=== PATIENT | male | born 1950 | race Caucasian/White ===

== ENCOUNTER 2024-10-30 18:26 | Inpatient (IN) | payer MEDICARE, OTHER, SELFPAY ==
[2024-10-30] VITALS (8 sets, daily range): BP systolic 127–160; BP diastolic 61–83; BMI 17.7; BMI 17.3
[2024-10-30] MEDS: DUONEB 3 ML INH ×2 (14:43→20:16)
--- NOTE | 2024-10-30 14:50 | ED.GENMED ---
History of Present Illness
General
Chief Complaint: Breathing Problem
Source: patient
Exam Limitations: none
Time Seen by Provider: 10/30/24 14:34
History of Present Illness
History of Present Illness:
74-year-old male never been here before but with history of COPD CHF A-fib status post ablation not currently anticoagulated due to history of gastrointestinal bleeding present complaining of increased work of breathing. This has been worsening
over the past 4 days. He notes subjective fever at home. He lives with his sister. originally he is from [facility] but has been living with his sister since June. He is not established with any physicians around here. He denies
chest pain.
Phy Exam
Physical Exam
Physical Exam:
General: Cachectic male with increased work of breathing
HEENT: Normocephalic atraumatic
Heart: Regular rate and rhythm
Lungs: Diffuse inspiratory and expiratory wheeze with prolonged expiratory phase there is a productive cough
Extremities: No cyanosis or edema
Skin: Warm no rash
Scores
Heart Failure Risk
Heart Failure Risk Score: Not Applicable
Course
Orders/Labs/Results
Orders:
Orders
10/30/24 13:55
Electrocardiogram (*1) Urgent
Reason for Study: Shortness of Breath
EKG- Treatment ONCE
10/30/24 14:08
Chest [CR Chest - 2 Views ] Urgent
Comment:
Reason For Exam: SOB
10/30/24 14:42
Ipratropium/Albuterol Sulfate [Duoneb] 3 ml .ROUTE .STK-MED ONE
10/30/24 14:43
Ipratropium/Albuterol Sulfate [Duoneb] 3 ml INH R NOW ONE
10/30/24 14:44
Dexamethasone Sod Phosphate [Decadron] 10 mg IV NOW STA
10/30/24 15:33
COVID-19 Antigen Urgent
Source: Nasal Swab
Complete Blood Count/With Diff Urgent
Comprehensive Metabolic Panel Urgent
NT-proBNP Urgent
Troponin I Urgent
Influenza A+B Rapid Molecular Urgent
[facility] Source: Nasal Swab
Specimen Description:
Abnormal Lab Results
10/30/24
15:33
RBC 3.53 L 10^6/uL
(4.70-6.10)
Hgb 10.5 L g/dL
(13.0-18.0)
Hct 34.1 L %
(39.0-52.0)
MCV 96.6 H fL
(80.0-94.0)
MCHC 30.8 L g/dL
(33.0-37.0)
Absolute Lymphs (auto) 0.8 L 10^3/uL
(1.2-3.4)
Neutrophils % 79.8 H %
(42.2-75.2)
Lymphocytes % 11.5 L %
(20.5-51.1)
Potassium 5.3 H mmol/L
(3.5-5.1)
Carbon Dioxide 33 H mmol/L
(22-30)
10/30/24 15:33
10/30/24 15:33
Vital Signs
Initial and Last Documented VS:
Initial Vital Signs
Temp Pulse Resp BP Pulse Ox
99.1 F 89 32 127/66 95
10/30/24 14:01 10/30/24 14:01 10/30/24 14:01 10/30/24 14:01 10/30/24 14:01
Last Documented Vital Signs
Temp Pulse Resp BP Pulse Ox
99.1 F 70 14 143/69 100
10/30/24 14:01 10/30/24 15:45 10/30/24 15:45 10/30/24 15:35 10/30/24 15:45
MDM/Problems Addressed
Differential Diagnosis Includes:
Shortness of breath. Differential could include COPD exacerbation versus CHF versus pneumonia versus flu or COVID.
Flu and COVID test ordered. Chest x-ray ordered. DuoNeb ordered after exam Decadron ordered. Patient currently on his baseline 4 L of oxygen but is tachypneic
*Critical Care Note
Total Time (30-74mins, 75-104mins- exclusive of procedures): Not Applicable
Update Note
Update Note:
Chest x-ray shows no obvious acute finding. Patient notes some relief with nebulizer and steroid here. Patient was in significant distress when he first came with tachypnea and increased work of breathing. Shared decision making occurred. Will
keep patient in hospital for COPD flare
ED Attending Note
-
Portions of this chart may have been created with voice recognition software.� Occasional wrong word or��sound alike� substitutions may have occurred due to the inherent limitations of voice recognition software.
Discharge Plan
Departure
Patient Disposition: Admit
Date of Disposition: 10/30/24
Time of Disposition: 16:41
Presentation/result/management discussed w/ accepting MD/DO: Hospitalist
Discharge Problem:
Acute exacerbation of chronic obstructive pulmonary disease
Referrals:
UNKNOWN - PT DOES,NOT KNOW [Family Provider] -
Interventions
Interventions:
*Risk Screen - Suicide Last Done: 10/30/24 14:01
*General Assessment Last Done: 10/30/24 14:01
*Neglect/Abuse Screening Last Done: 10/30/24 15:37
ED- Fall Risk Assessment Last Done: 10/30/24 15:37
*ED COVID-19 Vaccine History Last Done: 10/30/24 14:01
ED- Cardiac Assessment Last Done: 10/30/24 15:45
ED- Pulmonary Assessment Last Done: 10/30/24 15:45
Discharge Date and Time
Print Language: LATVIAN
[2024-10-30] MEDS: DECADRON 10 MG IV (15:31)
[2024-10-30 15:48] LABS: % Basophils 0.4 % (0-2); % Eosinophils 0.1 % (0-6); % Immature Granulocytes 0.4 % (0-0.5); % Lymphocytes 11.5 % (20.5-51.1); % Monocytes 7.8 % (1.7-9.3); % Neutrophils 79.8 % (42.2-75.2); Absolute Lymphocytes 0.8 10^3/uL (1.2-3.4); Absolute Monocytes 0.6 10^3/uL (0.1-0.6); Absolute Neutrophils 5.8 10^3/uL (1.4-6.5); Hematocrit 34.1 % (39.0-52.0); Hemoglobin 10.5 g/dL (13.0-18.0); Mean Corp Hgb Conc. 30.8 g/dL (33.0-37.0); Mean Corpuscular Hgb 29.7 pg (27.0-31.0); Mean Corpuscular Volume 96.6 fL (80.0-94.0); Mean Platelet Volume 9.3 fL (7.4-10.4); Nucleated Red Blood Cells % 0 % (-); Platelet Count 312 10^3/uL (130-400); Red Blood Cell Count 3.53 10^6/uL (4.70-6.10); Red Cell Dist. Width 13.4 % (11.5-14.5); White Blood Cell Count 7.3 10^3/uL (4.8-10.8)
[2024-10-30 16:04] LABS: ALT (SGPT) 14 U/L (0-50); AST (SGOT) 27 U/L (17-59); Albumin 3.7 g/dl (3.5-5.0); Alkaline Phosphatase 38 U/L (38-126); Blood Urea Nitrogen 14 mg/dl (9-20); Calcium 9.9 mg/dl (8.4-10.2); Carbon Dioxide 33 mmol/L (22-30); Chloride 100 mmol/L (98-107); Estimated Creatinine Clearance 71 ml/min; Glucose 97 mg/dl (70-99); Potassium 5.3 mmol/L (3.5-5.1); Sodium 138 mmol/L (135-145); Total Bilirubin 0.5 mg/dl (0.2-1.3); Total Protein 6.5 g/dl (6.3-8.2); eGFR > 60.00
[2024-10-30 16:12] LABS: NT-proBNP 625 pg/ml; Troponin I 0.018 ng/ml
[2024-10-30 16:15] LABS: COVID-19 Antigen Negative (Negative)
--- NOTE | 2024-10-30 17:42 | HPS.HSE ---
Family Physician
-
Family Physician: NOT KNOW UNKNOWN - PT DOES
Chief Complaint
-
Shortness of breath
History of Present Illness
Patient 74-year-old male with history of COPD, CHF, A-fib, hypertension, hyperlipidemia, GERD, BPH, anxiety depression, came into the hospital with shortness of breath. Patient has been experiencing difficulty breathing associated with cough with
green sputum production over the last 5 days associated with subjective fevers, no chills, no chest pain. No leg pain or swelling. No abdominal pain nausea or vomiting. Patient uses 4 L of oxygen at baseline. He typically goes to [place] for his
medical care but he moved back in June to his sister's and he is staying locally but he tells me he still sees his PCP in a regular basis. In the ER he had a chest x-ray that shows no acute pathology but he was in respiratory distress and he was
given IV steroids and bronchodilators. He was referred to hospitalist service for further evaluation.
Medical History
Past Medical History
Past Medical History: Reports Other (COPD, CHF, A-fib, hypertension, hyperlipidemia, GERD, BPH, anxiety depression)
Past Surgical History: Reports None
Social History
Tobacco: Former Smoker
Alcohol: None
Drug: None
Family History
Family History: Not pertinent
Allergies / Home Medications
Allergies reflects when Allergies were last updated in [employer].
Home Medications with original date entered in [employer]
Allergy/Medication List:
Allergies
Allergy/AdvReac Type Severity Reaction Status Date / Time
No Known Allergies Allergy Unverified 10/30/24 14:06
Home Medications
Lactobac no.2-Bifidobac no.1-S. thermo 112.5 billion cell capsule (Visbiome) 1 cap PO DAILY 10/30/24
albuterol sulfate 90 mcg/actuation aerosol inhaler 2 puff inhalation R Q6HPRN PRN sob 10/30/24
alfuzosin 10 mg tablet,extended release 24 hr 10 mg PO DAILY 10/30/24
apixaban 5 mg tablet (Eliquis) 5 mg PO BID 10/30/24
atorvastatin 40 mg tablet 40 mg PO DAILY 10/30/24
buspirone 5 mg tablet 5 mg PO BID 10/30/24
diltiazem HCl 180 mg capsule,extended release 24 hr (Cardizem CD) 180 mg PO DAILY 10/30/24
finasteride 5 mg tablet 5 mg PO DAILY 10/30/24
fluticasone fur. 200 mcg-umeclid 62.5 mcg-vilant 25 mcg inhalat.powder (Trelegy Ellipta) 1 inh inhalation R DAILY 10/30/24
furosemide 20 mg tablet 20 mg PO BID 10/30/24
gabapentin 300 mg capsule 300 mg PO BID 10/30/24
magnesium oxide 250 mg PO BID 10/30/24
pantoprazole 40 mg tablet,delayed release 40 mg PO DAILY 10/30/24
potassium chloride 10 mEq tablet,extended release 10 meq PO BID 10/30/24
sildenafil (pulm.hypertension) 20 mg tablet 20 mg PO DAILY 10/30/24
therapeutic multivitamin 1 tab PO DAILY 10/30/24
Review of Systems
-
A 12 point ROS was completed and negative except as noted: Yes
Physical Exam
Vital Signs
Vital Signs
Temp Pulse Resp BP Pulse Ox
99.1 F 70 14 143/69 100
10/30/24 14:01 10/30/24 15:45 10/30/24 15:45 10/30/24 15:35 10/30/24 15:45
Physical exam:
General: Acutely ill
HEENT: Normocephalic, Atraumatic and Moist Mucous Membranes
Respiratory: Bilateral wheezes, some rhonchi, no crackles.
Cardiac: Regular Rhythm and S1/S2
GI: Soft, Nontender and Nondistended
Musculoskeletal: No Clubbing, No Cyanosis and trace Edema
Neuro: Awake, Alert and Oriented
Psych: Calm
Physical Exam
General: Other
Laboratory Results
-
10/30/24 15:33
10/30/24 15:33
Laboratory Results
Total Bilirubin 0.5 mg/dl (0.2-1.3) 10/30/24 15:33
AST 27 U/L (17-59) 10/30/24 15:33
ALT 14 U/L (0-50) 10/30/24 15:33
Alkaline Phosphatase 38 U/L (38-126) 10/30/24 15:33
Troponin I 0.018 ng/ml 10/30/24 15:33
Data Reviewed
-
Diagnostic Radiology: Image Personally Visualized and interpreted
Lab Data: Labs Reviewed by me
Impression/Plan
-
IMPRESSION:
Patient 74-year-old male with multiple comorbidities presented to the hospital with acute COPD exacerbation. Given patient's acute presentation and comorbidities he is at increased risk of morbidity and mortality therefore needs to be in the
hospital for further evaluation.
PLAN:
Acute COPD exacerbation:
IV steroids, dexamethasone 4 mg every 6 hours
DuoNeb 4 times daily
Start oral azithromycin
Pulmicort twice daily
Obtain sputum culture
Acute respiratory insufficiency:
Seen chest x-ray and no pneumonia
COVID and influenza negative
Oxygen supplementation
Carbon dioxide/bicarb on Chem-7 mildly elevated but mentation stable-if any of those two get worse then can consider ABG.
Monitor respiratory status closely
Chronic hypoxic respiratory failure on home oxygen:
Continue oxygen (at home he is on 4 L)
Hyperkalemia:
Mild and likely due to potassium supplementation
Hold potassium
If potassium goes above 5.5 or any cardiac issues then will treat with Lokelma
Monitor for now
Cardiac monitoring
Pulmonary hypertension:
Continue oral sildenafil
Hypertension:
Continue home antihypertensives
Hyperlipidemia:
Continue statins
Paroxysmal A-fib:
Continue rate control, Cardizem CD 180 mg p.o. daily
Continue anticoagulation, Eliquis 5 mg p.o. twice a day--> ER documented not on anticoagulation due to bleeding but when I asked the patient he says that he is on anticoagulation and taking Eliquis. For now we will continue and will clarify with
collateral down the road.
Cardiac monitoring
Chronic diastolic CHF:
Euvolemic
Continue oral diuretic
Holding potassium supplement for now
Anemia:
Monitor hemoglobin
No signs of bleeding
BPH:
Continue finasteride
DVT prophylaxis:
Eliquis
CODE STATUS:
Full code
Time spent 75 minutes
[2024-10-30] MEDS: ZITHROMAX 500 MG PO (19:14)
[2024-10-30] MEDS: PULMICORT 0.5 MG INH (20:16)
[2024-10-30] MEDS: LASIX 20 MG PO (20:57)
[2024-10-30] MEDS: BUSPAR 5 MG PO (20:58)
[2024-10-30] MEDS: ELIQUIS 5 MG PO (20:58)
[2024-10-30] MEDS: MAGNESIUM OXIDE 250 MG PO (20:58)
[2024-10-30] MEDS: NEURONTIN 300 MG PO (20:58)
[2024-10-30] MEDS: DECADRON 4 MG IV (22:46)
[2024-10-31 03:22] VITALS: BP 129/43
[2024-10-31] MEDS: DECADRON 4 MG IV ×4 (03:26→21:48)
--- NOTE | 2024-10-31 04:23 | PTCARENOTE ---
Pt arrived to unit from ED at approx 2009. Patient transferred self onto bed from transport bed. Alert and oriented x 3. On 4 L Oxygen via nasal cannula. Oriented to room. Call zhang within reach.
[2024-10-31 05:43] VITALS: BMI 17.3
[2024-10-31 06:31] LABS: % Immature Granulocytes 0.7 % (0-0.5); % Monocytes 1.2 % (1.7-9.3); % Neutrophils 89.1 % (42.2-75.2); Absolute Lymphocytes 0.4 10^3/uL (1.2-3.4); Absolute Monocytes 0.1 10^3/uL (0.1-0.6); Absolute Neutrophils 3.6 10^3/uL (1.4-6.5); Hematocrit 32.9 % (39.0-52.0); Hemoglobin 10.5 g/dL (13.0-18.0); Mean Corp Hgb Conc. 31.9 g/dL (33.0-37.0); Mean Corpuscular Hgb 29.7 pg (27.0-31.0); Mean Corpuscular Volume 92.9 fL (80.0-94.0); Mean Platelet Volume 9.7 fL (7.4-10.4); Nucleated Red Blood Cells % 0 % (-); Platelet Count 343 10^3/uL (130-400); Red Blood Cell Count 3.54 10^6/uL (4.70-6.10); Red Cell Dist. Width 13.2 % (11.5-14.5); White Blood Cell Count 4.1 10^3/uL (4.8-10.8)
[2024-10-31 07:15] VITALS: BP 155/72
[2024-10-31] MEDS: BUSPAR 5 MG PO ×2 (08:25→20:10)
[2024-10-31] MEDS: NEURONTIN 300 MG PO ×2 (08:25→20:10)
[2024-10-31] MEDS: CARDIZEM CD 180 MG PO (08:25)
[2024-10-31] MEDS: LIPITOR 40 MG PO (08:25)
[2024-10-31] MEDS: MAGNESIUM OXIDE 250 MG PO ×2 (08:25→20:11)
[2024-10-31] MEDS: FLOMAX 0.4 MG PO (08:25)
[2024-10-31] MEDS: REVATIO 20 MG PO (08:25)
[2024-10-31] MEDS: LASIX 20 MG PO ×2 (08:26→15:15)
[2024-10-31] MEDS: PROTONIX 40 MG PO (08:26)
[2024-10-31] MEDS: PROSCAR 5 MG PO (08:26)
[2024-10-31] MEDS: ELIQUIS 5 MG PO ×2 (08:26→20:11)
[2024-10-31] MEDS: ZITHROMAX 500 MG PO (08:27)
[2024-10-31] MEDS: PULMICORT 0.5 MG INH ×2 (08:28→19:11)
[2024-10-31] MEDS: DUONEB 3 ML INH ×4 (08:29→19:11)
--- NOTE | 2024-10-31 08:52 | W.PN.HOSP.TC ---
Today's Communication/Plan
-
IV steroids. Bronchodilators. Pulmonary eval
Assessment / Plan
Assessment / Plan
Physical exam:
General: Acutely ill but nontoxic
HEENT: Normocephalic, Atraumatic and Moist Mucous Membranes
Respiratory: Decreased breath sounds bilateral, bilateral wheezes but much less. No crackles
Cardiac: Regular Rhythm and S1/S2
GI: Soft, Nontender and Nondistended
Musculoskeletal: No Clubbing, No Cyanosis and No Edema
Neuro: Awake, Alert and Oriented
Psych: Calm
A/P:
Acute COPD exacerbation:
IV steroids, dexamethasone 4 mg every 6 hours
DuoNeb 4 times daily
Continue oral azithromycin
Pulmicort twice daily
Obtain sputum culture
Pulmonary eval
PT OT
Acute respiratory insufficiency:
Seen chest x-ray and no pneumonia
COVID and influenza negative
Oxygen supplementation
Carbon dioxide/bicarb on Chem-7 mildly elevated but mentation stable-if any of those two get worse then can consider ABG.
Monitor respiratory status closely
Chronic hypoxic respiratory failure on home oxygen:
Continue oxygen (at home he is on 4 L)
Hyperkalemia:
Improved
Pulmonary hypertension:
Continue oral sildenafil
Hypertension:
Continue home antihypertensives
Hyperlipidemia:
Continue statins
Paroxysmal A-fib:
Continue rate control, Cardizem CD 180 mg p.o. daily
Continue anticoagulation, Eliquis 5 mg p.o. twice a day
Cardiac monitoring
Chronic diastolic CHF:
Euvolemic
Continue oral diuretic
Holding potassium supplement for now
Anemia:
Monitor hemoglobin
No signs of bleeding
BPH:
Continue finasteride
DVT prophylaxis:
Eliquis
CODE STATUS:
Full code
Anticipated Discharge: 24 - 48 hours
Subjective/Interval History
-
Date of Service: October 31, 2024
Patient feels better today; still cough and shortness of breath but much less. Afebrile
Objective Data
-
Labs:
Laboratory Results
10/31/24
06:09
WBC 4.1 L
Hgb 10.5 L
Hct 32.9 L
Plt Count 343
Vital Signs:
Vital Signs
Temp Pulse Resp BP Pulse Ox
98.6 F 87 19 155/72 98
10/31/24 07:15 10/31/24 08:33 10/31/24 08:33 10/31/24 07:15 10/31/24 08:33
I&O
10/30/24 10/31/24 11/01/24
06:59 06:59 06:59
Intake Total 240 / 240 420 / 420
Output Total 650 / 650 125 / 125
Balance -410 / -410 295 / 295
[2024-10-31 10:18] LABS: Blood Urea Nitrogen 18 mg/dl (9-20); Calcium 9.6 mg/dl (8.4-10.2); Carbon Dioxide 31 mmol/L (22-30); Chloride 96 mmol/L (98-107); Estimated Creatinine Clearance 61 ml/min; Glucose 295 mg/dl (70-99); Potassium 4.6 mmol/L (3.5-5.1); Sodium 136 mmol/L (135-145); eGFR > 60.00
[2024-10-31 10:38] VITALS: BMI 17.3
[2024-10-31 11:11] VITALS: BP 115/54
[2024-10-31 12:02] LABS: Glucose - Point of Care 242 mg/dl (70-99)
--- NOTE | 2024-10-31 12:30 | CM ---
Pt seen bedside, initial assessment completed. Admitted for shortness of breath. Pt recently moved from [place].
Pt reports that he lives w/ his sister in a split level home- no steps. Pt says he resides on the second flr of the home. Pt reports that he is independent w/ ambulating, does not require any device. Pt states he is on continuous O2 at 4L. Pt states
that he does not have a supplier yet as he gets O2 refills from [facility]. Pt states he has a neb machine.
Pt denies any SNF/VN/PT hx.
PCP: Dr. Meeks
Pharmacy: [facility]
Plan: CM will cont to follow for d/c planning
[2024-10-31] MEDS: NOVOLOG FLEXPEN-MODERATE RESISTANCE 3 UNITS SC (12:40)
[2024-10-31 14:12] LABS: Hepatitis C Antibody Negative (Negative)
[2024-10-31 15:11] VITALS: BP 97/63
[2024-10-31] MEDS: TYLENOL 650 MG PO ×2 (15:14→21:50)
[2024-10-31] MEDS: LIDOCAINE 4% PATCH 1 PATCH TOPICAL (15:14)
[2024-10-31 17:00] LABS: Glucose - Point of Care 153 mg/dl (70-99)
[2024-10-31] MEDS: NOVOLOG FLEXPEN-MODERATE RESISTANCE 1 UNITS SC (17:11)
[2024-10-31 19:48] VITALS: BP 102/58
[2024-10-31 21:58] LABS: Glucose - Point of Care 245 mg/dl (70-99)
[2024-10-31] MEDS: REFRESH EYE DROPS (PF) 1 DROPS OPHTH (22:20)
[2024-10-31 23:43] VITALS: BP 132/65
[2024-11-01] VITALS (8 sets, daily range): BP systolic 111–144; BP diastolic 51–78; PULSE 81–82; O2SAT 97–98; BMI 18.0
[2024-11-01] MEDS: DECADRON 4 MG IV ×4 (04:26→20:52)
[2024-11-01 07:15] LABS: Blood Urea Nitrogen 30 mg/dl (9-20); Calcium 9.8 mg/dl (8.4-10.2); Carbon Dioxide 34 mmol/L (22-30); Chloride 98 mmol/L (98-107); Estimated Creatinine Clearance 63 ml/min; Glucose 141 mg/dl (70-99); Potassium 4.8 mmol/L (3.5-5.1); Sodium 136 mmol/L (135-145); eGFR > 60.00
[2024-11-01 07:28] LABS: Glucose - Point of Care 147 mg/dl (70-99)
[2024-11-01] MEDS: PULMICORT 0.5 MG INH ×2 (08:29→19:20)
[2024-11-01] MEDS: DUONEB 3 ML INH ×4 (08:29→19:20)
[2024-11-01] MEDS: NOVOLOG FLEXPEN-MODERATE RESISTANCE SC ×2 (08:38→17:05)
[2024-11-01] MEDS: MAGNESIUM OXIDE 250 MG PO ×2 (08:40→20:53)
[2024-11-01] MEDS: PROTONIX 40 MG PO (08:40)
[2024-11-01] MEDS: LIDOCAINE 4% PATCH 1 PATCH TOPICAL (08:40)
[2024-11-01] MEDS: NEURONTIN 300 MG PO ×2 (08:41→20:53)
[2024-11-01] MEDS: ZITHROMAX 500 MG PO (08:41)
[2024-11-01] MEDS: REVATIO 20 MG PO (08:41)
[2024-11-01] MEDS: FLOMAX 0.4 MG PO (08:41)
[2024-11-01] MEDS: LIPITOR 40 MG PO (08:41)
[2024-11-01] MEDS: CARDIZEM CD 180 MG PO (08:41)
[2024-11-01] MEDS: BUSPAR 5 MG PO ×2 (08:42→20:52)
[2024-11-01] MEDS: LASIX 20 MG PO ×2 (08:42→15:29)
[2024-11-01] MEDS: PROSCAR 5 MG PO (08:42)
[2024-11-01] MEDS: ELIQUIS 5 MG PO ×2 (08:42→20:53)
--- NOTE | 2024-11-01 09:16 | W.PN.HOSP.TC ---
Today's Communication/Plan
-
Steroids. Bronchodilators. Oral antibiotic
Assessment / Plan
Assessment / Plan
Physical exam:
General: Acutely ill but nontoxic
HEENT: Normocephalic, Atraumatic and Moist Mucous Membranes
Respiratory: Decreased breath sounds bilateral, bilateral wheezes but much less. No crackles
Cardiac: Regular Rhythm and S1/S2
GI: Soft, Nontender and Nondistended
Musculoskeletal: No Clubbing, No Cyanosis and No Edema
Neuro: Awake, Alert and Oriented
Psych: Calm
A/P:
Acute COPD exacerbation:
IV steroids, dexamethasone 4 mg every 6 hours
DuoNeb 4 times daily
Continue oral azithromycin
Pulmicort twice daily
Obtain sputum culture
Pulmonary consult appreciated
PT OT
Acute respiratory insufficiency:
Seen chest x-ray and no pneumonia
COVID and influenza negative
Oxygen supplementation
Monitor respiratory status closely
Chronic hypoxic respiratory failure on home oxygen:
Continue oxygen (at home he is on 4 L)
Hyperkalemia:
Improved
Pulmonary hypertension:
Continue oral sildenafil
Hypertension:
Continue home antihypertensives
Hyperlipidemia:
Continue statins
Paroxysmal A-fib:
Continue rate control, Cardizem CD 180 mg p.o. daily
Continue anticoagulation, Eliquis 5 mg p.o. twice a day
Cardiac monitoring
Chronic diastolic CHF:
Euvolemic
Continue oral diuretic
Holding potassium supplement for now
Anemia:
Monitor hemoglobin
No signs of bleeding
BPH:
Continue finasteride
DVT prophylaxis:
Eliquis
CODE STATUS:
Full code
Anticipated Discharge: 24 - 48 hours
Subjective/Interval History
-
Date of Service: November 01, 2024
Patient feels better overall, less shortness of breath, still having some cough. Afebrile
Objective Data
-
Labs:
Laboratory Results
11/01/24
05:58
Sodium 136
Potassium 4.8
Chloride 98
Carbon Dioxide 34 H
BUN 30 H
Creatinine 0.8
Glucose 141 H
Calcium 9.8
Vital Signs:
Vital Signs
Temp Pulse Resp BP Pulse Ox
98.7 F 88 16 140/60 99
11/01/24 07:30 11/01/24 08:29 11/01/24 08:29 11/01/24 07:30 11/01/24 08:29
I&O
10/31/24 11/01/24 11/02/24
06:59 06:59 06:59
Intake Total 240 / 240 1260 / 1260
Output Total 650 / 650 850 / 850
Balance -410 / -410 410 / 410
[2024-11-01 10:03] LABS: Glycohemoglobin (HgbA1c) 5.7 % (4.0-5.6)
[2024-11-01 12:36] LABS: Glucose - Point of Care 163 mg/dl (70-99)
[2024-11-01] MEDS: NOVOLOG FLEXPEN-MODERATE RESISTANCE 1 UNITS SC (12:52)
--- NOTE | 2024-11-01 14:04 | PTCARENOTE ---
11/01/2024 PRE-DIABETES EDUCATOIN
I met with Thomas to review pre-diabetes management, his blood glucose levels are currently in prediabetes range. Educated on cause of pre diabetes as possibly medications and importance of monitoring once home.
I educated and reviewed using Contour Next glucometer, member acknowledged understanding with a self demonstration of BS.
Discussed normal target glucose ranges and a monitoring schedule. I reinforced signs of hyperglycemia, hypoglycemia; BS parameters and written material provided. Educated on drinking water, physical activity to lower glucose levels and
hypoglycemia protocol. Encouraged patient to follow up with his PCP for post d/c appointment and to blood glucose levels. Information provided on the outpatient pre-diabetes program. Patient verbalized understanding.
--- NOTE | 2024-11-01 15:39 | CON.PUL ---
Consultation
Consultation Request
Date/Time Consultation Requested: 11/01/2024
Date/Time Consultation Performed: 11/01/2024
Requesting Provider:
Performing Provider: Dr. Jayden Bland
Reason for Consultation: Acute exacerbation of COPD
Medical History
-
History of Present Illness:
74-year-old man with history of COPD, heart failure, atrial fibrillation, hypertension, hyperlipidemia, GERD, BPH, anxiety and depression who came to the hospital with shortness of breath. Patient apparently has been having difficulty with cough,
green sputum over the last 5 to 6 days associated with fevers, denies any chest pain or chills. Denies hemoptysis.
Denies PND, orthopnea leg edema.
At baseline patient wears 4 L of supplemental oxygen.
He recently moved to this area from [place] in June.
Chest x-ray in the emergency room is clear but patient has been admitted for therapy of possible exacerbation of COPD due to acute bronchitis
I was consulted on 11/01/2024 for evaluation
Past Medical History
Past Medical History: Other (See assessment and plan)
Social History
Tobacco: Former Smoker
Alcohol: None
Drug: None
Family History
Family History: Reviewed & Not Pertinent
Allergies / Home Medications
Allergies
Allergy/AdvReac Type Severity Reaction Status Date / Time
No Known Allergies Allergy Unverified 10/30/24 14:06
Home Medications
�Medication �Instructions �Recorded �Confirmed �Last Taken �Type
Lactobac no.2-Bifidobac no.1-S. 1 cap PO DAILY Supplement 10/30/24 10/30/24 Unknown History
thermo 112.5 billion cell capsule
(Visbiome)
albuterol sulfate 90 mcg/actuation 2 puff inhalation R Q6HPRN PRN sob 10/30/24 10/30/24 Unknown History
aerosol inhaler
alfuzosin 10 mg tablet,extended 10 mg PO DAILY BPH 10/30/24 10/30/24 Unknown History
release 24 hr
apixaban 5 mg tablet (Eliquis) 5 mg PO BID Blood Clot 10/30/24 10/30/24 Unknown History
Prevention/Tx
atorvastatin 40 mg tablet 40 mg PO DAILY High Cholesterol 10/30/24 10/30/24 Unknown History
buspirone 5 mg tablet 5 mg PO BID Mental Health/Anxiety 10/30/24 10/30/24 Unknown History
diltiazem HCl 180 mg 180 mg PO DAILY Blood Pressure 10/30/24 10/30/24 Unknown History
capsule,extended release 24 hr
(Cardizem CD)
finasteride 5 mg tablet 5 mg PO DAILY BPH 10/30/24 10/30/24 Unknown History
fluticasone fur. 200 mcg-umeclid 1 inh inhalation R DAILY 10/30/24 10/30/24 Unknown History
62.5 mcg-vilant 25 mcg Lung/Breathing Issues
inhalat.powder (Trelegy Ellipta)
furosemide 20 mg tablet 20 mg PO BID Fluid 10/30/24 10/30/24 Unknown History
Retention/Swelling
gabapentin 300 mg capsule 300 mg PO BID Pain 10/30/24 10/30/24 Unknown History
magnesium oxide 250 mg PO BID Supplement 10/30/24 10/30/24 Unknown History
pantoprazole 40 mg tablet,delayed 40 mg PO DAILY GERD 10/30/24 10/30/24 Unknown History
release
potassium chloride 10 mEq 10 meq PO BID Supplement 10/30/24 10/30/24 Unknown History
tablet,extended release
sildenafil (pulm.hypertension) 20 20 mg PO DAILY PHTN 10/30/24 10/30/24 Unknown History
mg tablet
therapeutic multivitamin 1 tab PO DAILY Supplement 10/30/24 10/30/24 Unknown History
Review of Systems
-
History Source: Patient
All other systems: Negative unless noted
Vitals / Labs / Diagnostic Testing
Vital Signs
Temp Pulse Resp BP Pulse Ox
98.1 F 88 18 111/51 96
11/01/24 11:30 11/01/24 15:31 11/01/24 15:31 11/01/24 11:30 11/01/24 15:31
Lab Data
10/31/24 06:09
11/01/24 05:58
Microbiology
10/30/24 21:38 Sputum Respiratory Culture - Preliminary
Usual Respiratory Keke
10/30/24 21:38 Sputum Gram Stain - Preliminary
10/30/24 15:33 Nasal Swab Influenza Types A & B (DOREEN) - Final
Negative for Influenza A & B, NAAT
Negative results must be combined with clinical observations
and patient history.
Nucleic Acid Amplification test (NAAT)performed on the
[employer] platform.
Diagnostic Testing:
Physical Exam
-
HEENT: Normocephalic
Cardiovascular: S1/S2
Respiratory: Wheeze
GI: Soft and Non Distended
Neurology: Awake, Alert, AO x 3 and No Motor Deficits
Skin: Warm
General: Comfortable
Assessment
-
74-year-old man with past medical history noted. Came to the hospital complaining of cough, increased phlegm production. Shortness of breath. Admitted for acute exacerbation of COPD. Usually does not care locally. He recently relocated from
[place]. We were consulted on 11/01/2024 for evaluation.
Acute exacerbation of COPD-acute tracheobronchitis
Chest x-ray: Reviewed, hyperinflation, no acute infiltrates noted.
[id number] reason-no prior based
Conditions present prior admission:
COPD-on 4 L of oxygen
Unknown PFTs. Does not follow-up locally
On Trelegy
Chronic hypoxemic respiratory failure on 4 L
Pulmonary hypertension-unknown mechanism on sildenafil
Hyperlipidemia
Atrial fibrillation on anticoagulation
Chronic heart failure with preserved ejection fraction
Anemia
BPH
Assessment and plan:
Clinical picture consistent with acute exacerbation of COPD likely tracheobronchitis.
There is no fevers or leukocytosis.
He does have discolored sputum
Agree with azithromycin
For now while on exacerbation: Agree with Pulmicort twice a day
DuoNebs 4 times a day and as needed
IV corticosteroids-without change for today.
Acapella device
Continue ox supplementation 4 L at baseline.
Hold inhalers while on nebulizer therapy.
-
Obtain a sputum culture if able-pending
---
Continue sildenafil for pulmonary hypertension. Unclear mechanism. Patient does not recall what Given this medication.
He would like to establish care locally
-
He does report that usually he gets 3-4 exacerbations per year. May be a candidate for low-dose macrolide therapy. Will readdress this in the outpatient setting.
Will need full pulmonary function testing etc.
May benefit from pulmonary habilitation as well.
-
DVT prophylaxis-on full anticoagulation
-
Will follow
[2024-11-01 16:48] LABS: Glucose - Point of Care 147 mg/dl (70-99)
[2024-11-01] MEDS: TYLENOL 650 MG PO (20:51)
[2024-11-01] MEDS: SENOKOT-S 1 TABLET PO (20:52)
[2024-11-01 21:23] LABS: Glucose - Point of Care 223 mg/dl (70-99)
[2024-11-02] VITALS (8 sets, daily range): BP systolic 126–137; BP diastolic 57–80; PULSE 63; O2SAT 99; BMI 18.5
[2024-11-02] MEDS: DECADRON 4 MG IV ×4 (04:48→20:28)
[2024-11-02 07:30] LABS: Glucose - Point of Care 138 mg/dl (70-99)
[2024-11-02] MEDS: PULMICORT 0.5 MG INH ×2 (07:49→20:04)
[2024-11-02] MEDS: DUONEB 3 ML INH ×4 (07:49→20:04)
[2024-11-02] MEDS: LASIX 20 MG PO ×2 (08:00→15:56)
[2024-11-02] MEDS: BUSPAR 5 MG PO ×2 (08:00→20:28)
[2024-11-02] MEDS: CARDIZEM CD 180 MG PO (08:00)
[2024-11-02] MEDS: LIPITOR 40 MG PO (08:00)
[2024-11-02] MEDS: ELIQUIS 5 MG PO ×2 (08:00→20:27)
[2024-11-02] MEDS: LIDOCAINE 4% PATCH 1 PATCH TOPICAL (08:00)
[2024-11-02] MEDS: MAGNESIUM OXIDE 250 MG PO ×2 (08:05→20:27)
[2024-11-02] MEDS: NOVOLOG FLEXPEN-MODERATE RESISTANCE SC ×3 (08:05→16:31)
[2024-11-02] MEDS: ZITHROMAX 500 MG PO (08:05)
[2024-11-02] MEDS: PROTONIX 40 MG PO (08:06)
[2024-11-02] MEDS: NEURONTIN 300 MG PO ×2 (08:06→20:27)
[2024-11-02] MEDS: PROSCAR 5 MG PO (08:07)
[2024-11-02] MEDS: REVATIO 20 MG PO (08:07)
[2024-11-02] MEDS: FLOMAX 0.4 MG PO (08:07)
[2024-11-02] MEDS: TYLENOL 650 MG PO ×3 (08:10→20:27)
--- NOTE | 2024-11-02 09:07 | W.PN.HOSP.TC ---
Addendum entered and electronically signed by Christopher David MD 11/02/24 16:52:
Hyponatremia
Diabetes Mellitus type 2
Addendum entered and electronically signed by Christopher David MD 11/02/24 14:20:
Reported episodes of tachycardia--> twelve-lead EKG, telemetry, check stat BMP and magnesium.
Pain at nighttime--> Ultram as needed.
Original Note:
Today's Communication/Plan
-
Steroids. Bronchodilators. Antibiotic
Assessment / Plan
Assessment / Plan
Physical exam:
General: Acutely ill but nontoxic
HEENT: Normocephalic, Atraumatic and Moist Mucous Membranes
Respiratory: Decreased breath sounds bilateral, bilateral wheezes but much less. No crackles
Cardiac: Regular Rhythm and S1/S2
GI: Soft, Nontender and Nondistended
Musculoskeletal: No Clubbing, No Cyanosis and No Edema
Neuro: Awake, Alert and Oriented
Psych: Calm
A/P:
Acute COPD exacerbation:
IV steroids, dexamethasone 4 mg every 6 hours--> can likely start tapering but we will wait for pulmonary recommendations.
Add Mucinex today
DuoNeb 4 times daily
Continue oral azithromycin
Pulmicort twice daily
Obtain sputum culture
Pulmonary consult appreciated
PT OT
Acute respiratory insufficiency:
Seen chest x-ray and no pneumonia
COVID and influenza negative
Oxygen supplementation
Monitor respiratory status closely
Chronic hypoxic respiratory failure on home oxygen:
Continue oxygen (at home he is on 4 L)
Hyperkalemia:
Improved
Pulmonary hypertension:
Continue oral sildenafil
Hypertension:
Continue home antihypertensives
Hyperlipidemia:
Continue statins
Paroxysmal A-fib:
Continue rate control, Cardizem CD 180 mg p.o. daily
Continue anticoagulation, Eliquis 5 mg p.o. twice a day
Cardiac monitoring
Chronic diastolic CHF:
Euvolemic
Continue oral diuretic
Holding potassium supplement for now
Anemia:
Monitor hemoglobin
No signs of bleeding
BPH:
Continue finasteride
DVT prophylaxis:
Eliquis
CODE STATUS:
Full code
Anticipated Discharge: 24 - 48 hours
Subjective/Interval History
-
Date of Service: November 02, 2024
Patient feels better overall. Does complaint I cannot get the phlegm out
Objective Data
-
Vital Signs:
Vital Signs
Temp Pulse Resp BP Pulse Ox
98.4 F 72 18 132/79 94
11/02/24 07:30 11/02/24 07:53 11/02/24 07:53 11/02/24 07:30 11/02/24 07:53
I&O
11/01/24 11/02/24 11/03/24
06:59 06:59 06:59
Intake Total 1260 / 1260 1060 / 1060
Output Total 850 / 850 2099 / 2099
Balance 410 / 410 -1040 / -1040
[2024-11-02 12:12] LABS: Glucose - Point of Care 139 mg/dl (70-99)
--- NOTE | 2024-11-02 12:20 | PTCARENOTE ---
11/02- Patient had 3 runs of RVR AFib with HR between 135-155. Each run lasted ~1-2seconds each and self-resolved. HR currently is at 98 still in AFib. Patient is AAOX3, Skin=warm/pink/dry with +PulsesX4. Patient has no reports of CP or SOB.
However he does report spells of dizziness. He states, 'I'm just sedrick it only lasted 1-2 seconds this time. At home, it'll last for minutes.' Educated on when to call physician and when to seek immediate medical care. Notified Cardiology
Physician.
[2024-11-02] MEDS: MUCINEX 600 MG PO ×2 (13:41→20:27)
[2024-11-02 15:06] LABS: Blood Urea Nitrogen 37 mg/dl (9-20); Calcium 9.6 mg/dl (8.4-10.2); Carbon Dioxide 37 mmol/L (22-30); Chloride 94 mmol/L (98-107); Estimated Creatinine Clearance 58 ml/min; Glucose 190 mg/dl (70-99); Magnesium 2.3 mg/dl (1.6-2.3); Potassium 4.7 mmol/L (3.5-5.1); Sodium 134 mmol/L (135-145); eGFR > 60.00
--- NOTE | 2024-11-02 15:39 | CM ---
CM reviewed chart, patient seen bedside. CM discussed PT recommendations of VN, patient agreeable to referral to [facility]. TT to [facility] liaison with referral. CM will continue to follow for all discharge planning needs.
Plan; home with [facility] pending acceptance, on home O2
--- NOTE | 2024-11-02 15:42 | W.PN.PUL3 ---
Today's Communication / Plan
-
Continue IV corticosteroid
Continue nebulizer
Continue secretion clearance interventions
Continue azithromycin
Oxygen supplementation at baseline
To establish care locally
Will follow
Assessment
-
74-year-old man with past medical history noted. Came to the hospital complaining of cough, increased phlegm production. Shortness of breath. Admitted for acute exacerbation of COPD. Usually does not care locally. He recently relocated from
[place]. We were consulted on 11/01/2024 for evaluation.
Acute exacerbation of COPD-acute tracheobronchitis
Chest x-ray: Reviewed, hyperinflation, no acute infiltrates noted.
Vjjuiu-[id number] reason-no prior based
Conditions present prior admission:
COPD-on 4 L of oxygen
Unknown PFTs. Does not follow-up locally
On Trelegy
Chronic hypoxemic respiratory failure on 4 L
Pulmonary hypertension-unknown mechanism on sildenafil
Hyperlipidemia
Atrial fibrillation on anticoagulation
Chronic heart failure with preserved ejection fraction
Anemia
BPH
Assessment and plan:
Clinical picture consistent with acute exacerbation of COPD likely tracheobronchitis.
-
There is no fevers or leukocytosis.
He does have discolored sputum
Continue azithromycin
For now while on exacerbation:
Continue nebulized Pulmicort twice a day.
DuoNebs 4 times a day and as needed
IV corticosteroids-without change for today. If improved can start tapering tomorrow.
Acapella device-encourage
Continue ox supplementation 4 L at baseline.
Hold inhalers while on nebulizer therapy.
-
Sputum culture with mold. Likely contaminant. Usual respiratory noelle.
Negative influenza
---
Continue sildenafil for pulmonary hypertension. Unclear mechanism. Patient does not recall what Given this medication. He seems stable.
He would like to establish care locally
-
He does report that usually he gets 3-4 exacerbations per year. May be a candidate for low-dose macrolide therapy. Will readdress this in the outpatient setting.
Will need full pulmonary function testing etc.
May benefit from pulmonary habilitation as well.
-
DVT prophylaxis-on full anticoagulation
-
Will follow
Subjective Data
-
Date of Service:
Date of Service: November 02, 2024
Chief Complaint: Pulmonary Follow Up (Acute exacerbation of COPD)
Subjective:
Continues to report cough and chest congestion
Denies hemoptysis
Still feels short of breath
Review of Systems
Cardiopulmonary: Dyspnea, Cough and Sputum Production
Objective Data
Data Reviewed
Vital Signs / I&O / Oxygen:
Vital Signs
Temp Pulse Resp BP Pulse Ox
98.2 F 60 18 127/57 100
11/02/24 11:00 11/02/24 11:00 11/02/24 11:00 11/02/24 11:00 11/02/24 11:00
Intake and Output
11/01/24 11/02/24 11/03/24
06:59 06:59 06:59
Intake Total 1260 / 1260 1060 / 1060
Output Total 850 / 850 2100 / 2100
Balance 410 / 410 -1040 / -1040
SaO2 100
Nasal Cannula flow liters per 4
minute
Physical Exam
General: Comfortable
HEENT: Normocephalic
Cardiovascular: S1-S2
Respiratory: Wheeze and Rhonchi
GI: Soft and Non Distended
Neurology: Awake and No Motor Deficits
Skin: Warm
Labs/Micro/Reports
Lab Data
10/31/24 06:09
11/02/24 14:45
Microbiology
10/30/24 21:38 Sputum Respiratory Culture - Final
Mold
10/30/24 21:38 Sputum Gram Stain - Final
10/30/24 15:33 Nasal Swab Influenza Types A & B (DOREEN) - Final
Negative for Influenza A & B, NAAT
Negative results must be combined with clinical observations
and patient history.
Nucleic Acid Amplification test (NAAT)performed on the
RABBL platform.
--- NOTE | 2024-11-02 16:31 | VNURNOTE ---
Addendum entered by Eloise Padilla RN 11/05/24 11:11:
VN spoke with patient at bedside. He is agreeable to [facility]. He stated 02 DME co. in [place] was [facility]. He has an Inogen, portable tanks, and 02 concentrator through DME co in [place]. He has a neb machine. He stated he also used a
second DME co from [place] but could not remember the name. Message left with [facility]. Patient has moved in with sister in [place]. Will set him up with a local DME co, he is agreeable. He will need new home 02 testing and Rx closer to [place]. CM
Lydia updated.
Original Note:
Home Health Liaison called patient to discuss [facility] nurse/therapy, visits, schedule and homebound status. Patient is agreeable and understands that visits at home will be 2-3 x per week to assess and teach medical management. No answer, left
message. Unclear who home 02 DME provider is and if needs to switch providers since recently moved. [facility] referral completed in [facility].
[2024-11-02] MEDS: MIRALAX 17 GRAMS PO (16:32)
[2024-11-02 16:35] LABS: Glucose - Point of Care 135 mg/dl (70-99)
[2024-11-02] MEDS: GLUCOPHAGE 500 MG PO (17:53)
[2024-11-02 21:18] LABS: Glucose - Point of Care 222 mg/dl (70-99)
[2024-11-02] MEDS: ULTRAM 50 MG PO (21:18)
[2024-11-03] MEDS: DECADRON 4 MG IV ×3 (03:25→15:37)
[2024-11-03 03:31] LABS: Glucose - Point of Care 151 mg/dl (70-99)
[2024-11-03 06:00] VITALS: BMI 17.4
[2024-11-03] MEDS: TYLENOL 650 MG PO ×2 (06:22→20:22)
[2024-11-03 07:00] VITALS: BP 141/67
[2024-11-03 07:20] LABS: Glucose - Point of Care 151 mg/dl (70-99)
[2024-11-03] MEDS: PULMICORT 0.5 MG INH ×2 (08:04→20:42)
[2024-11-03] MEDS: DUONEB 3 ML INH ×4 (08:05→20:42)
[2024-11-03 08:29] LABS: Blood Urea Nitrogen 33 mg/dl (9-20); Calcium 9.4 mg/dl (8.4-10.2); Carbon Dioxide 35 mmol/L (22-30); Chloride 94 mmol/L (98-107); Estimated Creatinine Clearance 61 ml/min; Glucose 137 mg/dl (70-99); Sodium 135 mmol/L (135-145); eGFR > 60.00
[2024-11-03] MEDS: NOVOLOG FLEXPEN-MODERATE RESISTANCE 1 UNITS SC (08:41)
[2024-11-03] MEDS: LIDOCAINE 4% PATCH 1 PATCH TOPICAL (08:42)
[2024-11-03] MEDS: FLOMAX 0.4 MG PO (08:43)
[2024-11-03] MEDS: MAGNESIUM OXIDE 250 MG PO ×2 (08:43→20:18)
[2024-11-03] MEDS: REVATIO 20 MG PO (08:43)
[2024-11-03] MEDS: ZITHROMAX 500 MG PO (08:43)
[2024-11-03] MEDS: PROTONIX 40 MG PO (08:43)
[2024-11-03] MEDS: GLUCOPHAGE 500 MG PO ×2 (08:44→17:32)
[2024-11-03] MEDS: LASIX 20 MG PO ×2 (08:44→15:36)
[2024-11-03] MEDS: MUCINEX 600 MG PO ×2 (08:44→20:19)
[2024-11-03] MEDS: NEURONTIN 300 MG PO ×2 (08:44→20:19)
[2024-11-03] MEDS: CARDIZEM CD 180 MG PO (08:44)
[2024-11-03] MEDS: BUSPAR 5 MG PO ×2 (08:44→20:19)
[2024-11-03] MEDS: LIPITOR 40 MG PO (08:45)
[2024-11-03] MEDS: ELIQUIS 5 MG PO ×2 (08:45→20:19)
[2024-11-03] MEDS: PROSCAR 5 MG PO (08:45)
--- NOTE | 2024-11-03 09:30 | W.PN.HOSP.TC ---
Today's Communication/Plan
-
IV steroids. Bronchodilators. Metformin.
Assessment / Plan
Assessment / Plan
Physical exam:
General: Acutely ill but nontoxic
HEENT: Normocephalic, Atraumatic and Moist Mucous Membranes
Respiratory: Decreased breath sounds bilateral, bilateral wheezes but less. No crackles
Cardiac: Regular Rhythm and S1/S2
GI: Soft, Nontender and Nondistended
Musculoskeletal: No Clubbing, No Cyanosis and No Edema
Neuro: Awake, Alert and Oriented
Psych: Calm
A/P:
Acute COPD exacerbation:
IV steroids, dexamethasone 4 mg every 6 hours--> will taper today to 4 mg every 8 hours.
Add Mucinex today
DuoNeb 4 times daily
Continue oral azithromycin
Pulmicort twice daily
Obtain sputum culture
Pulmonary consult appreciated
PT OT
Acute respiratory insufficiency:
Seen chest x-ray and no pneumonia
COVID and influenza negative
Oxygen supplementation
Monitor respiratory status closely
Chronic hypoxic respiratory failure on home oxygen:
Continue oxygen (at home he is on 4 L)
Hyponatremia:
Monitor trend
Diabetes mellitus type 2 (new onset):
No DKA or nonketotic state
Started on metformin
Diabetic diet
Diabetic education
Insulin sliding scale
Hyperkalemia:
Improved
Pulmonary hypertension:
Continue oral sildenafil
Hypertension:
Continue home antihypertensives
Hyperlipidemia:
Continue statins
Paroxysmal A-fib:
Continue rate control, Cardizem CD 180 mg p.o. daily
Continue anticoagulation, Eliquis 5 mg p.o. twice a day
Cardiac monitoring
Chronic diastolic CHF:
Euvolemic
Continue oral diuretic
Holding potassium supplement for now
Anemia:
Monitor hemoglobin
No signs of bleeding
BPH:
Continue finasteride
DVT prophylaxis:
Eliquis
CODE STATUS:
Full code
Anticipated Discharge: 24 - 48 hours
Subjective/Interval History
-
Date of Service: November 03, 2024
Patient still with cough and shortness of breath. Afebrile
Objective Data
-
Labs:
Laboratory Results
11/03/24
05:48
Sodium 135
Potassium 5.0
Chloride 94 L
Carbon Dioxide 35 H
BUN 33 H
Creatinine 0.8
Glucose 137 H
Calcium 9.4
Vital Signs:
Vital Signs
Temp Pulse Resp BP Pulse Ox
97.3 F 69 18 141/67 100
11/03/24 07:00 11/03/24 07:00 11/03/24 08:09 11/03/24 07:00 11/03/24 08:09
I&O
11/02/24 11/03/24 11/04/24
06:59 06:59 06:59
Intake Total 1060 / 1060 840 / 840
Output Total 2100 / 2099 1300 / 1300
Balance -1040 / -1040 -460 / -460
[2024-11-03 11:00] VITALS: BP 112/56
[2024-11-03 11:38] LABS: Glucose - Point of Care 243 mg/dl (70-99)
[2024-11-03] MEDS: NOVOLOG FLEXPEN-MODERATE RESISTANCE 3 UNITS SC ×2 (12:40→17:31)
[2024-11-03 15:11] VITALS: BP 103/55
[2024-11-03] MEDS: MUCOMYST 10% 2 ML INH ×2 (15:29→20:45)
--- NOTE | 2024-11-03 15:50 | W.PN.PUL3 ---
Today's Communication / Plan
-
Continue IV corticosteroid --> consider weaning down tomorrow if he continues to improve
Continue Pulmicort + DuoNebs
Continue secretion clearance interventions
Start prn Mucinex
Continue azithromycin
Oxygen supplementation at baseline
To establish care locally
Will follow
Assessment
-
74-year-old man with past medical history noted. Came to the hospital complaining of cough, increased phlegm production. Shortness of breath. Admitted for acute exacerbation of COPD. Usually does not care locally. He recently relocated from
[place]. We were consulted on 11/01/2024 for evaluation.
Acute exacerbation of COPD-acute tracheobronchitis
Chest x-ray: Reviewed, hyperinflation, no acute infiltrates noted.
[id number] prior available for comparison
Conditions present prior admission:
COPD-on 4 L of oxygen
Unknown PFTs. Does not follow-up locally
On Trelegy
Chronic hypoxemic respiratory failure on 4 L
Pulmonary hypertension-unknown mechanism on sildenafil
Hyperlipidemia
Atrial fibrillation on anticoagulation
Chronic heart failure with preserved ejection fraction
Anemia
BPH
Assessment and plan:
Clinical picture consistent with acute exacerbation of COPD likely tracheobronchitis.
-
There is no fevers or leukocytosis.
He does have discolored sputum
Continue azithromycin (started 10/30)
Start Mucomyst 10% prn
Continue Pulmicort BID + DuoNebs QID with prn DuoNebs
IV corticosteroids-without change for today. If improved can start tapering tomorrow to 4mg IV q12hr
Acapella device-encourage
Continue ox supplementation 4 L at baseline.
Hold Trelegy while on nebulizer therapy --> resume Trelegy upon discharge
-
Sputum culture with mold. Likely contaminant. Usual respiratory noelle.
Negative for influenza A + B
---
Continue sildenafil 20mg daily for pulmonary hypertension. Unclear mechanism. Patient does not recall what Dr gave him this medication. He seems stable.
He would like to establish care locally
-
He does report that usually he gets 3-4 exacerbations per year. May be a candidate for low-dose macrolide therapy vs Ohtuvayre. Will readdress this in the outpatient setting.
Will need full pulmonary function testing etc.
May benefit from pulmonary habilitation as well.
-
DVT prophylaxis-on full anticoagulation
-
Will follow
Total time spent today was 36 minutes for this encounter. Time includes reviewing laboratory test/imaging results, reviewing pertinent medical records, obtaining and reviewing medical history, performing an appropriate exam, ordering medications,
tests and procedures. Time also includes documentation of this encounter, coordinating patient care and communicating with other healthcare professionals. Total time does not include separately billed tests performed on this date of service.
Subjective Data
-
Date of Service:
Date of Service: November 03, 2024
Chief Complaint: Pulmonary Follow Up (Acute exacerbation of COPD)
Subjective:
Patient seen and evaluated this morning (late note entry). Currently on 4 L/min nasal cannula, still short of breath, similar to yesterday. Has thick mucus that he is having difficulty bringing up. Denies chest pain, TSAI, nausea, fevers or chills.
Review of Systems
General: Other (Negative unless mentioned above)
Objective Data
Data Reviewed
Vital Signs / I&O / Oxygen:
Vital Signs
Temp Pulse Resp BP Pulse Ox
97.3 F 69 18 141/67 100
11/03/24 07:00 11/03/24 07:00 11/03/24 08:09 11/03/24 07:00 11/03/24 08:09
Intake and Output
11/02/24 11/03/24 11/04/24
06:59 06:59 06:59
Intake Total 1060 / 1060 840 / 840
Output Total 2100 / 2100 1300 / 1300
Balance -1040 / -1040 -460 / -460
SaO2 100
Nasal Cannula flow liters per 4
minute
Physical Exam
General: Respiratory Distress (negative), Comfortable, Chills (negative) and Sweats (negative)
HEENT: Normocephalic and Anicteric
Cardiovascular: S1-S2 and Peripheral Edema (negative)
Respiratory: Wheeze (negative), Crackles (negative), Rhonchi, Stridor (negative) and Other (Diminished breath sounds bilaterally)
GI: Soft, Non Distended, Non Tender and Normal Bowel Sounds
Neurology: Awake, Alert and Tremors (negative)
Skin: Warm, Dry, Cyanosis (negative) and Jaundice (negative)
Labs/Micro/Reports
Lab Data
10/31/24 06:09
11/03/24 05:48
Microbiology
10/30/24 21:38 Sputum Respiratory Culture - Final
Mold
10/30/24 21:38 Sputum Gram Stain - Final
[2024-11-03 17:13] LABS: Glucose - Point of Care 216 mg/dl (70-99)
[2024-11-03 19:05] VITALS: BP 146/62
[2024-11-03] MEDS: SENOKOT-S 1 TABLET PO (20:19)
[2024-11-03] MEDS: ULTRAM 50 MG PO (20:21)
[2024-11-03] MEDS: ROBITUSSIN AC 5 ML PO (22:09)
[2024-11-03 22:13] LABS: Glucose - Point of Care 155 mg/dl (70-99)
[2024-11-03 23:18] VITALS: BP 140/60
[2024-11-04] MEDS: DECADRON 4 MG IV ×3 (00:26→20:26)
[2024-11-04 03:01] VITALS: BP 126/72
[2024-11-04 05:53] VITALS: BMI 17.3
[2024-11-04] MEDS: PULMICORT 0.5 MG INH ×2 (07:24→19:15)
[2024-11-04] MEDS: DUONEB 3 ML INH ×4 (07:24→19:15)
[2024-11-04 07:28] LABS: Glucose - Point of Care 155 mg/dl (70-99)
[2024-11-04 07:34] VITALS: BP 148/69
[2024-11-04 07:55] LABS: Blood Urea Nitrogen 37 mg/dl (9-20); Calcium 9.6 mg/dl (8.4-10.2); Carbon Dioxide 36 mmol/L (22-30); Chloride 91 mmol/L (98-107); Estimated Creatinine Clearance 54 ml/min; Glucose 140 mg/dl (70-99); Potassium 4.9 mmol/L (3.5-5.1); Sodium 133 mmol/L (135-145); eGFR > 60.00
[2024-11-04 08:00] VITALS: BMI 17.3
[2024-11-04] MEDS: NOVOLOG FLEXPEN-MODERATE RESISTANCE 1 UNITS SC ×2 (08:11→11:44)
[2024-11-04] MEDS: LIDOCAINE 4% PATCH 1 PATCH TOPICAL (08:12)
[2024-11-04] MEDS: LASIX 20 MG PO ×2 (08:13→15:29)
[2024-11-04] MEDS: MAGNESIUM OXIDE 250 MG PO ×2 (08:13→20:26)
[2024-11-04] MEDS: CARDIZEM CD 180 MG PO (08:13)
[2024-11-04] MEDS: LIPITOR 40 MG PO (08:13)
[2024-11-04] MEDS: PROTONIX 40 MG PO (08:13)
[2024-11-04] MEDS: ZITHROMAX 500 MG PO (08:13)
[2024-11-04] MEDS: PROSCAR 5 MG PO (08:13)
[2024-11-04] MEDS: GLUCOPHAGE 500 MG PO ×2 (08:14→15:29)
[2024-11-04] MEDS: MUCINEX 600 MG PO ×2 (08:14→20:25)
[2024-11-04] MEDS: REVATIO 20 MG PO (08:14)
[2024-11-04] MEDS: NEURONTIN 300 MG PO ×2 (08:14→20:25)
[2024-11-04] MEDS: BUSPAR 5 MG PO ×2 (08:14→20:25)
[2024-11-04] MEDS: ELIQUIS 5 MG PO ×2 (08:14→20:25)
[2024-11-04] MEDS: FLOMAX 0.4 MG PO (08:14)
--- NOTE | 2024-11-04 09:20 | W.PN.HOSP.TC ---
Today's Communication/Plan
-
Tapering IV steroids. Continue bronchodilators and oral diuretic.
Assessment / Plan
Assessment / Plan
Physical exam:
General: Acutely ill but nontoxic
HEENT: Normocephalic, Atraumatic and Moist Mucous Membranes
Respiratory: Decreased breath sounds bilateral, bilateral wheezes but much less. No crackles
Cardiac: Regular Rhythm and S1/S2
GI: Soft, Nontender and Nondistended
Musculoskeletal: No Clubbing, No Cyanosis and No Edema
Neuro: Awake, Alert and Oriented
Psych: Calm
A/P:
Acute COPD exacerbation:
IV steroids, dexamethasone 4 mg every 6 hours--> down to 4 mg every 8 hours yesterday--> today taper down to 4 mg IV every 12 hours and can consider switch to oral tomorrow.
Continue Mucinex today
DuoNeb 4 times daily
Continue oral azithromycin
Pulmicort twice daily
Obtain sputum culture
Pulmonary consult and follow-up appreciated
PT OT
Acute respiratory insufficiency:
Seen chest x-ray and no pneumonia
COVID and influenza negative
Oxygen supplementation
Monitor respiratory status closely
Chronic hypoxic respiratory failure on home oxygen:
Continue oxygen (at home he is on 4 L)
Hyponatremia:
Start fluid restriction
Monitor trend
Diabetes mellitus type 2 (new onset):
No DKA or nonketotic state
Started on metformin
Diabetic diet
Diabetic education
Insulin sliding scale
Hyperkalemia:
Improved
Pulmonary hypertension:
Continue oral sildenafil
Hypertension:
Continue home antihypertensives
Hyperlipidemia:
Continue statins
Paroxysmal A-fib:
Continue rate control, Cardizem CD 180 mg p.o. daily
Continue anticoagulation, Eliquis 5 mg p.o. twice a day
Cardiac monitoring
Chronic diastolic CHF:
Euvolemic
Continue oral diuretic
Holding potassium supplement for now
Anemia:
Monitor hemoglobin
No signs of bleeding
BPH:
Continue finasteride
DVT prophylaxis:
Eliquis
CODE STATUS:
Full code
Anticipated Discharge: Within 24 hours
Subjective/Interval History
-
Date of Service: November 04, 2024
Patient feels better, less shortness of breath, less cough. No chest pain. Afebrile
Objective Data
-
Labs:
Laboratory Results
11/04/24
05:48
Sodium 133 L
Potassium 4.9
Chloride 91 L
Carbon Dioxide 36 H
BUN 37 H
Creatinine 0.9
Glucose 140 H
Calcium 9.6
Vital Signs:
Vital Signs
Temp Pulse Resp BP Pulse Ox
98.3 F 60 16 148/69 100
11/04/24 07:34 11/04/24 08:04 11/04/24 08:04 11/04/24 07:34 11/04/24 08:04
I&O
11/03/24 11/04/24 11/05/24
06:59 06:59 06:59
Intake Total 840 / 840 1580 / 1580
Output Total 1300 / 1300 200 / 200
Balance -460 / -460 1380 / 1380
[2024-11-04 10:46] VITALS: BP 123/52
[2024-11-04 10:56] LABS: Glucose - Point of Care 192 mg/dl (70-99)
[2024-11-04] MEDS: MUCOMYST 10% 2 ML INH ×2 (11:06→15:11)
--- NOTE | 2024-11-04 13:20 | W.PN.PUL3 ---
Today's Communication / Plan
-
Continue IV corticosteroid --> consider weaning down tomorrow if he continues to improve and if wheezing is improved
Continue Pulmicort + DuoNebs
Continue secretion clearance interventions
Continue prn mucomyst
Start vest therapy if patient continues to have difficulty with expectoration
Start scheduled Tessalon Perles
Continue azithromycin
Oxygen supplementation at baseline
To establish care locally
Will follow
Assessment
-
74-year-old man with past medical history noted. Came to the hospital complaining of cough, increased phlegm production. Shortness of breath. Admitted for acute exacerbation of COPD. Usually does not care locally. He recently relocated from
[place]. We were consulted on 11/01/2024 for evaluation.
Acute exacerbation of COPD-acute tracheobronchitis
Chest x-ray: Reviewed, hyperinflation, no acute infiltrates noted.
[id number] prior available for comparison
Conditions present prior admission:
COPD-on 4 L of oxygen
Unknown PFTs. Does not follow-up locally
On Trelegy
Chronic hypoxemic respiratory failure on 4 L
Pulmonary hypertension-unknown mechanism on sildenafil
Hyperlipidemia
Atrial fibrillation on anticoagulation
Chronic heart failure with preserved ejection fraction
Anemia
BPH
Assessment and plan:
Clinical picture consistent with acute exacerbation of COPD likely tracheobronchitis.
-
There is no fevers or leukocytosis.
He does have discolored sputum
Continue azithromycin (started 10/30)
Continue Mucomyst 10% prn (started 11/03/2024)
Continue Pulmicort BID + DuoNebs QID with prn DuoNebs
IV corticosteroids-without change for today as he is wheezing. If improved can start tapering tomorrow to 4mg IV q12hr
Acapella device-encourage
May need vest therapy if he continues to have difficulty with expectoration
Continue ox supplementation 4 L at baseline.
Hold Trelegy while on nebulizer therapy --> resume Trelegy upon discharge
-
Sputum culture with mold. Likely contaminant. Usual respiratory noelle.
Negative for influenza A + B
---
Continue sildenafil 20mg daily for pulmonary hypertension. Unclear mechanism. Patient does not recall what Dr gave him this medication. He seems stable.
He would like to establish care locally
-
He does report that usually he gets 3-4 exacerbations per year. May be a candidate for low-dose macrolide therapy vs Ohtuvayre. Will readdress this in the outpatient setting.
Will need full pulmonary function testing etc.
May benefit from pulmonary habilitation as well.
-
DVT prophylaxis-on full anticoagulation
-
Will follow
Total time spent today was 41 minutes for this encounter. Time includes reviewing laboratory test/imaging results, reviewing pertinent medical records, obtaining and reviewing medical history, performing an appropriate exam, ordering medications,
tests and procedures. Time also includes documentation of this encounter, coordinating patient care and communicating with other healthcare professionals. Total time does not include separately billed tests performed on this date of service.
Subjective Data
-
Date of Service:
Date of Service: November 04, 2024
Chief Complaint: Pulmonary Follow Up (Acute exacerbation of COPD)
Subjective:
Patient seen and evaluated today at bedside. He says he feels better today. Currently on 4 L/min nasal cannula. Still short of breath with activity and the nebulizers do help him feel better. He has a mild cough which sounds wet and he has
difficulty bringing up phlegm. Of note, he wears 4 L/min nasal cannula at home ATC. He denies chest pain, TSAI, nausea, fevers or chills.
Review of Systems
General: Other (Negative unless mentioned above)
Objective Data
Data Reviewed
Vital Signs / I&O / Oxygen:
Vital Signs
Temp Pulse Resp BP Pulse Ox
98.3 F 60 16 148/69 100
11/04/24 07:34 11/04/24 08:04 11/04/24 08:04 11/04/24 07:34 11/04/24 08:04
Intake and Output
11/03/24 11/04/24 11/05/24
06:59 06:59 06:59
Intake Total 840 / 840 1580 / 1580
Output Total 1300 / 1300 200 / 200
Balance -460 / -460 1380 / 1380
SaO2 100
Nasal Cannula flow liters per 4
minute
Physical Exam
General: Respiratory Distress (negative), Comfortable, Chills (negative) and Sweats (negative)
HEENT: Normocephalic and Anicteric
Cardiovascular: S1-S2 and Peripheral Edema (negative)
Respiratory: Wheeze ([place] upon expiration bilaterally), Crackles (negative), Rhonchi (L >R), Stridor (negative) and Other (Diminished breath sounds bilaterally)
GI: Soft, Non Distended, Non Tender and Normal Bowel Sounds
Neurology: Awake, Alert and Tremors (negative)
Skin: Warm, Dry, Cyanosis (negative) and Jaundice (negative)
Labs/Micro/Reports
Lab Data
10/31/24 06:09
11/04/24 05:48
Microbiology
10/30/24 21:38 Sputum Respiratory Culture - Final
Mold
10/30/24 21:38 Sputum Gram Stain - Final
[2024-11-04 14:52] VITALS: BP 132/55
[2024-11-04 15:15] LABS: Glucose - Point of Care 141 mg/dl (70-99)
[2024-11-04] MEDS: NOVOLOG FLEXPEN-MODERATE RESISTANCE SC (15:28)
[2024-11-04] MEDS: TESSALON PERLES 200 MG PO ×2 (15:28→22:27)
[2024-11-04] MEDS: TYLENOL 650 MG PO (16:35)
[2024-11-04 19:42] VITALS: BP 120/64
[2024-11-04] MEDS: ULTRAM 50 MG PO (20:36)
[2024-11-04 21:45] LABS: Glucose - Point of Care 188 mg/dl (70-99)
[2024-11-04] MEDS: ROBITUSSIN AC 5 ML PO (22:27)
[2024-11-04 23:10] VITALS: BP 139/56
[2024-11-05 03:36] VITALS: BP 150/65
[2024-11-05 06:00] VITALS: BMI 17.7
[2024-11-05] MEDS: PULMICORT 0.5 MG INH ×2 (07:21→20:19)
[2024-11-05] MEDS: DUONEB 3 ML INH ×4 (07:21→20:20)
[2024-11-05 07:26] LABS: Glucose - Point of Care 145 mg/dl (70-99)
[2024-11-05 07:34] VITALS: BP 153/69
[2024-11-05 08:06] LABS: Blood Urea Nitrogen 34 mg/dl (9-20); Calcium 9.5 mg/dl (8.4-10.2); Carbon Dioxide 34 mmol/L (22-30); Chloride 92 mmol/L (98-107); Estimated Creatinine Clearance 62 ml/min; Glucose 127 mg/dl (70-99); Potassium 4.6 mmol/L (3.5-5.1); Sodium 132 mmol/L (135-145); eGFR > 60.00
[2024-11-05] MEDS: NOVOLOG FLEXPEN-MODERATE RESISTANCE SC (09:16)
[2024-11-05] MEDS: ZITHROMAX 500 MG PO (09:17)
[2024-11-05] MEDS: MAGNESIUM OXIDE 250 MG PO ×2 (09:17→20:04)
[2024-11-05] MEDS: PROTONIX 40 MG PO (09:18)
[2024-11-05] MEDS: REVATIO 20 MG PO (09:18)
[2024-11-05] MEDS: CARDIZEM CD 180 MG PO (09:18)
[2024-11-05] MEDS: LIPITOR 40 MG PO (09:19)
[2024-11-05] MEDS: MUCINEX 600 MG PO ×2 (09:19→20:04)
[2024-11-05] MEDS: GLUCOPHAGE 500 MG PO (09:19)
[2024-11-05] MEDS: ELIQUIS 5 MG PO ×2 (09:19→20:05)
[2024-11-05] MEDS: PROSCAR 5 MG PO (09:20)
[2024-11-05] MEDS: DECADRON 4 MG IV (09:20)
[2024-11-05] MEDS: NEURONTIN 300 MG PO ×2 (09:20→20:04)
[2024-11-05] MEDS: FLOMAX 0.4 MG PO (09:20)
[2024-11-05] MEDS: LIDOCAINE 4% PATCH 1 PATCH TOPICAL (09:21)
[2024-11-05] MEDS: TESSALON PERLES 200 MG PO ×3 (09:21→21:48)
[2024-11-05] MEDS: LASIX 20 MG PO ×2 (09:22→17:33)
[2024-11-05] MEDS: BUSPAR 5 MG PO ×2 (09:23→20:05)
--- NOTE | 2024-11-05 10:27 | W.PN.HOSP.TC ---
Today's Communication/Plan
-
still wheezing - slow recovery. cont same steroids
Assessment / Plan
Assessment / Plan
74yo M with chronic hypoxic respiratory failure on 4L home O2 2/2 COPD, Afib on Eliquis,HLD, BPH, anxiety came with worsening SOB and managed for acute COPD exacerbation
A/P:
#CHronic hypoxic respiratory failure on 4L O2
#Acute COPD exacerbation
COVID-19 and influenza neg
No pneumonia
Taper steroids, cont bronchodilators
Risk Tech follows
Trop WNL, ProBNP minimally elevated <800 on admission, no overt ACS signs on repeated EKG and no volume overload clinically
#Hyprglycemia 2/2 steroids w/o over DM
stop metformin
#Mild anemia
#mild hyponatremia
monitro
#transient hyperkalemia
resolved
#Paroxysmal Afib
#Essential HTN
#GERD
#HLD
#BPH
cont home meds
DVT ppx on Eliquis
Full code
I have spent at least 38min reviewing chart, test results and providing direct patient care
Anticipated Discharge: > 48 hours
Subjective/Interval History
-
Date of Service: November 05, 2024
Objective Data
-
Labs:
Laboratory Results
11/05/24
07:01
Sodium 132 L
Potassium 4.6
Chloride 92 L
Carbon Dioxide 34 H
BUN 34 H
Creatinine 0.8
Glucose 127 H
Calcium 9.5
Vital Signs:
Vital Signs
Temp Pulse Resp BP Pulse Ox
97.9 F 62 18 153/99 97
11/05/24 07:34 11/05/24 09:18 11/05/24 07:34 11/05/24 09:18 11/05/24 07:34
I&O
11/04/24 11/05/24 11/06/24
06:59 06:59 06:59
Intake Total 1580 / 1580 1320 / 1320
Output Total 200 / 200 1100 / 1100
Balance 1380 / 1380 220 / 220
Review of Systems
-
History Source: Patient
All other systems: Reviewed and negative
Respiratory: Reports Trouble Breathing and Wheezing
Physical Exam
-
General: Comfortable
HEENT: Normocephalic
Respiratory: Wheezes
Cardiac: Irregular Rhythm
GI: Soft, Nontender and Nondistended
Musculoskeletal: No Clubbing, No Cyanosis and No Edema
Neuro: Awake, Alert, Oriented and AO x 3
Psych: Calm
[2024-11-05 11:05] LABS: Glucose - Point of Care 222 mg/dl (70-99)
--- NOTE | 2024-11-05 11:07 | W.PN.PUL3 ---
Today's Communication / Plan
-
Remains on 4L NC, home O2 eval
Encouraged OOB, IS
Transition to PO taper today
Continued on home dose of lasix, nebulizers
Eval for d/c planning in next 24 hours
Assessment
-
74-year-old man with past medical history noted. Came to the hospital complaining of cough, increased phlegm production. Shortness of breath. Admitted for acute exacerbation of COPD. Usually does not care locally. He recently relocated from
[place]. We were consulted on 11/01/2024 for evaluation.
Acute exacerbation of COPD-acute tracheobronchitis
Chest x-ray: Reviewed, hyperinflation, no acute infiltrates noted.
Auqvwx-vymgvaquxk-mx prior available for comparison
Conditions present prior admission:
COPD-on 4 L of oxygen
Unknown PFTs. Does not follow-up locally
On Trelegy
Chronic hypoxemic respiratory failure on 4 L
Pulmonary hypertension-unknown mechanism on sildenafil
Hyperlipidemia
Atrial fibrillation on anticoagulation
Chronic heart failure with preserved ejection fraction
Anemia
BPH
Plan:
Clinical picture consistent with acute exacerbation of COPD likely tracheobronchitis.
Currently 99% on 4L NC
Home O2 eval
Encouraged OOB
There is no fevers or leukocytosis.
He does have discolored sputum
Continue azithromycin (started 10/30)
Continue Mucomyst 10% prn (started 11/03/2024)
Continue Pulmicort BID + DuoNebs QID with prn DuoNebs
IV corticosteroids-without change for today as he is wheezing--taper today to PO
Acapella device-encourage
May need vest therapy if he continues to have difficulty with expectoration
Continue ox supplementation 4 L at baseline.
Hold Trelegy while on nebulizer therapy --> resume Trelegy upon discharge
-
Sputum culture with mold. Likely contaminant. Usual respiratory noelle.
Negative for influenza A + B
Continue sildenafil 20mg daily for pulmonary hypertension. Unclear mechanism. Patient does not recall what Dr gave him this medication. He seems stable.
He would like to establish care locally
-
He does report that usually he gets 3-4 exacerbations per year. May be a candidate for low-dose macrolide therapy vs Ohtuvayre. Will readdress this in the outpatient setting.
Will need full pulmonary function testing etc.
May benefit from pulmonary habilitation as well.
-
DVT prophylaxis-on full anticoagulation
-
Will follow
Diagnostic Data
CXR 10/30/24- Somewhat hyperinflated lungs. No acute pulmonary process. Central pulmonary arteries at least top normal.
-----
Total time spent today was 51 minutes for this encounter. Time includes reviewing laboratory test/imaging results, reviewing pertinent medical records, obtaining and reviewing medical history, performing an appropriate exam, ordering medications,
tests and procedures. Time also includes documentation of this encounter, coordinating patient care and communicating with other healthcare professionals. Total time does not include separately billed tests performed on this date of service.
Subjective Data
-
Date of Service:
Date of Service: November 05, 2024
Chief Complaint: Pulmonary Follow Up (Acute exacerbation of COPD)
Subjective:
No new complaints, remains SOB with exertion
Remains on 4L 99%
Objective Data
Data Reviewed
Vital Signs / I&O / Oxygen:
Vital Signs
Temp Pulse Resp BP Pulse Ox
97.9 F 62 18 153/99 97
11/05/24 07:34 11/05/24 09:18 11/05/24 07:34 11/05/24 09:18 11/05/24 07:34
Intake and Output
11/04/24 11/05/24 11/06/24
06:59 06:59 06:59
Intake Total 1580 / 1580 1320 / 1320
Output Total 200 / 200 1100 / 1100
Balance 1380 / 1380 220 / 220
SaO2 97
Nasal Cannula flow liters per 4
minute
Physical Exam
General: Respiratory Distress (negative), Comfortable, Chills (negative) and Sweats (negative)
HEENT: Normocephalic, Anicteric and Moist Mucous Membranes
Cardiovascular: S1-S2, Regular Rhythm and Peripheral Edema (negative)
Respiratory: Wheeze ([place] upon expiration bilaterally, slight/improving), Crackles (negative), Rhonchi (L >R), Stridor (negative) and Other (Diminished breath sounds bilaterally)
GI: Soft, Non Distended, Non Tender and Normal Bowel Sounds
Neurology: Awake, Alert, Oriented and Tremors (negative)
Skin: Warm, Dry, Cyanosis (negative) and Jaundice (negative)
Labs/Micro/Reports
Lab Data
10/31/24 06:09
11/05/24 07:01
Microbiology
10/30/24 21:38 Sputum Respiratory Culture - Final
Mold
10/30/24 21:38 Sputum Gram Stain - Final
[2024-11-05 11:20] VITALS: BP 112/54
[2024-11-05] MEDS: NOVOLOG FLEXPEN-MODERATE RESISTANCE 3 UNITS SC (11:55)
[2024-11-05 15:16] VITALS: BP 132/77
--- NOTE | 2024-11-05 15:17 | VNURNOTE ---
Rec'ed updated info that patient is also current with [facility]. Confirmed that they service the [facility]. Patient needs to call them at old branch ([facility]) to inform them that he's moved and they will transfer his info to local branch.
Liaison met with patient and informed him of above. He confirms he has portables, [employer], and concentrator at [facility].
--- NOTE | 2024-11-05 15:19 | CM ---
Chart reviewed for d/c planning. Care ongoing at this time. Cont steroids
Remains on 4L NC, home O2 eval prior to d/c
[facility] accepted for services, following for O2 needs
Plan: Home w/ [facility] when stable
[2024-11-05 15:42] LABS: Glucose - Point of Care 189 mg/dl (70-99)
[2024-11-05] MEDS: NOVOLOG FLEXPEN-MODERATE RESISTANCE 1 UNITS SC (17:35)
[2024-11-05 19:48] VITALS: BP 143/68
[2024-11-05] MEDS: REFRESH EYE DROPS (PF) 1 DROPS OPHTH (20:04)
[2024-11-05] MEDS: OCEAN, SALINE MIST 2 SPRAYS NASAL (21:48)
[2024-11-05] MEDS: ULTRAM 50 MG PO (21:51)
[2024-11-05] MEDS: ROBITUSSIN AC 5 ML PO (21:51)
[2024-11-05 22:00] LABS: Glucose - Point of Care 182 mg/dl (70-99)
[2024-11-05 22:44] VITALS: BP 141/59
[2024-11-06] VITALS (7 sets, daily range): BP systolic 115–159; BP diastolic 46–74; PULSE 63; O2SAT 99; BMI 17.5
[2024-11-06] MEDS: DUONEB 3 ML INH ×4 (07:40→19:11)
[2024-11-06] MEDS: PULMICORT 0.5 MG INH ×2 (07:40→19:11)
[2024-11-06 07:45] LABS: Glucose - Point of Care 136 mg/dl (70-99)
[2024-11-06 08:06] LABS: % Basophils 0.1 % (0-2); % Immature Granulocytes 0.7 % (0-0.5); % Lymphocytes 5.7 % (20.5-51.1); % Monocytes 8.3 % (1.7-9.3); % Neutrophils 85.2 % (42.2-75.2); Absolute Immature Granulocytes 0.1 10^3/uL (0-0.05); Absolute Lymphocytes 0.7 10^3/uL (1.2-3.4); Absolute Neutrophils 9.8 10^3/uL (1.4-6.5); Hematocrit 31.2 % (39.0-52.0); Hemoglobin 10.4 g/dL (13.0-18.0); Mean Corp Hgb Conc. 33.3 g/dL (33.0-37.0); Mean Corpuscular Hgb 30.2 pg (27.0-31.0); Mean Corpuscular Volume 90.7 fL (80.0-94.0); Mean Platelet Volume 10.2 fL (7.4-10.4); Nucleated Red Blood Cells % 0 % (-); Platelet Count 331 10^3/uL (130-400); Red Blood Cell Count 3.44 10^6/uL (4.70-6.10); Red Cell Dist. Width 13.2 % (11.5-14.5); White Blood Cell Count 11.5 10^3/uL (4.8-10.8)
[2024-11-06] MEDS: NOVOLOG FLEXPEN-MODERATE RESISTANCE SC ×2 (08:34→11:25)
[2024-11-06 08:36] LABS: ALT (SGPT) 24 U/L (0-50); AST (SGOT) 20 U/L (17-59); Albumin 3.2 g/dl (3.5-5.0); Alkaline Phosphatase 41 U/L (38-126); Blood Urea Nitrogen 37 mg/dl (9-20); Calcium 9.2 mg/dl (8.4-10.2); Carbon Dioxide 37 mmol/L (22-30); Chloride 93 mmol/L (98-107); Estimated Creatinine Clearance 70 ml/min; Glucose 100 mg/dl (70-99); Potassium 4.4 mmol/L (3.5-5.1); Sodium 132 mmol/L (135-145); Total Bilirubin 0.7 mg/dl (0.2-1.3); Total Protein 5.5 g/dl (6.3-8.2); eGFR > 60.00
[2024-11-06] MEDS: MAGNESIUM OXIDE 250 MG PO ×2 (08:37→20:26)
[2024-11-06] MEDS: ELIQUIS 5 MG PO ×2 (08:37→20:26)
[2024-11-06] MEDS: MUCINEX 600 MG PO ×2 (08:37→20:26)
[2024-11-06] MEDS: FLOMAX 0.4 MG PO (08:37)
[2024-11-06] MEDS: LIPITOR 40 MG PO (08:37)
[2024-11-06] MEDS: CARDIZEM CD 240 MG PO (08:37)
[2024-11-06] MEDS: LIDOCAINE 4% PATCH 1 PATCH TOPICAL (08:38)
[2024-11-06] MEDS: PROSCAR 5 MG PO (08:38)
[2024-11-06] MEDS: DELTASONE 50 MG PO (08:38)
[2024-11-06] MEDS: PROTONIX 40 MG PO (08:38)
[2024-11-06] MEDS: NEURONTIN 300 MG PO ×2 (08:38→20:26)
[2024-11-06] MEDS: ZITHROMAX 500 MG PO (08:38)
[2024-11-06] MEDS: LASIX 20 MG PO ×2 (08:38→15:22)
[2024-11-06] MEDS: REVATIO 20 MG PO (08:38)
[2024-11-06] MEDS: TESSALON PERLES 200 MG PO ×3 (08:38→21:58)
[2024-11-06] MEDS: BUSPAR 5 MG PO ×2 (08:39→20:26)
--- NOTE | 2024-11-06 10:29 | W.PN.PUL3 ---
Today's Communication / Plan
-
Remains on baseline O2 requirements
Steroids are transitioned to PO course, taper at d/c
Encouraged OOB, IS, PT
Discharge planning per team, OP FU as recommended
Assessment
-
74-year-old man with past medical history noted. Came to the hospital complaining of cough, increased phlegm production. Shortness of breath. Admitted for acute exacerbation of COPD. Usually does not care locally. He recently relocated from
[place]. We were consulted on 11/01/2024 for evaluation.
Acute exacerbation of COPD-acute tracheobronchitis
Chest x-ray: Reviewed, hyperinflation, no acute infiltrates noted.
Wilnrm-qnezrsszit-wv prior available for comparison
Conditions present prior admission:
COPD-on 4 L of oxygen
Unknown PFTs. Does not follow-up locally
On Trelegy
Chronic hypoxemic respiratory failure on 4 L
Pulmonary hypertension-unknown mechanism on sildenafil
Hyperlipidemia
Atrial fibrillation on anticoagulation
Chronic heart failure with preserved ejection fraction
Anemia
BPH
Plan:
Clinical picture consistent with acute exacerbation of COPD likely tracheobronchitis.
Currently 99% on 4L NC (baseline use)
Encouraged OOB
There is no fevers or leukocytosis.
He does have discolored sputum
Continue azithromycin (started 10/30)
Continue Mucomyst 10% prn (started 11/03/2024)
Continue Pulmicort BID + DuoNebs QID with prn DuoNebs
IV corticosteroids-without change for today as he is wheezing--taper today to PO
Acapella device-encourage
May need vest therapy if he continues to have difficulty with expectoration
Continue ox supplementation 4 L at baseline.
Hold Trelegy while on nebulizer therapy --> resume Trelegy upon discharge
-
Sputum culture with mold. Likely contaminant. Usual respiratory noelle.
Negative for influenza A + B
Continue sildenafil 20mg daily for pulmonary hypertension. Unclear mechanism. Patient does not recall what Dr gave him this medication. He seems stable.
He would like to establish care locally
-
He does report that usually he gets 3-4 exacerbations per year. May be a candidate for low-dose macrolide therapy vs Ohtuvayre. Will readdress this in the outpatient setting.
Will need full pulmonary function testing etc.
May benefit from pulmonary habilitation as well.
-
DVT prophylaxis-on full anticoagulation
Discharge planning per team
Diagnostic Data
CXR 10/30/24- Somewhat hyperinflated lungs. No acute pulmonary process. Central pulmonary arteries at least top normal.
-----
Total time spent today was 51 minutes for this encounter. Time includes reviewing laboratory test/imaging results, reviewing pertinent medical records, obtaining and reviewing medical history, performing an appropriate exam, ordering medications,
tests and procedures. Time also includes documentation of this encounter, coordinating patient care and communicating with other healthcare professionals. Total time does not include separately billed tests performed on this date of service.
Subjective Data
-
Date of Service:
Date of Service: November 06, 2024
Chief Complaint: Pulmonary Follow Up (Acute exacerbation of COPD)
Subjective:
Feels better today but not ready to go home
Currently 98% on 4L
Objective Data
Data Reviewed
Vital Signs / I&O / Oxygen:
Vital Signs
Temp Pulse Resp BP Pulse Ox
98.4 F 65 20 159/74 99
11/06/24 07:51 11/06/24 07:51 11/06/24 07:51 11/06/24 08:37 11/06/24 07:51
Intake and Output
11/05/24 11/06/24 11/07/24
06:59 06:59 06:59
Intake Total 1320 / 1320 1340 / 1340 360 / 360
Output Total 1100 / 1100 1850 / 1850 150 / 150
Balance 220 / 220 -510 / -510 210 / 210
SaO2 99
Nasal Cannula flow liters per 4
minute
Physical Exam
General: Respiratory Distress (negative), Comfortable, Chills (negative) and Sweats (negative)
HEENT: Normocephalic, Anicteric and Moist Mucous Membranes
Cardiovascular: S1-S2, Regular Rhythm and Peripheral Edema (negative)
Respiratory: Wheeze ([place] upon expiration bilaterally, slight/improving), Crackles (negative), Rhonchi (L >R), Stridor (negative) and Other (Diminished breath sounds bilaterally)
GI: Soft, Non Distended, Non Tender and Normal Bowel Sounds
Neurology: Awake, Alert, Oriented and Tremors (negative)
Skin: Warm, Dry, Cyanosis (negative) and Jaundice (negative)
Labs/Micro/Reports
Lab Data
11/06/24 07:20
11/06/24 07:20
[2024-11-06 11:19] LABS: Glucose - Point of Care 133 mg/dl (70-99)
[2024-11-06] MEDS: SOLU-MEDROL PF 40 MG IV (11:54)
[2024-11-06] MEDS: TYLENOL 650 MG PO ×2 (11:57→20:26)
--- NOTE | 2024-11-06 12:02 | W.PN.HOSP.TC ---
Today's Communication/Plan
-
will give one more day of IV steroids, check BNP and Chest XR - if improvement - possible d/c in AM as remains on home level O2
HR improved on higher dose of Cardizem,
Assessment / Plan
Assessment / Plan
74yo M with chronic hypoxic respiratory failure on 4L home O2 2/2 COPD, Afib on Eliquis,HLD, BPH, anxiety came with worsening SOB and managed for acute COPD exacerbation
A/P:
#CHronic hypoxic respiratory failure on 4L O2
#Acute COPD exacerbation
COVID-19 and influenza neg
No pneumonia
Taper steroids, cont bronchodilators
Completed Azithromycin
Medical Receptionist Biller follows
Trop WNL, ProBNP minimally elevated <800 on admission, no overt ACS signs on repeated EKG and no volume overload clinically
echo with preserved EF, no valvular disease and no wall motion abnormality
#Hyperglycemia 2/2 steroids w/o over DM
stop metformin
#Mild anemia
#mild hyponatremia
monitro
#transient hyperkalemia
resolved
#Paroxysmal Afib
#Essential HTN
#GERD
#HLD
#BPH
cont home meds
DVT ppx on Eliquis
Full code
I have spent at least 38min reviewing chart, test results and providing direct patient care
Anticipated Discharge: Within 24 hours
Subjective/Interval History
-
Date of Service: November 06, 2024
Objective Data
-
Labs:
Laboratory Results
11/06/24
07:20
WBC 11.5 H
Hgb 10.4 L
Hct 31.2 L
Plt Count 331
Sodium 132 L
Potassium 4.4
Chloride 93 L
Carbon Dioxide 37 H
BUN 37 H
Creatinine 0.7
Glucose 100 H
Calcium 9.2
Total Bilirubin 0.7
AST 20
ALT 24
Alkaline Phosphatase 41
Vital Signs:
Vital Signs
Temp Pulse Resp BP Pulse Ox
98.4 F 87 22 159/74 98
11/06/24 07:51 11/06/24 11:18 11/06/24 11:18 11/06/24 08:37 11/06/24 11:18
I&O
11/05/24 11/06/24 11/07/24
06:59 06:59 06:59
Intake Total 1320 / 1320 1340 / 1340 360 / 360
Output Total 1100 / 1100 1850 / 1850 450 / 450
Balance 220 / 220 -510 / -510 -90 / -90
Review of Systems
-
History Source: Patient
All other systems: Reviewed and negative
Respiratory: Reports Trouble Breathing
Physical Exam
-
General: Comfortable
HEENT: Normocephalic
Respiratory: Wheezes and Crackles
GI: Soft, Nontender and Nondistended
Skin: Warm
Neuro: Awake, Alert, Oriented and AO x 3
Psych: Calm
[2024-11-06 13:16] LABS: NT-proBNP 335 pg/ml
--- NOTE | 2024-11-06 13:58 | CM ---
Chart reviewed and patient is for discharge to home with [facility] when stable, patient has home oxygen through [employer] at 4 liters.
Plan; Home with [facility].
[2024-11-06 15:06] LABS: Glucose - Point of Care 255 mg/dl (70-99)
[2024-11-06] MEDS: NOVOLOG FLEXPEN-MODERATE RESISTANCE 5 UNITS SC (17:22)
[2024-11-06 21:33] LABS: Glucose - Point of Care 340 mg/dl (70-99)
[2024-11-06] MEDS: ROBITUSSIN AC 5 ML PO (21:58)
[2024-11-06] MEDS: ULTRAM 50 MG PO (21:58)
[2024-11-06] MEDS: OCEAN, SALINE MIST 2 SPRAYS NASAL (21:58)
[2024-11-06] MEDS: SENOKOT-S 1 TABLET PO (22:04)
[2024-11-06] MEDS: SOLU-MEDROL PF IV (23:27)
[2024-11-07] MEDS: SOLU-MEDROL PF 40 MG IV (00:03)
[2024-11-07] MEDS: MELATONIN 5 MG PO (00:46)
[2024-11-07 03:12] VITALS: BP 128/69
[2024-11-07 04:46] VITALS: BP 124/54
[2024-11-07 05:49] VITALS: BMI 17.4
[2024-11-07 07:39] LABS: Glucose - Point of Care 156 mg/dl (70-99)
[2024-11-07] MEDS: TESSALON PERLES 200 MG PO (07:49)
[2024-11-07] MEDS: LIPITOR 40 MG PO (07:49)
[2024-11-07] MEDS: BUSPAR 5 MG PO (07:49)
[2024-11-07] MEDS: PROTONIX 40 MG PO (07:49)
[2024-11-07] MEDS: PROSCAR 5 MG PO (07:49)
[2024-11-07] MEDS: MAGNESIUM OXIDE 250 MG PO (07:49)
[2024-11-07] MEDS: FLOMAX 0.4 MG PO (07:49)
[2024-11-07] MEDS: MUCINEX 600 MG PO (07:49)
[2024-11-07] MEDS: NEURONTIN 300 MG PO (07:49)
[2024-11-07] MEDS: ELIQUIS 5 MG PO (07:49)
[2024-11-07] MEDS: LIDOCAINE 4% PATCH 1 PATCH TOPICAL (07:51)
[2024-11-07] MEDS: CARDIZEM CD 240 MG PO (07:53)
[2024-11-07] MEDS: REVATIO 20 MG PO (07:53)
[2024-11-07] MEDS: LASIX 20 MG PO (07:53)
[2024-11-07] MEDS: NOVOLOG FLEXPEN-MODERATE RESISTANCE 1 UNITS SC ×2 (07:55→12:48)
[2024-11-07 07:59] VITALS: BP 143/70
[2024-11-07] MEDS: DUONEB 3 ML INH ×3 (08:06→15:32)
[2024-11-07] MEDS: PULMICORT 0.5 MG INH (08:06)
[2024-11-07 11:00] VITALS: BP 136/66
[2024-11-07 12:07] LABS: Glucose - Point of Care 187 mg/dl (70-99)
--- NOTE | 2024-11-07 12:26 | W.PN.HOSP.TC ---
Today's Communication/Plan
-
medically stable for d/c
Assessment / Plan
Assessment / Plan
74yo M with chronic hypoxic respiratory failure on 4L home O2 2/2 COPD, Afib on Eliquis,HLD, BPH, anxiety came with worsening SOB and managed for acute COPD exacerbation, improved to baseline O2, medcially stable for d/c. Complained of lower back
pain that on CT seen with multilevel foraminal stenosis, radiculopathy. Medically stable for d/c. Need to have home O2 concentrator equipment arranged. CM aware. When appropriate - will d/c
A/P:
#CHronic hypoxic respiratory failure on 4L O2
#Acute COPD exacerbation
COVID-19 and influenza neg
No pneumonia
Taper steroids, cont bronchodilators
Completed Azithromycin
Customer Success Intern follows
Trop WNL, ProBNP minimally elevated <800 on admission, no overt ACS signs on repeated EKG and no volume overload clinically
echo with preserved EF, no valvular disease and no wall motion abnormality
#Hyperglycemia 2/2 steroids w/o over DM
stop metformin
#Mild anemia
#mild hyponatremia
monitro
#transient hyperkalemia
resolved
#Diverticulosis
#Non-obstructing nephrolithiasis
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
tylenol
PT/OT
Outpatient f/u
High fiber diet, encourage hydration
#Paroxysmal Afib
#Essential HTN
#GERD
#HLD
#BPH
cont home meds
DVT ppx on Eliquis
Full code
I have spent at least 38min reviewing chart, test results and providing direct patient care
Anticipated Discharge: Within 24 hours
Subjective/Interval History
-
Date of Service: November 07, 2024
Objective Data
-
Vital Signs:
Vital Signs
Temp Pulse Resp BP Pulse Ox
97.7 F 68 18 136/66 99
11/07/24 11:00 11/07/24 11:00 11/07/24 11:00 11/07/24 11:00 11/07/24 11:00
I&O
11/06/24 11/07/24 11/08/24
06:59 06:59 06:59
Intake Total 1340 / 1340 1320 / 1320
Output Total 1850 / 1850 625 / 775 150 / 150
Balance -510 / -510 695 / 545 -150 / -150
Physical Exam
-
General: No Apparent Distress
HEENT: Normocephalic
Respiratory: Wheezes (minimal)
Cardiac: Regular Rhythm
Genito-urinary: No Costovertebral Tender
Musculoskeletal: Other (lower back pain)
Neuro: Awake, Alert, Oriented and AO x 3
[2024-11-07] MEDS: SOLU-MEDROL PF IV (12:51)
--- NOTE | 2024-11-07 13:03 | W.PN.PUL3 ---
Today's Communication / Plan
-
Remains clinically unchanged, anxious for discharge
Prednisone taper, encouraged OOB
Awaiting discharge planning per primary team
OP FU recommended
We will sign off at this time, please call with questions
Assessment
-
74-year-old man with past medical history noted. Came to the hospital complaining of cough, increased phlegm production. Shortness of breath. Admitted for acute exacerbation of COPD. Usually does not care locally. He recently relocated from
[place]. We were consulted on 11/01/2024 for evaluation.
Acute exacerbation of COPD-acute tracheobronchitis
Chest x-ray: Reviewed, hyperinflation, no acute infiltrates noted.
Ltbgqp-deqyskyduh-gj prior available for comparison
Conditions present prior admission:
COPD-on 4 L of oxygen
Unknown PFTs. Does not follow-up locally
On Trelegy
Chronic hypoxemic respiratory failure on 4 L
Pulmonary hypertension-unknown mechanism on sildenafil
Hyperlipidemia
Atrial fibrillation on anticoagulation
Chronic heart failure with preserved ejection fraction
Anemia
BPH
Plan:
Clinical picture consistent with acute exacerbation of COPD likely tracheobronchitis.
Currently 99% on 4L NC (baseline use)
Encouraged OOB
There is no fevers or leukocytosis.
He does have discolored sputum
Continue azithromycin (started 10/30)
Continue Mucomyst 10% prn (started 11/03/2024)
Continue Pulmicort BID + DuoNebs QID with prn DuoNebs
IV corticosteroids-without change for today as he is wheezing--taper today to PO
Acapella device-encourage
May need vest therapy if he continues to have difficulty with expectoration
Continue ox supplementation 4 L at baseline.
Hold Trelegy while on nebulizer therapy --> resume Trelegy upon discharge
-
Sputum culture with mold. Likely contaminant. Usual respiratory noelle.
Negative for influenza A + B
Continue sildenafil 20mg daily for pulmonary hypertension. Unclear mechanism. Patient does not recall what Dr gave him this medication. He seems stable.
He would like to establish care locally
-
He does report that usually he gets 3-4 exacerbations per year. May be a candidate for low-dose macrolide therapy vs Ohtuvayre. Will readdress this in the outpatient setting.
Will need full pulmonary function testing etc.
May benefit from pulmonary habilitation as well.
-
DVT prophylaxis-on full anticoagulation
Discharge planning per team
Diagnostic Data
CXR 10/30/24- Somewhat hyperinflated lungs. No acute pulmonary process. Central pulmonary arteries at least top normal.
-----
Total time spent today was 35 minutes for this encounter. Time includes reviewing laboratory test/imaging results, reviewing pertinent medical records, obtaining and reviewing medical history, performing an appropriate exam, ordering medications,
tests and procedures. Time also includes documentation of this encounter, coordinating patient care and communicating with other healthcare professionals. Total time does not include separately billed tests performed on this date of service.
Subjective Data
-
Date of Service:
Date of Service: November 07, 2024
Chief Complaint: Pulmonary Follow Up (Acute exacerbation of COPD)
Subjective:
No new events or complaints
Remains unchanged since yesterday
Objective Data
Data Reviewed
Vital Signs / I&O / Oxygen:
Vital Signs
Temp Pulse Resp BP Pulse Ox
97.7 F 63 20 136/66 98
11/07/24 11:00 11/07/24 11:55 11/07/24 11:55 11/07/24 11:00 11/07/24 11:55
Intake and Output
11/06/24 11/07/24 11/08/24
06:59 06:59 06:59
Intake Total 1340 / 1340 1320 / 1320
Output Total 1850 / 1850 625 / 775 150 / 150
Balance -510 / -510 695 / 545 -150 / -150
SaO2 98
Nasal Cannula flow liters per 4
minute
Physical Exam
General: Respiratory Distress (negative), Comfortable, Chills (negative) and Sweats (negative)
HEENT: Normocephalic, Anicteric and Moist Mucous Membranes
Cardiovascular: S1-S2, Regular Rhythm and Peripheral Edema (negative)
Respiratory: Wheeze ([place] upon expiration bilaterally, slight/improving), Crackles (negative), Rhonchi (L >R), Stridor (negative) and Other (Diminished breath sounds bilaterally)
GI: Soft, Non Distended, Non Tender and Normal Bowel Sounds
Neurology: Awake, Alert, Oriented and Tremors (negative)
Skin: Warm, Dry, Cyanosis (negative) and Jaundice (negative)
Labs/Micro/Reports
Lab Data
11/06/24 07:20
11/06/24 07:20
--- NOTE | 2024-11-07 15:07 | CM ---
Chart reviewed. Per hospitalist, patient is medically stable for d/c today. Therapy rec HH at d/c, [facility] accepted
CM spoke w/ patient's sister, Jordy, notifying of d/c today. Per Jordy, she is able to transport patient home. Jordy inquired about therapy for patient, ELOINA reviewed therapy eval stating patient is being recommended for HH so he can get
home PT services. Jordy asked about OP therapy, ELOINA stated if patient wants OP therapy, a script can be provided. [facility]ilipp[facility] declined this at this time.
IMM reviewed w/ patient, copy provided, copy placed on chart.
Plan: Home w/ [facility]
--- NOTE | 2024-11-07 15:07 | W.DCSUMMARY ---
Discharge Summary
Discharge Data
Date of Admission: 10/30/24
Date of Discharge: 11/07/24
-
Pending Results: No
Hospital Course
74yo M with chronic hypoxic respiratory failure on 4L home O2 2/2 COPD, Afib on Eliquis,HLD, BPH, anxiety came with worsening SOB and managed for acute COPD exacerbation, improved to baseline O2, medcially stable for d/c. Complained of lower back
pain that on CT seen with multilevel foraminal stenosis, radiculopathy. Medically stable for d/c. [facility] helpibng with equipment. Medically appropriate for d/c home as agreed with pulm to cont tapering steroids. Potassium stopped upon d/c due to
transient hyperkalemia on admission. DIltiazem increased with improved HR control.
I have spent at least 38min reviewing chart, test results and providing direct patient care
PAtient was managed for:
#CHronic hypoxic respiratory failure on 4L O2
#Acute COPD exacerbation
#Hyperglycemia 2/2 steroids w/o over DM
#Mild anemia
#mild hyponatremia
#transient hyperkalemia
#Diverticulosis
#Non-obstructing nephrolithiasis
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
#Paroxysmal Afib
#Essential HTN
#GERD
#HLD
#BPH
Discharge Plan
-
Patient Disposition: Home with Home Care
Discharge Diagnosis/Procedures: COPD exacerbation
Diet: Low Sodium
Activity: As tolerated
Driving Restrictions: As prior to admission
Referrals:
Jayden Godfrey MD [Active] - in two to three weeks (May see NATIONAL SALES MANAGER)
NONE,* [Family Provider] -
Prescriptions:
New
diltiazem HCl 240 mg Capsule,Extended Release 24hr
240 mg PO DAILY Qty: 30 0RF
guaifenesin 600 mg Tablet Extended Release 12hr
600 mg PO Q12 Qty: 60 0RF
prednisone 10 mg Tablet
See Rx Instructions .ROUTE .COMPLEX Qty: 45 0RF
Rx Instructions:
Take By Mouth:
50 mg daily x3 days, 40 mg daily x3 days,
30 mg daily x3 days, 20 mg daily x3 days,
10 mg daily x3 days
Continued
atorvastatin 40 mg Tablet
40 mg PO DAILY
buspirone 5 mg Tablet
5 mg PO BID
therapeutic multivitamin Tablet
1 tab PO DAILY
pantoprazole 40 mg Tablet,Delayed Release (Dr/Ec)
40 mg PO DAILY
gabapentin 300 mg Capsule
300 mg PO BID
furosemide 20 mg Tablet
20 mg PO BID
albuterol sulfate 90 mcg/actuation Hfa Aerosol Inhaler
2 puff INHALATION R Q6HPRN PRN (Reason: sob)
finasteride 5 mg Tablet
5 mg PO DAILY
magnesium oxide 250 mg magnesium Tablet
250 mg PO BID
alfuzosin 10 mg Tablet Extended Release 24 Hr
10 mg PO DAILY
sildenafil (pulm.hypertension) 20 mg Tablet
20 mg PO DAILY
Visbiome 112.5 billion cell Capsule
1 cap PO DAILY
Eliquis 5 mg Tablet
5 mg PO BID
Trelegy Ellipta 200-62.5-25 mcg Blister With Device
1 inh INHALATION R DAILY
Discontinued
diltiazem HCl [Cardizem CD] 180 mg Capsule,Extended Release 24hr
180 mg PO DAILY
potassium chloride 10 mEq Tablet Extended Release
10 meq PO BID
Discharge Orders:
Discharge Patient (As Directed); Ordered 11/07/24
Ordered By: Phong Diamond
Discharge Date and Time
Print Language: WOLOF
[2024-11-07] MEDS: FLUAD (65 yr+) 2024-2025 FORMULA 0.5 ML IM (15:24)
--- NOTE | 2024-11-07 15:40 | VNURNOTE ---
Rec'ed info that PCP 'unlikely' to follow patient for VN services (PCP Dr Meeks in [place]). Liaison spoke to patient's sister. Advised that VN cannot start services until current/ has PCP to sign for us. Recommended to make appt w/ residency
clinic after DC. Sister agreeable. Number provided. Also advised sister that patient needs to contact his DME co so they can transfer his address info to local branch. Sister verbalized understanding. [facility] contact info provided as well. CM
Lydia updated.
[2024-11-07 16:54] VITALS: BP 135/54
[2024-11-07 17:01] LABS: Glucose - Point of Care 240 mg/dl (70-99)
[2024-11-07] MEDS: NOVOLOG FLEXPEN-MODERATE RESISTANCE 3 UNITS SC (17:02)
== END 2024-11-07 17:46 | disposition home health service (06) | DRG 191 ==
LOC: 4 WEST ACU 18:26
PROVIDERS: Emergency Medicine; Physician Assistant; ADMITTING PHYSICIAN Hospitalist; ATTENDING PHYSICIAN Internal Medicine; CONSULT PHYSICIAN Internal Medicine Critical Care Medicine; EMERGENCY PHYSICIAN Emergency Medicine
PROC: 3E02340 Introduction of Influenza Vaccine into Muscle, Percutaneous Approach (ICD-10-PCS; 2024-11-07)
DX: J44.1 Chronic obstructive pulmonary disease with (acute) exacerbation (principal); E87.1 Hypo-osmolality and hyponatremia; J96.11 Chronic respiratory failure with hypoxia; I50.32 Chronic diastolic (congestive) heart failure; R64 Cachexia; Z68.1 Body mass index [BMI] 19.9 or less, adult; Z11.52 Encounter for screening for COVID-19; J44.0 Chronic obstructive pulmonary disease with (acute) lower respiratory infection; Z87.891 Personal history of nicotine dependence; Z99.81 Dependence on supplemental oxygen; E87.5 Hyperkalemia; I27.20 Pulmonary hypertension, unspecified; I11.0 Hypertensive heart disease with heart failure; I48.0 Paroxysmal atrial fibrillation; Z79.01 Long term (current) use of anticoagulants; Z79.899 Other long term (current) drug therapy; D64.9 Anemia, unspecified; N40.0 Benign prostatic hyperplasia without lower urinary tract symptoms; J20.9 Acute bronchitis, unspecified; E78.00 Pure hypercholesterolemia, unspecified; E11.8 Type 2 diabetes mellitus with unspecified complications; F32.A Depression, unspecified; F41.9 Anxiety disorder, unspecified; K21.9 Gastro-esophageal reflux disease without esophagitis; T38.0X5A Adverse effect of glucocorticoids and synthetic analogues, initial encounter; K57.30 Diverticulosis of large intestine without perforation or abscess without bleeding; M19.90 Unspecified osteoarthritis, unspecified site; N20.0 Calculus of kidney; M48.00 Spinal stenosis, site unspecified; M54.10 Radiculopathy, site unspecified; Z23 Encounter for immunization
CPT/HCPCS: 71046; 72131; 80048; 80053; 82962; 83036; 83735; 83880; 84484; 85025; 86803; 87070; 87205; 87502; 87811; 90662; 93005; 93306; 94640; 96374; 97116; 97162; 97166; 97530; 97535; 99285; 99406; G0008

== ENCOUNTER 2024-11-19 22:50 | Inpatient (IN) | payer MEDICARE, OTHER, SELFPAY ==
[2024-11-19] VITALS (14 sets, daily range): BP systolic 82–131; BP diastolic 39–97; PULSE 2–68; BMI 18.2
--- NOTE | 2024-11-19 20:36 | ED.GENMED ---
History of Present Illness
General
Chief Complaint: Breathing Problem
Source: patient and ambulance crew
Exam Limitations: none
Time Seen by Provider: 11/19/24 20:28
Nursing documentation reviewed up to this point in time: agreed with
History of Present Illness
History of Present Illness:
The patient is a 74-year-old man who has a past medical history of COPD on 4 L of nasal oxygen chronically, who arrives after his sister called 911 due to his increased work of breathing. Patient reports he has been more short of breath for 1 day.
He denies pain. He also reports slightly worsening cough. History is limited due to his increased work of breathing. Patient found to be hypothermic on arrival.
Past History
Past History
ED Past Medical History: Arrthythmia, COPD and Hypercholesterolemia
ED Past Surgical History: Orthopedic and Other (Hernia repair surgery)
Social History
Tobacco: Former smoker
Alcohol: Other
Drug: None
Personal: Single
Living: with family
Employment: Other
Family History
Family History: Other
Review of Systems
Review of Systems
Allergies reviewed?: Yes
All Other Systems: ROS reviewed and negative except as documented in HPI and ROS
Constitutional: Reports fatigue and chills
EENT: Reports no symptoms
Respiratory: Reports trouble breathing
Cardiac: Reports no symptoms
ABD/GI: Reports no symptoms
: Reports no symptoms
Musculoskeletal: Reports no symptoms
Skin: Reports no symptoms
Neurological: Reports no symptoms
Endocrine: Reports no symptoms
Hematologic/Lymphatic: Reports no symptoms
Psychiatric: Reports no symptoms
Phy Exam
Physical Exam
Physical Exam:
Physical Exam
General: Patient appears clammy, pale and tachypneic, however, is awake and alert
Neck: supple. no meningeal signs. normal psoterior pharynx
Heart: s1/s2 regular rate and rhythm
Lungs: Decreased breath sounds bilaterally, tachypneic
Abdomen: normal bowel sounds. not tender. no CVAT. On rectal exam, stool is very dark and Hemoccult positive
Neuro: alert and oriented. no focal neurological deficits
Skin: no rash
Psychiatric: well kept. interactive and cooperative
Extremities: no edema. no calf tenderness. negative homans. good distal pulses
Scores
Heart Failure Risk
Heart Failure Risk Score: Not Applicable
Course
Orders/Labs/Results
Orders:
Orders
11/19/24 Dinner
NPO
Allow oral meds: Yes
Allow clear liquids: No
11/19/24 20:22
EKG [Electrocardiogram (*1)] Urgent
Reason for Study: Tachycardia
EKG- Treatment ONCE
11/19/24 20:31
Portable Chest Xray [CR Chest Portable - 1 View] Urgent
Comment:
Reason For Exam: SOB
Reason Study Needs to be Portable: Unable to Transport
11/19/24 20:37
Bipap [RESP] Urgent
Specimen Description:
Patient to use own unit?: No
Inspiratory Pressure (cm H2O): 10
Expiratory Pressure (cm H2O): 5
11/19/24 20:38
Albuterol Sulfate [Ventolin Nebules] 15 mg INH R NOW STA
Dexamethasone Sod Phosphate [Decadron] 10 mg IV NOW STA
11/19/24 20:42
COVID-19 Antigen Urgent
Source: Nasal Swab
Complete Blood Count/With Diff Urgent
Comprehensive Metabolic Panel Urgent
Lactic Acid Urgent
NT-proBNP Urgent
Troponin I Urgent
Blood Culture Urgent
LOUIS Source: Blood/Venous
Specimen Description:
Influenza A+B Rapid Molecular Urgent
LOUIS Source: Nasal Swab
Specimen Description:
11/19/24 21:04
0.9% Sodium Chloride 1000 ml [Nss] 1,700 ml IV NOW STA
11/19/24 21:15
Piperacillin/Tazo 4.5 Gram [Zosyn] 4.5 gram in 100 ml IV NOW
11/19/24 21:27
Vancomycin [Vancocin] 1,500 mg 0.9% Sodium Chloride 500 ml [Nss] 500 ml IV NOW
11/19/24 21:41
EKG [Electrocardiogram (*1)] Stat
Reason for Study: Shortness of Breath
11/19/24 21:51
* Blood Bank Products Urgent
's Orders: Espinoza
Blood Bank Products: *Packed RBC Leuko(PRBC's)
Quantity: 1
Transfuse Today: Yes
Reason: Bleeding
Patient will require pre-treatment for transfusion:: No
Pantoprazole [Protonix IV] 80 mg IV NOW STA
11/19/24 22:00
Flush (0.9% Sodium Chloride) [Flush (Nss)] See Dose Instructions IV PER PROTOCOL
11/19/24 22:01
Lactated Ringers [Lr] 500 ml IV BOLUS
11/19/24 22:06
0.9% Sodium Chloride [Nss (Preservative Free)] 20 ml IV NOW STA
11/19/24 22:26
Admit/Transfer Patient As Directed
Co-Sign Provider:
Level of Care: Inpatient admission
Assign to:: ICU
Physician / Group: Yung Estevez
Diagnosis: GI bleed, hemorrhagic shock, septic shock, hypercapnic respiratory failure,
Reason for Hospitalization: GI bleed, hemorrhagic shock, septic shock, hypercapnic respiratory failure,
pneumonia, TME, thrombocytopenia
Expected length of stay greater than two midnights?: Yes
ELOS- Estimated Length of Stay in days: 3
I certify the patient meets the requirements for IP care: Yes
PRN Pain Medication Management As Directed
May give lesser potent ordered pain med per pt: Yes
preference::
Protocol:: Medication orders for pain may be administered in a
manner that supports deferring to patient preference
when the pt is:
- Requesting an ordered lesser potent pain medication.
Least to most potent pain medications are defined
as: acetaminophen < NSAID < tramadol < opioids
(morphine, oxycodone, hydromorphone).
- Requesting a lesser dose of the same medication IF
ORDERED.
- Requesting a less intrusive route of administration
if both routes are prescribed by the provider (PO <
IV).
11/19/24 22:29
Code Status As Directed
Resuscitation Status: Full Code
11/19/24 22:35
Type And Crossmatch [Type+Screen] Urgent
Venous Blood Gas Urgent
11/19/24 22:51
ABO2 Urgent
BBK Wristband Number:
Associate notified that ABO2 has been ordered: [id number]
Date: 11/19/24
Time: 22:48
Radar Scientist ID: [id number]
11/19/24 23:48
Acetaminophen [Tylenol] 650 mg PO Q4HPRN PRN
Dexamethasone Sod Phosphate [Decadron] 4 mg IV Q12H
Ipratropium/Albuterol Sulfate [Duoneb] 3 ml INH R Q4HPRN PRN
Lactated Ringers [Lr] 1,000 ml IV 100 mls/hr
VANCOMYCIN Pharmacy to Dose [VANCOCIN Pharmacy to Dose] 1 each Pharmacy To Prepare [Call Pharmacy To Prepare] 0 ml IV PER PROTOCOL
11/19/24 23:48
Electrocardiogram (*1) Urgent
Reason for Study: Other
Other Reason for Exam: baseline ICU
Comment: upon arrival to ICU (if not done in ED or in last 24 hours)
Consult Notification Routine
Specialty to Notify: Gastroenterology
GASTROINTESTINAL CONSULT Routine
Consulting Provider: Butch Meyer
Was physician already notified: No
Reason for consult: GI bleed
Residential Direct Support Professional Consult Urgent
Consulting Provider: Justine Goel
Was physician already notified: Yes
Complete Blood Count/With Diff Urgent
Comment: upon arrival to ICU (if not done in ED or in last 24 hours)
Comprehensive Metabolic Panel Urgent
Comment: upon arrival to ICU (if not done in ED or in last 24 hours)
Magnesium Urgent
Comment: upon arrival to ICU (if not done in ED or in last 24 hours)
Phosphorus Urgent
Comment: upon arrival to ICU (if not done in ED or in last 24 hours)
Protime/PTT Urgent
Comment: upon arrival to ICU (if not done in ED or in last 24 hours)
Activity As Directed
Activity Level: Out of Bed-Early Mobility
Bedside Glucose Monitoring-ONCE As Directed
Comment: upon arrival to ICU
Intake/ Output As Directed
Frequency: Per unit guidelines
Notify MD As Directed
Notify physician if: While in ICU level of care:
glucose greater than or equal to 180 mg/dL once, contact provider to initiate Critical
Care Glycemic Protocol Target Range 140-180 mg/dL.
Pneumatic Compression Sleeves As Directed
Type: Knee high
Vital Signs As Directed
Frequency: Per unit guidelines
Weight As Directed
Frequency: Daily
Comment: height and weight upon arrival to ICU.
O2 Therapy [RESP] Routine
Titrate/Wean O2 to maintain O2 sat greater than (%): 93
Special Instructions: wean as tolerated
Speech Therapy Eval & Treat Routine
DX Deep Vein Thrombosis Video Routine
11/20/24 04:00
Piperacillin/Tazo 4.5 Gram [Zosyn] 4.5 gram in 100 ml IV Q6H
11/20/24 06:00
Basic Metabolic Panel IN AM
Complete Blood Count/No Diff IN AM
11/20/24 08:00
Atorvastatin [Lipitor] 40 mg PO DAILY
Finasteride [Proscar] 5 mg PO DAILY
Gabapentin [Neurontin] 300 mg PO BID
Guaifenesin [Mucinex] 600 mg PO Q12
Pantoprazole [Protonix IV] 40 mg IV BID
alfuzosin 10 mg PO DAILY
dzehaupmnih-gbeahngyt-norzfnjo [Trelegy Ellipta] 1 inh INH R DAILY
11/21/24 06:00
Basic Metabolic Panel IN AM
Complete Blood Count/No Diff IN AM
11/22/24 06:00
Basic Metabolic Panel IN AM
Complete Blood Count/No Diff IN AM
Abnormal Lab Results
11/19/24 11/19/24
20:42 22:35
WBC 13.4 H 10^3/uL
(4.8-10.8)
RBC 2.61 L 10^6/uL
(4.70-6.10)
Hgb 7.9 L g/dL
(13.0-18.0)
Hct 25.4 L %
(39.0-52.0)
MCV 97.3 H fL
(80.0-94.0)
MCHC 31.1 L g/dL
(33.0-37.0)
RDW 15.4 H %
(11.5-14.5)
Plt Count 110 L 10^3/uL
(130-400)
MPV 11.1 H fL
(7.4-10.4)
Abs Immat Gran (auto) 0.1 H 10^3/uL
(0-0.05)
Absolute Neuts (auto) 12.8 H 10^3/uL
(1.4-6.5)
Absolute Lymphs (auto) 0.2 L 10^3/uL
(1.2-3.4)
Neutrophils % 95.5 H %
(42.2-75.2)
Lymphocytes % 1.7 L %
(20.5-51.1)
VBG pCO2 67 H mmHg
(35-48)
VBG pO2 163 H mmHg
(30-50)
VBG HCO3 37.0 H mmol/L
(22-27)
Chloride 95 L mmol/L
(98-107)
Carbon Dioxide 37 H mmol/L
(22-30)
BUN 44 H mg/dl
(9-20)
Glucose 226 H mg/dl
(70-99)
Lactic Acid 2.6 H mmol/L
(0.7-2.0)
Troponin I 0.044 H* ng/ml
Total Protein 5.0 L g/dl
(6.3-8.2)
Albumin 2.8 L g/dl
(3.5-5.0)
Crossmatch IS Only See Detail
11/19/24 20:42
11/19/24 20:42
Vital Signs
Initial and Last Documented VS:
Initial Vital Signs
Temp Pulse Resp BP Pulse Ox
95.0 F L 70 16 131/97 87
11/19/24 20:19 11/19/24 20:19 11/19/24 20:19 11/19/24 20:19 11/19/24 20:19
Last Documented Vital Signs
Temp Pulse Resp BP Pulse Ox
95.6 F L 59 16 93/45 93
11/20/24 00:45 11/20/24 00:45 11/20/24 00:45 11/20/24 00:45 11/20/24 00:45
MDM/Problems Addressed
Differential Diagnosis Includes:
Pneumonia, UTI with sepsis, symptomatic anemia, COPD exacerbation
MDM/Problems Addressed:
Patient presents with acute on chronic shortness of breath and acute hypothermia
Chronic conditions affecting care: COPD
Acute Exacerbation and/or Progression of Chronic Illness:
Patient likely has acute exacerbation of COPD
*Radiology
Radiology exam reviewed: preliminary read by ED provider (Chest x-ray reviewed by me. Bilateral pneumonia) and radiology read reviewed
*Pulse Oximetry
Patient hypoxic: yes
*EKG
Interpreted by ED Provider?: Yes
Interpretation: abnormal
Comparison EKG: changes noted
Rate: bradycardiac
Rhythm: sinus and PVC's
Milligan: normal axis
Interval: normal interval
QRS Pattern: normal QRS
Ischemia: non-specific ST changes
*Tug Boat Engineer Interpretation
Rate: bradycardiac
Interpretation: abnormal
Rhythm: sinus and PVC's
*Critical Care Note
Total Time (30-74mins, 75-104mins- exclusive of procedures): 54 minutes
comment:
54 minutes of critical care given to the patient including reviewing his recent hospitalization, reviewing his EKG, lab work, discussing blood transfusion with him for which he gave verbal consent, and reviewing his chest x-ray and reassessing his
respiratory effort and blood pressures
Data Reviewed
Review of Other/Old Records Reveals: Discharge Summary (Recent admission reviewed from 2024 when patient was admitted for COPD exacerbation)
Patient Management
Social determinants of health affecting care: Living situation
Discussion with other providers: Hospitalist
Escalation/DeEscalation of care consider admission/obs:
Given patient's symptomatic anemia, COPD exacerbation, bilateral pneumonia with likely sepsis, decision made to admit the patient
ED Attending Note
-
Portions of this chart may have been created with voice recognition software.� Occasional wrong word or��sound alike� substitutions may have occurred due to the inherent limitations of voice recognition software.
Discharge Plan
Departure
Patient Disposition: Admit
Date of Disposition: 11/19/24
Time of Disposition: 21:16
Presentation/result/management discussed w/ accepting MD/DO: Hospitalist
Patient with high blood pressure during this ER visit?: No
Condition: Critical
Covid-19: Negative COVID-19
Discharge Problem:
Symptomatic anemia, Acute upper gastrointestinal hemorrhage, HAP (hospital-acquired pneumonia), Sepsis, Acute hypoxic respiratory failure, Acute exacerbation of chronic obstructive pulmonary disease (COPD)
Interventions
Interventions:
*Risk Screen - Suicide Last Done: 11/19/24 20:19
*General Assessment Last Done: 11/19/24 20:19
*Neglect/Abuse Screening Last Done: 11/19/24 20:19
*ED- Fall Risk Assessment Last Done: 11/19/24 20:19
*ED COVID-19 Vaccine History Last Done: 11/19/24 20:19
*Nursing Disposition Last Done: 11/19/24 23:30
ED- Cardiac Assessment Last Done: 11/19/24 20:33
ED- Pulmonary Assessment Last Done: 11/19/24 20:34
Discharge Date and Time
Discharge Date/Time: 11/20/24 00:00
[2024-11-19] MEDS: VENTOLIN NEBULES 15 MG INH (20:41)
[2024-11-19] MEDS: DECADRON 10 MG IV (20:52)
[2024-11-19 21:02] LABS: % Basophils 0.2 % (0-2); % Immature Granulocytes 0.4 % (0-0.5); % Lymphocytes 1.7 % (20.5-51.1); % Monocytes 2.2 % (1.7-9.3); % Neutrophils 95.5 % (42.2-75.2); Absolute Immature Granulocytes 0.1 10^3/uL (0-0.05); Absolute Lymphocytes 0.2 10^3/uL (1.2-3.4); Absolute Monocytes 0.3 10^3/uL (0.1-0.6); Absolute Neutrophils 12.8 10^3/uL (1.4-6.5); Hematocrit 25.4 % (39.0-52.0); Hemoglobin 7.9 g/dL (13.0-18.0); Mean Corp Hgb Conc. 31.1 g/dL (33.0-37.0); Mean Corpuscular Hgb 30.3 pg (27.0-31.0); Mean Corpuscular Volume 97.3 fL (80.0-94.0); Mean Platelet Volume 11.1 fL (7.4-10.4); Nucleated Red Blood Cells % 0 % (-); Platelet Count 110 10^3/uL (130-400); Red Blood Cell Count 2.61 10^6/uL (4.70-6.10); Red Cell Dist. Width 15.4 % (11.5-14.5); White Blood Cell Count 13.4 10^3/uL (4.8-10.8)
[2024-11-19] MEDS: NSS 1700 ML IV (21:06)
[2024-11-19 21:09] LABS: Lactic Acid 2.6 mmol/L (0.7-2.0)
[2024-11-19 21:12] LABS: ALT (SGPT) 25 U/L (0-50); AST (SGOT) 20 U/L (17-59); Albumin 2.8 g/dl (3.5-5.0); Alkaline Phosphatase 39 U/L (38-126); Blood Urea Nitrogen 44 mg/dl (9-20); Carbon Dioxide 37 mmol/L (22-30); Chloride 95 mmol/L (98-107); Estimated Creatinine Clearance 51 ml/min; Glucose 226 mg/dl (70-99); Potassium 4.7 mmol/L (3.5-5.1); Sodium 137 mmol/L (135-145); Total Bilirubin 0.8 mg/dl (0.2-1.3); eGFR > 60.00
[2024-11-19 21:14] LABS: COVID-19 Antigen Negative (Negative)
--- NOTE | 2024-11-19 21:23 | PHANOTE ---
med rec tech(11/19/24)-Attempted to interview patient, he did not respond. Constructed medication list through medical record of discharge from 11/07/24 and eCW visit on 11/15/24.
[2024-11-19] MEDS: ZOSYN 100 IV (21:27)
[2024-11-19 21:28] LABS: NT-proBNP 1320 pg/ml; Troponin I 0.044 ng/ml
--- NOTE | 2024-11-19 21:30 | HPS.HSE ---
Family Physician
-
Family Physician: * NONE
Chief Complaint
-
dyspnea
History of Present Illness
Patient is a 74-year-old male with past medical history significant for COPD, HFrEF, paroxysmal atrial fibrillation, essential hypertension, hyperlipidemia, GERD, BPH and anxiety/depression who presented to [facility] ED for evaluation of
dyspnea. Patient is lethargic on BiPap at assessment, does not offer much towards HPI. Review of ED documentation to obtain HPI. Patient brought in via EMS for respiratory distress at home and increased O2 need. Patient had reported to ED staff that
he has been more SOB over the past day.
Medical History
Past Medical History
Past Medical History: Reports Other
Additional Past Medical History:
COPD
HFrEF
paroxysmal atrial fibrillation
essential hypertension
hyperlipidemia
GERD
BPH
anxiety/depression
Past Surgical History: Reports None
Additional Past Surgical History:
Right arm fracture
finger surgery (3rd finger on left hand reattached)
back stimulator placement and removal
hernia repair x2
cataract extraction
Social History
Tobacco: Former Smoker
Alcohol: None
Drug: None
Family History
Family History: Not pertinent
Allergies / Home Medications
Allergies reflects when Allergies were last updated in [employer].
Home Medications with original date entered in [employer]
Allergy/Medication List:
Allergies
Allergy/AdvReac Type Severity Reaction Status Date / Time
No Known Allergies Allergy Verified 11/19/24 20:53
Home Medications
Lactobac no.2-Bifidobac no.1-S. thermo 112.5 billion cell capsule (Visbiome) 1 cap PO DAILY Supplement 10/30/24
albuterol sulfate 90 mcg/actuation aerosol inhaler 2 puff inhalation R Q6HPRN PRN sob 10/30/24
alfuzosin 10 mg tablet,extended release 24 hr 10 mg PO DAILY BPH 10/30/24
apixaban 5 mg tablet (Eliquis) 5 mg PO BID Blood Clot Prevention/Tx 10/30/24
atorvastatin 40 mg tablet 40 mg PO DAILY High Cholesterol 10/30/24
finasteride 5 mg tablet 5 mg PO DAILY BPH 10/30/24
fluticasone fur. 200 mcg-umeclid 62.5 mcg-vilant 25 mcg inhalat.powder (Trelegy Ellipta) 1 inh inhalation R DAILY Lung/Breathing Issues 10/30/24
furosemide 20 mg tablet 20 mg PO BID Fluid Retention/Swelling 10/30/24
gabapentin 300 mg capsule 300 mg PO BID Pain 10/30/24
magnesium oxide 250 mg PO BID Supplement 10/30/24
pantoprazole 40 mg tablet,delayed release 40 mg PO DAILY GERD 10/30/24
sildenafil (pulm.hypertension) 20 mg tablet 20 mg PO DAILY PHTN 10/30/24
therapeutic multivitamin 1 tab PO DAILY Supplement 10/30/24
guaifenesin 600 mg tablet, extended release 12 hr 600 mg PO Q12 #60 tabs 11/07/24
prednisone 10 mg tablet See Rx Instructions .Route .COMPLEX #45 tabs 11/07/24
Review of Systems
-
Unable to obtain full review of systems at this time due to: Patient Non-verbal (hard to arouse, BiPap in place )
Physical Exam
Vital Signs
Vital Signs
Temp Pulse Resp BP Pulse Ox
95.0 F L 60 11 88/41 100
11/19/24 20:19 11/19/24 20:53 11/19/24 20:53 11/19/24 21:01 11/19/24 20:53
Physical Exam
General: Well Developed and Well Nourished
HEENT: NormoCephalic, Moist mucous membranes, Atraumatic, [place] Conjunctivae, Nose Appears Normal and Ears Appear Normal
Respiratory: Clear, Wheezes, Accessory Resp Muscle Use, Decreased Breath Sounds and Other
Cardiac: S1/S2 and Regular Rhythm; No Murmur, Rub or Gallop
GI: Soft, Non Tender, Non Distended and Normal Bowel Sounds; No Organomegaly
Rectal: Hem Positive
Genito-urinary: Deferred by me
Musculoskeletal: No Clubbing, No Cyanosis and No Edema
Skin: IV/Catheter Site; No Rash
Neuro: Sedated
Laboratory Results
-
11/19/24 20:42
11/19/24 20:42
Laboratory Results
Lactic Acid 2.6 mmol/L (0.7-2.0) H 11/19/24 20:42
Total Bilirubin 0.8 mg/dl (0.2-1.3) 11/19/24 20:42
AST 20 U/L (17-59) 11/19/24 20:42
ALT 25 U/L (0-50) 11/19/24 20:42
Alkaline Phosphatase 39 U/L (38-126) 11/19/24 20:42
Troponin I 0.044 ng/ml H* 11/19/24 20:42
Data Reviewed
-
Diagnostic Radiology: Report Reviewed by me (CXR: Bilateral parenchymal opacities, right greater than left, which very likely represents bilateral pneumonia. Small right pleural effusion.)
Lab Data: Labs Reviewed by me (WBC 13.4, hgb 7.9, hct 25.4, Plt 110, Neut 95.5, BUN 44, Creat 1.0, Lactic 2.6, trop 0.044, BNP 1320)
Impression/Plan
-
IMPRESSION/PLAN:
#dyspnea with increased work of breathing 2/2 hypercapnic respiratory failure
#pneumonia
#COPD
HCO3 37
VBG: pending
CXR: Bilateral parenchymal opacities, right greater than left, which very likely represents bilateral pneumonia.
Small right pleural effusion.
Covid and Influenza: negative
- Admit to ICU
- Consult epic analyst
- BiPap
- DuoNeb QID PRN
- IV antibiotics
#GI bleed
Hgb 7.9, Hct 25.4, Plt 110 (down significantly since 11/06/2024)
stool heme positive
- blood consent obtained
- 1 unit PRBCs
- Consult GI
- Protonix IV BID
- NPO
- speech consult
#hyperthermia/hypotensive
#concern for shock hemorrhagic vs. septic
Lactic 2.6
Blood cultures: pending
IVF bolus given
- IVF LR 100 cc/hr
- low threshold for pressor support
#HFrEF
#pulmonary HTN
ECHO (11/05/2024): Normal biventricular size and systolic function without regional wall motion abnormality. Estimated LVEF 50-55%.
No significant valve disease.
- daily weights
- hold furosemide and sildenafil
#paroxysmal atrial fibrillation
EKG: pending
- continue Eliquis
#essential hypertension
- hold antihypertensives 2/2 shock
#hyperlipidemia
- continue atorvastatin
#GERD
- hold PO pantoprazole
#BPH
- continue alfuzosin and finasteride
#chronic back pain
- continue gabapentin
#anxiety/depression
Code status: full code
DVT prophylaxis: SCDs
--- NOTE | 2024-11-19 22:13 | W.PN.UPDATE ---
Addendum entered and electronically signed by Yung Estevez MD 11/20/24 08:04:
Laboratory Tests
11/19/24
22:35
VBG pH 7.35
VBG pCO2 67 H
VBG pO2 163 H
VBG HCO3 37.0 H
- cont.BiPAP
Addendum entered and electronically signed by Yung Estevez MD 11/19/24 22:30:
Add IV Decadron 4mg q12h due to clinically bronchospastic due to AE COPD
Original Note:
Update Note
Progress Note Update
I could not get any information from the patient due to acuity
Information gathered by chart review and speaking with the ER staff.
This note serves as an addendum to the H&P by bone puller SARAH Nimo Roman
HPI
74M from Home [facility] EMS. Significant PMHX chronic hypoxic respiratory failure on 4L home O2, COPD, Afib on Eliquis,HLD, BPH, anxiety sen at ER :
Per EMS
- increased work of breathing and SoB
PHX; see above
VS
11/19/24
20:19 11/19/24
20:53
Temp 95.0 F L
Temp route: Rectal
Pulse 70 60
Resp Rate 16
SaO2 87 100
Oxygen Mode of Delivery BiPAP
Nasal Cannula flow liters per minute 4
PE
Gen: tolerating BiPAP , lethargic but arousable, urling up toward LRt lateral position
HEENT: limited eam
Neck: supple
Lungs:b/l rochii and wheeze
Cor: RRR S1 S2
Abdomen: soft benign
MARKET DIRECTOR:lethargic , arousable
MS: trace ankle edema
Psych:limited due to lethargy
11/06/24 11/19/24
07:20 20:42
WBC 13.4 H
Hgb 10.4 L 7.9 L
MCV 90.7 97.3 H
Plt Count 331 110 L
Chloride 95 L
Carbon Dioxide 37 H
BUN 37 H 44 H
Creatinine 1.0
eGFR > 60.00
Glucose 226 H
Lactic Acid 2.6 H
Troponin I 0.044 H*
SARS-CoV-2 Antigen Negative
NEG Covid
NEG Flu A & B
CXR
Bilateral parenchymal opacities, right greater than left, which very likely represents bilateral pneumonia.
Last hospitalist admission: 10/30/24 - 11/07/24
P DXs
Chronic hypoxic respiratory failure on 4L O2
Acute COPD exacerbation
Hyperglycemia 2/2 steroids w/o over DM
Mild anemia
Mild hyponatremia
Transient hyperkalemia
Diverticulosis
Non-obstructing nephrolithiasis
DJD with multilevel foraminal stenosis, mild central canal stenosis without cord compression
Paroxysmal AF
Essential HTN
GERD
HLD
BPH
ASSESSMENT & PLAN
HoB POS dark stool acute GIB
ACBLA with significant Hgb drop 3.5 gm over 14 days
Currently on Eliquis
- T & S, Blood consented
- 1 unit of packed PRBC by ER
- Hold Eliquis
- PPI gtt
- NPO and IVF
- Trend Hgb
- GI consult
Hypotensive and hypothermic
Concerning for risk of circulatory collapse due to shock pathophysiolgy either hemorrhagic or septic or both
- LA 2.6 c/w severe sepsis
- BCx sent
- hemoresuscitation with 1 PRBC
- septic IVF bolus : s/p 1.7L NS : still BP is 88/41
- repeat LR IVF 500 cc bolus them continue 100/H
- If MAP remain < 65 after LR bolus , tyo start NE gtt
- c/w empiric IV Vancocin and Zosyn
- Filter Worker consult
Dyspnea with increased work of breathing due to acute on chr hypoxic and suspect hypercapnic RF : maitianing wakefullness
Multifactorial origins such as acute anemia plus PNA +/_ A COPD
Chr hypercarbia : suspect CO2 retainer
HX O2 dependent COPD
NEG Covid. NEG Flu A & B
- check VBG
- IV steroids: dexamethasone 4 mg every 6 hours
- DuoNeb QID PRN
- empiric IV vanco and Zosyn
- Filter Worker evaluation
- c/w BiPAP
- observe K daily
Lethargic TME ; multifactorial origins as above
- currently NPO for acute GIB
- aspiration precautions
- ST t eval for swallowing
Acute thrombocytopenia : likely due to consumptive patho such as sepsis and GIB
Baseline is normal platelet counts
- trend Platelet count daily
HX Pulmonary HTN
- Hold sildenafil due to hypotension
Benign HTN
- Hold Frusemide
Paroxysmal AF HX
- Previously on Cardizem ; currently not on the list
- Hold Eliquis
Chronic diastolic CHF:
- Hold Frusemide due to shock
-check daily Wt
Hyperlipidemia:
- cont. statins
BPH:
- cont finasteride
DVT Px: SCD
Full code
ICU
Total Critical Care Time__55___ minutes.
I was immediately available to the patient and staff. I personally examined, reviewed labs, diagnostic images/reports, interpretations, treatment plans, discussed patient care with other providers and family or caregivers (if patient is unable to
make decisions), entered orders as appropriate and documented the medical record.
[2024-11-19] MEDS: NSS (PRESERVATIVE FREE) 20 ML IV (22:39)
[2024-11-19] MEDS: PROTONIX IV 80 MG IV (22:39)
[2024-11-19 22:43] LABS: Venous Blood Gas B.E. 10.1 mmol/L (-4 to +4); Venous Blood Gas pCO2 67 mmHg (35-48); Venous Blood Gas pH 7.35 (7.32-7.43); Venous Blood Gas pO2 163 mmHg (30-50)
[2024-11-19] MEDS: VANCOCIN 530 MG IV (22:52)
[2024-11-19] MEDS: LR 500 IV (23:01)
[2024-11-19] MEDS: FLUSH (NSS) 1 FLUSH IV (23:02)
[2024-11-20] VITALS (58 sets, daily range): BP systolic 80–166; BP diastolic 39–100; PULSE 2–80; BMI 19.7; BMI 20.3
[2024-11-20 00:23] LABS: Glucose - Point of Care 214 mg/dl (70-99)
[2024-11-20 00:48] LABS: % Basophils 0.1 % (0-2); % Immature Granulocytes 0.6 % (0-0.5); % Lymphocytes 1.8 % (20.5-51.1); % Monocytes 1.3 % (1.7-9.3); % Neutrophils 96.2 % (42.2-75.2); Absolute Immature Granulocytes 0.1 10^3/uL (0-0.05); Absolute Lymphocytes 0.2 10^3/uL (1.2-3.4); Absolute Monocytes 0.2 10^3/uL (0.1-0.6); Absolute Neutrophils 10.9 10^3/uL (1.4-6.5); Hemoglobin 7.1 g/dL (13.0-18.0); Mean Corp Hgb Conc. 30.9 g/dL (33.0-37.0); Mean Corpuscular Hgb 30.6 pg (27.0-31.0); Mean Corpuscular Volume 99.1 fL (80.0-94.0); Mean Platelet Volume 10.8 fL (7.4-10.4); Nucleated Red Blood Cells % 0 % (-); Platelet Count 95 10^3/uL (130-400); Red Blood Cell Count 2.32 10^6/uL (4.70-6.10); Red Cell Dist. Width 15.5 % (11.5-14.5); White Blood Cell Count 11.3 10^3/uL (4.8-10.8)
[2024-11-20 00:49] LABS: INR 2.09; PT 23.6 Sec (11.4-14.6)
[2024-11-20] MEDS: NOVOLOG FLEXPEN 3 UNITS SC (00:52)
[2024-11-20 01:06] LABS: ALT (SGPT) 22 U/L (0-50); AST (SGOT) 18 U/L (17-59); Albumin 2.4 g/dl (3.5-5.0); Alkaline Phosphatase 41 U/L (38-126); Blood Urea Nitrogen 41 mg/dl (9-20); Calcium 8.3 mg/dl (8.4-10.2); Carbon Dioxide 35 mmol/L (22-30); Chloride 101 mmol/L (98-107); Estimated Creatinine Clearance 47 ml/min; Glucose 193 mg/dl (70-99); Magnesium 2.5 mg/dl (1.6-2.3); Phosphorus 4.5 mg/dl (2.5-4.5); Potassium 4.5 mmol/L (3.5-5.1); Sodium 136 mmol/L (135-145); Total Bilirubin 0.5 mg/dl (0.2-1.3); Total Protein 4.5 g/dl (6.3-8.2); eGFR > 60.00
[2024-11-20] MEDS: LR 1000 IV ×2 (01:06→10:53)
[2024-11-20 02:04] LABS: Lactic Acid 0.9 mmol/L (0.7-2.0)
--- NOTE | 2024-11-20 02:48 | PTCARENOTE ---
Patient admitted to ICU around midnight. Patient aao x2 to person and place, unsure of time. Lethargic on BiPap 10/5, lung sounds diminished, pox 95-98% on BiPap, dyspnea at rest with minimal exertion. Sinus bernadine with PVC's, weak radial and pedal
pulses b/l. BS active x4, patient arrived to unit with pull ups on, incontinent of urine. CC #30 applied. Patient has 20g in left hand and 20g in left ac. 1 unit of PRBCs completing shortly, patient tolerated well, no adverse effects noted. Patient
has LR at 100ml/hr running to Left hand 20g. Deniz hugger in place as patients rectal temp 96.0 on arrival to ICU. Deniz hugger placed on high. Current rectal temp 97.8, deniz hugger has subsequently been bumped down to Low. Skin is overall intact.
Will continue to monitor patient closely.
[2024-11-20 03:08] LABS: Glucose - Point of Care 178 mg/dl (70-99)
[2024-11-20] MEDS: ZOSYN 100 IV ×4 (03:38→21:25)
--- NOTE | 2024-11-20 04:13 | PTCARENOTE ---
Patients temperature increased, currently 97.9 rectally. Deniz hugger turned off as goal temp met. BP remains low, however stable at this time. Discussed BG with BURT Soliz, continue q6 hour accu checks with ordered coverage. Will continue
to monitor.
[2024-11-20 05:30] LABS: Hematocrit 23.5 % (39.0-52.0); Hemoglobin 7.4 g/dL (13.0-18.0); Mean Corp Hgb Conc. 31.5 g/dL (33.0-37.0); Mean Corpuscular Hgb 30.5 pg (27.0-31.0); Mean Corpuscular Volume 96.7 fL (80.0-94.0); Mean Platelet Volume 10.9 fL (7.4-10.4); Platelet Count 108 10^3/uL (130-400); Red Blood Cell Count 2.43 10^6/uL (4.70-6.10); Red Cell Dist. Width 15.6 % (11.5-14.5); White Blood Cell Count 11.5 10^3/uL (4.8-10.8)
[2024-11-20 05:32] LABS: Blood Urea Nitrogen 42 mg/dl (9-20); Calcium 8.6 mg/dl (8.4-10.2); Carbon Dioxide 39 mmol/L (22-30); Chloride 100 mmol/L (98-107); Estimated Creatinine Clearance 46 ml/min; Glucose 177 mg/dl (70-99); Potassium 4.7 mmol/L (3.5-5.1); Sodium 138 mmol/L (135-145); eGFR > 60.00
[2024-11-20 05:32] LABS: Glucose - Point of Care 167 mg/dl (70-99)
[2024-11-20 05:44] LABS: Troponin I 0.026 ng/ml
[2024-11-20] MEDS: NOVOLOG FLEXPEN-LOW RESISTANCE 1 UNITS SC ×2 (05:44→12:17)
--- NOTE | 2024-11-20 06:48 | W.PN.HOSP.TC ---
Today's Communication/Plan
-
. See note for details
Assessment / Plan
Assessment / Plan
Physical Exam
General: Chronically ill looking
HEENT: No deformities, on BiPAP
Respiratory: Limited with rales
Cardiac: S1/S2
GI: Soft, Non Tender, Non Distended
Rectal: Hem Positive
Genito-urinary: No hematuria
Musculoskeletal: Mild ankle edema
Skin: IV/Catheter Site; No Rash
Neuro: Lethargic, awake by verbal and tactile stimuli
Psych, calm no agitation
A/P:
# Aspiration pneumonia with Sepsis POA/ septic shock ( leukocytosis, worsening hypoxia, respiratory distress, hypotension, hypothermia, PNA on CXR)
Will rule out other possibility
Do sputum culture if possible MRSA screen
Blood culture
Urine for Legionella AG & Strep Ag
c/w empiric IV Abx
f/w blood cultures
C/w O2 support with Bipap
DuoNeb QID, should change to ATC
f/w pulmonary recommendations.
# Acute on chronic hypoxic respiratory failure requiring non- invasive ventilatory support
Will c/w O2 support
Await speech evaluation
Cut back on Gabapentin to help with reducing lethargy
#Acute blood loss anemia GI bleed
Doubt Hemorrhagic shock due to stability of hemoglobin and absence of active bleeding
Hgb 7.9, Hct 25.4, Plt 110 (down significantly since 11/06/2024)
stool heme positive
- blood consent obtained
- Status post 1 unit PRBCs
-Will do another unit
- Consult GI
Continue with the Protonix
Follow-up with GI recommendation
# Acute on chronic HFrEF
#pulmonary HTN
ECHO (11/05/2024): Normal biventricular size and systolic function without regional wall motion abnormality. Estimated LVEF 50-55%.
No significant valve disease.
Holding furosemide while hypotensive
Resume sildenafil
#Paroxysmal A-fib.
Holding Eliquis while GI bleeding
#History of essential hypertension,
#hyperlipidemia
No changes intended
#GERD
Continue on intravenous PPI
#BPH
- continue alfuzosin and finasteride
Monitor for retention
#chronic back pain
Cut back on gabapentin due to sepsis and drowsiness
#anxiety/depression
Code status: full code
DVT prophylaxis: SCDs
Total time spent to see the patient, examine the patient, review data and lab results, discuss treatment plan with patient and nursing staff around 55 minutes
Anticipated Discharge: > 48 hours
Subjective/Interval History
-
Date of Service: November 20, 2024
No chest pain
Using Bipap this morning
Objective Data
-
Labs:
Laboratory Results
11/19/24 11/20/24 11/20/24
20:42 00:30 04:56
WBC 13.4 H 11.3 H 11.5 H
Hgb 7.9 L 7.1 L 7.4 L
Hct 25.4 L 23.0 L 23.5 L
Plt Count 110 L 95 L 108 L
PT 23.6 H
INR 2.09
APTT 44.0 H
Sodium 137 136 138
Potassium 4.7 4.5 4.7
Chloride 95 L 101 100
Carbon Dioxide 37 H 35 H 39 H
BUN 44 H 41 H 42 H
Creatinine 1.0 1.1 1.2
Glucose 226 H 193 H 177 H
Calcium 9.0 8.3 L 8.6
Total Bilirubin 0.8 0.5
AST 20 18
ALT 25 22
Alkaline Phosphatase 39 41
Vital Signs:
Vital Signs
Temp Pulse Resp BP Pulse Ox
97.9 F 61 18 112/52 94
11/20/24 03:31 11/20/24 05:30 11/20/24 05:30 11/20/24 05:00 11/20/24 05:30
I&O
11/18/24 11/19/24 11/20/24
06:59 06:59 06:59
Intake Total 700 / 700
Balance 700 / 700
--- NOTE | 2024-11-20 06:53 | CON.GI ---
Addendum entered and electronically signed by Butch Meyer MD 11/20/24 12:19:
Patient seen and examined, agree with nurse practitioners note. Patient is a 74-year-old male with complicated past medical history who presents with increasing dyspnea. He was hospitalized with COPD exacerbation at the end of October, on
prednisone on discharge, now with dark stools for the past couple of days and hemoglobin about 3 g lower than his baseline. There was a question about ibuprofen prior, again has been on prednisone.Chest x-ray now which also likely represents
pneumonia. He has not had any further bowel movements today and hemoglobin has remained stable. He is on Eliquis for A-fib, last dose was yesterday by his report. He has been on and off BiPAP during the day though overall feels okay. On exam he
has no abdominal tenderness, decreased breath sounds bilaterally. Most likely etiology of GI bleeding in the setting of Eliquis is peptic ulcer disease, less likely angiectasia, malignancy etc. At this point there are no signs of gross bleeding.
His dyspnea is likely multifactorial, worsened with his anemia though also with COPD and pneumonia. Will continue supportive care with PPI twice daily, clear liquids for today and trend hemoglobin. Will plan EGD when his pulmonary status is
improved, or more urgently if signs of brisk active bleeding. Continue to hold Eliquis for now.
Original Note:
Consultation
-
Date/Time Consultation Requested: 11/20/23 8088
Date/Time Consultation Performed: 11/20/24 0750
Requesting Provider: BURT Arrieta
Performing Provider: BURT Tang, Tony Meyer MD
Reason for Consultation: GI bleed, anemia
Medical History
Chief Complaint / HPI
History of Present Illness:
Pt is a 74yo with hx COPD, HFrEF, PAF on Eliquis, anemia, left upper lobe lung nodule [address] 2023 (due follow up CT chest), GERD, HTN, anxiety/depression, BPH, hernia repair, spinal stimulator present to with dyspnea and lethargy. Noted
with prior hbg 10 range in October and November now down to 7.1. Also noted with platelets 110,WBC 13.4, glucose 193 with steroids use and noted with dark heme + stool in ER. In review with sister and records, pt with prior care at [facility] [place] [facility]. He did have GI bleeding with bleeding in stomach around 2022 but did not recall prior EGD or results. He was also noted with abnormal CT chest with lung nodule. He then was admitted to 10/30-11/07 with hypoxemia/ COPD
exacerbation. Prior to admission pt was on Eliquis (per sister changed from Coumadin with GI bleed in 06/2023) and Protonix daily. He added Prednisone during admission with taper. He did have follow up in resident clinic and recommended follow
up CT chest for lung nodule, cont PPI therapy and continued management of COPD, afib, and anxiety. He now returns with shortness of breath. Per sister noted with lethargy last 2 days but denies any syncope or falls.
In review with patient and sister noted with dark stool for 2 days prior to admission. Pt admits to Motrin use but sister states just Tylenol. He has had some mild GERD and did have some upset stomach complaints in early November clinic follow
up. He denies odynophagia, dysphagia, abdominal pain, diarrhea, constipation, or red blood in stools. Pt denies hx EGD or colonoscopy in AM.
Past Medical History
Past Medical History: Arrhythmias (PAF on Eliquis), CHF, COPD, GERD, HTN, Psychiatric (Anxiety/depression) and Other (BPH, anemia, left upper lobe lung nodule [address] 07/2024)
Past Surgical History: Orthopedic (arm fracture, finger surgery, back stimulator) and Other (hernia repair, cataracts)
Social History
Tobacco: Former Smoker
Alcohol: None
Drug: None
Living: With Family (sister )
Employment: Retired
Family History
Family History: Other (no family hx colon CA or polyps)
Allergies / Home Medications
Allergy/AdvReac Type Severity Reaction Status Date / Time
No Known Allergies Allergy Verified 11/19/24 20:53
�Medication �Instructions �Recorded
Lactobac no.2-Bifidobac no.1-S. 1 cap PO DAILY Supplement 10/30/24
thermo 112.5 billion cell capsule
(Visbiome)
albuterol sulfate 90 mcg/actuation 2 puff inhalation R Q6HPRN PRN sob 10/30/24
aerosol inhaler
alfuzosin 10 mg tablet,extended 10 mg PO DAILY BPH 10/30/24
release 24 hr
apixaban 5 mg tablet (Eliquis) 5 mg PO BID Blood Clot 10/30/24
Prevention/Tx
atorvastatin 40 mg tablet 40 mg PO DAILY High Cholesterol 10/30/24
finasteride 5 mg tablet 5 mg PO DAILY BPH 10/30/24
fluticasone fur. 200 mcg-umeclid 1 inh inhalation R DAILY 10/30/24
62.5 mcg-vilant 25 mcg Lung/Breathing Issues
inhalat.powder (Trelegy Ellipta)
furosemide 20 mg tablet 20 mg PO BID Fluid 10/30/24
Retention/Swelling
gabapentin 300 mg capsule 300 mg PO BID Pain 10/30/24
magnesium oxide 250 mg PO BID Supplement 10/30/24
pantoprazole 40 mg tablet,delayed 40 mg PO DAILY GERD 10/30/24
release
sildenafil (pulm.hypertension) 20 20 mg PO DAILY PHTN 10/30/24
mg tablet
therapeutic multivitamin 1 tab PO DAILY Supplement 10/30/24
guaifenesin 600 mg tablet, 600 mg PO Q12 #60 tabs 11/07/24
extended release 12 hr
prednisone 10 mg tablet See Rx Instructions .Route 11/07/24
.COMPLEX #45 tabs
Review of Systems
-
Unable to obtain full review of systems at this time due to: Other (pt forgetful)
History Source: Patient and Family
Constitutional: Reports No Symptoms
EENT: Reports No Symptoms
Respiratory: Reports Trouble Breathing
Cardiac: Reports No Symptoms
Abdomen/GI: Reports Nausea and Black Stools
: Reports No Symptoms
Musculoskeletal: Reports Other (chronic back pain)
Skin: Reports No Symptoms
Neurological: Reports Weakness
Endocrine: Reports No Symptoms
Hematologic/Lymphatic: Reports Bleeding
Vital Signs
Temp Pulse Resp BP Pulse Ox
97.9 F 61 18 112/52 94
11/20/24 03:31 11/20/24 05:30 11/20/24 05:30 11/20/24 05:00 11/20/24 05:30
Physical Exam
Exam
General: Other (pt awake for forgetful on current bipap )
HEENT: Normocephalic and Anicteric
Respiratory: Non Labored Respirations and Other (on bipap)
Cardiac: Regular Rhythm
GI: Soft, Non Tender and Non Distended
Musculoskeletal: No Clubbing and No Cyanosis
Skin: Warm and Dry
Neuro: Awake, Alert and Other (forgetful )
Psych: Calm
Results
WBC 11.5 10^3/uL (4.8-10.8) H 11/20/24 04:56
Hgb 7.4 g/dL (13.0-18.0) L 11/20/24 04:56
Hct 23.5 % (39.0-52.0) L 11/20/24 04:56
MCV 96.7 fL (80.0-94.0) H 11/20/24 04:56
Plt Count 108 10^3/uL (130-400) L 11/20/24 04:56
Absolute Neuts (auto) 10.9 10^3/uL (1.4-6.5) H 11/20/24 00:30
PT 23.6 Sec (11.4-14.6) H 11/20/24 00:30
INR 2.09 11/20/24 00:30
APTT 44.0 Sec (23.4-35.0) H 11/20/24 00:30
Sodium 138 mmol/L (135-145) 11/20/24 04:56
Potassium 4.7 mmol/L (3.5-5.1) 11/20/24 04:56
Chloride 100 mmol/L (98-107) 11/20/24 04:56
Carbon Dioxide 39 mmol/L (22-30) H 11/20/24 04:56
BUN 42 mg/dl (9-20) H 11/20/24 04:56
Creatinine 1.2 mg/dL (0.7-1.3) 11/20/24 04:56
Calcium 8.6 mg/dl (8.4-10.2) 11/20/24 04:56
Total Bilirubin 0.5 mg/dl (0.2-1.3) 11/20/24 00:30
AST 18 U/L (17-59) 11/20/24 00:30
ALT 22 U/L (0-50) 11/20/24 00:30
Alkaline Phosphatase 41 U/L (38-126) 11/20/24 00:30
Diagnostic Image Results:
11/20/24 CXR
Bilateral parenchymal opacities, right greater than left, which very likely represents bilateral pneumonia.
Small right pleural effusion.
Prior GI Procedures:
EGD: pt denies
Colonoscopy: pt denies
Assessment / Plan
-
Pt is a 74yo with hx COPD, HFrEF, PAF on Eliquis, anemia, left upper lobe lung nodule [address] 2023 (due follow up CT chest), GERD, HTN, anxiety/depression, BPH, hernia repair, spinal stimulator present to with dyspnea and lethargy. Noted
with prior hbg 10 range in October and November now down to 7.1. Also noted with platelets 110,WBC 13.4, glucose 193 with steroids use and noted with dark heme + stool in ER. In review with sister and records, pt with prior care at [facility]. He did have GI bleeding with bleeding in stomach around 2022 but did not recall prior EGD or results. He was also noted with abnormal CT chest with lung nodule. He then was admitted to 10/30-11/07 with hypoxemia/ COPD
exacerbation. Prior to admission pt was on Eliquis (per sister changed from Coumadin with GI bleed in 06/2023) and Protonix daily. He added Prednisone during admission with taper. He did have follow up in resident clinic and recommended follow
up CT chest for lung nodule, cont PPI therapy and continued management of COPD, afib, and anxiety. He now returns with shortness of breath. Per sister noted with lethargy last 2 days but denies any syncope or falls.
-symptomatic anemia
-GI bleed with dark heme + stool in ER
-hypoxemia with PNA/COPD exacerbation on prednisone prior to admission
-hx lung nodule 15 mm due follow up [facility]
-hypothermia
-hypotension on admission
-hyperglycemia
-mild thrombocytopenia
-PAF on Eliquis prior to admission
other med problems:
-GERD
-HTN
-anxiety/depression
-BPH
-hernia repair
-spinal stimulator with chronic back pain
PLAN:
etiology of anemia and dark stool related to PUD with steroid use, ectasia, mass vs other
trend hbg and stool record
s/p 1 units PRBC's given for additional unit today
cont PPI BID
eliquis hold last dose 11/19
cont abx for PNA
t/c EGD when medically stable and resp status improves
ok for sips clear consider advance when resp status improves
will obtain prior records from [facility] to see if any prior EGD complete with bleeding in last 1-2 years
work up for pulm nodule per medical team
I updated sister on plan
-
-
-
Thank you for consultation and allowing me to participate in the patient's care. Please call the [facility] GI physician during the after hours with any questions or concerns.
--- NOTE | 2024-11-20 07:29 | CON.INTV ---
Consultation
Consultation Request
Date/Time Consultation Requested: 11/19/2024
Date/Time Consultation Performed: 11/20/2024
Requesting Provider: Nimo Roman
Performing Provider: Justine Goel
Reason for Consultation: COPD Exacerbation
Medical History
-
Chief Complaint: Shortness of breath
History of Present Illness:
Patient is a 65-year-old gentleman with known history of oxygen dependent COPD, on 4 L at baseline, with recent admission for exacerbation about a month ago, presented to the hospital emergency room for worsening shortness of breath patient was
initially noted to be somewhat lethargic and required BiPAP initiation. In view of respiratory distress, BiPAP need, patient was admitted to the ICU and register in chancery consultation was requested.
Patient was also noted to have dark stools with hemoglobin drop by about 3 point since 2 weeks and has been on Eliquis. There was concern for GI bleed and GI consultation was requested as well in addition to 1 unit of packed PRBC transfusion
ordered in the emergency room. Patient was noted to be hypothermic in the emergency room as well as hypotensive was given IV fluids and was started on Deniz hugger. Lactate was somewhat elevated at 2.6
Past Medical History
Past Medical History: Reports Other
Additional Past Medical History:
COPD
HFpEF, EF 50-55%
paroxysmal atrial fibrillation
?Pulmonary HTN, on Sildenafil
essential hypertension
hyperlipidemia
GERD
BPH
anxiety/depression
Past Surgical History: Reports None
Additional Past Surgical History:
Right arm fracture
finger surgery (3rd finger on left hand reattached)
back stimulator placement and removal
hernia repair x2
cataract extraction
Social History
Tobacco: Former Smoker
Alcohol: None
Drug: None
Family History
Family History: Not pertinent
Allergies / Home Medications
Allergies
Allergy/AdvReac Type Severity Reaction Status Date / Time
No Known Allergies Allergy Verified 11/19/24 20:53
Home Medications
�Medication �Instructions �Recorded �Confirmed �Last Taken �Type
Lactobac no.2-Bifidobac no.1-S. 1 cap PO DAILY Supplement 10/30/24 11/19/24 Unknown History
thermo 112.5 billion cell capsule
(Visbiome)
albuterol sulfate 90 mcg/actuation 2 puff inhalation R Q6HPRN PRN sob 10/30/24 11/19/24 Unknown History
aerosol inhaler
alfuzosin 10 mg tablet,extended 10 mg PO DAILY BPH 10/30/24 11/19/24 Unknown History
release 24 hr
apixaban 5 mg tablet (Eliquis) 5 mg PO BID Blood Clot 10/30/24 11/19/24 Unknown History
Prevention/Tx
atorvastatin 40 mg tablet 40 mg PO DAILY High Cholesterol 10/30/24 11/19/24 Unknown History
finasteride 5 mg tablet 5 mg PO DAILY BPH 10/30/24 11/19/24 Unknown History
fluticasone fur. 200 mcg-umeclid 1 inh inhalation R DAILY 10/30/24 11/19/24 Unknown History
62.5 mcg-vilant 25 mcg Lung/Breathing Issues
inhalat.powder (Trelegy Ellipta)
furosemide 20 mg tablet 20 mg PO BID Fluid 10/30/24 11/19/24 Unknown History
Retention/Swelling
gabapentin 300 mg capsule 300 mg PO BID Pain 10/30/24 11/19/24 Unknown History
magnesium oxide 250 mg PO BID Supplement 10/30/24 11/19/24 Unknown History
pantoprazole 40 mg tablet,delayed 40 mg PO DAILY GERD 10/30/24 11/19/24 Unknown History
release
sildenafil (pulm.hypertension) 20 20 mg PO DAILY PHTN 10/30/24 11/19/24 Unknown History
mg tablet
therapeutic multivitamin 1 tab PO DAILY Supplement 10/30/24 11/19/24 Unknown History
guaifenesin 600 mg tablet, 600 mg PO Q12 #60 tabs 11/07/24 11/19/24 Unknown Rx
extended release 12 hr
prednisone 10 mg tablet See Rx Instructions .Route 11/07/24 11/19/24 Unknown Rx
.COMPLEX #45 tabs
Review of Systems
-
Respiratory: Cough and Trouble Breathing
Hematologic/Lymphatic: Other (All 14 systems reviewed and negative except as stated above in the history of present illness.)
Vitals / Labs / Diagnostic Testing
Vital Signs
Temp Pulse Resp BP Pulse Ox
97.9 F 61 18 112/52 94
11/20/24 03:31 11/20/24 05:30 11/20/24 05:30 11/20/24 05:00 11/20/24 05:30
Lab Data
11/20/24 04:56
11/20/24 04:56
Laboratory Results
11/20/24
00:30
PT 23.6 H
INR 2.09
APTT 44.0 H
Microbiology
11/19/24 20:42 Nasal Swab Influenza Types A & B (DOREEN) - Final
Negative for Influenza A & B, NAAT
Negative results must be combined with clinical observations
and patient history.
Nucleic Acid Amplification test (NAAT)performed on the
[employer] NOW platform.
Diagnostic Testing:
Physical Exam
-
HEENT: Normocephalic
Cardiovascular: Regular Rhythm
Respiratory: Clear and Wheeze (Bilateral end expiratory wheezing)
GI: Non Distended
Neurology: Awake and Alert
Skin: Warm
General: Comfortable
Assessment
-
#1. Respiratory distress with Acute exacerbation of COPD
-Required BIPAP on admission
-Hold Spiriva and Symbicort while getting Nebz
-Start Duoneb qid scheduled
-Continue IV steroids and Antibiotics
-Add Pulmicort q12hrs
-PRN Albuterol
#1a. Chronic Hypercapnic respiratory failure
-Appears to be compensated with normal pH. Prior BMPs reviewed, suggestive of elevated HCO3, reflective of chronic hypercapnia
-Trial off BIPAP, intermittent breaks as tolerated
#2. Bilateral Pneumonia with sepsis (Hypotension, elevated Lactate and Hypothermia)
-Has been on Vancomycin and Zosyn, recently treated with Azithromycin in 10/2024
-Lactate and Blood pressure improving with IVF resuscitation
-External warming
-Check MRSA screen and Sputum cultures
-Follow up Blood cultures
-Hold diuretics and all antihypertensive meds
#3. Anemia, Acute, suspect blood loss due to GI bleed
-Holding Eliquis
-s/p 1 unit PRBC
-Trend H/H
-PPI IV BID
-GI Consult
#4. Paroxysmal A fib
-Holding Eliquis and Cardizem due to GI bleed and hypotension
#5. ?h/o Pulmonary HTN
-Chronically on Sildenafil
-ECHO reviewed from last month shows normal RV, LV and estimated PA pressure of 31 mm
-Details unavailable.
-Sildenafil was held on admission for hypotension
-Diuretics on hold, not suggestive of volume overload
Critical Care time 60 mins -- The patient is admitted for acute critical illness for the treatment of vital organ failure and/or prevention of further life-threatening conditions. Total care includes time spent in review of history, physical exam,
medications, hemodynamic/ventilator parameters, laboratory data, imaging and discussion with house staff, pharmacy, respiratory therapy, aerographer, and nursing.
CXR 11/19: Suggestive of R>L pneumonia
ECHO 11/2024: Normal biventricular size and systolic function without regional wall motion
abnormality. Estimated LVEF 50-55%. No significant valve disease.
Estimated PAP 31 mm
[2024-11-20] MEDS: DUONEB 3 ML INH ×4 (08:30→19:52)
--- NOTE | 2024-11-20 08:45 | PTCARENOTE ---
Assumed care of pt. VSS with Pt on BiPAP 10/5/6L with SpO2 94%. Changed to 4L NC by RT with SpO2 to 88-89%. FiO2 increased to 6L with SpO2 to 91%. Lungs course with ins/exp wheezing throughout. 2nd unit PRBC started as ordered.
--- NOTE | 2024-11-20 08:52 | PHA.VAN.IN ---
Assessment
- Assessment
Renal Function: Appears elevated from baseline (SCR 1.2 vs ~0.8-0.9; BUN elevated)
Concomitant Antimicrobials: piperacillin/tazobactam
Plan
- Plan
Initial / Loading Dose: Vanc 1500mg - 11/19 22:52
Maintenance Regimen: dosing by level - give additional 750mg x1 today
Monitoring: random 11/21 0600
MRSA Screen: Ordered per protocol
Pharmacokinetics Vancomycin I
- -
Patient Age: 74
Patient Sex: Male
Vancomycin Day #: 1
Indication: Pulmonary/Respiratory
Requesting Provider: Guilherme Roman
Pertinent Antimicrobial Allergies:
NKDA
Height / Weight:
Height 5 ft 9 in
Actual Weight 62.2 kg
Pertinent Past Medical History: COPD (home O2)
- Vital Signs / Lab Results
Temp Pulse Resp BP Pulse Ox
98.1 F 72 18 112/52 93
11/20/24 08:00 11/20/24 08:35 11/20/24 08:35 11/20/24 05:00 11/20/24 08:35
Lab Results - Hematology
11/19/24 11/20/24 11/20/24
20:42 00:30 04:56
WBC 13.4 H 11.3 H 11.5 H
Lab Results - Chemistry
11/19/24 11/20/24 11/20/24
20:42 00:30 04:56
BUN 44 H 41 H 42 H
Creatinine 1.0 1.1 1.2
Estimated Creat Clear 51 47 46
Albumin 2.8 L 2.4 L
11/19/24 11/20/24
20:42 01:26
Lactic Acid 2.6 H 0.9
Microbiology Results
11/19/24 20:42 Influenza Types A & B (DOREEN) - Final
Nasal Swab Negative for Influenza A & B, NAAT
Negative results must be combined with clinical observations
and patient history.
Nucleic Acid Amplification test (NAAT)performed on the
[employer] NOW platform.
[2024-11-20] MEDS: NEURONTIN 300 MG PO (09:00)
[2024-11-20] MEDS: MUCINEX 600 MG PO ×2 (09:00→21:25)
[2024-11-20] MEDS: LIPITOR 40 MG PO (09:01)
[2024-11-20] MEDS: PROSCAR 5 MG PO (09:01)
[2024-11-20] MEDS: NSS (PRESERVATIVE FREE) 10 ML IV ×2 (09:01→21:26)
[2024-11-20] MEDS: DECADRON 4 MG IV ×3 (09:01→21:26)
[2024-11-20] MEDS: FLOMAX 0.4 MG PO (09:01)
[2024-11-20] MEDS: PROTONIX IV 40 MG IV ×2 (09:01→21:26)
--- NOTE | 2024-11-20 09:34 | VNURNOTE ---
Chart reviewed. Patient is current with [facility] nursing, PT, OT. Will continue to follow hospital course and DC plans.
--- NOTE | 2024-11-20 09:35 | PTOTSP ---
Speech Language Pathology
Pt seen for clinical bedside swallow evaluation. Pt reported multiple previous PNAs. P.O. trials of puree, regular solids, and thin liquids provided. Increased WOB noted with all P.O. intake. Impulsive rate of intake noted with pt putting entire
cracker in mouth at once. Initial brief cough with ice chip and first sip of thin liquid. No other overt coughing. However, increased WOB noted after cracker with pt asking for more 02. Placed back on BiPAP by RT.
Recommend:
(1) Thin liquids only (no solids)
(2) Aspiration precautions: sit upright, slow rate, single sips, full supervision, only provide if Sp02 >90% and RR <30
(3) Meds as tolerated
(4) Likely VSE once respiratory status improves
(5) CHILD'S NURSE to continue to follow
[2024-11-20 10:56] LABS: Venous Blood Gas B.E. 7.2 mmol/L (-4 to +4); Venous Blood Gas HCO3 33.9 mmol/L (22-27); Venous Blood Gas pCO2 60 mmHg (35-48); Venous Blood Gas pH 7.36 (7.32-7.43); Venous Blood Gas pO2 84 mmHg (30-50)
[2024-11-20 11:50] LABS: Glucose - Point of Care 194 mg/dl (70-99)
[2024-11-20] MEDS: LASIX 20 MG IV (12:16)
[2024-11-20] MEDS: VANCOCIN 150 IV (12:17)
--- NOTE | 2024-11-20 12:30 | PTCARENOTE ---
Rotating between BiPAP and NC as pt tolerates/requests. SpO2 >90%. Resting comfortably. No sign of GIB. Transfusion complete. Lasix IV administered as ordered.
--- NOTE | 2024-11-20 14:12 | CM ---
CM following re: discharge planning.
Reviewed pt's chart, met with pt.
Pt is a 74 year old male, admitted with primary dx of Aspiration pneumonia with Sepsis POA/ septic shock.
Pt reports he just recently moved to this area from [facility], lives with sister anya zamora, has home Oxygen, 4L NC at baseline, has nebulizer machine. Pt is active with [facility] and [facility] liaison following.
Pt reports he is very weak and he feels he might need to go to a SNF for a short term rehab.
PT and OT will evaluate the pt to determine a level of care at discharge.
PCP: Dr. Meeks
Pharmacy: [facility]
D/C plan: home with [facility] vs SNF if recommended by PT/OT.
CM will follow with discharge plan updates as hospitalization progresses.
[2024-11-20 15:15] LABS: Hematocrit 27.9 % (39.0-52.0); Hemoglobin 9.2 g/dL (13.0-18.0)
[2024-11-20 17:56] LABS: Glucose - Point of Care 231 mg/dl (70-99)
[2024-11-20] MEDS: NOVOLOG FLEXPEN-MODERATE RESISTANCE 3 UNITS SC (17:57)
[2024-11-20] MEDS: TYLENOL 650 MG PO (18:01)
--- NOTE | 2024-11-20 18:04 | PTCARENOTE ---
Assessment unchanged. Productive cough. Bipap vs NC with SpO2 >90%.
[2024-11-20] MEDS: PULMICORT 0.5 MG INH (19:52)
[2024-11-20] MEDS: NEURONTIN 100 MG PO (21:25)
[2024-11-20] MEDS: LIDOCAINE 4% PATCH 1 PATCH TOPICAL (21:26)
[2024-11-20] MEDS: PRECEDEX 100 IV (23:47)
--- NOTE | 2024-11-20 23:55 | PTCARENOTE ---
Pt with increased WOB on 4L NC, placed on bipap by RT. Pt pulled bipap off and yelling out, desatting to mid to high 80s on 6L NC and appears dyspneic. Pt placed back on bipap by RT, agitated and pulling at mask. SALES DEMONSTRATOR made aware, ordered
precedex-gtt initiated.
[2024-11-21] VITALS (30 sets, daily range): BP systolic 112–221; BP diastolic 49–140; PULSE 2–123; BMI 20.4
[2024-11-21 00:44] LABS: Glucose - Point of Care 280 mg/dl (70-99)
[2024-11-21] MEDS: NOVOLOG FLEXPEN-MODERATE RESISTANCE 5 UNITS SC (00:45)
[2024-11-21] MEDS: LR 1000 IV (00:48)
--- NOTE | 2024-11-21 00:50 | PTCARENOTE ---
Pt tolerating bipap at this time, pulse ox 94-95%.
[2024-11-21] MEDS: ZOSYN 100 IV ×4 (05:03→21:45)
[2024-11-21 05:14] LABS: Hematocrit 27.9 % (39.0-52.0); Hemoglobin 9.1 g/dL (13.0-18.0); Mean Corp Hgb Conc. 32.6 g/dL (33.0-37.0); Mean Corpuscular Hgb 30.8 pg (27.0-31.0); Mean Corpuscular Volume 94.6 fL (80.0-94.0); Mean Platelet Volume 11.7 fL (7.4-10.4); Platelet Count 105 10^3/uL (130-400); Red Blood Cell Count 2.95 10^6/uL (4.70-6.10); Red Cell Dist. Width 15.7 % (11.5-14.5); Vancomycin Random 12.5 ug/ml; White Blood Cell Count 11.9 10^3/uL (4.8-10.8)
[2024-11-21] MEDS: NOVOLOG FLEXPEN-MODERATE RESISTANCE 1 UNITS SC (05:15)
[2024-11-21 05:27] LABS: Blood Urea Nitrogen 46 mg/dl (9-20); Calcium 8.8 mg/dl (8.4-10.2); Carbon Dioxide 39 mmol/L (22-30); Chloride 101 mmol/L (98-107); Estimated Creatinine Clearance 50 ml/min; Glucose 185 mg/dl (70-99); Potassium 4.2 mmol/L (3.5-5.1); Sodium 138 mmol/L (135-145); eGFR > 60.00
--- NOTE | 2024-11-21 05:28 | W.PN.GI.CBS2 ---
Today's Communication / Plan
-
Please see assessment and plan for details.
Assessment / Plan
-
1. Anemia: Likely multifactorial, with dark stools in the setting of Eliquis prior to admission, now brown stool, hemoglobin improved. Most likely upper etiology of acute blood loss, peptic ulcer disease, angiectasia etc. though no signs of gross
bleeding now. At this point we will hold on endoscopy given his pulmonary status and no further gross bleeding. Continue PPI and observation, possible EGD tomorrow pending his pulmonary status.
-
Subjective
Subjective
Date of Service: November 21, 2024
Patient feeling okay, no abdominal pain, nausea or vomiting, though feels the shortness of breath is slightly worse, on BiPAP. 1 brown bowel movement overnight per nursing.
Objective
Data Reviewed
Laboratory Data:
Laboratory Results
11/21/24 04:40
11/21/24 04:40
Laboratory Results
PT 23.6 Sec (11.4-14.6) H 11/20/24 00:30
INR 2.09 11/20/24 00:30
APTT 44.0 Sec (23.4-35.0) H 11/20/24 00:30
Phosphorus 4.5 mg/dl (2.5-4.5) 11/20/24 00:30
Magnesium 2.5 mg/dl (1.6-2.3) H 11/20/24 00:30
Total Bilirubin 0.5 mg/dl (0.2-1.3) 11/20/24 00:30
AST 18 U/L (17-59) 11/20/24 00:30
ALT 22 U/L (0-50) 11/20/24 00:30
Alkaline Phosphatase 41 U/L (38-126) 11/20/24 00:30
Vital Signs and I&O:
Vital Signs
Temp Pulse Resp BP Pulse Ox
96.9 F L 67 17 136/59 95
11/20/24 15:41 11/21/24 00:45 11/21/24 00:45 11/21/24 00:00 11/21/24 00:45
I&O
11/19/24 11/20/24 11/21/24
06:59 06:59 06:59
Intake Total 700 / 700 2200 / 2200
Output Total 625 / 625
Balance 700 / 700 1575 / 1575
Physical Exam
Physical Exam
General: NAD
Abdomen: normal bowel sounds, soft, no tenderness, no masses or bruits, no ascites
--- NOTE | 2024-11-21 06:09 | DOWNTIME ---
There was a [employer] Representative Downtime on 11/21/2024 from 0100 to 11/22/2023 at 0420 . Downtime documentation of patient's care, including medication administrations, has been reconciled in the electronic record per guidelines. Refer to the
patient's paper chart under the miscellaneous tab to see printed paper medication records and downtime forms.
--- NOTE | 2024-11-21 06:19 | W.PN.HOSP.TC ---
Today's Communication/Plan
-
c/w IV Steroid
IV Abx
Nebulizer
Resume Cardizem
resume Ativan
Resume Sildenafil
Speech evaluation to advance diet
Assessment / Plan
Assessment / Plan
Physical Exam
General: Chronically ill looking
HEENT: No deformities, on BiPAP
Respiratory: Limited with rales, unchanged from yesterday
Cardiac: S1/S2,tachycardia
GI: Soft, Non Tender, Non Distended
Rectal: Hem Positive
Genito-urinary: No hematuria
Musculoskeletal: Mild ankle edema
Skin: IV/Catheter Site; No Rash
Neuro: less lethargic, AAO to surroundings, he followed commands
Psych, calm, anxious
A/P:
# Seems very anxious
Reviewed medical records, he is on oral Ativan
Will add PRN IV Ativan for now
# Aspiration pneumonia with Sepsis POA/ septic shock ( leukocytosis, worsening hypoxia, respiratory distress, hypotension, hypothermia, PNA on CXR)
sputum culture showing respiratory noelle
Negative Legionella & Strep Ag
c/w empiric IV Abx
Negative blood culture so far
C/w O2 support with Bipap
DuoNeb QID and Pulmicort
f/w pulmonary recommendations.
# Acute on chronic hypoxic respiratory failure requiring non- invasive ventilatory support
c/w O2 support
Nebulizer treatment, IV steroids.
Speech evaluation, okay for thin liquid, medications as tolerated. Will follow-up for further recommendation, appreciate speech therapist help
Reduce gabapentin to help with reducing lethargy
#Acute blood loss anemia GI bleed
Doubt Hemorrhagic shock due to stability of hemoglobin and absence of active bleeding
Hgb 7.9, Hct 25.4, Plt 110 (down significantly since 11/06/2024) on admission
stool heme positive
- blood consent obtained
- Status post 2 unit PRBCs
-Appreciate GI help
Continue with the Protonix
Follow-up with GI recommendation
# Acute on chronic HFrEF
#pulmonary HTN
ECHO (11/05/2024): Normal biventricular size and systolic function without regional wall motion abnormality. Estimated LVEF 50-55%.
No significant valve disease.
Holding furosemide while hypotensive
Resume sildenafil
#Paroxysmal A-fib.
Holding Eliquis while GI bleeding
#History of essential hypertension, resumed Cardizem
#hyperlipidemia
No changes intended
#GERD
Continue on intravenous PPI
#BPH
- continue alfuzosin and finasteride
Monitor for retention
#chronic back pain
Cut back on gabapentin due to sepsis and drowsiness
#anxiety/depression
Resume Ativan.
Code status: full code
DVT prophylaxis: SCDs
Total time spent to see the patient, examine the patient, review data and lab results, discuss treatment plan with patient and nursing staff around 55 minutes
Anticipated Discharge: > 48 hours
Subjective/Interval History
-
Date of Service: November 21, 2024
Does not like Bi pap mask
No chest pain
Objective Data
-
Labs:
Laboratory Results
11/21/24
04:40
WBC 11.9 H
Hgb 9.1 L
Hct 27.9 L
Plt Count 105 L
Sodium 138
Potassium 4.2
Chloride 101
Carbon Dioxide 39 H
BUN 46 H
Creatinine 1.1
Glucose 185 H
Calcium 8.8
Vital Signs:
Vital Signs
Temp Pulse Resp BP Pulse Ox
96.9 F L 67 17 136/59 95
11/20/24 15:41 11/21/24 00:45 11/21/24 00:45 11/21/24 00:00 11/21/24 00:45
I&O
11/19/24 11/20/24 11/21/24
06:59 06:59 06:59
Intake Total 700 / 700 2827.9 / 2827.9
Output Total 1075 / 1075
Balance 700 / 700 1752.9 / 1752.9
[2024-11-21] MEDS: PULMICORT 0.5 MG INH ×2 (07:42→20:06)
[2024-11-21] MEDS: DUONEB 3 ML INH ×4 (07:42→20:06)
[2024-11-21 08:17] LABS: Glucose - Point of Care 166 mg/dl (70-99)
[2024-11-21] MEDS: MIRALAX 17 GRAMS TUBE (08:18)
[2024-11-21] MEDS: TYLENOL 650 MG PO ×3 (08:18→22:17)
[2024-11-21] MEDS: MUCINEX 600 MG PO ×2 (08:19→20:10)
[2024-11-21] MEDS: NSS (PRESERVATIVE FREE) 10 ML IV ×2 (08:19→20:15)
[2024-11-21] MEDS: PROTONIX IV 40 MG IV ×2 (08:19→20:12)
[2024-11-21] MEDS: FLOMAX 0.4 MG PO (08:19)
[2024-11-21] MEDS: PROSCAR 5 MG PO (08:19)
[2024-11-21] MEDS: NEURONTIN 100 MG PO ×2 (08:19→20:10)
[2024-11-21] MEDS: LIPITOR 40 MG PO (08:19)
[2024-11-21] MEDS: LR IV (08:21)
--- NOTE | 2024-11-21 08:30 | PTCARENOTE ---
Afib HR 100-120. EKG done. MD notified.
Incontinent of medium soft brown stool.
Orthopneic. Very SOB with SpO2 decreased to 84% during turn/change.
--- NOTE | 2024-11-21 09:25 | PTOTSP ---
Speech Language Pathology
Pt seen for dysphagia tx. Ordered regular solids/thin liquids by GI. Pt eating breakfast tray when VIRTUAL OFFICE ASSISTANT entered room. On 6LPM with increased WOB. Likely will need to return to BiPAP this afternoon per RT. Pt endorsed 'choking' with eggs prior to
VIRTUAL OFFICE ASSISTANT arrival. Seen with bite of regular solid and sip of thin liquids via straw. No overt signs of aspiration with limited trials provided, but increased WOB noted.
Pt with recurrent PNA, endorses dysphagia at home, and reported choking with breakfast this date. Would hold on solids until VSE able to be completed. Do not suspect respiratory status stable enough for VSE to be completed this date. Tentative
plan for EGD tomorrow pending pulmonary status.
Recommend:
(1) Thin liquids only (no solids)
(2) Aspiration precautions: sit upright, slow rate, single sips, full supervision, only provide if Sp02 >90% and RR <30
(3) Meds as tolerated
(4) VSE once respiratory status improves
(5) VIRTUAL OFFICE ASSISTANT to continue to follow
[2024-11-21] MEDS: CARDIZEM CD 240 MG PO (10:01)
[2024-11-21] MEDS: ATIVAN 0.25 MG IV ×2 (10:05→18:06)
[2024-11-21] MEDS: NSS (PRESERVATIVE FREE) 0.125 ML IV ×2 (10:05→18:05)
[2024-11-21] MEDS: SOLU-MEDROL PF 80 MG IV (10:05)
--- NOTE | 2024-11-21 11:04 | PN.CDI ---
Addendum entered and electronically signed by Sterling Kruse MD 11/21/24 12:10:
Acute on chronic HFrEF ( we were told no need to do systolic or diastolic). I sent you my phone to discuss
Original Note:
CDI
- -
CDI:
Physician Documentation Request
Admit Date: 11/19/24 22:50
Dear Doctor Aixa,
Please review the following and provide your response in the progress notes.
Clinical Indicators:
Pt admitted with sepsis, aspiration pneumonia, and respiratory failure.
11/20 Monument Installer Note: 'HFpEF, EF 50-55%'
11/21 Progress Note: '# Acute on chronic HFrEF.....ECHO (11/05/2024): Normal biventricular size and systolic function without regional wall motion abnormality. Estimated LVEF 50-55%.'
Due to conflicting documentation, Please provide clarification on the specificity regarding the most likely type of CHF you are evaluating, treating or monitoring.
Type:
Systolic
Diastolic
Combined Systolic/Diastolic
Other
Use of terms such as suspected, likely, concern for, or probable (associated with a specific diagnosis that is being evaluated, monitored, or treated as if it exists) are acceptable and can be coded in the inpatient setting, when documented at the
time of discharge.
Thank you,
Stephanie Weems RN, BSN
CDI Specialist
[place] [facility]
Please use your independent medical judgment in providing your response.
--- NOTE | 2024-11-21 11:15 | PN.CDI ---
Addendum entered and electronically signed by Sterling Kruse MD 11/21/24 12:09:
Yes, GI bleed is related to/associated with/exacerbated by Eliquis.
Original Note:
CDI
- -
CDI:
Physician Documentation Request
Admit Date: 11/19/24 22:50
Dear Doctor Aixa,
Please review the following and provide your response in the progress notes.
Clinical Indicators:
Pt admitted with sepsis, aspiration pneumonia, and respiratory failure.
11/20 Progress Note: ' Holding Eliquis while GI bleeding.'
11/20 GI Note: 'Most likely etiology of GI bleeding in the setting of Eliquis is peptic ulcer disease, less likely angiectasia, malignancy etc.'
Please clarify the relationship between these conditions:
Yes, GI bleed is related to/associated with/exacerbated by Eliquis.
No, GI bleed is not related to/associated with/exacerbated by Eliquis.
Other
Use of terms such as suspected, likely, concern for, or probable (associated with a specific diagnosis that is being evaluated, monitored, or treated as if it exists) are acceptable and can be coded in the inpatient setting, when documented at the
time of discharge.
Thank you,
Stephanie Weems RN, BSN
CDI Specialist
[place] [employer]
Please use your independent medical judgment in providing your response.
[2024-11-21] MEDS: LASIX 40 MG IV (11:49)
--- NOTE | 2024-11-21 12:00 | PTCARENOTE ---
Worsening SOB. Pt placed back on Bipap 10/5 8L. Lungs diminished. IVF d/c'd. New order for lasix. All other assessments unchanged.
[2024-11-21 12:03] LABS: Glucose - Point of Care 218 mg/dl (70-99)
[2024-11-21] MEDS: NOVOLOG FLEXPEN-MODERATE RESISTANCE SC (12:12)
[2024-11-21] MEDS: NOVOLOG FLEXPEN-HIGH RESISTANCE 4 UNITS SC (12:14)
--- NOTE | 2024-11-21 15:24 | W.PN.INTV ---
Today's Communication / Plan
Recommendations
- DC vancomycin, MRSA screen negative
-Start Solu-Medrol 80 mg push followed by 40 every 12, discontinue Decadron
-Change DuoNeb to every 4 scheduled
-Intermittent break from BiPAP as tolerated
-VBG in a.m.
-Resume Cardizem CD as well as diuresis
-Patient at risk of needing intubation and mechanical ventilation, continue n.p.o. except ice chips and meds
Assessment
-
Patient is a 65-year-old gentleman with known history of oxygen dependent COPD, on 4 L at baseline, with recent admission for exacerbation about a month ago, presented to the hospital emergency room for worsening shortness of breath patient was
initially noted to be somewhat lethargic and required BiPAP initiation. In view of respiratory distress, BiPAP need, patient was admitted to the ICU and delivery stock clerk consultation was requested.
Patient was also noted to have dark stools with hemoglobin drop by about 3 point since 2 weeks and has been on Eliquis. There was concern for GI bleed and GI consultation was requested as well in addition to 1 unit of packed PRBC transfusion
ordered in the emergency room. Patient was noted to be hypothermic in the emergency room as well as hypotensive was given IV fluids and was started on Deniz hugger. Lactate was somewhat elevated at 2.6
Lat 24 hrs:
-Fluid balance, -927 mL
-Posttransfusion, hemoglobin improved to 9.2, stable
-Electrolytes unremarkable
-Cultures have stayed negative
#1. Respiratory distress with Acute exacerbation of COPD with Pneumonia
-Continued on BiPAP, with intermittent breaks. More wheezing noted today on exam
-Solu-Medrol 80 mg IV stat followed by 40 every 12
-DuoNebs increased to every 4 hours scheduled, Pulmicort twice daily
-As needed albuterol
-Keep n.p.o. except ice chips and meds, patient at risk of needing intubation and mechanical ventilation
#1a. Chronic Hypercapnic respiratory failure
-Appears to be compensated with normal pH. Prior BMPs reviewed, suggestive of elevated HCO3, reflective of chronic hypercapnia
-Trial off BIPAP, intermittent breaks as tolerated
#2. Bilateral Pneumonia with sepsis (Hypotension, elevated Lactate and Hypothermia)
-Has been on Vancomycin and Zosyn, recently treated with Azithromycin in 10/2024
-Lactate and Blood pressure improved
-External warming PRN
-MRSA screen negative, DC vancomycin
-Follow up Blood cultures
-Resume Cardizem CD as patient is hypertensive now, resume diuretics
#3. Anemia, Acute, suspect blood loss due to GI bleed
-Holding Eliquis
-s/p 1 unit PRBC, appropriate improvement in hematocrit
-Trend H/H
-PPI IV BID
-GI Consult
-Patient medically not stable for endoscopy, at risk of needing intubation and mechanical ventilation
#4. Paroxysmal A fib
-Holding Eliquis due to GI bleed
-Resume Cardizem CD
#5. ?h/o Pulmonary HTN
-Chronically on Sildenafil, resume today
-ECHO reviewed from last month shows normal RV, LV and estimated PA pressure of 31 mm
-Details unavailable.
-Sildenafil was held on admission for hypotension, resuming
-Diuretics removed
Critical Care time 30 mins -- The patient is admitted for acute critical illness for the treatment of vital organ failure and/or prevention of further life-threatening conditions. Total care includes time spent in review of history, physical exam,
medications, hemodynamic/ventilator parameters, laboratory data, imaging and discussion with house staff, pharmacy, respiratory therapy, reconnaissance man, and nursing.
CXR 11/19: Suggestive of R>L pneumonia
ECHO 11/2024: Normal biventricular size and systolic function without regional wall motion
abnormality. Estimated LVEF 50-55%. No significant valve disease.
Estimated PAP 31 mm
Subjective Dataa
Subjective Data
Date of Service:
Date of Service: November 21, 2024
Subjective:
Patient noted to be in somewhat increased respiratory distress to earlier on BiPAP, on reevaluation midday patient clinically improving.
Review of Systems
Cardiopulmonary: Dyspnea, Dyspnea on Exertion, Sputum Production and Wheezing
Objective Data
Data Reviewed
Vital Signs / I&O / Oxygen:
Vital Signs
Temp Pulse Resp BP Pulse Ox
97 F 107 15 152/72 99
11/21/24 11:22 11/21/24 13:45 11/21/24 13:45 11/21/24 13:00 11/21/24 13:45
Intake and Output
11/20/24 11/21/24 11/22/24
06:59 06:59 06:59
Intake Total 700 / 700 2827.9 / 2927.9 500 / 500
Output Total 1075 / 1375 207 / 2074
Balance 700 / 700 1752.9 / 1552.9 -1575 / -1575
SaO2 99
Nasal Cannula flow liters per 6
minute
Physical Exam
General: Respiratory Distress
HEENT: Normocephalic
Cardiovascular: S1-S2 and Regular Rhythm
Respiratory: Wheeze and Rhonchi
GI: Soft and Non Distended
Neurology: AO x 3
Skin: Warm
Labs/Micro/Reports
Lab Data
11/21/24 04:40
11/21/24 04:40
Microbiology
11/20/24 11:39 Sputum Respiratory Culture - Preliminary
Usual Respiratory Keke
11/20/24 11:39 Sputum Gram Stain - Preliminary
11/19/24 20:42 Blood/Venous Blood Culture - Preliminary
No Growth in 24 hours- Final report to follow
11/19/24 22:59 Blood/Venous Blood Culture - Preliminary
No Growth in 24 hours- Final report to follow
11/20/24 10:58 Urine Legionella Urinary Antigen - Final
Negative for Legionella pneumophila Serogroup 1 antigen.
A negative result does not rule out the possiblity of
Legionella infection due to other serogroups or species of
Legionella. Clinical correlation is recommended.
11/20/24 10:58 Urine Streptococcus pneumoniae Antigen (M - Final
Negative for Streptococcus pneumoniae antigen.
A negative result does not exclude infection with
Streptococcus pneumoniae. Clinical correlation is
recommended.
11/20/24 08:59 Nose Nasal Screen MRSA (PCR) - Final
MRSA not detected - performed by PCR methodology.
11/19/24 20:42 Nasal Swab Influenza Types A & B (DOREEN) - Final
Negative for Influenza A & B, NAAT
Negative results must be combined with clinical observations
and patient history.
Nucleic Acid Amplification test (NAAT)performed on the
[employer] platform.
[2024-11-21] MEDS: REVATIO 20 MG PO (16:43)
[2024-11-21 17:30] LABS: Glucose - Point of Care 187 mg/dl (70-99)
[2024-11-21] MEDS: NOVOLOG FLEXPEN-HIGH RESISTANCE 2 UNITS SC (17:30)
--- NOTE | 2024-11-21 18:17 | PTCARENOTE ---
Pt on BiPAP most of day. Breaks on 6L NC x3 ranging from 30min to 2hrs. BiPAP reapplied for reported SOB, increased work of breathing and SpO2 noted as low as 85-88%. Remains Afib. HR 95-120. Good urine output after receiving IV Lasix (see
I&Os). All other assessments unchanged.
--- NOTE | 2024-11-21 20:01 | PTCARENOTE ---
received pt from previous rn. Pt AAOx2 drowsy and forgetful, Afib per tele monitor HR 100s, + pulses, +1 b/l LE edema, pox 98% on bipap 10/5 6L. lungs diminished, +bs, condom cath draining clear yellow urine. piv intact. plan of care discussed
questions encouraged.
[2024-11-21] MEDS: SOLU-MEDROL PF 40 MG IV (20:14)
[2024-11-21] MEDS: LIDOCAINE 4% PATCH 1 PATCH TOPICAL (20:15)
[2024-11-21 21:46] LABS: Glucose - Point of Care 173 mg/dl (70-99)
[2024-11-21] MEDS: DILAUDID 0.25 MG IV (23:37)
[2024-11-22] VITALS (31 sets, daily range): BP systolic 132–175; BP diastolic 48–101; PULSE 2–152; O2SAT 93; BMI 20.9
[2024-11-22] MEDS: DUONEB 3 ML INH ×6 (00:20→19:08)
[2024-11-22] MEDS: NOVOLOG FLEXPEN-HIGH RESISTANCE 2 UNITS SC ×2 (00:32→06:28)
[2024-11-22 00:39] LABS: Glucose - Point of Care 161 mg/dl (70-99)
[2024-11-22] MEDS: ZOSYN 100 IV ×4 (03:29→21:04)
[2024-11-22] MEDS: TYLENOL 650 MG PO ×4 (04:29→23:50)
[2024-11-22] MEDS: ATIVAN 0.25 MG IV ×2 (04:30→21:42)
--- NOTE | 2024-11-22 05:17 | W.PN.GI.CBS2 ---
Today's Communication / Plan
-
Please see assessment and plan for details.
Assessment / Plan
-
1. Anemia: Likely multifactorial, with dark stools in the setting of Eliquis prior to admission, now brown stool, hemoglobin improved. Most likely upper etiology of acute blood loss, peptic ulcer disease, angiectasia etc. though no signs of gross
bleeding now. Given his tenuous pulmonary status we will continue to hold on endoscopy without signs of gross bleeding. Ideally would be able to do endoscopy prior to the reinitiation of anticoagulation, though will continue PPI and supportive
care for now.
-
Subjective
Subjective
Date of Service: November 22, 2024
No new events overnight, 3 brown bowel movements per nursing, no nausea or vomiting. Patient denies any abdominal pain. Yesterday's events noted and pulmonary consult noted.
Objective
Data Reviewed
Laboratory Data:
Laboratory Results
PT 23.6 Sec (11.4-14.6) H 11/20/24 00:30
INR 2.09 11/20/24 00:30
APTT 44.0 Sec (23.4-35.0) H 11/20/24 00:30
Phosphorus 4.5 mg/dl (2.5-4.5) 11/20/24 00:30
Magnesium 2.5 mg/dl (1.6-2.3) H 11/20/24 00:30
Total Bilirubin 0.5 mg/dl (0.2-1.3) 11/20/24 00:30
AST 18 U/L (17-59) 11/20/24 00:30
ALT 22 U/L (0-50) 11/20/24 00:30
Alkaline Phosphatase 41 U/L (38-126) 11/20/24 00:30
Vital Signs and I&O:
Vital Signs
Temp Pulse Resp BP Pulse Ox
97.8 F 117 16 140/80 96
11/22/24 03:30 11/22/24 05:15 11/22/24 05:15 11/22/24 05:00 11/22/24 05:15
I&O
11/20/24 11/21/24 11/22/24
06:59 06:59 06:59
Intake Total 700 / 700 2827.9 / 2927.9 740 / 740
Output Total 1075 / 1375 3100 / 3100
Balance 700 / 700 1752.9 / 1552.9 -2360 / -2360
Physical Exam
Physical Exam
General: NAD
Abdomen: normal bowel sounds, soft, no tenderness, no masses or bruits, no ascites
[2024-11-22 05:30] LABS: Venous Blood Gas B.E. 13.9 mmol/L (-4 to +4); Venous Blood Gas HCO3 40.1 mmol/L (22-27); Venous Blood Gas pCO2 59 mmHg (35-48); Venous Blood Gas pH 7.44 (7.32-7.43); Venous Blood Gas pO2 157 mmHg (30-50)
[2024-11-22 05:41] LABS: Hematocrit 30.6 % (39.0-52.0); Hemoglobin 9.8 g/dL (13.0-18.0); Mean Corpuscular Hgb 30.3 pg (27.0-31.0); Mean Corpuscular Volume 94.7 fL (80.0-94.0); Mean Platelet Volume 10.4 fL (7.4-10.4); Platelet Count 132 10^3/uL (130-400); Red Blood Cell Count 3.23 10^6/uL (4.70-6.10); Red Cell Dist. Width 15.3 % (11.5-14.5); White Blood Cell Count 14.6 10^3/uL (4.8-10.8)
[2024-11-22 05:52] LABS: Blood Urea Nitrogen 37 mg/dl (9-20); Chloride 95 mmol/L (98-107); Glucose 169 mg/dl (70-99); Magnesium 2.2 mg/dl (1.6-2.3); Potassium 3.5 mmol/L (3.5-5.1); Sodium 139 mmol/L (135-145)
[2024-11-22 06:02] LABS: Carbon Dioxide 34 mmol/L (22-30); Estimated Creatinine Clearance 62 ml/min; NT-proBNP 3380 pg/ml; eGFR > 60.00
--- NOTE | 2024-11-22 06:19 | W.PN.HOSP.TC ---
Today's Communication/Plan
-
.
Assessment / Plan
Assessment / Plan
Physical Exam
General: Chronically ill looking
HEENT: No deformities, on BiPAP
Respiratory: Limited with rales, unchanged from yesterday
Cardiac: S1/S2,tachycardia
GI: Soft, Non Tender, Non Distended
Rectal: Hem Positive
Genito-urinary: No hematuria
Musculoskeletal: Mild ankle edema
Skin: IV/Catheter Site; No Rash
Neuro: less lethargic, AAO to surroundings, he followed commands
Psych, calm, anxious
A/P:
# Seems very anxious
Reviewed medical records, he is on oral Ativan
Will add PRN IV Ativan for now
# Aspiration pneumonia with Sepsis POA/ septic shock ( leukocytosis, worsening hypoxia, respiratory distress, hypotension, hypothermia, PNA on CXR)
sputum culture showing respiratory noelle
Negative Legionella & Strep Ag
c/w empiric IV Abx
Negative blood culture so far
C/w O2 support with Bipap
DuoNeb QID and Pulmicort
f/w pulmonary recommendations.
# Acute on chronic hypoxic respiratory failure requiring non- invasive ventilatory support
c/w O2 support
Nebulizer treatment, IV steroids.
Speech evaluation, okay for thin liquid, medications as tolerated. Will follow-up for further recommendation, appreciate speech therapist help
Reduced gabapentin to help with reducing lethargy
#Acute blood loss anemia GI bleed
Doubt Hemorrhagic shock due to stability of hemoglobin and absence of active bleeding
Hgb 7.9, Hct 25.4, Plt 110 (down significantly since 11/06/2024) on admission
stool heme positive
- blood consent obtained
- Status post 2 unit PRBCs
-Appreciate GI help
Continue with the Protonix
Follow-up with GI recommendation
# Acute on chronic HFrEF
#pulmonary HTN
ECHO (11/05/2024): Normal biventricular size and systolic function without regional wall motion abnormality. Estimated LVEF 50-55%.
No significant valve disease.
c/w Lasix for now
Resume sildenafil
#Paroxysmal A-fib.
Holding Eliquis while GI bleeding
#History of essential hypertension, resumed Cardizem
#hyperlipidemia
No changes intended
#GERD
Continue on intravenous PPI
#BPH
- continue alfuzosin and finasteride
Monitor for retention
#chronic back pain
Cut back on gabapentin due to sepsis and drowsiness
#anxiety/depression
Resume Ativan.
Code status: full code
DVT prophylaxis: SCDs
Total time spent to see the patient, examine the patient, review data and lab results, discuss treatment plan with patient and nursing staff around 55 minutes
Anticipated Discharge: > 48 hours
Subjective/Interval History
-
Date of Service: November 22, 2024
No chest pain
No sob
Objective Data
-
Labs:
Laboratory Results
11/22/24
05:05
WBC 14.6 H
Hgb 9.8 L
Hct 30.6 L
Plt Count 132 D
Sodium 139
Potassium 3.5
Chloride 95 L
Carbon Dioxide 34 H
BUN 37 H
Creatinine 0.9
Glucose 169 H
Calcium 9.0
Vital Signs:
Vital Signs
Temp Pulse Resp BP Pulse Ox
97.8 F 114 21 148/80 91
11/22/24 03:30 11/22/24 06:00 11/22/24 06:00 11/22/24 06:00 11/22/24 05:45
I&O
11/20/24 11/21/24 11/22/24
06:59 06:59 06:59
Intake Total 700 / 700 2827.9 / 2927.9 740 / 740
Output Total 1075 / 1375 3100 / 3100
Balance 700 / 700 1752.9 / 1552.9 -2360 / -2360
[2024-11-22 06:38] LABS: Glucose - Point of Care 166 mg/dl (70-99)
[2024-11-22] MEDS: PROTONIX IV 40 MG IV ×2 (07:33→19:41)
[2024-11-22] MEDS: NSS (PRESERVATIVE FREE) 10 ML IV ×2 (07:33→19:41)
[2024-11-22] MEDS: MUCINEX 600 MG PO ×2 (07:34→19:51)
[2024-11-22] MEDS: FLOMAX 0.4 MG PO (07:34)
[2024-11-22] MEDS: LIPITOR 40 MG PO (07:34)
[2024-11-22] MEDS: NEURONTIN 100 MG PO ×2 (07:34→19:40)
[2024-11-22] MEDS: REVATIO 20 MG PO (07:34)
[2024-11-22] MEDS: PROSCAR 5 MG PO (07:34)
[2024-11-22] MEDS: SOLU-MEDROL PF 40 MG IV ×2 (07:34→19:41)
[2024-11-22] MEDS: MIRALAX TUBE (07:35)
[2024-11-22] MEDS: CARDIZEM CD 240 MG PO (07:35)
--- NOTE | 2024-11-22 08:00 | PTCARENOTE ---
received patient at change of shift from previous RN. Pt awake, alert, oriented x2- forgetful to time. intermittently anxious. pt on bipap requesting to come off. lung sounds diminished, coarse throughout. sat 97%. afib on telemetry heart rate
100s-130s with frequent pvcs. heart rate up to 140-150s with activity or anxiety. pulses weakly palpable. +1 edema in lower extremities. incontinent of loose stool.. incontinent of urine- condom catheter in place. unable to obtain IV access- IV team
called and midline placed
[2024-11-22 08:06] LABS: Glucose - Point of Care 139 mg/dl (70-99)
[2024-11-22] MEDS: PULMICORT 0.5 MG INH ×2 (08:11→19:08)
[2024-11-22] MEDS: LASIX 40 MG IV ×2 (10:37→15:54)
[2024-11-22] MEDS: KCL 40 MEQ PO ×2 (10:39→19:40)
--- NOTE | 2024-11-22 11:38 | PTCARENOTE ---
pt OOB in chair with 2 assist and rolling walker for 1 hour. pt requesting to get back in bed. assisted back to bed, remains on 6L nasal cannula, sat 96%. afib on telemetry heart rate 120-130s. no changes in assessment noted.
[2024-11-22 11:58] LABS: Glucose - Point of Care 228 mg/dl (70-99)
[2024-11-22] MEDS: NOVOLOG FLEXPEN-HIGH RESISTANCE 4 UNITS SC ×2 (12:42→16:46)
--- NOTE | 2024-11-22 13:53 | W.PN.INTV ---
Today's Communication / Plan
Recommendations
-Increase Lasix to 40 mg IV twice daily
-Add KCl p.o. twice daily
-Trial off BiPAP during daytime and resume at night
-Advance p.o. considering improving respiratory status
Assessment
-
Patient is a 65-year-old gentleman with known history of oxygen dependent COPD, on 4 L at baseline, with recent admission for exacerbation about a month ago, presented to the hospital emergency room for worsening shortness of breath patient was
initially noted to be somewhat lethargic and required BiPAP initiation. 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
Patient was also noted to have dark stools with hemoglobin drop by about 3 point since 2 weeks and has been on Eliquis. There was concern for GI bleed and GI consultation was requested as well in addition to 1 unit of packed PRBC transfusion
ordered in the emergency room. Patient was noted to be hypothermic in the emergency room as well as hypotensive was given IV fluids and was started on Deniz hugger. Lactate was somewhat elevated at 2.6
Lat 24 hrs:
-Fluid balance, -2.3 Ltr
-Posttransfusion, hemoglobin improved, stable this AM
-Electrolytes, K 3.5 and Mg >2
-Cultures have stayed negative
#1. Respiratory distress with Acute exacerbation of COPD with Pneumonia
-Clinically improving, doing well off BIPAP this AM
-Solu-Medrol 40 mg IV q 12 hrs
-DuoNebs q4H, Pulmicort twice daily
-As needed albuterol
-Considering respiratory status is improving, advance diet
#1a. Chronic Hypercapnic respiratory failure
-Appears to be compensated with normal pH. Prior BMPs reviewed, suggestive of elevated HCO3, reflective of chronic hypercapnia
-Trial off BIPAP during daytime, resume at night
#2. Bilateral Pneumonia with sepsis (Hypotension, elevated Lactate and Hypothermia)
-Had been on Vancomycin and Zosyn, recently treated with Azithromycin in 10/2024
-Lactate and Blood pressure improved
-External warming PRN
-MRSA screen negative, DC vancomycin, continue Zosyn for now. If no growth in next 24 hrs, will switch to Ampi-Sulbactam. Check PCT in AM.
-Follow up Blood cultures
-Resume Cardizem CD as patient is hypertensive now, resume diuretics
#3. Anemia, Acute, suspect blood loss due to GI bleed
-Holding Eliquis
-s/p 1 unit PRBC, appropriate improvement in hematocrit
-Trend H/H
-PPI IV BID
-GI on case
-Patient improving, might be stable for EGD in next 24 hrs
#4. Paroxysmal A fib
-Holding Eliquis due to GI bleed
-Resumed Cardizem CD
#5. Acute on chronic CHF with preserved EF, 50-55%.
-Diuresing well, continue IV lasix, add Kcl PO
-BNP >3000
-Electrolytes in AM
#5. ?h/o Pulmonary HTN
-Chronically on Sildenafil, resumed
-ECHO reviewed from last month shows normal RV, LV and estimated PA pressure of 31 mm
-Details unavailable.
-Sildenafil was held on admission for hypotension, resumed
SCDs for DVT prophylaxis
Critical Care time 35 mins -- The patient is admitted for acute critical illness for the treatment of vital organ failure and/or prevention of further life-threatening conditions. Total care includes time spent in review of history, physical exam,
medications, hemodynamic/ventilator parameters, laboratory data, imaging and discussion with house staff, pharmacy, respiratory therapy, canal driver, and nursing.
CXR 11/19: Suggestive of R>L pneumonia
ECHO 11/2024: Normal biventricular size and systolic function without regional wall motion
abnormality. Estimated LVEF 50-55%. No significant valve disease.
Estimated PAP 31 mm
Subjective Dataa
Subjective Data
Date of Service:
Date of Service: November 22, 2024
Subjective:
Patient comfortably lying in bed, more comfortable, off BiPAP during my evaluation.
Review of Systems
Genitourinary: Other (Reports feeling better, all 14 systems reviewed and negative except as stated above in the history of present illness.)
Objective Data
Data Reviewed
Vital Signs / I&O / Oxygen:
Vital Signs
Temp Pulse Resp BP Pulse Ox
99.0 F 144 25 152/52 93
11/22/24 11:22 11/22/24 12:45 11/22/24 12:45 11/22/24 12:00 11/22/24 12:45
Intake and Output
11/21/24 11/22/24 11/23/24
06:59 06:59 06:59
Intake Total 2827.9 / 2927.9 740 / 740 340 / 340
Output Total 1075 / 1375 3100 / 3100 550 / 550
Balance 1752.9 / 1552.9 -2360 / -2360 -210 / -210
SaO2 93
Nasal Cannula flow liters per 6
minute
Physical Exam
General: Respiratory Distress
HEENT: Normocephalic
Cardiovascular: S1-S2 and Regular Rhythm
Respiratory: Wheeze (Less wheezy today) and Rhonchi (Improving)
GI: Soft and Non Distended
Neurology: AO x 3
Skin: Warm
Labs/Micro/Reports
Lab Data
11/22/24 05:05
11/22/24 05:05
Microbiology
11/19/24 20:42 Blood/Venous Blood Culture - Preliminary
No Growth in 48 hours- Final report to follow
11/20/24 11:39 Sputum Respiratory Culture - Final
Usual Respiratory Keke
11/20/24 11:39 Sputum Gram Stain - Final
11/19/24 22:59 Blood/Venous Blood Culture - Preliminary
No Growth in 48 hours- Final report to follow
11/20/24 10:58 Urine Legionella Urinary Antigen - Final
Negative for Legionella pneumophila Serogroup 1 antigen.
A negative result does not rule out the possiblity of
Legionella infection due to other serogroups or species of
Legionella. Clinical correlation is recommended.
11/20/24 10:58 Urine Streptococcus pneumoniae Antigen (M - Final
Negative for Streptococcus pneumoniae antigen.
A negative result does not exclude infection with
Streptococcus pneumoniae. Clinical correlation is
recommended.
11/20/24 08:59 Nose Nasal Screen MRSA (PCR) - Final
MRSA not detected - performed by PCR methodology.
11/19/24 20:42 Nasal Swab Influenza Types A & B (DOREEN) - Final
Negative for Influenza A & B, NAAT
Negative results must be combined with clinical observations
and patient history.
Nucleic Acid Amplification test (NAAT)performed on the
[employer] platform.
--- NOTE | 2024-11-22 14:34 | CM ---
CM following re: discharge planning.
Reviewed pt's chart, met with pt and spoke to pt's sister over the phone to update on discharge plan progress.
PT and OT evaluation noted - SNF level of care recommended. Pt is aware, expressed his agreement and she stated he is new to this area and asked to discuss SNF options with his sister.
CM spoke to pt's sister, a list of SNFs provided. Following SNFs preferred: [facility], [facility], [facility], [facility]. A referral to above SNFs made.
D/c plan: preferred SNF when medically stable.
CM will follow to assist pt with discharge to a preferred SNF.
--- NOTE | 2024-11-22 16:00 | PTCARENOTE ---
pt resting comfortably in bed. sister at bedside. pt on 6L nasal cannula, sat 96%. pt has not needed bipap today. no changes in assessment noted.
[2024-11-22 16:57] LABS: Glucose - Point of Care 219 mg/dl (70-99)
[2024-11-22] MEDS: LIDOCAINE 4% PATCH 1 PATCH TOPICAL (18:40)
--- NOTE | 2024-11-22 20:30 | PTCARENOTE ---
Pt received start of shift, HR afib w/ frequent PVCs and couplets on telemetry. Family at bedside. Condom catheter draining yellow urine. 6L NC 97-99%. Updated pt on plan of care, pt states understanding and agreeable to bipap HS.
[2024-11-22] MEDS: NSS (PRESERVATIVE FREE) 0.125 ML IV (21:41)
[2024-11-22 21:54] LABS: Glucose - Point of Care 186 mg/dl (70-99)
[2024-11-22] MEDS: MELATONIN 10 MG PO (22:47)
[2024-11-23] VITALS (27 sets, daily range): BP systolic 131–177; BP diastolic 55–91; PULSE 2–126; BMI 20.4
--- NOTE | 2024-11-23 00:21 | PTCARENOTE ---
Pt c/o inability to sleep d/t bipap even after PRN ativan and requesting something else. Spoke with SENIOR [employer]AL PARACHUTIST, melatonin ordered and administered. No further change in assessment.
[2024-11-23] MEDS: DUONEB INH ×3 (01:51→11:22)
[2024-11-23 03:54] LABS: Hemoglobin 9.7 g/dL (13.0-18.0); Mean Corp Hgb Conc. 32.3 g/dL (33.0-37.0); Mean Corpuscular Hgb 30.7 pg (27.0-31.0); Mean Corpuscular Volume 94.9 fL (80.0-94.0); Mean Platelet Volume 9.6 fL (7.4-10.4); Platelet Count 156 10^3/uL (130-400); Red Blood Cell Count 3.16 10^6/uL (4.70-6.10); Red Cell Dist. Width 15.2 % (11.5-14.5); White Blood Cell Count 12.1 10^3/uL (4.8-10.8)
[2024-11-23] MEDS: ZOSYN 100 IV ×4 (04:28→22:19)
[2024-11-23 04:30] LABS: ALT (SGPT) 27 U/L (0-50); AST (SGOT) 26 U/L (17-59); Albumin 2.8 g/dl (3.5-5.0); Alkaline Phosphatase 43 U/L (38-126); Blood Urea Nitrogen 37 mg/dl (9-20); Calcium 8.9 mg/dl (8.4-10.2); Chloride 94 mmol/L (98-107); Estimated Creatinine Clearance 57 ml/min; Glucose 175 mg/dl (70-99); Potassium 4.2 mmol/L (3.5-5.1); Sodium 138 mmol/L (135-145); Total Bilirubin 0.6 mg/dl (0.2-1.3); Total Protein 5.1 g/dl (6.3-8.2); eGFR > 60.00
[2024-11-23 04:39] LABS: Carbon Dioxide 36 mmol/L (22-30)
[2024-11-23 04:41] LABS: Procalcitonin 0.56 ng/ml (0.0-0.25)
--- NOTE | 2024-11-23 05:02 | PTCARENOTE ---
Pt on and off bipap through the night. Pt c/o feeling panicked and agitated by the mask. Reinforced education on importance of wearing bipap and why it is needed overnight, pt verbalizes understanding but does not demonstrate it.
[2024-11-23] MEDS: TYLENOL 650 MG PO ×2 (05:08→18:23)
--- NOTE | 2024-11-23 06:24 | W.PN.HOSP.TC ---
Today's Communication/Plan
-
Remains sick
c/w aggressive Neb/ steroid/ Abx
On Cardizem and BB, might need antiarrhythmic medications
Appreciate pulmonary help
Consult cardiology, appreciate input
Unable to proceed with endoscopic evaluation due to pulmonary status
Assessment / Plan
Assessment / Plan
Physical Exam
General: Chronically ill looking, in respiratory distress
HEENT: No deformities, on BiPAP
Respiratory: very Limited with rales, unchanged from yesterday
Cardiac: S1/S2,tachycardia
GI: Soft, Non Tender, Non Distended
Rectal: Hem Positive
Genito-urinary: No hematuria
Musculoskeletal: Mild ankle edema
Skin: IV/Catheter Site; No Rash
Neuro: less lethargic, AAO to surroundings, he followed commands
Psych, calm, anxious
A/P:
# Seems very anxious
Reviewed medical records, he is on oral Ativan
PRN IV Ativan for now
# Aspiration pneumonia with Sepsis POA/ septic shock ( leukocytosis, worsening hypoxia, respiratory distress, hypotension, hypothermia, PNA on CXR)
sputum culture showing respiratory noelle
Negative Legionella & Strep Ag
c/w empiric IV Abx
Negative blood culture so far
C/w O2 support with Bipap
DuoNeb QID and Pulmicort
f/w pulmonary recommendations.
# Acute on chronic hypoxic respiratory failure requiring non- invasive ventilatory support
c/w O2 support
Nebulizer treatment, IV steroids.
Speech evaluation, okay for thin liquid, medications as tolerated. Will follow-up for further recommendation, appreciate speech therapist help
Reduced gabapentin to help with reducing lethargy
#Acute blood loss anemia GI bleed
Good thing is HGB stable which means no active bleeding.
Doubt Hemorrhagic shock on admission due to stability of hemoglobin and absence of active bleeding
stool heme positive
- blood consent obtained
- Status post 2 unit PRBCs
-Appreciate GI help
Continue with the Protonix
Unable to proceed with endoscopic evaluation due to pulmonary status
# Acute on chronic HFrEF
#pulmonary HTN
ECHO (11/05/2024): Normal biventricular size and systolic function without regional wall motion abnormality. Estimated LVEF 50-55%.
No significant valve disease.
c/w Lasix for now
Resumed sildenafil
#Paroxysmal A-fib.
Uncontrolled
He is on Cardizem and BB
Will ask cardiology help, he might antiarrhythmic medication
Holding Eliquis while GI bleeding echocardiogram in November 2024 showed
LVEF 50 to 55% with no significant valvular disease acute
Consult cardiology, appreciate input
#History of essential hypertension, resumed Cardizem
#hyperlipidemia
No changes intended
#GERD
Continue on intravenous PPI
#BPH
- continue alfuzosin and finasteride
Monitor for retention
#chronic back pain
Cut back on gabapentin due to sepsis and drowsiness
#anxiety/depression
Resume Ativan.
Code status: full code
DVT prophylaxis: SCDs
Total time spent to see the patient, examine the patient, review data and lab results, discuss treatment plan with patient, employee relations consultant and nursing staff around 67 minutes
Anticipated Discharge: > 48 hours
Subjective/Interval History
-
Date of Service: November 23, 2024
feels sob at times
was able to keep Bipap for 4 hours last night
Objective Data
-
Labs:
Laboratory Results
11/23/24
03:26
WBC 12.1 H
Hgb 9.7 L
Hct 30.0 L
Plt Count 156
Sodium 138
Potassium 4.2
Chloride 94 L
Carbon Dioxide 36 H
BUN 37 H
Creatinine 1.0
Glucose 175 H
Calcium 8.9
Total Bilirubin 0.6
AST 26
ALT 27
Alkaline Phosphatase 43
Vital Signs:
Vital Signs
Temp Pulse Resp BP Pulse Ox
98.4 F 96 14 173/90 95
11/23/24 03:35 11/23/24 05:15 11/23/24 05:15 11/23/24 05:00 11/23/24 05:15
I&O
11/21/24 11/22/24 11/23/24
06:59 06:59 06:59
Intake Total 2827.9 / 2927.9 740 / 740 1060 / 1060
Output Total 1075 / 1375 3100 / 3100 1900 / 1900
Balance 1752.9 / 1552.9 -2360 / -2360 -840 / -840
[2024-11-23] MEDS: DUONEB 3 ML INH ×3 (07:12→19:31)
[2024-11-23] MEDS: PULMICORT 0.5 MG INH ×2 (07:12→19:31)
[2024-11-23] MEDS: NSS (PRESERVATIVE FREE) 0.125 ML IV (07:35)
[2024-11-23] MEDS: ATIVAN 0.25 MG IV (07:36)
[2024-11-23] MEDS: CARDIZEM CD 240 MG PO (07:39)
[2024-11-23] MEDS: LOPRESSOR 5 MG IV (07:51)
[2024-11-23] MEDS: LASIX 40 MG IV ×2 (07:53→15:26)
[2024-11-23] MEDS: NSS (PRESERVATIVE FREE) 10 ML IV ×2 (07:55→20:18)
[2024-11-23] MEDS: SOLU-MEDROL PF 40 MG IV (07:56)
[2024-11-23] MEDS: PROTONIX IV 40 MG IV ×2 (07:56→20:18)
[2024-11-23] MEDS: PROSCAR 5 MG PO (08:00)
[2024-11-23] MEDS: FLOMAX 0.4 MG PO (08:00)
[2024-11-23] MEDS: MUCINEX 600 MG PO ×2 (08:00→20:17)
[2024-11-23] MEDS: KCL 40 MEQ PO ×2 (08:00→20:18)
[2024-11-23] MEDS: REVATIO 20 MG PO (08:00)
[2024-11-23] MEDS: NOVOLOG FLEXPEN-HIGH RESISTANCE 1 UNITS SC (08:00)
[2024-11-23] MEDS: LIPITOR 40 MG PO (08:00)
[2024-11-23] MEDS: NEURONTIN 100 MG PO ×2 (08:00→20:18)
[2024-11-23 08:01] LABS: Glucose - Point of Care 131 mg/dl (70-99)
[2024-11-23] MEDS: MIRALAX TUBE (08:03)
--- NOTE | 2024-11-23 08:12 | PTCARENOTE ---
pt received this am- anxious, HR in 150s-160s afib with pvcs- Dr. Kruse and Dr. Goel aware- am meds given, lopressor given per order. HR improved to 120s-130s. ativan given per order. pt provided complete am care. condom cath intact, draining
yellow urine. incont of bm- GI MD aware and discussed POC. pt alert to place, self, and year but not month. able to turn and reposition self. pt remains on 6LNC. all safety precautions in place, call zhang within reach, bed alarm on and functioning.
--- NOTE | 2024-11-23 09:55 | W.PN.GI.CBS2 ---
Today's Communication / Plan
-
Hemoglobin stable after 2 units of packed red blood cells. Eliquis is on hold at this time.
History of likely peptic ulcer disease in the past, 2022, records not available to review. Reports never having a colonoscopy.
Currently on PPI IV twice a day and full liquid diet without any evidence of active bleeding.
Discussed with Dr. Goel from pulmonary, patient will need to be intubated and upper endoscopy should be done under general anesthesia given his tenuous pulmonary status but again there is a risk of not being able to wean him off the ventilator .
Other option is to continue PPI as patient does not have any evidence of active bleeding and hemoglobin has been stable, restart his Eliquis and monitor H&H. If there is overt active bleeding, then go ahead and do an upper endoscopy at that time.
Dr. Goel is going to have a discussion with the patient and get back to us about it.
Until then, okay to do a video swallow exam and advance diet as tolerated.
Continue PPI IV twice daily and monitor H&H and transfuse if needed. Monitor bowel movements as well.
If there is no plans for EGD, will sign off and at that time call us back if patient has any evidence of active bleeding.
Assessment / Plan
-
1. Anemia: Likely multifactorial, with dark stools in the setting of Eliquis prior to admission, now brown stool, hemoglobin improved. Most likely upper etiology of acute blood loss, peptic ulcer disease, angiectasia etc. though no signs of gross
bleeding now.
Hemoglobin stable after 2 units of packed red blood cells. Eliquis is on hold at this time.
History of likely peptic ulcer disease in the past, 2022, records not available to review. Reports never having a colonoscopy.
Currently on PPI IV twice a day and full liquid diet without any evidence of active bleeding.
Discussed with Dr. Goel from [facility], patient will need to be intubated and upper endoscopy should be done under general anesthesia given his tenuous pulmonary status but again there is a risk of not being able to wean him off the ventilator .
Other option is to continue PPI as patient does not have any evidence of active bleeding and hemoglobin has been stable, restart his Eliquis and monitor H&H. If there is overt active bleeding, then go ahead and do an upper endoscopy at that time.
Dr. Goel is going to have a discussion with the patient and get back to us about it.
Until then, okay to do a video swallow exam and advance diet as tolerated.
Continue PPI IV twice daily and monitor H&H and transfuse if needed. Monitor bowel movements as well.
If there is no plans for EGD, will sign off and at that time call us back if patient has any evidence of active bleeding.
Subjective
Subjective
Date of Service: November 23, 2024
Patient currently on 6 L nasal cannula saturating at 92%. Tachycardic anywhere between 120-140. She reports feeling anxious. No nausea or vomiting. Had brown bowel movement this morning. Was tolerating full liquid diet until yesterday.
Objective
Data Reviewed
Laboratory Data:
Laboratory Results
11/23/24 03:26
11/23/24 03:26
Laboratory Results
PT 23.6 Sec (11.4-14.6) H 11/20/24 00:30
INR 2.09 11/20/24 00:30
APTT 44.0 Sec (23.4-35.0) H 11/20/24 00:30
Phosphorus 4.5 mg/dl (2.5-4.5) 11/20/24 00:30
Magnesium 2.2 mg/dl (1.6-2.3) 11/22/24 05:05
Total Bilirubin 0.6 mg/dl (0.2-1.3) 11/23/24 03:26
AST 26 U/L (17-59) 11/23/24 03:26
ALT 27 U/L (0-50) 11/23/24 03:26
Alkaline Phosphatase 43 U/L (38-126) 11/23/24 03:26
Vital Signs and I&O:
Vital Signs
Temp Pulse Resp BP Pulse Ox
97.7 F 124 20 160/78 87
11/23/24 07:30 11/23/24 09:00 11/23/24 09:00 11/23/24 09:00 11/23/24 09:00
I&O
11/22/24 11/23/24 11/24/24
06:59 06:59 06:59
Intake Total 740 / 740 1060 / 1060
Output Total 3100 / 3100 1900 / 1900 300 / 300
Balance -2360 / -2360 -840 / -840 -300 / -300
Physical Exam
Physical Exam
GI: Soft, Non Distended and Non Tender
--- NOTE | 2024-11-23 10:00 | PTCARENOTE ---
Dr. Lynch from GI aware of bms, no plan for EGD at this time.
--- NOTE | 2024-11-23 11:30 | CON.CAR ---
Consultation
Consultation Request
Date/Time Consultation Requested: 11/23/24, 950am
Date/Time Consultation Performed: 11/23/24, 1030am
Requesting Provider: Aixa
Performing Provider: Kyle
Reason for Consultation: A fib with RVR
Medical History
-
Chief Complaint: tachycardia
History of Present Illness:
74 yo male with PMH of paroxysmal A fib, chronic HFPEF, HTN, COPD, pulm HTN on sildenafil is admitted with COPD exacerbation, PNA. We are consulted for A fib with RVR. Patient does not feel palps. No chest pain.
Past Medical History
Past Medical History: Arrhythmias (paroxysmal A fib), CHF (chronic HFPEF), COPD, HTN and Hypercholesterolemia
Past Surgical History: None
Social History
Tobacco: Former Smoker
Family History
Family History: Early CAD (none)
Allergies / Home Medications
Allergy/AdvReac Type Severity Reaction Status Date / Time
No Known Allergies Allergy Verified 11/19/24 20:53
�Medication �Instructions �Recorded �Confirmed �Type
Lactobac no.2-Bifidobac no.1-S. 1 cap PO DAILY Supplement 10/30/24 11/19/24 History
thermo 112.5 billion cell capsule
(Visbiome)
albuterol sulfate 90 mcg/actuation 2 puff inhalation R Q6HPRN PRN sob 10/30/24 11/19/24 History
aerosol inhaler
alfuzosin 10 mg tablet,extended 10 mg PO DAILY BPH 10/30/24 11/19/24 History
release 24 hr
apixaban 5 mg tablet (Eliquis) 5 mg PO BID Blood Clot 10/30/24 11/19/24 History
Prevention/Tx
atorvastatin 40 mg tablet 40 mg PO DAILY High Cholesterol 10/30/24 11/19/24 History
finasteride 5 mg tablet 5 mg PO DAILY BPH 10/30/24 11/19/24 History
fluticasone fur. 200 mcg-umeclid 1 inh inhalation R DAILY 10/30/24 11/19/24 History
62.5 mcg-vilant 25 mcg Lung/Breathing Issues
inhalat.powder (Trelegy Ellipta)
furosemide 20 mg tablet 20 mg PO BID Fluid 10/30/24 11/19/24 History
Retention/Swelling
gabapentin 300 mg capsule 300 mg PO BID Pain 10/30/24 11/19/24 History
magnesium oxide 250 mg PO BID Supplement 10/30/24 11/19/24 History
pantoprazole 40 mg tablet,delayed 40 mg PO DAILY GERD 10/30/24 11/19/24 History
release
sildenafil (pulm.hypertension) 20 20 mg PO DAILY PHTN 10/30/24 11/19/24 History
mg tablet
therapeutic multivitamin 1 tab PO DAILY Supplement 10/30/24 11/19/24 History
guaifenesin 600 mg tablet, 600 mg PO Q12 #60 tabs 11/07/24 11/19/24 Rx
extended release 12 hr
prednisone 10 mg tablet See Rx Instructions .Route 11/07/24 11/19/24 Rx
.COMPLEX #45 tabs
diltiazem HCl 240 mg capsule,24 240 mg PO DAILY Heart 11/21/24 11/21/24 History
hr,extended release Disease/Condition
lorazepam 0.5 mg tablet 0.5 mg PO BID PRN ANXIETY 11/23/24 11/23/24 History
Review of Systems
-
History Source: Patient
Constitutional: Weight Gain
Respiratory: Trouble Breathing
Musculoskeletal: Edema
Physical Exam
Vital Signs
Temp Pulse Resp BP Pulse Ox
97.9 F 124 20 160/78 87
11/23/24 11:05 11/23/24 09:00 11/23/24 09:00 11/23/24 09:00 11/23/24 09:00
Lab Results
11/23/24 03:26
11/23/24 03:26
Troponin I 0.026 ng/ml 11/20/24 04:56
Kgl-X-Kzakpvscsph Pept 3380 pg/ml 11/22/24 05:05
Physical Exam
General: Respiratory Distress
HEENT: Normocephalic and Anicteric
Respiratory: Accessory Resp Muscle Use
Cardiac: S1/S2 (normal), Irregular Rhythm, Murmur (none), Peripheral Edema (trace LE edema) and JVD (present)
Musculoskeletal: No Clubbing and No Cyanosis
Skin: Warm and Dry
Neuro: AO x 3
Psych: Calm
Impression / Plan
-
74 yo male with PMH of paroxysmal A fib, chronic HFPEF, HTN, COPD, pulm HTN on sildenafil is admitted with COPD exacerbation, PNA. We are consulted for A fib with RVR.
# A fib with RVR
-in setting of COPD, PNA
-start diltiazem drip, and titrate
-eliquis is on hold as anemia is being investigated
# Acute on chronic HFPEF
-severe, requiring hospitalization and IV diuretics
-cont lasix 40mg IV bid, with close monitoring of labs, tele
# Pulm HTN
-continues on sildenafil
# HTN
-trend BP with diuresis
# Hyperlipidemia
-cont statin
Data Reviewed
-
EKG: Tracing Personally Visualized and interpreted (A fib with RVR)
Medical Tests (Nuc Med, Echo etc): Report Reviewed by me (echo 11/05/24: EF 50-55%, no sig valve disease)
Labs: Labs Reviewed by me
[2024-11-23] MEDS: CARDIZEM 125 IV ×2 (11:55→16:46)
[2024-11-23] MEDS: NOVOLOG FLEXPEN-HIGH RESISTANCE 2 UNITS SC (12:00)
[2024-11-23] MEDS: ELIQUIS PO (12:05)
--- NOTE | 2024-11-23 12:06 | PTCARENOTE ---
pt discussed in rounds with Dr. Goel- pt taken for video swallow- see speech therapy note and recs. pt remains on 6LNC, cardiziem gtt started per Dr. Wright order- assessment unchanged further.
[2024-11-23 12:08] LABS: Glucose - Point of Care 194 mg/dl (70-99)
--- NOTE | 2024-11-23 12:18 | PTOTSP ---
Videofluoroscopic swallow study
Summary: WFL-mild oral, mild pharyngeal dysphagia w/ transient aspiration of thin liquids via consecutive straw sips w/ intact sensory response, clearing contrast to larynx. Suspect aspiration occurred due to timing/degree of laryngeal vestibule
closure. Etiology of dysphagia is felt to be related to acute illness and comorbidities such as COPD.
Consider diet below w/ soft solids for ease of mastication. If patient is unable to take single sips of liquids, consider downgrade to mildly thick consistency.
Recommend:
1. IDDSI Level 6 Soft and Bite Sized Solids, Thin Liquids - SINGLE SIPS
2. Medications: whole and/or crushed in puree
3. Oral care 3-5x daily
4. Strategies: full supervision, assist as needed, upright to 90 degrees, small SINGLE sips/bites, slow rate, PO only when RR <30 and SpO2 >90%, reflux precautions (hx GERD)
5. Dysphagia therapy at the acute care level for instruction in compensations, determine if solid advancement appropriate.
*Of note, power was lost in radiology department during video swallow study and only portion of the study recorded.
--- NOTE | 2024-11-23 12:40 | CM ---
CM following re: discharge planning.
Discussed in Rounds, reviewed pt's chart, met with pt.
Per Rounds meeting, pt remains on 6LNC, cardiziem gtt, video swallowing today, continue supportive care.
PT and OT evaluation noted - SNF level of care recommended.
Following SNFs preferred: [facility], [facility], [facility], [facility]. A referral to above SNFs made. [facility] and [facility] will offer a bed when pt is medically stable. Awaiting for [facility] and [facility] determinations.
D/c plan: preferred SNF when medically stable.
CM will follow to assist pt with discharge to a preferred SNF.
--- NOTE | 2024-11-23 12:46 | W.PN.INTV ---
Today's Communication / Plan
Recommendations
-Continue nightly BiPAP and trial of break from BiPAP during daytime
-Continue Lasix 40 twice daily, potassium 40 twice daily
-Follow-up chest x-ray in a.m.
-Lower Solu-Medrol to 40 once a day
-Change DuoNebs to 4 times daily
-Palliative care consult, as patient continues to have tenuous respiratory status and likely will have poor outcome with intubation and mechanical ventilation
Assessment
-
Patient is a 65-year-old gentleman with known history of oxygen dependent COPD, on 4 L at baseline, with recent admission for exacerbation about a month ago, presented to the hospital emergency room for worsening shortness of breath patient was
initially noted to be somewhat lethargic and required BiPAP initiation. In view of respiratory distress, BiPAP need, patient was admitted to the ICU and correctional corporal consultation was requested.
Patient was also noted to have dark stools with hemoglobin drop by about 3 point since 2 weeks and has been on Eliquis. There was concern for GI bleed and GI consultation was requested as well in addition to 1 unit of packed PRBC transfusion
ordered in the emergency room. Patient was noted to be hypothermic in the emergency room as well as hypotensive was given IV fluids and was started on Deniz hugger. Lactate was somewhat elevated at 2.6
Lat 24 hrs:
-Fluid balance, -2.2 Ltr
-Posttransfusion, hemoglobin improved, stable this AM
-Electrolytes, K and magnesium normal
-Cultures have stayed negative
#1. Respiratory distress with Acute exacerbation of COPD with Pneumonia
-Clinically very slow improvement
-Lower Solu-Medrol to 40 mg once a day
-Lower DuoNebs to every 6 hours considering patient gets tachycardic after breathing treatment
-As needed albuterol
-Speech therapy evaluation, videofluoroscopic study for dietary recommendations
#1a. Chronic Hypercapnic respiratory failure
-Appears to be compensated with normal pH. Prior BMPs reviewed, suggestive of elevated HCO3, reflective of chronic hypercapnia
-Continue to trial off BIPAP during daytime, resume at night
#2. Bilateral Pneumonia with sepsis (Hypotension, elevated Lactate and Hypothermia)
-Had been on Vancomycin and Zosyn, recently treated with Azithromycin in 10/2024
-Lactate and Blood pressure improved
-External warming PRN
-MRSA screen negative, DC vancomycin, continue Zosyn for now. Procalcitonin still elevated, will aim to complete at least 7 days of antibiotics
-Follow up Blood cultures
-Continue Cardizem and diuretics
#3. Anemia, Acute, suspect blood loss due to GI bleed
-Holding Eliquis
-s/p 1 unit PRBC, appropriate improvement in hematocrit
-Trend H/H
-PPI IV BID
-GI on case
-Patient continues to have tenuous respiratory status, I do not think he will be able to tolerate EGD with conscious sedation and will end up needing intubation and mechanical ventilation.
-Conservative management for now, delaying EGD as long as no active bleeding noted
#4. Paroxysmal A fib with RVR
-Holding Eliquis due to GI bleed
-Cardiology service on case
-Cardizem CD switched to Cardizem infusion
-Lower frequency of DuoNebs to 4 times daily
#5. Acute on chronic CHF with preserved EF, 50-55%.
-Diuresing well, continue IV lasix, add Kcl PO
-BNP >3000
-Electrolytes in AM
-CXR in AM
#5. ?h/o Pulmonary HTN
-Chronically on Sildenafil, resumed
-ECHO reviewed from last month shows normal RV, LV and estimated PA pressure of 31 mm
-Details unavailable.
-Sildenafil was held on admission for hypotension, resumed
#7. Goals of care: -Ongoing discussions
-Request palliative care consultation
-Patient continues to have tenuous respiratory status and at risk of failure of noninvasive positive pressure ventilation and need for intubation mechanical ventilation. With patient's functional status and underlying severe COPD, he is at a risk
of difficult to wean and possibly even inability to take off ventilator.
SCDs for DVT prophylaxis
Critical Care time 38 mins -- The patient is admitted for acute critical illness for the treatment of vital organ failure and/or prevention of further life-threatening conditions. Total care includes time spent in review of history, physical exam,
medications, hemodynamic/ventilator parameters, laboratory data, imaging and discussion with house staff, pharmacy, respiratory therapy, export coordinator, and nursing.
CXR 11/19: Suggestive of R>L pneumonia
ECHO 11/2024: Normal biventricular size and systolic function without regional wall motion
abnormality. Estimated LVEF 50-55%. No significant valve disease.
Estimated PAP 31 mm
Subjective Dataa
Subjective Data
Date of Service:
Date of Service: November 23, 2024
Subjective:
Patient initially examined on BiPAP, subsequently reevaluated off BiPAP. Patient more or less same as yesterday, no significant change.
Review of Systems
Cardiopulmonary: Dyspnea on Exertion, Cough, Sputum Production and Wheezing
Objective Data
Data Reviewed
Vital Signs / I&O / Oxygen:
Vital Signs
Temp Pulse Resp BP Pulse Ox
97.9 F 117 11 143/88 94
11/23/24 11:05 11/23/24 12:30 11/23/24 12:30 11/23/24 12:00 11/23/24 12:30
Intake and Output
11/22/24 11/23/24 11/24/24
06:59 06:59 06:59
Intake Total 740 / 740 1060 / 1060 135 / 135
Output Total 3100 / 3100 1900 / 1900 1800 / 1800
Balance -2360 / -2360 -840 / -840 -1665 / -1665
SaO2 94
Nasal Cannula flow liters per 6
minute
Physical Exam
HEENT: Normocephalic
Cardiovascular: S1-S2 and Regular Rhythm (Irregular rhythm, consistent with A-fib and RVR)
Respiratory: Wheeze (Less wheezy today) and Rhonchi (Improving)
GI: Soft and Non Distended
Neurology: AO x 3
Skin: Warm
Labs/Micro/Reports
Lab Data
11/23/24 03:26
11/23/24 03:26
Microbiology
11/19/24 20:42 Blood/Venous Blood Culture - Preliminary
No Growth in 72 hours- Final report to follow
11/19/24 22:59 Blood/Venous Blood Culture - Preliminary
No Growth in 72 hours- Final report to follow
11/20/24 11:39 Sputum Respiratory Culture - Final
Usual Respiratory Keke
11/20/24 11:39 Sputum Gram Stain - Final
11/20/24 10:58 Urine Legionella Urinary Antigen - Final
Negative for Legionella pneumophila Serogroup 1 antigen.
A negative result does not rule out the possiblity of
Legionella infection due to other serogroups or species of
Legionella. Clinical correlation is recommended.
11/20/24 10:58 Urine Streptococcus pneumoniae Antigen (M - Final
Negative for Streptococcus pneumoniae antigen.
A negative result does not exclude infection with
Streptococcus pneumoniae. Clinical correlation is
recommended.
11/20/24 08:59 Nose Nasal Screen MRSA (PCR) - Final
MRSA not detected - performed by PCR methodology.
--- NOTE | 2024-11-23 13:20 | W.CON.PAL ---
Consultation
-
Date/Time Consultation Requested: 11/23
Date/Time Consultation Performed: 11/23
Performing Provider: Lisa Harley
Reason for Consult: Goals of Care Discussion
Primary Diagnosis: COPD, aspiration PNA
Reason for Admission
Illness Course/HPI
74 year old M with PMH of COPD on 2L, CHF, Afib on eliquis admitted with lethargy and dyspnea.
Upon admission was found to have b/l PNA c/f aspiration. ALso with significant hgb drop and black stools c/f GIB s/p PRBCs with improvement. Seen by GI who are holding off on EGD given tenuous respiratory status. Has been on and off bipap - now
using at night. On 6L during day time. High risk for intubation and full code. s/p video swallow today and cleared for soft, bite sized food.
Consult for GOC.
Seen at bedside with sister present. Reports feeling overall well. A bit confused about the plan, seems forgetful. We discussed his code status and worry that if his respiratory status worsens, he may require intubation. Per sister, they discussed
this and he goes back and forth on what he wants. We discussed high risk for not being able to wean due to his lung disease, they expressed understanding. He is not sure about short term but he knows for sure he would NOT want terminal carman intubation
if he were not able to be extubated. Encouraged him to continue thinking about this.
He has 8 children but verbally stated he would want his sister to be his MDM. Was living with sister prior to this admission, independent with ADLs, iADLs. Discussed that he would need to write down on paper that his sister is his mPOA or else it
would fall to his 8 children. Provided a blank copy of advance directive to his sister to fill out. Explained would need 2 witnesses.
Pain & Symptom Assessment
[place] Symptom Scale 0=none, 10=worst
Pain: 0
Appetite: 0
Shortness of Breath: 0
Objective Data
-
Objective Data:
Vital Signs
Temp Pulse Resp BP Pulse Ox
97.9 F 117 11 143/88 94
11/23/24 11:05 11/23/24 12:30 11/23/24 12:30 11/23/24 12:00 11/23/24 12:30
Laboratory Results
11/23/24 03:26
11/23/24 03:26
PT 23.6 Sec (11.4-14.6) H 11/20/24 00:30
INR 2.09 11/20/24 00:30
APTT 44.0 Sec (23.4-35.0) H 11/20/24 00:30
Total Protein 5.1 g/dl (6.3-8.2) L 11/23/24 03:26
Albumin 2.8 g/dl (3.5-5.0) L 11/23/24 03:26
Palliative Performance Scale
Palliative Performance Scale:
PPS Level Ambulation Activity & Evidence of Disease Self Care Intake Conscious Level
100% Full Normal Activity & Work; Full Intake Full
No Evidence of Disease
90% Full Normal Activity & Work; Full Normal Full
Some Evidence of Disease
80% Full Normal Activity with Effort Full Normal or Full
Some Evidence of Disease Reduced
70% Reduced Unable Normal Job/Work Full Normal or Full
Significant Disease Reduced
60% Reduced Unable Hobby/Housework Occasional Normal or Full or Confusion
Significant Disease Assistance Reduced
50% Mainly Sit/Lie Unable to do Any Work Considerable Normal or Full or Confusion
Extensive Disease Assistance Req'd Reduced
40% Mainly in Bed Unable to do Most Activity Mainly Assistance Normal or Full or Drowsy;
Extensive Disease Reduced +/- Confusion
30% Totally Bed Unable to do Any Activity Total Care Normal or Full or Drowsy;
Bound Extensive Disease Reduced +/- Confusion
20% Totally Bed Bound Unable to do Any Activity Total Care Minimal to Full or Drowsy;
Extensive Disease Sips +/- Confusion
10% Totally Bed Bound Unable to do Any Activity Total Care Mouth Care Drowsy or Coma;
Extensive Disease Only +/- Confusion
0%
PPS Score Level:
Physical Exam
-
General: No Apparent Distress, Conversant and Disheveled
HEENT: Normocephalic
Respiratory: Decreased Breath Sounds
Cardiac: Irregular Rhythm
Peripheral Vascular: No Edema
GI: Soft
Skin: Warm
Neuro: AO x 3
Psych: Calm
Assessment / Plan
-
Assessment/Plan:
74 year old M with COPD on 2L admitted with b/l aspiration PNA, GIB.
- continues to discuss code status with family - currently full code. 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
- blank advance directive provided to name sister as MDM as he has 8 adult children
Care Reviewed
Data Reviewed
Radiology procedure: Image Reviewed
Medical Tests: I reviewed
Reviewed with: Patient, Family and Physician
--- NOTE | 2024-11-23 15:49 | PTCARENOTE ---
pt remains incontinent of dark brown stool, oob x2 assist to the chair. tolerated diet this afternoon, sister at bedside and updated. assessment unchanged further. remains on dilt gtt at 15mg/hr- afib with pvcs rate 90s-110s.
--- NOTE | 2024-11-23 16:04 | PTCARENOTE ---
IV team at bedside aware right midline not flushing, IV team at bedside again this afternoon.
[2024-11-23] MEDS: NOVOLOG FLEXPEN-HIGH RESISTANCE 7 UNITS SC (16:49)
[2024-11-23 16:59] LABS: Glucose - Point of Care 261 mg/dl (70-99)
--- NOTE | 2024-11-23 18:29 | VATNOTE ---
called due to right midline inserted yesterday unable to flush; redressed and flipped butterfly hub of catheter and still unable to flush; started to retract and @ 1 cm out, midline gave excellent blood return and able to flush smoothly. Cardiroberm
reconnected to midline. CARSONN, Fe, informed.
[2024-11-23] MEDS: LIDOCAINE 4% PATCH 1 PATCH TOPICAL (20:21)
[2024-11-23 21:42] LABS: Glucose - Point of Care 173 mg/dl (70-99)
[2024-11-23] MEDS: ATIVAN 0.5 MG IV (23:15)
[2024-11-24] VITALS (26 sets, daily range): BP systolic 117–166; BP diastolic 47–98; PULSE 2–84; BMI 19.2
--- NOTE | 2024-11-24 00:29 | PTCARENOTE ---
Late entry: Assumed care of pt at 1900. Pt is A/O x2-3, to person/place/loosely to time. Pt forgetful and will repeat the same questions. Received pt on 6LNC. Lungs with coarse rhonchi and insp/exp wheezing throughout. Pt with frequent moist executive chairman
cough. AFib on monitor with rate in 100s-110s, received pt on Cardizem drip at 15mg/hr and this has not been titrated. See nursing shift assessment flowsheet for full physical assessment details.
Midnight assessment unchanged from previous assessment. Pt placed on bipap mask at around 2200 by RT, by 2300 pt was pulling mask off stating that he couldn't breathe with it on. Gave pt a very brief break for mouth care and some sips of water, and
PRN IV lorazepam administered. Pt agreed at that time to keep the mask on. Around midnight pt was pulling mask off again and said he couldn't wear it anymore. Pt placed back on 6LNC
[2024-11-24] MEDS: CARDIZEM 125 IV (01:23)
[2024-11-24 04:04] LABS: Hematocrit 32.6 % (39.0-52.0); Hemoglobin 10.4 g/dL (13.0-18.0); Mean Corp Hgb Conc. 31.9 g/dL (33.0-37.0); Mean Corpuscular Hgb 30.1 pg (27.0-31.0); Mean Corpuscular Volume 94.5 fL (80.0-94.0); Platelet Count 171 10^3/uL (130-400); Red Blood Cell Count 3.45 10^6/uL (4.70-6.10); Red Cell Dist. Width 14.7 % (11.5-14.5); White Blood Cell Count 11.8 10^3/uL (4.8-10.8)
[2024-11-24] MEDS: ZOSYN 100 IV ×4 (04:07→21:33)
[2024-11-24 04:19] LABS: Blood Urea Nitrogen 27 mg/dl (9-20); Calcium 8.9 mg/dl (8.4-10.2); Chloride 92 mmol/L (98-107); Estimated Creatinine Clearance 65 ml/min; Glucose 124 mg/dl (70-99); Potassium 4.3 mmol/L (3.5-5.1); Sodium 136 mmol/L (135-145); eGFR > 60.00
[2024-11-24 04:39] LABS: Carbon Dioxide 38 mmol/L (22-30)
--- NOTE | 2024-11-24 05:24 | PTCARENOTE ---
0400 assessment unchanged. Remains on 6LNC. Pt has been sleeping on and off. AM labs drawn, CHG cloth bath done, linens changed.
--- NOTE | 2024-11-24 06:55 | W.PN.HOSP.TC ---
Addendum entered and electronically signed by Sterling Kruse MD 11/24/24 13:01:
addendum
High blood glucose. Uncontrolled. Will add Lantus, Premeal insulin
Back pain, Tylenol is not helping, will add low-dose tramadol
End
Original Note:
Today's Communication/Plan
-
Can go to IMU
He is not compliant or intolerant with Bi-pap
Day 5 of Zosyn, plan to do 7 days
palliative care consult, pt remains full code
Assessment / Plan
Assessment / Plan
Physical Exam
General: Chronically ill looking, remains sob upon talking
HEENT: No deformities, on BiPAP
Respiratory: very Limited with rales, unchanged from yesterday
Cardiac: S1/S2, tachycardia
GI: Soft, Non Tender, Non Distended
Rectal: Hem Positive
Genito-urinary: No hematuria
Musculoskeletal: Mild ankle edema
Skin: IV/Catheter Site; No Rash
Neuro: less lethargic, AAO to surroundings, he followed commands
Psych, calm, anxious
A/P:
#Paroxysmal A-fib.
Uncontrolled
Started on IV Cardizem gtt
Holding Eliquis while GI bleeding, not a candidate, we can challenge with resume AC but prefer while A fib/ breathing stats with stability
echocardiogram in November 2024 showed LVEF 50 to 55% with no significant valvular disease acute
Consult cardiology, appreciate input
# Aspiration pneumonia with Sepsis POA/ septic shock ( leukocytosis, worsening hypoxia, respiratory distress, hypotension, hypothermia, PNA on CXR)
sputum culture showing respiratory noelle
Negative Legionella & Strep Ag
c/w empiric IV Abx day # 5
Negative blood culture so far
C/w O2 support with Bipap at night ( he seems to use it only for less than 3-4 hours)
DuoNeb QID and Pulmicort
f/w pulmonary recommendations.
# Acute on chronic hypoxic respiratory failure requiring non- invasive ventilatory support
c/w O2 support
Nebulizer treatment, IV steroids.
Speech evaluation, okay for thin liquid, medications as tolerated. Will follow-up for further recommendation, appreciate speech therapist help
Reduced gabapentin to help with reducing lethargy
#Acute blood loss anemia GI bleed
Good thing is HGB stable which means no active bleeding.
Doubt Hemorrhagic shock on admission due to stability of hemoglobin and absence of active bleeding
stool heme positive
- blood consent obtained
- Status post 2 unit PRBCs
-Appreciate GI help
Continue with the Protonix
Unable to proceed with endoscopic evaluation due to pulmonary status
# Acute on chronic HFrEF
#pulmonary HTN
ECHO (11/05/2024): Normal biventricular size and systolic function without regional wall motion abnormality. Estimated LVEF 50-55%.
No significant valve disease.
c/w Lasix for now
Resumed sildenafil
#History of essential hypertension, resumed Cardizem
Lasix
#hyperlipidemia
No changes intended
#GERD
Continue on intravenous PPI
#BPH
- continue alfuzosin and finasteride
Monitor for retention
#chronic back pain
Cut back on gabapentin due to sepsis and drowsiness
#anxiety/depression
Resume Ativan.
Code status: full code
DVT prophylaxis: SCDs
Total time spent to see the patient, examine the patient, review data and lab results, discuss treatment plan with patient, rn lactation consultant and nursing staff around 67 minutes
Anticipated Discharge: > 48 hours
Subjective/Interval History
-
Date of Service: November 24, 2024
No chest pain
No sob
no fevers
Objective Data
-
Labs:
Laboratory Results
11/24/24
03:48
WBC 11.8 H
Hgb 10.4 L
Hct 32.6 L
Plt Count 171
Sodium 136
Potassium 4.3
Chloride 92 L
Carbon Dioxide 38 H
BUN 27 H
Creatinine 0.8
Glucose 124 H
Calcium 8.9
Vital Signs:
Vital Signs
Temp Pulse Resp BP Pulse Ox
98.4 F 93 18 143/70 98
11/24/24 03:27 11/24/24 05:00 11/24/24 05:00 11/24/24 05:00 11/24/24 05:00
I&O
11/22/24 11/23/24 11/24/24
06:59 06:59 06:59
Intake Total 740 / 740 1060 / 1060 906 / 906
Output Total 3100 / 3100 1900 / 1900 4975 / 4975
Balance -2360 / -2360 -840 / -840 -4069 / -4069
[2024-11-24] MEDS: PULMICORT 0.5 MG INH ×2 (07:18→19:50)
[2024-11-24] MEDS: DUONEB 3 ML INH ×4 (07:18→19:50)
[2024-11-24] MEDS: NOVOLOG FLEXPEN-HIGH RESISTANCE 1 UNITS SC (07:44)
[2024-11-24] MEDS: FLOMAX 0.4 MG PO (07:46)
[2024-11-24] MEDS: NEURONTIN 100 MG PO ×2 (07:46→20:30)
[2024-11-24] MEDS: TYLENOL 650 MG PO ×2 (07:46→13:23)
[2024-11-24] MEDS: CARDIZEM CD 240 MG PO (07:47)
[2024-11-24] MEDS: LIPITOR 40 MG PO (07:47)
[2024-11-24] MEDS: PROSCAR 5 MG PO (07:47)
[2024-11-24] MEDS: REVATIO 20 MG PO (07:47)
[2024-11-24] MEDS: KCL 40 MEQ PO ×2 (07:47→20:30)
[2024-11-24] MEDS: MUCINEX 600 MG PO ×2 (07:47→20:30)
[2024-11-24 07:48] LABS: Glucose - Point of Care 115 mg/dl (70-99)
[2024-11-24] MEDS: NSS (PRESERVATIVE FREE) 10 ML IV ×2 (07:49→20:31)
[2024-11-24] MEDS: SOLU-MEDROL PF 40 MG IV (07:49)
[2024-11-24] MEDS: PROTONIX IV 40 MG IV ×2 (07:49→20:31)
[2024-11-24] MEDS: LASIX 40 MG IV ×2 (07:49→17:03)
[2024-11-24] MEDS: MIRALAX TUBE (07:51)
--- NOTE | 2024-11-24 07:55 | W.PN.INTV ---
Today's Communication / Plan
Recommendations
-Thick, difficult to expectorate secretions, add 3% saline nebulized twice daily along with DuoNeb
-Patient stable to transfer out of ICU, likely IMU
-Pulmonary service will continue to follow
Assessment
-
Patient is a 65-year-old gentleman with known history of oxygen dependent COPD, on 4 L at baseline, with recent admission for exacerbation about a month ago, presented to the hospital emergency room for worsening shortness of breath patient was
initially noted to be somewhat lethargic and required BiPAP initiation. In view of respiratory distress, BiPAP need, patient was admitted to the ICU and still tender consultation was requested.
Patient was also noted to have dark stools with hemoglobin drop by about 3 point since 2 weeks and has been on Eliquis. There was concern for GI bleed and GI consultation was requested as well in addition to 1 unit of packed PRBC transfusion
ordered in the emergency room. Patient was noted to be hypothermic in the emergency room as well as hypotensive was given IV fluids and was started on Deniz hugger. Lactate was somewhat elevated at 2.6
Lat 24 hrs:
-Fluid balance, -2.3 Ltr
-Posttransfusion, hemoglobin improved, stable this AM
-Electrolytes, K and magnesium normal
-Cultures have stayed negative
#1. Respiratory distress with Acute exacerbation of COPD with Pneumonia
-Gradually improving
-Continue Solu-Medrol to 40 mg once a day
-DuoNeb every 6, Pulmicort twice a day
-As needed albuterol
-Speech therapy evaluation, videofluoroscopic study for dietary recommendations
-Continue Mucinex and add 3% inhaled hypertonic saline twice daily in view of thick secretions
#1a. Chronic Hypercapnic respiratory failure
-Appears to be compensated with normal pH. Prior BMPs reviewed, suggestive of elevated HCO3, reflective of chronic hypercapnia
-Continue to trial off BIPAP during daytime, resume at night
#2. Bilateral Pneumonia with sepsis (Hypotension, elevated Lactate and Hypothermia)
-Had been on Vancomycin and Zosyn, recently treated with Azithromycin in 10/2024
-Lactate and Blood pressure improved
-External warming PRN
-MRSA screen negative, DC vancomycin, continue Zosyn for now. Procalcitonin still elevated, will aim to complete at least 7 days of antibiotics
-Follow up Blood cultures
#3. Anemia, Acute, suspect blood loss due to GI bleed
-Holding Eliquis
-s/p 1 unit PRBC, appropriate improvement in hematocrit
-Trend H/H
-PPI IV BID
-GI on case
-Patient continues to have tenuous respiratory status, I do not think he will be able to tolerate EGD with conscious sedation and will end up needing intubation and mechanical ventilation.
-Conservative management for now, delaying EGD as long as no active bleeding noted
#4. Paroxysmal A fib with RVR
-Holding Eliquis due to GI bleed
-Cardiology service on case
-Cardizem infusion being switched to oral Cardizem and oral metoprolol
#5. Acute on chronic CHF with preserved EF, 50-55%.
-Diuresing well, continue IV lasix
-BNP >3000
-Electrolytes in AM
-CXR improving
#5. ?h/o Pulmonary HTN
-Chronically on Sildenafil, resumed
-ECHO reviewed from last month shows normal RV, LV and estimated PA pressure of 31 mm
-Details unavailable.
-Sildenafil was held on admission for hypotension, resumed
#7. Goals of care: -Ongoing discussions
-Request palliative care consultation
-Patient continues to have tenuous respiratory status and at risk of failure of noninvasive positive pressure ventilation and need for intubation mechanical ventilation. With patient's functional status and underlying severe COPD, he is at a risk
of difficult to wean and possibly even inability to take off ventilator.
SCDs for DVT prophylaxis
Critical Care time 32 mins -- The patient is admitted for acute critical illness for the treatment of vital organ failure and/or prevention of further life-threatening conditions. Total care includes time spent in review of history, physical exam,
medications, hemodynamic/ventilator parameters, laboratory data, imaging and discussion with house staff, pharmacy, respiratory therapy, workday consultant, and nursing.
CXR 11/19: Suggestive of R>L pneumonia
ECHO 11/2024: Normal biventricular size and systolic function without regional wall motion
abnormality. Estimated LVEF 50-55%. No significant valve disease.
Estimated PAP 31 mm
Subjective Dataa
Subjective Data
Date of Service:
Date of Service: November 24, 2024
Subjective:
Comfortably sitting in bed, no acute distress, stayed off BiPAP all day yesterday
Review of Systems
Genitourinary: Other (All 14 systems reviewed and negative except as stated above in the history of present illness.)
Objective Data
Data Reviewed
Vital Signs / I&O / Oxygen:
Vital Signs
Temp Pulse Resp BP Pulse Ox
98.5 F 97 22 143/70 97
11/24/24 07:20 11/24/24 07:22 11/24/24 07:22 11/24/24 05:00 11/24/24 07:22
Intake and Output
11/23/24 11/24/24 11/25/24
06:59 06:59 06:59
Intake Total 1060 / 1060 906 / 906
Output Total 1900 / 1900 4975 / 4975
Balance -840 / -840 -4069 / -4069
SaO2 97
Nasal Cannula flow liters per 6
minute
Physical Exam
General: Respiratory Distress (None)
HEENT: Normocephalic
Cardiovascular: S1-S2 and Regular Rhythm (Irregular rhythm, consistent with A-fib and RVR)
Respiratory: Wheeze (Less wheezy today) and Rhonchi (Improved)
GI: Soft and Non Distended
Neurology: AO x 3
Skin: Warm
Labs/Micro/Reports
Lab Data
11/24/24 03:48
11/24/24 03:48
Microbiology
11/19/24 22:59 Blood/Venous Blood Culture - Preliminary
No Growth in 4 days- Final report to follow
11/19/24 20:42 Blood/Venous Blood Culture - Preliminary
No Growth in 4 days- Final report to follow
11/20/24 11:39 Sputum Respiratory Culture - Final
Usual Respiratory Keke
11/20/24 11:39 Sputum Gram Stain - Final
[2024-11-24] MEDS: SODIUM CHLORIDE 3% FOR INHALATION INH (08:07)
--- NOTE | 2024-11-24 08:26 | W.PN.CD ---
Today's Communication / Plan
-
stop diltiazem drip, and increase PO diltiazem to 180mg bid
add Toprol XL 25mg bid
eliquis is on hold as anemia is being investigated
cont lasix 40mg IV bid
Impression / Plan
-
74 yo male with PMH of paroxysmal A fib, chronic HFPEF, HTN, COPD, pulm HTN on sildenafil is admitted with COPD exacerbation, PNA. We are consulted for A fib with RVR.
# A fib with RVR
-in setting of COPD, PNA
-stop diltiazem drip, and increase PO diltiazem to 180mg bid
-add Toprol XL 25mg bid
-eliquis is on hold as anemia is being investigated
# Acute on chronic HFPEF
-severe, requiring hospitalization and IV diuretics
-dry weight may be 55kg based on chart review
-cont lasix 40mg IV bid, with close monitoring of labs, tele
# Pulm HTN
-continues on sildenafil
# HTN
-trend BP with diuresis
# Hyperlipidemia
-cont statin
Physical Exam
Vital Signs/Labs
Vital Signs
Temp Pulse Resp BP Pulse Ox
98.5 F 97 22 143/70 97
11/24/24 07:20 11/24/24 07:22 11/24/24 07:22 11/24/24 05:00 11/24/24 07:22
11/23/24 11/24/24 11/25/24
06:59 06:59 06:59
Actual Weight 58.8 kg
11/24/24 03:48
11/24/24 03:48
PT 23.6 Sec (11.4-14.6) H 11/20/24 00:30
INR 2.09 11/20/24 00:30
APTT 44.0 Sec (23.4-35.0) H 11/20/24 00:30
Magnesium 2.2 mg/dl (1.6-2.3) 11/22/24 05:05
11/19/24 11/22/24
20:42 05:05
Oil-U-Llsobizauzo Pept [id number]
Physical Exam
EENT: Moist mucous membranes
Cardiovascular: Systolic murmur absent, Rhythm/rate is irregular, Pedal edema present and JVD present
Respiratory: Labored respirations
Neuro/Psych: Oriented
Data Reviewed
-
Date of Service: November 24, 2024
EKG: Other (Tele: A fib 110s)
Labs: Labs Reviewed by me
--- NOTE | 2024-11-24 09:01 | PTCARENOTE ---
pt received from previous rn- aox2- disoriented to time. pt able to make needs known, all safety precautions in place, oob to chair- chair alarm on and call zhang within reach. pt remains afib with pvcs- cardiziem gtt d/c as per order. see mar. on
6LNC, denies sob at this time. plan of care discussed with Dr. Goel and Dr. Kruse. pt turns and repositions self.
[2024-11-24] MEDS: TOPROL XL 25 MG PO ×2 (09:53→20:29)
[2024-11-24 12:30] LABS: Glucose 366 mg/dl (70-99)
[2024-11-24] MEDS: NOVOLOG FLEXPEN-HIGH RESISTANCE 12 UNITS SC (12:33)
--- NOTE | 2024-11-24 12:42 | PTCARENOTE ---
blood sugar high on monitor read- stat venous glucose sent- 366- sliding scale coverage given per order- pt asymptomatic and Dr. Kruse made aware
[2024-11-24] MEDS: LANTUS 0.15 UNITS SC (13:23)
[2024-11-24] MEDS: ULTRAM 25 MG PO ×2 (14:14→20:31)
[2024-11-24] MEDS: NOVOLOG FLEXPEN-HIGH RESISTANCE 4 UNITS SC (17:05)
[2024-11-24] MEDS: NOVOLOG FLEXPEN 7 UNITS SC (17:05)
--- NOTE | 2024-11-24 17:10 | PTCARENOTE ---
pt in sinus rhythm with pvcs, rate 80s-90s. positive response from tramadol, no complaints from pt at this time. assessment unchanged further. sister updated
[2024-11-24 17:15] LABS: Glucose - Point of Care 228 mg/dl (70-99)
[2024-11-24] MEDS: SODIUM CHLORIDE 3% FOR INHALATION 1 VIAL INH (19:50)
[2024-11-24] MEDS: LIDOCAINE 4% PATCH 1 PATCH TOPICAL (20:30)
[2024-11-24] MEDS: CARDIZEM CD 180 MG PO (20:30)
[2024-11-24] MEDS: ATIVAN 0.5 MG IV (21:33)
--- NOTE | 2024-11-24 22:32 | PTCARENOTE ---
Assumed care of pt at 1900. Pt is A/O x2-3, forgetful at times. Reports pain to back and right hip, medicated with PRN Tramadol and scheduled Lidocaine patch, see EMAR. Pt's O2 weaned from 6L to his baseline 4LNC, maintaining SpO2 95%. Lungs very
diminished with inspiratory and expiratory wheezing and crackles. 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 See nursing shift assessment flowsheet for full physical assessment details. Pt currently IMU level of care. Call zhang and personal
items within reach. Bed alarm activated.
[2024-11-25] VITALS (14 sets, daily range): BP systolic 101–150; BP diastolic 49–73; PULSE 2; BMI 18.9
[2024-11-25] MEDS: MELATONIN 5 MG PO (01:15)
[2024-11-25] MEDS: ZOSYN 100 IV ×4 (05:03→21:48)
[2024-11-25] MEDS: ULTRAM 25 MG PO ×2 (05:16→16:43)
[2024-11-25 05:43] LABS: Blood Urea Nitrogen 27 mg/dl (9-20); Calcium 8.9 mg/dl (8.4-10.2); Chloride 90 mmol/L (98-107); Estimated Creatinine Clearance 75 ml/min; Glucose 84 mg/dl (70-99); Potassium 4.8 mmol/L (3.5-5.1); Sodium 135 mmol/L (135-145); eGFR > 60.00
[2024-11-25 05:54] LABS: % Basophils 0.1 % (0-2); % Eosinophils 0.1 % (0-6); % Immature Granulocytes 0.5 % (0-0.5); % Lymphocytes 5.1 % (20.5-51.1); % Monocytes 8.8 % (1.7-9.3); % Neutrophils 85.4 % (42.2-75.2); Absolute Immature Granulocytes 0.1 10^3/uL (0-0.05); Absolute Lymphocytes 0.5 10^3/uL (1.2-3.4); Absolute Monocytes 0.8 10^3/uL (0.1-0.6); Absolute Neutrophils 8.1 10^3/uL (1.4-6.5); Hematocrit 31.4 % (39.0-52.0); Hemoglobin 9.9 g/dL (13.0-18.0); Mean Corp Hgb Conc. 31.5 g/dL (33.0-37.0); Mean Corpuscular Volume 95.2 fL (80.0-94.0); Mean Platelet Volume 10.2 fL (7.4-10.4); Nucleated Red Blood Cells % 0 % (-); Platelet Count 204 10^3/uL (130-400); Red Cell Dist. Width 14.2 % (11.5-14.5); White Blood Cell Count 9.5 10^3/uL (4.8-10.8)
[2024-11-25 06:04] LABS: Carbon Dioxide 42 mmol/L (22-30)
--- NOTE | 2024-11-25 06:51 | W.PN.HOSP.TC ---
Today's Communication/Plan
-
Some improvement
Change medications to oral ( Lasix, PPI)
Can go to telemetry floor
c/w Oral Ativan PRN
Increase Lantus, Pre-meal insulin
Assessment / Plan
Assessment / Plan
Physical Exam
General: Chronically ill looking, remains sob upon talking
HEENT: No deformities, on BiPAP
Respiratory: Limited with mild wheezes.
Cardiac: S1/S2, tachycardia
GI: Soft, Non Tender, Non Distended
Rectal: Hem Positive
Genito-urinary: No hematuria
Musculoskeletal: Mild ankle edema
Skin: IV/Catheter Site; No Rash
Neuro: less lethargic, AAO to surroundings, he followed commands
Psych, calm, anxious
A/P:
#Paroxysmal A-fib.
Better controlled
Started on IV Cardizem gtt, now on oral Cardizem and oral BB.
Holding Eliquis while GI bleeding, not a candidate, we can challenge and resume AC but prefer while A fib/ breathing stats with stability
Echocardiogram in November 2024 showed LVEF 50 to 55% with no significant valvular disease acute
Consult cardiology, appreciate input
# Aspiration pneumonia with Sepsis POA/ septic shock ( leukocytosis, worsening hypoxia, respiratory distress, hypotension, hypothermia, PNA on CXR)
sputum culture showing respiratory noelle
Negative Legionella & Strep Ag
c/w Zosyn day # 6, goal is 7 days. WBC is normal now.
Negative blood culture so far
C/w O2 support with Bipap at night ( he seems to use it only for less than 3-4 hours)
DuoNeb QID and Pulmicort
Follow pulmonary recommendations.
# Acute on chronic hypoxic respiratory failure requiring non- invasive ventilatory support
c/w O2 support
Some improvement
Nebulizer treatment, IV steroids.
Speech evaluation, IDDS-6
Reduced gabapentin to help with reducing lethargy
#Acute blood loss anemia GI bleed
Good thing is HGB stable which means no active bleeding.
Doubt Hemorrhagic shock on admission due to stability of hemoglobin and absence of active bleeding
stool heme positive
- blood consent obtained
- Status post 2 unit PRBCs
-Appreciate GI help, signed off and recommended to c/w PPI and resume Eliquis when stable. he did not have EGD due to fragile pulmonary status.
NO GI issues, no nausea.
# Acute on chronic HFrEF
#pulmonary HTN
ECHO (11/05/2024): Normal biventricular size and systolic function without regional wall motion abnormality. Estimated LVEF 50-55%.
No significant valve disease.
c/w Lasix for now, can change to oral 11/25
Resumed sildenafil
#History of essential hypertension, resumed Cardizem, BB, Lasix
#hyperlipidemia
No changes intended
#GERD
Continue PPI
#BPH
- continue alfuzosin and finasteride
Monitored for retention
#chronic back pain
Cut back on gabapentin due to sepsis and drowsiness
#anxiety/depression
Resumed Ativan.
Code status: full code
DVT prophylaxis: SCDs
Total time spent to see the patient, examine the patient, review data and lab results, discuss treatment plan with patient, consultants and nursing staff around 57 minutes
Anticipated Discharge: > 48 hours
Subjective/Interval History
-
Date of Service: November 25, 2024
Denies sob, feels better
No chest pain
Objective Data
-
Labs:
Laboratory Results
11/25/24
05:10
WBC 9.5
Hgb 9.9 L
Hct 31.4 L
Plt Count 204
Sodium 135
Potassium 4.8
Chloride 90 L
Carbon Dioxide 42 H
BUN 27 H
Creatinine 0.7
Glucose 84
Calcium 8.9
Vital Signs:
Vital Signs
Temp Pulse Resp BP Pulse Ox
99.0 F 74 16 128/71 97
11/24/24 22:29 11/25/24 06:00 11/25/24 06:00 11/25/24 06:00 11/25/24 06:00
I&O
11/23/24 11/24/24 11/25/24
06:59 06:59 06:59
Intake Total 1060 / 1060 906 / 906 590 / 590
Output Total 1900 / 1900 4975 / 4975 3525 / 3525
Balance -840 / -840 -4069 / -4069 -2935 / -2935
[2024-11-25] MEDS: DUONEB 3 ML INH ×4 (07:39→19:44)
[2024-11-25] MEDS: PULMICORT 0.5 MG INH ×2 (07:39→19:44)
[2024-11-25] MEDS: SODIUM CHLORIDE 3% FOR INHALATION 1 VIAL INH ×2 (07:40→15:43)
[2024-11-25 07:44] LABS: Glucose - Point of Care 89 mg/dl (70-99)
[2024-11-25] MEDS: LASIX 40 MG IV (07:45)
[2024-11-25] MEDS: CARDIZEM CD 180 MG PO ×2 (07:45→20:36)
[2024-11-25] MEDS: REVATIO 20 MG PO (07:45)
[2024-11-25] MEDS: KCL 40 MEQ PO (07:45)
[2024-11-25] MEDS: SOLU-MEDROL PF 40 MG IV (07:45)
[2024-11-25] MEDS: PROSCAR 5 MG PO (07:45)
[2024-11-25] MEDS: TOPROL XL 25 MG PO ×2 (07:45→20:38)
[2024-11-25] MEDS: MUCINEX 600 MG PO ×2 (07:45→20:38)
[2024-11-25] MEDS: LIPITOR 40 MG PO (07:45)
[2024-11-25] MEDS: FLOMAX 0.4 MG PO (07:45)
[2024-11-25] MEDS: NSS (PRESERVATIVE FREE) 10 ML IV (07:45)
[2024-11-25] MEDS: NOVOLOG FLEXPEN 7 UNITS SC ×3 (07:46→18:37)
[2024-11-25] MEDS: PROTONIX IV 40 MG IV (07:46)
[2024-11-25] MEDS: LANTUS 0.25 UNITS SC (07:46)
[2024-11-25] MEDS: NOVOLOG FLEXPEN-HIGH RESISTANCE 1 UNITS SC ×2 (07:46→18:37)
[2024-11-25] MEDS: MIRALAX TUBE (07:48)
[2024-11-25] MEDS: NEURONTIN 100 MG PO ×2 (07:48→20:38)
--- NOTE | 2024-11-25 09:01 | PTCARENOTE ---
pt received from previous rn- nsr to afib on monitor, 4LNC, no complaints at this time. pt incont of stool x2. pt turns and repositions self. pt educated about plan of care for shift and verbalized understanding. poc discussed with Dr. Kruse and
Manasa. all safety precautions in place, call zhang within reach.
[2024-11-25] MEDS: NSS (PRESERVATIVE FREE) 0.25 ML IV ×2 (10:21→21:59)
[2024-11-25] MEDS: ATIVAN 0.5 MG IV ×2 (10:21→21:56)
[2024-11-25] MEDS: DUONEB INH (12:20)
--- NOTE | 2024-11-25 12:40 | W.PN.PUL3 ---
Today's Communication / Plan
-
-Continue 3% nebulized saline for another 24 hours
-Continue DuoNeb and Pulmicort
-Switch IV Solu-Medrol to oral prednisone
-Continue Zosyn for a total of 7 days
-
Assessment
-
Patient is a 65-year-old gentleman with known history of oxygen dependent COPD, on 4 L at baseline, with recent admission for exacerbation about a month ago, presented to the hospital emergency room for worsening shortness of breath patient was
initially noted to be somewhat lethargic and required BiPAP initiation. In view of respiratory distress, BiPAP need, patient was admitted to the ICU and double ending machine operator consultation was requested.
Patient was also noted to have dark stools with hemoglobin drop by about 3 point since 2 weeks and has been on Eliquis. There was concern for GI bleed and GI consultation was requested as well in addition to 1 unit of packed PRBC transfusion
ordered in the emergency room. Patient was noted to be hypothermic in the emergency room as well as hypotensive was given IV fluids and was started on Deniz hugger. Lactate was somewhat elevated at 2.6. Patient had very slow improvement in his
breathing status and was in ICU for BiPAP nightly and intermittent during daytime. Starting 11/23, he was taken off BiPAP during daytime and continue to improve.
Patient was downgraded from ICU to IMU.
Lat 24 hrs:
-Fluid balance, -2.9 ltr
-Posttransfusion, hemoglobin improved, stable
-Electrolytes, K and magnesium normal, bicarb up to 42 today, likely related to diuresis and contraction alkalosis
-Cultures have stayed negative
#1. Respiratory distress with Acute exacerbation of COPD with Pneumonia
-Continues to improve
-Continue Solu-Medrol to 40 mg once a day
-DuoNeb every 6, Pulmicort twice a day
-As needed albuterol
-Speech therapy evaluation, videofluoroscopic study for dietary recommendations
-Continue Mucinex and continue 3% inhaled hypertonic solution for 24 more hours. Expectoration much improved.
#1a. Chronic Hypercapnic respiratory failure
-Appears to be compensated with normal pH. Prior BMPs reviewed, suggestive of elevated HCO3, reflective of chronic hypercapnia
-Continue to trial off BIPAP during daytime, resume at night
#2. Bilateral Pneumonia with sepsis (Hypotension, elevated Lactate and Hypothermia)
-Had been on Vancomycin and Zosyn, recently treated with Azithromycin in 10/2024
-Lactate and Blood pressure improved
-External warming PRN
-MRSA screen negative, DC vancomycin, continue Zosyn for now. Procalcitonin still elevated, will aim to complete at least 7 days of antibiotics
-Follow up Blood cultures
#3. Acute on chronic CHF with preserved EF, 50-55%.
-Diuresed well. Furosemide switched to p.o. today.
-BNP >3000
-Electrolytes in AM
-CXR improving
#4. ?h/o Pulmonary HTN
-Chronically on Sildenafil, resumed
-ECHO reviewed from last month shows normal RV, LV and estimated PA pressure of 31 mm
-Details unavailable.
-Sildenafil was held on admission for hypotension, resumed
Other medical diagnoses:
#. Anemia, Acute, suspect blood loss due to GI bleed, timing of Eliquis versus EGD deferred to primary team
#. Paroxysmal A fib with RVR, on Cardizem and metoprolol
#. Goals of care: Palliative care consultation
SCDs for DVT prophylaxis
Total time spent on this consultation/encounter _25___ minutes which includes review of history, physical exam, medications, laboratory data, personal review of imaging, extensive review of outpatient records, discussion with care team and
respiratory therapy.
CXR 11/19: Suggestive of R>L pneumonia
ECHO 11/2024: Normal biventricular size and systolic function without regional wall motion
abnormality. Estimated LVEF 50-55%. No significant valve disease.
Estimated PAP 31 mm
Subjective Data
-
Date of Service:
Date of Service: November 25, 2024
Chief Complaint: Pulmonary Follow Up
Subjective:
Patient comfortably sitting in bed, appears more comfortable.
Review of Systems
Genitourinary: Other (All 14 systems reviewed and negative except as stated above in the history of present illness.)
Objective Data
Data Reviewed
Vital Signs / I&O / Oxygen:
Vital Signs
Temp Pulse Resp BP Pulse Ox
98.4 F 77 13 142/68 97
11/25/24 07:19 11/25/24 12:20 11/25/24 12:20 11/25/24 10:17 11/25/24 11:00
Intake and Output
11/24/24 11/25/24 11/26/24
06:59 06:59 06:59
Intake Total 906 / 906 590 / 590
Output Total 4975 / 4975 3525 / 3525 650 / 650
Balance -4069 / -4069 -2935 / -2935 -650 / -650
SaO2 97
Nasal Cannula flow liters per 4
minute
Physical Exam
General: Comfortable
HEENT: Normocephalic
Cardiovascular: S1-S2
Respiratory: Clear, Wheeze (Improving wheezing) and Non-Labored Respirations
GI: Soft and Non Distended
Neurology: Awake, Alert and Oriented
Skin: Warm
Labs/Micro/Reports
Lab Data
11/25/24 05:10
11/25/24 05:10
Microbiology
11/19/24 22:59 Blood/Venous Blood Culture - Final
No Growth - Final Report
11/19/24 20:42 Blood/Venous Blood Culture - Final
No Growth - Final Report
11/20/24 11:39 Sputum Respiratory Culture - Final
Usual Respiratory Keke
11/20/24 11:39 Sputum Gram Stain - Final
[2024-11-25] MEDS: NOVOLOG FLEXPEN-HIGH RESISTANCE 7 UNITS SC (12:45)
[2024-11-25 12:56] LABS: Glucose - Point of Care 272 mg/dl (70-99)
--- NOTE | 2024-11-25 14:55 | W.PN.CD ---
Today's Communication / Plan
-
rhythm is now sinus with PAC's
-continue diltiazem 180mg bid
-continue Toprol XL 25mg bid
-eliquis is on hold as anemia is being investigated: resume when stable
transition to lasix 40mg PO daily
please call us back with additional questions
Impression / Plan
-
74 yo male with PMH of paroxysmal A fib, chronic HFPEF, HTN, COPD, pulm HTN on sildenafil is admitted with COPD exacerbation, PNA. We are consulted for A fib with RVR.
# A fib, paroxysmal
-in setting of COPD, PNA
-rhythm is now sinus with PAC's
-continue diltiazem 180mg bid
-continue Toprol XL 25mg bid
-eliquis is on hold as anemia is being investigated: resume when stable
# Acute on chronic HFPEF: improved s/p IV lasix
-transition to lasix 40mg PO daily
# Pulm HTN
-continues on sildenafil
# HTN
-stable
# Hyperlipidemia
-cont statin
Physical Exam
Vital Signs/Labs
Vital Signs
Temp Pulse Resp BP Pulse Ox
98.4 F 82 20 125/50 93
11/25/24 07:19 11/25/24 14:00 11/25/24 14:00 11/25/24 14:00 11/25/24 14:00
11/24/24 11/25/24 11/26/24
06:59 06:59 06:59
Actual Weight 58.8 kg 57.9 kg
11/25/24 05:10
11/25/24 05:10
PT 23.6 Sec (11.4-14.6) H 11/20/24 00:30
INR 2.09 11/20/24 00:30
APTT 44.0 Sec (23.4-35.0) H 11/20/24 00:30
Magnesium 2.2 mg/dl (1.6-2.3) 11/22/24 05:05
11/19/24 11/22/24
20:42 05:05
[id number] Pept [id number]
Physical Exam
EENT: Moist mucous membranes
Cardiovascular: Pedal edema is absent, JVD pressure is normal, Rhythm/rate is irregular and Systolic murmur present
Respiratory: Labored respirations
Neuro/Psych: AO x 3
Data Reviewed
-
Date of Service: November 25, 2024
EKG: Other (Tele: SR with PAC's)
Labs: Labs Reviewed by me
--- NOTE | 2024-11-25 16:57 | PTCARENOTE ---
pt oob to chair for a couple hours, sister and pt aware of moving to room 409-1 report given to RN.
--- NOTE | 2024-11-25 17:28 | PTCARENOTE ---
pt with run of afib on monitor- Dr. Wright and receiving [facility] nurse aware- no new orders.
[2024-11-25 17:53] LABS: Glucose - Point of Care 116 mg/dl (70-99)
--- NOTE | 2024-11-25 18:33 | PTCARENOTE ---
Pt was received from ICU at 1715. VSS. Pt is AAOx2, disoriented to time. POX 94% on 4LNC. Pt resting in bed, coughing occasionally. Afib on telemetry. Hr 70-90s. Call zhang in reach and bed alarm in use.
[2024-11-25] MEDS: LIDOCAINE 4% PATCH 1 PATCH TOPICAL (20:37)
[2024-11-25] MEDS: PROTONIX 40 MG PO (20:38)
[2024-11-25 21:37] LABS: Glucose - Point of Care 228 mg/dl (70-99)
[2024-11-25] MEDS: TYLENOL 650 MG PO (22:02)
[2024-11-26] VITALS (9 sets, daily range): BP systolic 112–138; BP diastolic 47–61; PULSE 2–62; O2SAT 91; BMI 18.6
--- NOTE | 2024-11-26 01:50 | PTCARENOTE ---
Pt had Bipap placed by respiratory around 2230. 30mn later, pt called and requested Bipap to be taken off. Pt states that she had it on for 4 hrs. Explained to the pt the benefits of Bipap and that he had it on only for less than 1 hour. Pt
agreeable. 2 hrs later, pt pulled off the mask of the Bipap, states that he needs his O2 back on because he had the Bipap for '6hrs'. Pt is now back to 4L NC. Pt states that he now be able to sleep. Will follow.
[2024-11-26] MEDS: TYLENOL 650 MG PO ×2 (02:59→09:20)
[2024-11-26] MEDS: ZOSYN 100 IV ×4 (03:04→21:35)
[2024-11-26 05:02] LABS: Hematocrit 30.2 % (39.0-52.0); Hemoglobin 9.7 g/dL (13.0-18.0); Mean Corp Hgb Conc. 32.1 g/dL (33.0-37.0); Mean Corpuscular Hgb 30.2 pg (27.0-31.0); Mean Corpuscular Volume 94.1 fL (80.0-94.0); Mean Platelet Volume 9.7 fL (7.4-10.4); Platelet Count 228 10^3/uL (130-400); Red Blood Cell Count 3.21 10^6/uL (4.70-6.10); Red Cell Dist. Width 14.3 % (11.5-14.5); White Blood Cell Count 8.2 10^3/uL (4.8-10.8)
[2024-11-26 05:29] LABS: Blood Urea Nitrogen 29 mg/dl (9-20); Calcium 8.8 mg/dl (8.4-10.2); Chloride 90 mmol/L (98-107); Estimated Creatinine Clearance 64 ml/min; Glucose 74 mg/dl (70-99); Potassium 4.6 mmol/L (3.5-5.1); Sodium 133 mmol/L (135-145); eGFR > 60.00
[2024-11-26 05:41] LABS: Carbon Dioxide 39 mmol/L (22-30)
[2024-11-26 07:31] LABS: Glucose - Point of Care 91 mg/dl (70-99)
[2024-11-26] MEDS: PULMICORT 0.5 MG INH ×2 (07:48→19:27)
[2024-11-26] MEDS: SODIUM CHLORIDE 3% FOR INHALATION 1 VIAL INH ×2 (07:48→19:26)
[2024-11-26] MEDS: DUONEB 3 ML INH ×4 (07:49→19:27)
[2024-11-26] MEDS: LANTUS 0.25 UNITS SC (08:57)
[2024-11-26] MEDS: NOVOLOG FLEXPEN-HIGH RESISTANCE SC (08:59)
[2024-11-26] MEDS: NOVOLOG FLEXPEN 7 UNITS SC ×3 (08:59→17:14)
[2024-11-26] MEDS: DELTASONE 40 MG PO (09:00)
[2024-11-26] MEDS: MUCINEX 600 MG PO ×2 (09:00→19:47)
[2024-11-26] MEDS: PROTONIX 40 MG PO ×2 (09:00→19:47)
[2024-11-26] MEDS: TOPROL XL 25 MG PO ×2 (09:00→19:48)
[2024-11-26] MEDS: FLOMAX 0.4 MG PO (09:06)
[2024-11-26] MEDS: LIPITOR 40 MG PO (09:06)
[2024-11-26] MEDS: CARDIZEM CD 180 MG PO ×2 (09:06→19:48)
[2024-11-26] MEDS: LASIX 40 MG PO (09:07)
[2024-11-26] MEDS: PROSCAR 5 MG PO (09:07)
[2024-11-26] MEDS: REVATIO 20 MG PO (09:07)
[2024-11-26] MEDS: KCL 40 MEQ PO (09:07)
[2024-11-26] MEDS: NEURONTIN 100 MG PO ×2 (09:07→19:47)
[2024-11-26] MEDS: MIRALAX TUBE (09:08)
[2024-11-26] MEDS: DESENEX/MITRAZOL/ZEASORB 1 APPLIC TOPICAL (09:11)
[2024-11-26] MEDS: FLUSH (NSS) 2 FLUSH IV ×2 (09:11→17:07)
[2024-11-26] MEDS: FLUSH (NSS) 1 FLUSH IV (09:13)
[2024-11-26] MEDS: ULTRAM 25 MG PO ×2 (09:19→19:17)
[2024-11-26 09:27] LABS: Glucose - Point of Care 402 mg/dl (70-99)
--- NOTE | 2024-11-26 11:47 | W.PN.PUL3 ---
Today's Communication / Plan
-
Continue nebulizers while in the hospital
Restart inhalers upon discharge home, may continue nebs at SNF
Continue secretion clearance interventions while in the hospital
Zosyn-can transition to oral antibiotics upon discharge-consider Levaquin and complete 7 days.
Continue speech/swallowing therapy
Recommended patient to keep appointment in December with Dr. [id number] visit.
Assessment
-
Patient is a 65-year-old gentleman with known history of oxygen dependent COPD, on 4 L at baseline, with recent admission for exacerbation about a month ago, presented to the hospital emergency room for worsening shortness of breath patient was
initially noted to be somewhat lethargic and required BiPAP initiation. In view of respiratory distress, BiPAP need, patient was admitted to the ICU and photographic machine operator consultation was requested.
Patient was also noted to have dark stools with hemoglobin drop by about 3 point since 2 weeks and has been on Eliquis. There was concern for GI bleed and GI consultation was requested as well in addition to 1 unit of packed PRBC transfusion
ordered in the emergency room. Patient was noted to be hypothermic in the emergency room as well as hypotensive was given IV fluids and was started on Deniz hugger. Lactate was somewhat elevated at 2.6. Patient had very slow improvement in his
breathing status and was in ICU for BiPAP nightly and intermittent during daytime. Starting 11/23, he was taken off BiPAP during daytime and continue to improve.
Patient was downgraded from ICU to IMU.
Lat 24 hrs:
-Fluid balance, -2.9 ltr
-Posttransfusion, hemoglobin improved, stable
-Electrolytes, K and magnesium normal, bicarb up to 42 today, likely related to diuresis and contraction alkalosis
-Cultures have stayed negative
#1. Respiratory distress with Acute exacerbation of COPD with Pneumonia
-Continues to improve-still with dyspnea with prolonged conversation or activity.
-Transitioned to 40 mg once a day-decrease by 10 mg every 72 hours to off.
-DuoNeb every 6, Pulmicort twice a day-while in the hospital or SNF.
-Resume Trelegy upon DC home.
-As needed albuterol
-Speech therapy evaluation, videofluoroscopic study for dietary recommendations
-Continue Mucinex and continue 3% inhaled hypertonic solution for 24 more hours. Expectoration much improved.
#1a. Chronic Hypercapnic respiratory failure
-Appears to be compensated with normal pH. Prior BMPs reviewed, suggestive of elevated HCO3, reflective of chronic hypercapnia
-Continue nocturnal BiPAP-while in the hospital-chronic BiPAP therapy will need to be explored in the outpatient setting.
#2. Bilateral Pneumonia with sepsis (Hypotension, elevated Lactate and Hypothermia)
-Continue Zosyn, recently treated with Azithromycin in 10/2024
-Lactate and Blood pressure improved
-External warming PRN
-Sputum with usual respiratory noelle, negative blood cultures, negative Legionella and strep urine antigens.
-MRSA screen negative, DC vancomycin, continue Zosyn for now. Procalcitonin still elevated, will aim to complete at least 7 days of antibiotics-consider PO Levaquin upon discharge given recent hospital stay.
Barium swallow11/23/2024: Mild oral, mild pharyngeal with transient aspiration dysphagia to thin liquids.-Correspondence reviewed. Continue with therapy.
Patient will need radiographic follow-up in the next 6 weeks with chest x-ray.
#3. Acute on chronic CHF with preserved EF, 50-55%.
-Diuresed well. Furosemide switched to p.o. today.
-BNP >3000
-Electrolytes in AM
-CXR improving
#4. ?h/o Pulmonary HTN-no clear details. Patient does not follow-up locally with pulmonary. He does not recall.
-Chronically on Sildenafil, resumed
-ECHO reviewed from last month shows normal RV, LV and estimated PA pressure of 31 mm
-Details unavailable.
-Sildenafil was held on admission for hypotension, resumed
Other medical diagnoses:
#. Anemia, Acute, suspect blood loss due to GI bleed, timing of Eliquis versus EGD deferred to primary team
#. Paroxysmal A fib with RVR, on Cardizem and metoprolol
#. Goals of care: Palliative care consultation
SCDs for DVT prophylaxis
Not ready for discharge from my standpoint-hopefully in the next 48 hours depending on clinical situation. I agree with discharge to assisted facility. Patient is deconditioned.
Patient has a scheduled appointment with Dr. Bland on 12/13/2024.
CXR 11/19: Suggestive of R>L pneumonia
ECHO 11/2024: Normal biventricular size and systolic function without regional wall motion
abnormality. Estimated LVEF 50-55%. No significant valve disease.
Estimated PAP 31 mm
Subjective Data
-
Date of Service:
Date of Service: November 26, 2024
Chief Complaint: Pulmonary Follow Up
Review of Systems
General: Fever (n)
Cardiopulmonary: Dyspnea and Cough
Objective Data
Data Reviewed
Vital Signs / I&O / Oxygen:
Vital Signs
Temp Pulse Resp BP Pulse Ox
97.6 F 54 18 136/60 93
11/26/24 09:03 11/26/24 11:22 11/26/24 11:22 11/26/24 09:00 11/26/24 11:22
Intake and Output
11/25/24 11/26/24 11/27/24
06:59 06:59 06:59
Intake Total 590 / 590 740 / 740
Output Total 3525 / 3525 1100 / 1100
Balance -2935 / -2935 -360 / -360
SaO2 93
Nasal Cannula flow liters per 4
minute
Physical Exam
General: Respiratory Distress (With conversation)
HEENT: Normocephalic
Cardiovascular: S1-S2
Respiratory: Wheeze (None), Non-Labored Respirations and Other (Prolonged expiratory phase)
GI: Soft and Non Distended
Neurology: Awake, Alert and Oriented
Skin: Warm
Labs/Micro/Reports
Lab Data
11/26/24 04:16
11/26/24 04:16
Microbiology
11/19/24 22:59 Blood/Venous Blood Culture - Final
No Growth - Final Report
11/19/24 20:42 Blood/Venous Blood Culture - Final
No Growth - Final Report
[2024-11-26 12:01] LABS: Glucose - Point of Care 305 mg/dl (70-99)
[2024-11-26] MEDS: NOVOLOG FLEXPEN-HIGH RESISTANCE 10 UNITS SC (12:51)
--- NOTE | 2024-11-26 13:30 | W.PN.PAL2 ---
Today's Communication
-
Patient seen for palliative care follow up
Reports breathing is improving. C/o right sided low back pain today (reprots present for many years).
Plans underway for dc to rehab.
Provided information about palliative care outpatient program.
Total floor time 30 mins
Assessment / Plan
-
Assessment/Plan:
Outpatient palliative care follow up when home from rehab
Reason for Admission
Illness Course/HPI
74 year old M with PMH of COPD on 2L, CHF, Afib on eliquis admitted with lethargy and dyspnea.
Upon admission was found to have b/l PNA c/f aspiration. ALso with significant hgb drop and black stools c/f GIB s/p PRBCs with improvement. Seen by GI who are holding off on EGD given tenuous respiratory status. Has been on and off bipap - now
using at night. On 6L during day time. High risk for intubation and full code. s/p video swallow today and cleared for soft, bite sized food.
Consult for GOC.
Seen at bedside with sister present. Reports feeling overall well. A bit confused about the plan, seems forgetful. We discussed his code status and worry that if his respiratory status worsens, he may require intubation. Per sister, they discussed
this and he goes back and forth on what he wants. We discussed high risk for not being able to wean due to his lung disease, they expressed understanding. He is not sure about short term but he knows for sure he would NOT want [facility] intubation
if he were not able to be extubated. Encouraged him to continue thinking about this.
He has 8 children but verbally stated he would want his sister to be his MDM. Was living with sister prior to this admission, independent with ADLs, iADLs. Discussed that he would need to write down on paper that his sister is his mPOA or else it
would fall to his 8 children. Provided a blank copy of advance directive to his sister to fill out. Explained would need 2 witnesses.
Pain & Symptom Assessment
[place] Symptom Scale 0=none, 10=worst
Pain: 4
Objective Data
-
Objective Data:
Vital Signs
Temp Pulse Resp BP Pulse Ox
97.6 F 54 18 136/60 93
11/26/24 09:03 11/26/24 11:22 11/26/24 11:22 11/26/24 09:00 11/26/24 11:22
Laboratory Results
11/26/24 04:16
11/26/24 04:16
PT 23.6 Sec (11.4-14.6) H 11/20/24 00:30
INR 2.09 11/20/24 00:30
APTT 44.0 Sec (23.4-35.0) H 11/20/24 00:30
Total Protein 5.1 g/dl (6.3-8.2) L 11/23/24 03:26
Albumin 2.8 g/dl (3.5-5.0) L 11/23/24 03:26
Palliative Performance Scale
Palliative Performance Scale:
PPS Level Ambulation Activity & Evidence of Disease Self Care Intake Conscious Level
100% Full Normal Activity & Work; Full Intake Full
No Evidence of Disease
90% Full Normal Activity & Work; Full Normal Full
Some Evidence of Disease
80% Full Normal Activity with Effort Full Normal or Full
Some Evidence of Disease Reduced
70% Reduced Unable Normal Job/Work Full Normal or Full
Significant Disease Reduced
60% Reduced Unable Hobby/Housework Occasional Normal or Full or Confusion
Significant Disease Assistance Reduced
50% Mainly Sit/Lie Unable to do Any Work Considerable Normal or Full or Confusion
Extensive Disease Assistance Req'd Reduced
40% Mainly in Bed Unable to do Most Activity Mainly Assistance Normal or Full or Drowsy;
Extensive Disease Reduced +/- Confusion
30% Totally Bed Unable to do Any Activity Total Care Normal or Full or Drowsy;
Bound Extensive Disease Reduced +/- Confusion
20% Totally Bed Bound Unable to do Any Activity Total Care Minimal to Full or Drowsy;
Extensive Disease Sips +/- Confusion
10% Totally Bed Bound Unable to do Any Activity Total Care Mouth Care Drowsy or Coma;
Extensive Disease Only +/- Confusion
0%
PPS Score Level:
Physical Exam
-
General: Well Developed and Pain (comfortable laying on side )
Neuro: Awake and Alert
Psych: Calm
--- NOTE | 2024-11-26 14:57 | W.PN.HOSP.TC ---
Today's Communication/Plan
-
Assessment / Plan
Assessment / Plan
Physical Exam
General: Chronically ill looking, no acute distress
HEENT: No deformities, nasal cannula in place
Respiratory: Clear to auscultation bilaterally
Cardiac: S1/S2, tachycardia
GI: Soft, Non Tender, Non Distended
Genito-urinary: No hematuria
Musculoskeletal: Mild ankle edema
Skin: IV/Catheter Site; No Rash
Neuro: AAO to surroundings, he followed commands
Psych, calm, cooperative
A/P:
#Paroxysmal A-fib.
-Better controlled
-Started on IV Cardizem gtt, now on oral Cardizem and oral BB.
-Had been holding Eliquis due to GI bleeding which is now resolved, cautiously restarting home Eliquis today 11/26
-Echocardiogram in November 2024 showed LVEF 50 to 55% with no significant valvular disease acute
-Appreciate cardiology input
# Aspiration pneumonia with Sepsis POA/ septic shock ( leukocytosis, worsening hypoxia, respiratory distress, hypotension, hypothermia, PNA on CXR)
- sputum culture showing respiratory noelle
-Negative Legionella & Strep Ag
-Completing 7-day course of Zosyn today 11/26
-Negative blood culture
-Continue supplemental oxygen via nasal cannula, on 4 L currently which is his baseline, Bipap at night (he seems to use it only for less than 3-4 hours)
-DuoNeb QID and Pulmicort
-Appreciate pulmonology input
# Acute on chronic hypoxic respiratory failure requiring non- invasive ventilatory support
-Continue supplemental oxygen, is on 4 L nasal cannula baseline
-Significantly improved
-Now transition to oral steroids
-Continue nebulizer treatments
-Speech evaluation, IDDS-6
-Reduced gabapentin to help with reducing lethargy
#Acute blood loss anemia GI bleed
-Hemoglobin remained stable
-Cautiously restarting home Eliquis today 11/26, will watch for recurrent bleeding
-Status post 2 unit PRBCs this admission
-Appreciate GI help, signed off and recommended to c/w PPI and resume Eliquis when stable. he did not have EGD due to fragile pulmonary status.
-Plan for discharge to SNF in the next 24 hours if no recurrent bleeding after being restarted on home Eliquis
# Acute on chronic HFrEF
#pulmonary HTN
ECHO (11/05/2024): Normal biventricular size and systolic function without regional wall motion abnormality. Estimated LVEF 50-55%.
No significant valve disease.
-Now transitioned to oral Lasix
-Beta-blockade with metoprolol succinate 25 mg p.o. twice daily
-Restarted sildenafil
#hyperlipidemia
No changes intended
#GERD
Continue PPI
#BPH
- continue alfuzosin and finasteride
Monitored for retention
#chronic back pain
Cut back on gabapentin due to sepsis and drowsiness
#anxiety/depression
Resumed Ativan.
Code status: full code
DVT prophylaxis: SCDs
Total time spent to see the patient, examine the patient, review data and lab results, discuss treatment plan with patient, consultants and nursing staff around 45 minutes
Anticipated Discharge: 24 - 48 hours
Subjective/Interval History
-
Date of Service: November 26, 2024
Patient was seen and examined at bedside this morning. Completing 7-day course of Zosyn today. Now on oral steroids. Planning to restart home Eliquis today.
Objective Data
-
Labs:
Laboratory Results
11/26/24
04:16
WBC 8.2
Hgb 9.7 L
Hct 30.2 L
Plt Count 228
Sodium 133 L
Potassium 4.6
Chloride 90 L
Carbon Dioxide 39 H
BUN 29 H
Creatinine 0.8
Glucose 74
Calcium 8.8
Vital Signs:
Vital Signs
Temp Pulse Resp BP Pulse Ox
98.3 F 63 18 112/47 93
11/26/24 11:35 11/26/24 11:35 11/26/24 11:35 11/26/24 11:35 11/26/24 11:35
I&O
11/25/24 11/26/24 11/27/24
06:59 06:59 06:59
Intake Total 590 / 590 740 / 740
Output Total 3525 / 3525 1100 / 1100
Balance -2935 / -2935 -360 / -360
Review of Systems
-
History Source: Patient
All other systems: Reviewed and negative
Physical Exam
-
General: No Apparent Distress
--- NOTE | 2024-11-26 16:16 | CM ---
Patient seen at bedside. CM will send updated clinical information to confirm bed availability. CM will follow for discharge planning needs.
Plan; pending bed availability SNF.
[2024-11-26] MEDS: ATIVAN 0.5 MG IV (17:07)
[2024-11-26 17:11] LABS: Glucose - Point of Care 113 mg/dl (70-99)
[2024-11-26] MEDS: NOVOLOG FLEXPEN-HIGH RESISTANCE 1 UNITS SC (17:14)
[2024-11-26] MEDS: ELIQUIS 5 MG PO (19:47)
[2024-11-26] MEDS: LIDOCAINE 4% PATCH 1 PATCH TOPICAL (19:48)
[2024-11-26 21:32] LABS: Glucose - Point of Care 246 mg/dl (70-99)
[2024-11-26] MEDS: MELATONIN 5 MG PO (22:28)
[2024-11-27 03:49] VITALS: BP 128/64
[2024-11-27 05:44] LABS: % Basophils 0.2 % (0-2); % Eosinophils 0.1 % (0-6); % Immature Granulocytes 0.7 % (0-0.5); % Lymphocytes 7.7 % (20.5-51.1); % Monocytes 7.6 % (1.7-9.3); % Neutrophils 83.7 % (42.2-75.2); Absolute Immature Granulocytes 0.1 10^3/uL (0-0.05); Absolute Lymphocytes 0.6 10^3/uL (1.2-3.4); Absolute Monocytes 0.6 10^3/uL (0.1-0.6); Absolute Neutrophils 6.8 10^3/uL (1.4-6.5); Hematocrit 30.1 % (39.0-52.0); Hemoglobin 9.6 g/dL (13.0-18.0); Mean Corp Hgb Conc. 31.9 g/dL (33.0-37.0); Mean Corpuscular Hgb 30.1 pg (27.0-31.0); Mean Corpuscular Volume 94.4 fL (80.0-94.0); Mean Platelet Volume 10.1 fL (7.4-10.4); Nucleated Red Blood Cells % 0 % (-); Platelet Count 270 10^3/uL (130-400); Red Blood Cell Count 3.19 10^6/uL (4.70-6.10); Red Cell Dist. Width 14.4 % (11.5-14.5); White Blood Cell Count 8.2 10^3/uL (4.8-10.8)
[2024-11-27 06:00] VITALS: BMI 18.6
[2024-11-27 06:17] LABS: Blood Urea Nitrogen 26 mg/dl (9-20); Calcium 8.6 mg/dl (8.4-10.2); Chloride 93 mmol/L (98-107); Estimated Creatinine Clearance 63 ml/min; Glucose 67 mg/dl (70-99); Potassium 4.4 mmol/L (3.5-5.1); Sodium 136 mmol/L (135-145); eGFR > 60.00
[2024-11-27 06:26] LABS: Glucose - Point of Care 83 mg/dl (70-99)
[2024-11-27 06:28] LABS: Carbon Dioxide 40 mmol/L (22-30)
[2024-11-27] MEDS: PULMICORT 0.5 MG INH (07:00)
[2024-11-27] MEDS: DUONEB 3 ML INH (07:00)
[2024-11-27 07:27] LABS: Glucose - Point of Care 86 mg/dl (70-99)
[2024-11-27 07:30] VITALS: BP 130/53
[2024-11-27] MEDS: NOVOLOG FLEXPEN 7 UNITS SC ×3 (08:54→18:12)
[2024-11-27] MEDS: NOVOLOG FLEXPEN-HIGH RESISTANCE SC ×3 (08:54→18:13)
[2024-11-27] MEDS: MIRALAX TUBE (08:55)
[2024-11-27] MEDS: PROTONIX 40 MG PO (08:55)
[2024-11-27] MEDS: MUCINEX 600 MG PO (08:55)
[2024-11-27] MEDS: KCL 40 MEQ PO (08:55)
[2024-11-27] MEDS: TOPROL XL 25 MG PO (08:56)
[2024-11-27] MEDS: ELIQUIS 5 MG PO (08:56)
[2024-11-27] MEDS: LIPITOR 40 MG PO (08:56)
[2024-11-27] MEDS: PROSCAR 5 MG PO (08:56)
[2024-11-27] MEDS: NEURONTIN 100 MG PO (08:56)
[2024-11-27] MEDS: DELTASONE 40 MG PO (08:56)
[2024-11-27] MEDS: REVATIO 20 MG PO (08:56)
[2024-11-27] MEDS: CARDIZEM CD 180 MG PO (08:56)
[2024-11-27] MEDS: FLOMAX 0.4 MG PO (08:56)
[2024-11-27] MEDS: LASIX 40 MG PO (08:57)
[2024-11-27] MEDS: LANTUS 0.25 UNITS SC (09:03)
[2024-11-27] MEDS: DESENEX/MITRAZOL/ZEASORB 1 APPLIC TOPICAL (09:14)
[2024-11-27 11:15] VITALS: BP 118/45
[2024-11-27 11:45] LABS: Glucose - Point of Care 291 mg/dl (70-99)
[2024-11-27] MEDS: ULTRAM 25 MG PO (11:56)
[2024-11-27] MEDS: NOVOLOG FLEXPEN-HIGH RESISTANCE 7 UNITS SC (12:00)
--- NOTE | 2024-11-27 12:06 | W.PN.PUL3 ---
Today's Communication / Plan
-
Continue nebulizer therapy at discharge until fully recover and then transition to inhalers
Continue Acapella device
Continue mucolytics
Completed antibiotic therapy
Diuresis as able
Oxygen supplementation
BiPAP while in the hospital
Hopefully discharge in 24 hours
Assessment
-
Patient is a 65-year-old gentleman with known history of oxygen dependent COPD, on 4 L at baseline, with recent admission for exacerbation about a month ago, presented to the hospital emergency room for worsening shortness of breath patient was
initially noted to be somewhat lethargic and required BiPAP initiation. In view of respiratory distress, BiPAP need, patient was admitted to the ICU and bobbin loose end finder consultation was requested.
Patient was also noted to have dark stools with hemoglobin drop by about 3 point since 2 weeks and has been on Eliquis. There was concern for GI bleed and GI consultation was requested as well in addition to 1 unit of packed PRBC transfusion
ordered in the emergency room. Patient was noted to be hypothermic in the emergency room as well as hypotensive was given IV fluids and was started on Deniz hugger. Lactate was somewhat elevated at 2.6. Patient had very slow improvement in his
breathing status and was in ICU for BiPAP nightly and intermittent during daytime. Starting 11/23, he was taken off BiPAP during daytime and continue to improve.
#1. Respiratory distress with Acute exacerbation of COPD with Pneumonia
-Continues to improve-dyspnea has improved but remains congested with expectoration.
-Transitioned to 40 mg once a day-decrease by 10 mg every 72 hours to off.
-DuoNeb every 6, Pulmicort twice a day-while in the hospital or SNF.
-Resume Trelegy upon DC home.
-As needed albuterol
-Speech therapy evaluation, videofluoroscopic study for dietary recommendations
-Continue Mucinex and continue 3% inhaled hypertonic solution while in the hospital-expectoration much improved.
#1a. Chronic Hypercapnic respiratory failure
-Appears to be compensated with normal pH. Prior BMPs reviewed, suggestive of elevated HCO3, reflective of chronic hypercapnia
-Continue nocturnal BiPAP-while in the hospital-chronic BiPAP therapy will need to be explored in the outpatient setting.
#2. Bilateral Pneumonia with sepsis (Hypotension, elevated Lactate and Hypothermia)
-Completed Zosyn, recently treated with Azithromycin in 10/2024
-Sputum with usual respiratory noelle, negative blood cultures, negative Legionella and strep urine antigens.
-MRSA screen negative, DC vancomycin, continue Zosyn for now. Procalcitonin still elevated, will aim to complete at least 7 days of antibiotics-consider PO Levaquin upon discharge given recent hospital stay.
Barium swallow11/23/2024: Mild oral, mild pharyngeal with transient aspiration dysphagia to thin liquids.-Correspondence reviewed. Continue with therapy.
Patient will need radiographic follow-up in the next 6 weeks with chest x-ray.
#3. Acute on chronic CHF with preserved EF, 50-55%.
-Diuresed well. Furosemide switched to p.o.
-BNP >3000
-CXR improving
#4. ?h/o Pulmonary HTN-no clear details. Patient does not follow-up locally with pulmonary. He does not recall.
-Chronically on Sildenafil, resumed
-ECHO reviewed from last month shows normal RV, LV and estimated PA pressure of 31 mm
-Details unavailable.
-Sildenafil was held on admission for hypotension, resumed
Other medical diagnoses:
#. Anemia, Acute, suspect blood loss due to GI bleed, timing of Eliquis versus EGD deferred to primary team
#. Paroxysmal A fib with RVR, on Cardizem and metoprolol
#. Goals of care: Palliative care consultation
SCDs for DVT prophylaxis
Clinically improved but still with rhonchi and expectorating. Dyspnea slightly improved as well. I think he will be ready to [facility] to [facility] 11/28/2024. Discussed with patient and he is agreeable.
Patient has a scheduled appointment with Dr. Bland on 12/13/2024.
CXR 03/17: Suggestive of R>L pneumonia
ECHO 11/2024: Normal biventricular size and systolic function without regional wall motion
abnormality. Estimated LVEF 50-55%. No significant valve disease.
Estimated PAP 31 mm
Subjective Data
-
Date of Service:
Date of Service: November 27, 2024
Chief Complaint: Pulmonary Follow Up
Review of Systems
Cardiopulmonary: Dyspnea and Dyspnea on Exertion
Objective Data
Data Reviewed
Vital Signs / I&O / Oxygen:
Vital Signs
Temp Pulse Resp BP Pulse Ox
98.5 F 62 18 118/45 97
11/27/24 11:15 11/27/24 11:15 11/27/24 11:15 11/27/24 11:15 11/27/24 11:15
Intake and Output
11/26/24 11/27/24 11/28/24
06:59 06:59 06:59
Intake Total 740 / 740 1060 / 1060
Output Total 1100 / 1100 1950 / 1950
Balance -360 / -360 -890 / -890
SaO2 97
Nasal Cannula flow liters per 4
minute
Physical Exam
General: Respiratory Distress (With conversation)
HEENT: Normocephalic
Cardiovascular: S1-S2
Respiratory: Wheeze (None), Non-Labored Respirations and Other (Prolonged expiratory phase)
GI: Soft and Non Distended
Neurology: Awake, Alert and Oriented
Skin: Warm
Labs/Micro/Reports
Lab Data
11/27/24 05:10
11/27/24 05:10
Microbiology
11/19/24 22:59 Blood/Venous Blood Culture - Final
No Growth - Final Report
11/19/24 20:42 Blood/Venous Blood Culture - Final
No Growth - Final Report
--- NOTE | 2024-11-27 14:38 | CM ---
Patient is stable for discharge per physician today, egg caser reached out to patient and sister, Walt and they have selected [facility], egg caser spoke with admissions at [facility] and they have a bed for patient today. Case
volunteer services manager sent Bipap settings to [facility]. Ambulance transport set up for 5:45 pm to 6pm.
[facility]
Report [phone]

Plan; Patient to transfer to [facility] today at 5:45pm-6pm.
--- NOTE | 2024-11-27 14:47 | W.DCSUMMARY ---
Discharge Summary
Discharge Data
Date of Admission: 11/19/24
Date of Discharge: 11/27/24
-
Pending Results: No
Hospital Course
Mr. De La Cruz is a 74-year-old male with medical history of COPD (4 L O2 at baseline), HFpEF, pulmonary hypertension (on sildenafil), paroxysmal A-fib (on Eliquis), hypertension, GERD, PUD, and enlarged prostate who presented with dyspnea and lethargy.
He had a leukocytosis, was hypothermic, had a mildly elevated lactate, and had evidence of bilateral pneumonia on chest imaging. He was admitted to the ICU for management of severe sepsis secondary to pneumonia and acute on chronic hypoxic and
hypercapnic respiratory failure.
He was treated initially with broad-spectrum antibiotics and BiPAP with improvement in his respiratory status. He was also given Lasix for pulmonary edema in the setting of acute on chronic diastolic heart failure. His respiratory status continued
to improve with above-mentioned treatment. He was able to be titrated off of BiPAP during the day on 11/23 but continued to use it as night (although on average only tolerated approximately 4 hours per night). His respiratory status remained stable
on his baseline 4 L O2 via nasal cannula. At that point he was able to be downgraded to IMU and later to telemetry. His home dose of gabapentin was reduced in order to avoid lethargy. He completed a 7-day course of antibiotics. He was also
treated with IV steroids for mild bronchospasm which was transitioned to an oral steroid taper.
Of note, patient had dark-colored stools with a drop in his hemoglobin. His Eliquis was held due to concern for upper GI bleed especially considering his history of GERD and PUD. He was transfused 2 units PRBCs and started on high-dose PPI. His
melena resolved and his hemoglobin remained stable. He was cautiously restarted on his home Eliquis without evidence of rebleeding. He is considered high risk of respiratory decompensation if undergoing endoscopy which requires general anesthesia.
Therefore, considering he had no overt evidence of active bleeding, the risk of undergoing endoscopy outweighed the potential benefits. He will be continued on pantoprazole 40 mg p.o. twice daily.
He developed rapid A-fib while on telemetry and was started on IV diltiazem drip. He was able to be transitioned to oral diltiazem and metoprolol succinate with controlled rate.
He was evaluated by speech and language pathology who recommended soft and bite-size solids with thin liquids. He was evaluated by physical and Occupational Therapy who recommended skilled rehab at time of hospital discharge.
He was medically stable at time of hospital discharge to SNF for ongoing therapy. He will need close follow-up with his primary care physician after discharge. He should also follow-up with his primary household appliances service technician and warehouse lead. He will need
repeat lab work in approximately 1 week to monitor his hemoglobin levels. If he has any evidence of bleeding his Eliquis should be held indefinitely. He is encouraged to continue using his BiPAP at night and as needed during the day. He is not on
insulin as an outpatient but was treated with insulin during this hospitalization due to hyperglycemia likely secondary to steroid administration. Now he has been transitioned to a steroid taper, his blood sugars should be monitored and corrected
with sliding scale insulin as needed. If he needs to remain on diabetic medications after completion of steroid taper this should be addressed by his primary care physician.
Oral prednisone taper is as follows:
Take 40 mg po daily through 11/28
Take 30 mg po daily 11/29-12/01
Take 20 mg po daily 12/02-12/04
Take 10 mg po daily 12/05-12/07
General: Chronically ill looking, no acute distress
HEENT: No deformities, nasal cannula in place
Respiratory: Clear to auscultation bilaterally
Cardiac: S1/S2, tachycardia
GI: Soft, Non Tender, Non Distended
Genito-urinary: No hematuria
Musculoskeletal: Mild ankle edema
Skin: IV/Catheter Site; No Rash
Neuro: AAO to surroundings, alert and interactive
Psych, calm, cooperative
Discharge Plan
-
Patient Disposition: [facility]/SNF
Discharge Diagnosis/Procedures: Severe sepsis secondary to pneumonia, A-fib with RVR, acute on chronic respiratory failure with hypoxia, acute blood loss anemia secondary to GI bleed, acute on chronic HFrEF
Diet: Other diet
Additional Diets: Soft and bite-size
Activity: With assistance and As tolerated
Activity Restrictions/Additional Instructions:
Mr. De La Cruz is a 74-year-old male with medical history of COPD (4 L O2 at baseline), HFpEF, pulmonary hypertension (on sildenafil), paroxysmal A-fib (on Eliquis), hypertension, GERD, PUD, and enlarged prostate who presented with dyspnea and lethargy.
He had a leukocytosis, was hypothermic, had a mildly elevated lactate, and had evidence of bilateral pneumonia on chest imaging. He was admitted to the ICU for management of severe sepsis secondary to pneumonia and acute on chronic hypoxic and
hypercapnic respiratory failure.
He was treated initially with broad-spectrum antibiotics and BiPAP with improvement in his respiratory status. He was also given Lasix for pulmonary edema in the setting of acute on chronic diastolic heart failure. His respiratory status continued
to improve with above-mentioned treatment. He was able to be titrated off of BiPAP during the day on 11/23 but continued to use it as night (although on average only tolerated approximately 4 hours per night). His respiratory status remained stable
on his baseline 4 L O2 via nasal cannula. At that point he was able to be downgraded to IMU and later to telemetry. His home dose of gabapentin was reduced in order to avoid lethargy. He completed a 7-day course of antibiotics. He was also
treated with IV steroids for mild bronchospasm which was transitioned to an oral steroid taper.
Of note, patient had dark-colored stools with a drop in his hemoglobin. His Eliquis was held due to concern for upper GI bleed especially considering his history of GERD and PUD. He was transfused 2 units PRBCs and started on high-dose PPI. His
melena resolved and his hemoglobin remained stable. He was cautiously restarted on his home Eliquis without evidence of rebleeding. He is considered high risk of respiratory decompensation if undergoing endoscopy which requires general anesthesia.
Therefore, considering he had no overt evidence of active bleeding, the risk of undergoing endoscopy outweighed the potential benefits. He will be continued on pantoprazole 40 mg p.o. twice daily.
He developed rapid A-fib while on telemetry and was started on IV diltiazem drip. He was able to be transitioned to oral diltiazem and metoprolol succinate with controlled rate.
He was evaluated by speech and language pathology who recommended soft and bite-size solids with thin liquids. He was evaluated by physical and Occupational Therapy who recommended skilled rehab at time of hospital discharge.
He was medically stable at time of hospital discharge to SNF for ongoing therapy. He will need close follow-up with his primary care physician after discharge. He should also follow-up with his primary household appliances service technician and warehouse lead. He will need
repeat lab work in approximately 1 week to monitor his hemoglobin levels. If he has any evidence of bleeding his Eliquis should be held indefinitely. He is encouraged to continue using his BiPAP at night and as needed during the day. He is not on
insulin as an outpatient but was treated with insulin during this hospitalization due to hyperglycemia likely secondary to steroid administration. Now he has been transitioned to a steroid taper, his blood sugars should be monitored and corrected
with sliding scale insulin as needed. If he needs to remain on diabetic medications after completion of steroid taper this should be addressed by his primary care physician.
Oral prednisone taper is as follows:
Take 40 mg po daily through 11/28
Take 30 mg po daily 11/29-12/01
Take 20 mg po daily 12/02-12/04
Take 10 mg po daily 12/05-12/07
Referrals:
NONE,* [Family Provider] -
Prescriptions:
New
diltiazem HCl 180 mg Capsule,Extended Release 24hr
180 mg PO BID 30 Days Qty: 60 0RF
gabapentin 100 mg Capsule
100 mg PO BID 30 Days Qty: 60 0RF
insulin aspart U-100 100 unit/mL (3 mL) insulin pen
1 sliding scale dose SC AC 30 Days Qty: 1 0RF
prednisone 10 mg Tablet
30 mg PO DAILY 3 Days Qty: 9 0RF
Rx Instructions:
Take 30 mg po daily 11/29-12/01
prednisone 10 mg Tablet
10 mg PO DAILY 3 Days Qty: 3 0RF
Rx Instructions:
Take 10 mg po daily 12/05-12/07
prednisone 20 mg Tablet
20 mg PO DAILY 3 Days Qty: 3 0RF
Rx Instructions:
Take 20 mg po daily 12/02-12/04
prednisone 20 mg Tablet
40 mg PO DAILY 3 Days Qty: 6 0RF
Rx Instructions:
Take 40 mg po daily through 11/28
metoprolol succinate 25 mg Tablet Extended Release 24 Hr
25 mg PO BID 30 Days Qty: 60 0RF
Continued
atorvastatin 40 mg Tablet
40 mg PO DAILY
therapeutic multivitamin Tablet
1 tab PO DAILY
furosemide 20 mg Tablet
20 mg PO BID
albuterol sulfate 90 mcg/actuation Hfa Aerosol Inhaler
2 puff INHALATION R Q6HPRN PRN (Reason: sob)
finasteride 5 mg Tablet
5 mg PO DAILY
alfuzosin 10 mg Tablet Extended Release 24 Hr
10 mg PO DAILY
sildenafil (pulm.hypertension) 20 mg Tablet
20 mg PO DAILY
Visbiome 112.5 billion cell Capsule
1 cap PO DAILY
Eliquis 5 mg Tablet
5 mg PO BID
Trelegy Ellipta 200-62.5-25 mcg Blister With Device
1 inh INHALATION R DAILY
lorazepam 0.5 mg Tablet
0.5 mg PO BID PRN (Reason: ANXIETY)
Patient Comments:
FILLED #60 FOR 30 DAY SUPPLY ON 11/15/24
Changed
pantoprazole 40 mg Tablet,Delayed Release (Dr/Ec)
40 mg PO BID Qty: 0 0RF
Held
magnesium oxide 250 mg magnesium Tablet
250 mg PO BID
Hold Instructions: Repeat lab work to check electrolytes and continue if needed
Discontinued
gabapentin 300 mg Capsule
300 mg PO BID
guaifenesin 600 mg Tablet Extended Release 12hr
600 mg PO Q12 Qty: 60 0RF
prednisone 10 mg Tablet
See Rx Instructions .ROUTE .COMPLEX Qty: 45 0RF
Rx Instructions:
Take By Mouth:
50 mg daily x3 days, 40 mg daily x3 days,
30 mg daily x3 days, 20 mg daily x3 days,
10 mg daily x3 days
diltiazem HCl 240 mg Capsule,Extended Release 24hr
240 mg PO DAILY
Discharge Orders:
Discharge Patient (As Directed); Ordered 11/27/24
Ordered By: Milton Kwan
Discharge Date and Time
Print Language: CITIZEN OF [place]
[2024-11-27] MEDS: ATIVAN 0.5 MG IV (14:53)
[2024-11-27 15:19] VITALS: BP 117/54
--- NOTE | 2024-11-27 15:28 | PTCARENOTE ---
Addendum entered by Carla Taylor RN 11/27/24 18:36:
No call back from [facility]. Patient's midline removed by IV team and peripheral line removed. Tele removed. Patient left with ambulance crew. Discharge packet given to transport crew. Vital signs stable.
Original Note:
Called [facility] six times without success in speaking to staff members willing to take report. Left voicemail with waste water worker with my name and contact information. Clinical Documentation Manager was not aware of which unit that the patient would be
sent. Attempted to call admissions also without success.
[2024-11-27 16:42] LABS: Glucose - Point of Care 91 mg/dl (70-99)
[2024-11-27 17:45] VITALS: BP 120/58
== END 2024-11-27 20:07 | DRG 871 ==
LOC: 4 EAST ACU 22:50
PROVIDERS: Emergency Medicine; Internal Medicine; Nurse Practitioner Family; Nurse Practitioner Primary Care; ADMITTING PHYSICIAN Internal Medicine; ATTENDING PHYSICIAN Internal Medicine; CONSULT PHYSICIAN Internal Medicine; CONSULT PHYSICIAN Internal Medicine Gastroenterology; EMERGENCY PHYSICIAN Emergency Medicine; OTHER PHYSICIAN Nurse Practitioner Gerontology
PROC: 30233N1 Transfusion of Nonautologous Red Blood Cells into Peripheral Vein, Percutaneous Approach (ICD-10-PCS; 2024-11-20)
PROC: 5A09357 Assistance with Respiratory Ventilation, Less than 24 Consecutive Hours, Continuous Positive Airway Pressure (ICD-10-PCS; 2024-11-20)
DX: A41.89 Other specified sepsis (principal); G92.8 Other toxic encephalopathy; R65.21 Severe sepsis with septic shock; J96.21 Acute and chronic respiratory failure with hypoxia; J69.0 Pneumonitis due to inhalation of food and vomit; I50.23 Acute on chronic systolic (congestive) heart failure; K92.2 Gastrointestinal hemorrhage, unspecified; J44.0 Chronic obstructive pulmonary disease with (acute) lower respiratory infection; D62 Acute posthemorrhagic anemia; D68.32 Hemorrhagic disorder due to extrinsic circulating anticoagulants; E87.3 Alkalosis; Z87.891 Personal history of nicotine dependence; Z11.52 Encounter for screening for COVID-19; Z79.01 Long term (current) use of anticoagulants; D69.6 Thrombocytopenia, unspecified; I11.0 Hypertensive heart disease with heart failure; I27.20 Pulmonary hypertension, unspecified; I48.0 Paroxysmal atrial fibrillation; F41.9 Anxiety disorder, unspecified; F32.A Depression, unspecified; K21.9 Gastro-esophageal reflux disease without esophagitis; N40.0 Benign prostatic hyperplasia without lower urinary tract symptoms; E78.00 Pure hypercholesterolemia, unspecified; Z51.5 Encounter for palliative care; Z87.11 Personal history of peptic ulcer disease
CPT/HCPCS: 71045; 74230; 80048; 80053; 80202; 82805; 82947; 82962; 83605; 83735; 83880; 84100; 84145; 84484; 85014; 85018; 85025; 85027; 85610; 85730; 86850; 86900; 86901; 86920; 87040; 87070; 87205; 87449; 87502; 87641; 87811; 87899; 92526; 92610; 92611; 93005; 94640; 94660; 96365; 96375; 97163; 97167; 97530; 97535; 99285; P9016

== ENCOUNTER 2025-03-26 19:29 | Emergency (ER) | payer MEDICARE, OTHER, SELFPAY ==
[2025-03-26 19:39] VITALS: BP 153/58
[2025-03-26 20:03] VITALS: BP 156/57
[2025-03-26 20:16] VITALS: BMI 26.8
--- NOTE | 2025-03-26 20:27 | ED.GENMED ---
History of Present Illness
General
Chief Complaint: Rectal Bleeding
Source: patient and family (sister, he lives with her)
Exam Limitations: none
Time Seen by Provider: 03/26/25 19:59
Nursing documentation reviewed up to this point in time: agreed with
History of Present Illness
History of Present Illness:
74 yo male w h/o afib on Eliquis, GI bleed, COPD on home O2, HTN, HLD. GERD, IBS, Anxiety/Depression, presents with rectal bleeding, noted as black stools, which began today. The patient reports associated nausea but denies abdominal pain, SOB or
chest pain. He also reports dizziness. There is a history of prior gastrointestinal bleeding with similar symptoms in the past.
Past History
Past History
ED Past Medical History: Arrthythmia (afib on Eliquis), COPD, GERD, HTN, Hypercholesterolemia and Psychiatric (Anxiety/depression)
ED Past Surgical History: Orthopedic and Other (Hernia repair surgery)
Social History
Tobacco: Former smoker
Alcohol: None
Drug: None
Personal: Single
Living: with family
Employment: Other
Family History
Family History: Other
Review of Systems
Review of Systems
Allergies reviewed?: Yes
All Other Systems: ROS reviewed and negative except as documented in HPI and ROS
Constitutional: Denies fever
Respiratory: Denies trouble breathing
Cardiac: Denies chest pain
ABD/GI: Reports black stools; Denies abdominal pain, nausea, vomiting or diarrhea
: Denies dysuria or difficulty voiding
Musculoskeletal: Denies edema
Skin: Reports no symptoms
Neurological: Reports dizzy
Phy Exam
Physical Exam
Physical Exam:
GENERAL: No acute distress. A&Ox3.
CONSTITUTIONAL: Afebrile.
EYES: clear, conjunctivae normal
ENMT: moist mucus membranes, Pharynx nl
RESPIRATORY: Regular respirations, nonlabored, lungs clear.
CARDIOVASCULAR: Regular rate and rhythm, no murmurs, no rubs.
GI: Soft, nontender, normal BS
Rectal:
MUSCULOSKELETAL: Moves with ease. Well perfused.
SKIN: Warm, dry, pink
PSYCH: Normal mood and affect. Well kept, interactive and appropriate
NEUROLOGIC: Awake, alert and oriented. No focal neurological deficits
Course
Orders/Labs/Results
Orders:
Orders
03/26/25 19:47
Cardiac Monitoring- Treatment ONCE
IV Insert/Care/Rem.- Treatment PRN
O2 Therapy [RESP] Urgent
Titrate/Wean O2 to maintain O2 sat greater than (%): 93
Special Instructions: MAINTAIN CONTINOUS O2 SATS > OR = 93%
Pulse Ox/spot Check [RESP] Urgent
Quantity: 1
Special Instructions: ON ROOM AIR
03/26/25 20:19
Type+Screen Urgent
Complete Blood Count/With Diff Urgent
Comprehensive Metabolic Panel Urgent
PTT Urgent
Prothrombin Time Urgent
Abnormal Lab Results
03/26/25
20:19
RBC 3.45 L 10^6/uL
(4.70-6.10)
Hgb 8.9 L g/dL
(13.0-18.0)
Hct 28.7 L %
(39.0-52.0)
MCH 25.8 L pg
(27.0-31.0)
MCHC 31.0 L g/dL
(33.0-37.0)
RDW 16.3 H %
(11.5-14.5)
Lymphocytes % 17.9 L %
(20.5-51.1)
PT 15.9 H Sec
(11.4-14.6)
APTT 36.4 H Sec
(23.4-35.0)
Carbon Dioxide 34 H mmol/L
(22-30)
Alkaline Phosphatase 34 L U/L
(38-126)
Total Protein 6.1 L g/dl
(6.3-8.2)
03/26/25 20:19
03/26/25 20:19
Vital Signs
Initial and Last Documented VS:
Initial Vital Signs
Temp Pulse Resp BP Pulse Ox
99.1 F 52 24 153/58 93
03/26/25 19:39 03/26/25 19:39 03/26/25 19:39 03/26/25 19:39 03/26/25 19:39
Last Documented Vital Signs
Temp Pulse Resp BP Pulse Ox
99.1 F 54 18 156/57 96
03/26/25 19:39 03/26/25 21:45 03/26/25 21:30 03/26/25 20:03 03/26/25 21:45
MDM/Problems Addressed
Differential Diagnosis Includes:
1. Gastrointestinal bleeding (upper or lower GI source)
2. Bleeding due to anticoagulation therapy
3. Peptic ulcer disease
4. Diverticulosis with bleeding
5. Severe gastritis or duodenitis
6. Medication side effect
MDM/Problems Addressed:
74 yo male w h/o afib on Eliquis, GI bleed, COPD on home O2, HTN, HLD. GERD, IBS, Anxiety/Depression, presents with rectal bleeding, noted as black stools, which began today. The patient reports associated nausea but denies abdominal pain, SOB or
chest pain. He also reports dizziness.
There is a history of prior gastrointestinal bleeding with similar symptoms in the past. The patient is currently on apixaban for anticoagulation and metoprolol, which could contribute to the slow heart rate observed. He is a former smoker,
denies alcohol use.
Vital signs stable, NAD
Abdomen benign rectal: Black stool, hematest negative. Patient admits to having taken Pepto-Bismol in the past few days. This is most likely a cause of the black stool.
His hemoglobin is 8.9, his baseline is 9.1 to most recently 9.6 with indices indicating a chronic element.
CMP with no clinically significant abnormality, BUN is normal which is reassuring for no GI bleed
Stable for discharge
Will have him repeat CBC in 3 days.
Return instructions reviewed.
Pt has prescheduled appointment with [facility] Dr. Garcia on April 12
Chronic conditions affecting care: Arrhythmia and COPD
*Pulse Oximetry
SaO2: 93
Nasal Cannula flow liters per minute: 4
Patient hypoxic: not evaluated
*Critical Care Note
Total Time (30-74mins, 75-104mins- exclusive of procedures): Not Applicable
Patient Management
Social determinants of health affecting care: Strong social support (lives with sister)
ED Attending Note
-
Portions of this chart may have been created with voice recognition software.� Occasional wrong word or��sound alike� substitutions may have occurred due to the inherent limitations of voice recognition software.
Discharge Plan
Departure
Patient Disposition: Home (Routine Discharge)
Date of Disposition: 03/26/25
Time of Disposition: 21:27
Patient with high blood pressure during this ER visit?: No
Condition: Fair
Discharge Problem:
Black stools
Prescriptions:
No Action
atorvastatin 40 mg Tablet
40 mg PO HS
furosemide 20 mg Tablet
20 mg PO BID
finasteride 5 mg Tablet
5 mg PO DAILY
alfuzosin 10 mg Tablet Extended Release 24 Hr
10 mg PO DAILY
sildenafil (pulm.hypertension) 20 mg Tablet
20 mg PO DAILY
Eliquis 5 mg Tablet
5 mg PO BID
Trelegy Ellipta 200-62.5-25 mcg Blister With Device
1 inh INHALATION R DAILY
lorazepam 0.5 mg Tablet
0.5 mg PO DAILY
Patient Comments:
03/26/2025, last filled on 03/07/2025 for 5 tablets per PDMP.
gabapentin 100 mg Capsule
100 mg PO BID 30 Days Qty: 60 0RF
metoprolol succinate 25 mg Tablet Extended Release 24 Hr
25 mg PO BID 30 Days Qty: 60 0RF
pantoprazole 40 mg Tablet,Delayed Release (Dr/Ec)
40 mg PO BID Qty: 0 0RF
acetaminophen [Tylenol] 325 mg Tablet
650 mg PO TID
lidocaine 4 % Adhesive Patch,Medicated
1 patch TOPICAL DAILY PRN (Reason: apply to R hip)
Patient Comments:
03/26/2025, pt. applied yesterday and is still currently wearing the same patch on his R hip.
albuterol sulfate 2.5 mg /3 mL (0.083 %) Solution For Nebulization
2.5 mg INHALATION R BID
trazodone 50 mg Tablet
12.5 mg PO HS
diltiazem HCl [Cardizem CD] 180 mg Capsule,Extended Release 24hr
180 mg PO DAILY@1999
bismuth subsalicylate [Pepto-Bismol] 262 mg/15 mL Suspension
524 mg PO DAILYPRN PRN (Reason: stomach upset)
docusate sodium [Colace] 100 mg Capsule
100 mg PO BID
magnesium oxide 250 mg magnesium Tablet
250 mg PO DAILY
escitalopram oxalate 10 mg Tablet
10 mg PO DAILY
melatonin 5 mg Tablet
5 mg PO HS
Referrals:
Kelsi Garcia MD, Resident [Family Provider, General] - Keep scheduled appt
NONE,* [Active, Internal Medicine]
Activity Restrictions/Additional Instructions:
As we discussed, your black stool is most likely from the Pepto Bismol
Have your blood work rechecked in 3 days at the out pt lab
Return here immediately for abdominal pain, vomiting, bloody stools or feeling sicker in any way.
Stop the Pepto Bismol.
Interventions
Interventions:
*Risk Screen - Suicide Last Done: 03/26/25 19:39
*General Assessment Last Done: 03/26/25 19:39
*Neglect/Abuse Screening Last Done: 03/26/25 19:39
*ED- Fall Risk Assessment Last Done: 03/26/25 19:39
*ED COVID-19 Vaccine History Last Done: 03/26/25 19:39
*Nursing Disposition Last Done: 03/26/25 22:00
CC-Aujirx-Rvszndfkyz Assessment Last Done: 03/26/25 20:16
ED- Cardiac Assessment Last Done: 03/26/25 20:16
ED- Pulmonary Assessment Last Done: 03/26/25 20:16
Discharge Date and Time
Discharge Date/Time: 03/26/25 22:09
Print Language: DANISH
[2025-03-26 20:37] LABS: Hematocrit 28.7 % (39.0-52.0); Hemoglobin 8.9 g/dL (13.0-18.0); Mean Corp Hgb Conc. 31.0 g/dL (33.0-37.0); Mean Corpuscular Volume 83.2 fL (80.0-94.0); Nucleated Red Blood Cells % 0 % (-); Platelet Count 322 10^3/uL (130-400); Red Cell Dist. Width 16.3 % (11.5-14.5)
[2025-03-26 20:47] LABS: INR 1.24; PT 15.9 Sec (11.4-14.6)
[2025-03-26 20:48] LABS: APTT 36.4 Sec (23.4-35.0)
[2025-03-26 21:00] LABS: ALT (SGPT) < 10 U/L (0-50); AST (SGOT) 18 U/L (17-59); Albumin 3.6 g/dl (3.5-5.0); Alkaline Phosphatase 34 U/L (38-126); Blood Urea Nitrogen 13 mg/dl (9-20); Calcium 8.9 mg/dl (8.4-10.2); Carbon Dioxide 34 mmol/L (22-30); Chloride 104 mmol/L (98-107); Estimated Creatinine Clearance 69 ml/min; Glucose 94 mg/dl (70-99); Potassium 3.7 mmol/L (3.5-5.1); Sodium 140 mmol/L (135-145); Total Protein 6.1 g/dl (6.3-8.2); eGFR > 60.00
--- NOTE | 2025-03-26 21:16 | PHANOTE ---
03/26/2025, pt. is using Albuterol nebulizer (2.5 mg/3 ml neb) BID; could not confirm with pharmacy or ecw records.
== END 2025-03-26 22:09 | disposition home or self-care (01) ==
LOC: EMR 19:29
PROVIDERS: Emergency Medicine; EMERGENCY PHYSICIAN Emergency Medicine; FAMILY PHYSICIAN Student in an Organized Health Care Education/Training Program
DX: K92.1 Melena (principal); I48.91 Unspecified atrial fibrillation; I10 Essential (primary) hypertension; E78.00 Pure hypercholesterolemia, unspecified; F41.8 Other specified anxiety disorders; J44.9 Chronic obstructive pulmonary disease, unspecified; K21.9 Gastro-esophageal reflux disease without esophagitis; K58.9 Irritable bowel syndrome, unspecified; Z79.01 Long term (current) use of anticoagulants; Z87.891 Personal history of nicotine dependence; Z99.81 Dependence on supplemental oxygen
CPT/HCPCS: 99283; 80053; 85025; 85610; 85730; 86850; 86900; 86901

== ENCOUNTER 2025-03-28 16:18 | Inpatient (IN) | payer MEDICARE, OTHER, SELFPAY ==
[2025-03-28] VITALS (8 sets, daily range): BP systolic 123–145; BP diastolic 53–60; BMI 21.1; BMI 19.3
[2025-03-28] MEDS: DUONEB 9 ML INH (13:12)
[2025-03-28 13:18] LABS: Hematocrit 29.3 % (39.0-52.0); Hemoglobin 9.2 g/dL (13.0-18.0); Mean Corp Hgb Conc. 31.4 g/dL (33.0-37.0); Mean Corpuscular Volume 81.8 fL (80.0-94.0); Nucleated Red Blood Cells % 0 % (-); Platelet Count 332 10^3/uL (130-400); Red Cell Dist. Width 16.2 % (11.5-14.5)
--- NOTE | 2025-03-28 13:23 | ED.GENMED ---
History of Present Illness
General
Chief Complaint: Breathing Problem
Time Seen by Provider: 03/28/25 13:00
History of Present Illness
History of Present Illness:
74-year-old male with history of CHF, COPD on 4 L O2, GERD, hyperlipidemia, hypertension, A-fib on apixaban presenting for shortness of breath. Patient reports symptoms for the past 2 days. Patient notes that he started to feel short of breath
upon leaving the hospital, was seen in the hospital on 03/26 for concern of dark stools. At that time it was thought to not be from a GI bleed, however rather Pepto-Bismol. He denies any cough or fever. He denies any swelling to his legs. He
notes some discomfort across his chest with his breathing. Patient arrives by medics, who did administer a DuoNeb and steroids and route for suspicion for COPD. No additional symptoms reported at this time.
Past History
Past History
ED Past Medical History: Arrthythmia (afib on Eliquis), COPD, GERD, HTN, Hypercholesterolemia and Psychiatric (Anxiety/depression)
ED Past Surgical History: Orthopedic and Other (Hernia repair surgery)
Social History
Tobacco: Former smoker
Alcohol: None
Drug: None
Personal: Single
Living: with family
Employment: Other
Family History
Family History: Other
Phy Exam
Physical Exam
Physical Exam:
General: Well-appearing, no clinical signs of dehydration, nontoxic and in no acute distress
HEENT: protecting airway
Neck: appears supple
CV: Bradycardic, regular rhythm, no evidence of cyanosis
Resp: Mild tachypnea with diminished air movement bilaterally
Abd: Soft and non-distended, no tenderness to palpation
Extremities: No deformities, no swelling
Neuro: alert, no focal neurologic deficit
: deferred
Rectal: deferred
Psych: Normal affect
Skin: Intact
Scores
Heart Failure Risk
Heart Failure Risk Score: Not Applicable
Course
Orders/Labs/Results
Orders:
Orders
03/28/25 13:01
Ipratropium/Albuterol Sulfate [Duoneb] 9 ml INH R NOW STA
03/28/25 13:02
Electrocardiogram (*1) Stat
Reason for Study: Other
Other Reason for Exam: chest pain
EKG- Treatment ONCE
CR Chest - 2 Views Urgent
Comment:
Reason For Exam: SOB
03/28/25 13:08
COVID-19 Antigen Urgent
Source: Nasal Swab
Complete Blood Count/With Diff Urgent
Comprehensive Metabolic Panel Urgent
NT-proBNP Urgent
PTT Urgent
Prothrombin Time Urgent
Troponin I Urgent
Influenza A+B Rapid Molecular Urgent
[place]OU[place] Source: Nasal Swab
Specimen Description:
03/28/25 Dinner
Cholesterol Lowering
At Your Request: Limited Participation
Does patient need a safe tray?: No
Cholesterol Lowering: Sodium, 2 Gram
Azithromycin 500 mg/250 ml [Zithromax Infusion] 500 mg in 250 ml IV NOW
CefTRIAXone [Rocephin] 1,000 mg IV NOW STA
03/28/25 15:13
Sterile Water [Sterile Water For Injection] 10 ml .ROUTE .STK-MED ONE
03/28/25 16:00
Admit/Transfer Patient As Directed
Co-Sign Provider:
Level of Care: Inpatient admission
Assign to:: Telemetry
Physician / Group: [facility]
Diagnosis: pneumonia, copd
Reason for Telemetry: Arrhythmia
Date to Stop Telemetry: 03/31/25
Time to Stop Telemetry: 11:00
Reason for Hospitalization: pneumonia, copd
Expected length of stay greater than two midnights?: Yes
ELOS- Estimated Length of Stay in days: 2
I certify the patient meets the requirements for IP care: Yes
Code Status As Directed
Resuscitation Status: Full Code
PRN Pain Medication Management As Directed
May give lesser potent ordered pain med per pt: Yes
preference::
Protocol:: Medication orders for pain may be administered in a
manner that supports deferring to patient preference
when the pt is:
- Requesting an ordered lesser potent pain medication.
Least to most potent pain medications are defined
as: acetaminophen < NSAID < tramadol < opioids
(morphine, oxycodone, hydromorphone).
- Requesting a lesser dose of the same medication IF
ORDERED.
- Requesting a less intrusive route of administration
if both routes are prescribed by the provider (PO <
IV).
03/28/25 16:45
Acetaminophen [Tylenol] 650 mg PO Q4HPRN PRN
03/28/25 16:45
VTE Contraindication Routine
VTE Mechanical Device Contraindication: Medical Contraindication
Pharmocologic Contraindication: Medical Contraindication
Activity As Directed
Activity Level: As Tolerated
Vital Signs As Directed
Frequency: Per unit guidelines
03/28/25 18:00
Dexamethasone Sod Phosphate [Decadron] 4 mg IV Q12H
03/28/25 20:00
Doxycycline [Vibramycin] 100 mg PO Q12
Ipratropium/Albuterol Sulfate [Duoneb] 3 ml INH R QID
03/29/25 06:00
Complete Blood Count/With Diff IN AM
Comprehensive Metabolic Panel IN AM
03/29/25 14:00
CefTRIAXone [Rocephin] 1,000 mg IV Q24H
03/31/25 11:00
DC Protocol for Telemetry ONCE
Abnormal Lab Results
03/28/25
13:08
RBC 3.58 L 10^6/uL
(4.70-6.10)
Hgb 9.2 L g/dL
(13.0-18.0)
Hct 29.3 L %
(39.0-52.0)
MCH 25.7 L pg
(27.0-31.0)
MCHC 31.4 L g/dL
(33.0-37.0)
RDW 16.2 H %
(11.5-14.5)
Neutrophils % 76.0 H %
(42.2-75.2)
Lymphocytes % 15.5 L %
(20.5-51.1)
PT 19.5 H Sec
(11.4-14.6)
APTT 39.4 H Sec
(23.4-35.0)
Carbon Dioxide 33 H mmol/L
(22-30)
Glucose 118 H mg/dl
(70-99)
Alkaline Phosphatase 34 L U/L
(38-126)
Total Protein 6.1 L g/dl
(6.3-8.2)
03/28/25 13:08
03/28/25 13:08
Vital Signs
Initial and Last Documented VS:
Initial Vital Signs
Temp Pulse Resp Pulse Ox
98.1 F 50 19 97
03/28/25 12:59 03/28/25 12:59 03/28/25 12:59 03/28/25 12:59
Last Documented Vital Signs
Temp Pulse Resp BP Pulse Ox
98.8 F 56 18 134/53 100
03/28/25 19:32 03/28/25 19:32 03/28/25 19:32 03/28/25 19:32 03/28/25 19:32
MDM/Problems Addressed
MDM/Problems Addressed:
74-year-old male with history of CHF, COPD on 4 L O2, GERD, hyperlipidemia, hypertension, A-fib on apixaban presenting to the ER with shortness of breath for 2 days. Vital signs on arrival are normal.
On exam, patient in no acute respiratory distress. Patient does have diminished air movement bilaterally, mild tachypnea. Symptoms and physical exam appear consistent with possible COPD exacerbation. No crackles or rales on lung exam. No lower
extremity edema. Lower suspicion for CHF. Patient is on apixaban, lower suspicion for PE. Patient afebrile, nontoxic, does have a dry cough. Lower suspicion for pneumonia, however in the setting of cough and COPD, will obtain chest x-ray.
Patient recently seen in the hospital for concern of GI bleed. Symptomatic anemia is a consideration, will recheck hemoglobin to ensure no acute drop. Will start patient on DuoNebs and reassess for improvement.
13:25 - Hemoglobin at baseline with lower suspicion for symptomatic anemia or GI bleed
14:50 -on reassessment, patient reports that he is feeling slightly better, however still short of breath. Lung exam is improved with increased air movement. On chest x-ray, hazy opacity within the left upper lung zone, and left infrahilar region,
new compared to prior chest x-ray. In the setting of mild cough and COPD, will treat with antibiotics. Patient says that he still feels too short of breath to go home. Plan for admission for COPD exacerbation and pneumonia.
*Pulse Oximetry
SaO2: 97
Nasal Cannula flow liters per minute: 4
Patient hypoxic: no
*EKG
Interpreted by ED Provider?: Yes
EKG Intrepretation Date: 03/28/25
EKG Intrepretation Time: 13:26
Interpretation: normal
Heart Rate: 60
Rate: normal
Rhythm: sinus and PVC's
[place]: normal axis
Interval: normal interval
QRS Pattern: normal QRS
Ischemia: no ischemia
*Critical Care Note
Total Time (30-74mins, 75-104mins- exclusive of procedures): Not Applicable
ED Attending Note
-
Portions of this chart may have been created with voice recognition software.� Occasional wrong word or��sound alike� substitutions may have occurred due to the inherent limitations of voice recognition software.
Discharge Plan
Departure
Patient Disposition: Admit
Date of Disposition: 03/28/25
Time of Disposition: 15:04
Presentation/result/management discussed w/ accepting MD/DO: Hospitalist
Patient with high blood pressure during this ER visit?: No
Condition: Fair
Discharge Problem:
COPD exacerbation, Community acquired pneumonia
Interventions
Interventions:
*Risk Screen - Suicide Last Done: 03/28/25 13:56
*General Assessment Last Done: 03/28/25 13:50
*Neglect/Abuse Screening Last Done: 03/28/25 13:50
*ED- Fall Risk Assessment Last Done: 03/28/25 13:50
*ED COVID-19 Vaccine History Last Done: 03/28/25 13:50
*Nursing Disposition Last Done: 03/28/25 16:46
ED- Cardiac Assessment Last Done: 03/28/25 13:56
ED- Pulmonary Assessment Last Done: 03/28/25 13:56
Discharge Date and Time
Discharge Date/Time: 03/28/25 16:47
[2025-03-28 13:35] LABS: ALT (SGPT) < 10 U/L (0-50); AST (SGOT) 17 U/L (17-59); Albumin 3.7 g/dl (3.5-5.0); Alkaline Phosphatase 34 U/L (38-126); Blood Urea Nitrogen 15 mg/dl (9-20); Calcium 9.2 mg/dl (8.4-10.2); Carbon Dioxide 33 mmol/L (22-30); Chloride 102 mmol/L (98-107); Estimated Creatinine Clearance 85 ml/min; Glucose 118 mg/dl (70-99); Potassium 3.9 mmol/L (3.5-5.1); Sodium 139 mmol/L (135-145); Total Protein 6.1 g/dl (6.3-8.2); eGFR > 60.00
[2025-03-28 13:41] LABS: INR 1.59; PT 19.5 Sec (11.4-14.6)
[2025-03-28 13:42] LABS: APTT 39.4 Sec (23.4-35.0)
[2025-03-28 13:45] LABS: COVID-19 Antigen Negative (Negative)
[2025-03-28 13:46] LABS: Troponin I 0.019 ng/ml
--- NOTE | 2025-03-28 15:14 | PHANOTE ---
med rec note-called patient family who did not answer. awaiting call back. patient came with medication list but only has 5 medications on it. ecw suggest patient should be more medication. patient does not know his medication. also medication list
on file was done with a [facility] tech and family
[2025-03-28] MEDS: ROCEPHIN 1000 MG IV (15:19)
[2025-03-28] MEDS: ZITHROMAX INFUSION 250 IV (15:19)
--- NOTE | 2025-03-28 16:03 | HPS.HSE ---
Family Physician
-
Family Physician: Kelsi Garcia MD, Reside
Chief Complaint
-
shortness of breath
History of Present Illness
74-year-old male past medical history of paroxysmal atrial fibrillation on Eliquis, HFpEF, COPD on 4 L oxygen, pulmonary hypertension, GERD, peptic ulcer disease, hyperlipidemia, hypertension, BPH, presenting with shortness of breath for the past 2
days with some mild cough. Denies any cough or fever. Denied swelling of the legs. He has some discomfort across the chest with breathing. Denies any weight gain in fact is lost weight. No fevers or chills. No sore throat or runny nose. No
sick contacts. Did have diarrhea 2 days ago which has resolved. He is feeling nauseous but denies vomiting. No abdominal pain.
He came to the emergency room on 722 for dark stools, heme test was negative at that time. He was taking Pepto-Bismol.
Medical History
Past Medical History
Past Medical History: Reports Other (paroxysmal atrial fibrillation on Eliquis, HFpEF, COPD on 4 L oxygen, pulmonary hypertension, GERD, peptic ulcer disease, hyperlipidemia, hypertension, BPH)
Past Surgical History: Reports None
Social History
Tobacco: Non-smoker
Alcohol: None
Drug: None
Family History
Family History: Not pertinent
Allergies / Home Medications
Allergies reflects when Allergies were last updated in [facility].
Home Medications with original date entered in [facility]
Allergy/Medication List:
Allergies
Allergy/AdvReac Type Severity Reaction Status Date / Time
No Known Allergies Allergy Verified 03/26/25 19:39
Home Medications
alfuzosin 10 mg tablet,extended release 24 hr 10 mg PO DAILY BPH 10/30/24
apixaban 5 mg tablet (Eliquis) 5 mg PO BID Blood Clot Prevention/Tx 10/30/24
atorvastatin 40 mg tablet 40 mg PO HS High Cholesterol 10/30/24
finasteride 5 mg tablet 5 mg PO DAILY BPH 10/30/24
fluticasone fur. 200 mcg-umeclid 62.5 mcg-vilant 25 mcg inhalat.powder (Trelegy Ellipta) 1 inh inhalation R DAILY Lung/Breathing Issues 10/30/24
furosemide 20 mg tablet 20 mg PO BID Fluid Retention/Swelling 10/30/24
sildenafil (pulm.hypertension) 20 mg tablet 20 mg PO DAILY PHTN 10/30/24
gabapentin 100 mg capsule 100 mg PO BID 30 days #60 caps 11/27/24
metoprolol succinate 25 mg tablet,extended release 24 hr 25 mg PO BID 30 days #60 tabs 11/27/24
pantoprazole 40 mg tablet,delayed release 40 mg PO BID GERD #0 tabs 11/27/24
acetaminophen 325 mg tablet (Tylenol) 650 mg PO TID 03/26/25
albuterol sulfate 2.5 mg/3 mL (0.083 %) solution for nebulization 2.5 mg inhalation R BID 03/26/25
bismuth subsalicylate 262 mg/15 mL oral suspension (Pepto-Bismol) 524 mg PO DAILYPRN PRN stomach upset 03/26/25
diltiazem HCl 180 mg capsule,extended release 24 hr (Cardizem CD) 180 mg PO DAILY@2000 03/26/25
docusate sodium 100 mg capsule (Colace) 100 mg PO BID 03/26/25
escitalopram oxalate 10 mg tablet 10 mg PO DAILY 03/26/25
lidocaine 4 % topical patch 1 patch topical DAILY PRN apply to R hip 03/26/25
magnesium oxide 250 mg PO DAILY 03/26/25
melatonin 5 mg tablet 5 mg PO HS 03/26/25
trazodone 50 mg tablet 12.5 mg PO HS 03/26/25
Review of Systems
-
History Source: Patient
A 12 point ROS was completed and negative except as noted: Yes
Constitutional: Reports No Symptoms
EENT: Reports No Symptoms
Respiratory: Reports See HPI
Cardiac: Reports No Symptoms
Abdomen/GI: Reports No Symptoms
: Reports No Symptoms
Musculoskeletal: Reports No Symptoms
Skin: Reports No Symptoms
Neurological: Reports No Symptoms
Endocrine: Reports No Symptoms
Hematologic/Lymphatic: Reports No Symptoms
Psych: Reports No Symptoms
Physical Exam
Vital Signs
Vital Signs
Temp Pulse Resp BP Pulse Ox
98 F 58 14 141/57 100
03/28/25 15:37 03/28/25 13:30 03/28/25 13:30 03/28/25 13:02 03/28/25 13:30
Physical Exam
General: Well Developed, Well Nourished and No Apparent Distress
HEENT: NormoCephalic, Moist mucous membranes and Atraumatic
Respiratory: Clear
Cardiac: S1/S2 and Regular Rhythm; No Murmur or Rub
GI: Soft, Non Tender, Non Distended and Normal Bowel Sounds; No Organomegaly
Rectal: Deferred by Provider
Musculoskeletal: No Clubbing, No Cyanosis and No Edema
Skin: No Rash
Neuro: Nonfocal/grossly intact
Laboratory Results
-
03/28/25 13:08
03/28/25 13:08
Laboratory Results
PT 19.5 Sec (11.4-14.6) H 03/28/25 13:08
INR 1.59 03/28/25 13:08
APTT 39.4 Sec (23.4-35.0) H 03/28/25 13:08
Total Bilirubin 0.4 mg/dl (0.2-1.3) 03/28/25 13:08
AST 17 U/L (17-59) 03/28/25 13:08
ALT < 10 U/L (0-50) 03/28/25 13:08
Alkaline Phosphatase 34 U/L (38-126) L 03/28/25 13:08
Troponin I 0.019 ng/ml 03/28/25 13:08
Data Reviewed
-
Lab Data: Labs Reviewed by me
Old Records: Reviewed
Impression/Plan
-
IMPRESSION:
PLAN:
# Acute COPD exacerbation
# Chronic COPD on 4 L baseline
# Possible left upper lung zone pneumonia
-Cardiac BNP 1400
-Chest x-ray shows hazy opacity in the left upper lung zone, left in priorly region which may represent pneumonia or subsegmental atelectasis
- Ceftriaxone/doxycycline
- DuoNebs every 6 hours
- Dexamethasone 4 mg every 12
Pulmonary hypertension
- Continue sildenafil
Paroxysmal atrial fibrillation
- Continue metoprolol, diltiazem
- Continue Eliquis
Chronic HFpEF
- Continue Lasix
Essential hypertension
GERD
- Continue Protonix
Peptic ulcer disease
Hyperlipidemia
- Continue statin
BPH
- Continue finasteride, alfuzosin
Anxiety/depression
- Continue Lexapro
Full code
DVT prophylaxis�Eliquis
Cardiac diet
--- NOTE | 2025-03-28 17:16 | TRANSFER ---
pt arrived from ED via stretcher. pt ambulated from stretcher to bed with a standby assist. VSS, pt chronically on 4L O2. call zhang within reach, plan of care ongoing.
[2025-03-28] MEDS: DECADRON 4 MG IV (17:19)
[2025-03-28] MEDS: DUONEB 3 ML INH (19:10)
[2025-03-28] MEDS: SYMBICORT 160/4.5 MCG INHALER INH (19:12)
[2025-03-28] MEDS: CARDIZEM CD 180 MG PO (20:55)
[2025-03-28] MEDS: PROTONIX 40 MG PO (20:55)
[2025-03-28] MEDS: VIBRAMYCIN 100 MG PO (20:55)
[2025-03-28] MEDS: NEURONTIN 100 MG PO (20:55)
[2025-03-28] MEDS: ELIQUIS 5 MG PO (20:56)
[2025-03-28] MEDS: REMOVE LIDOCAINE PATCH REMOVE ×2 (20:56)
[2025-03-28] MEDS: TOPROL XL 25 MG PO (20:56)
[2025-03-28] MEDS: LASIX 20 MG PO (20:57)
[2025-03-28] MEDS: DESYREL 12.5 MG PO (20:58)
[2025-03-28] MEDS: LIPITOR 40 MG PO (20:59)
[2025-03-28] MEDS: TYLENOL 650 MG PO (20:59)
[2025-03-28] MEDS: MELATONIN 5 MG PO (20:59)
[2025-03-28] MEDS: COLACE 100 MG PO (21:00)
[2025-03-29 03:33] VITALS: BP 142/75
[2025-03-29] MEDS: DECADRON 4 MG IV ×2 (05:41→17:01)
[2025-03-29 06:00] VITALS: BMI 19.3
[2025-03-29 07:49] VITALS: BP 163/83
[2025-03-29] MEDS: SPIRIVA RESPIMAT 2.5 MCG 2 PUFF INH (08:01)
[2025-03-29] MEDS: SYMBICORT 160/4.5 MCG INHALER 2 PUFF INH ×2 (08:02→18:46)
[2025-03-29] MEDS: DUONEB 3 ML INH ×4 (08:02→18:46)
[2025-03-29 08:22] LABS: Hematocrit 30.8 % (39.0-52.0); Hemoglobin 9.5 g/dL (13.0-18.0); Mean Corp Hgb Conc. 30.8 g/dL (33.0-37.0); Mean Corpuscular Volume 83.5 fL (80.0-94.0); Nucleated Red Blood Cells % 0 % (-); Platelet Count 329 10^3/uL (130-400); Red Cell Dist. Width 16.1 % (11.5-14.5)
[2025-03-29 08:28] LABS: ALT (SGPT) < 10 U/L (0-50); AST (SGOT) 16 U/L (17-59); Albumin 3.8 g/dl (3.5-5.0); Alkaline Phosphatase 32 U/L (38-126); Blood Urea Nitrogen 13 mg/dl (9-20); Calcium 9.4 mg/dl (8.4-10.2); Carbon Dioxide 33 mmol/L (22-30); Chloride 101 mmol/L (98-107); Estimated Creatinine Clearance 78 ml/min; Glucose 144 mg/dl (70-99); Potassium 3.8 mmol/L (3.5-5.1); Sodium 139 mmol/L (135-145); Total Protein 6.2 g/dl (6.3-8.2); eGFR > 60.00
[2025-03-29] MEDS: LIDOCAINE 4% PATCH 1 PATCH TOPICAL (08:58)
[2025-03-29] MEDS: TOPROL XL 25 MG PO (08:58)
[2025-03-29] MEDS: LEXAPRO 10 MG PO (08:58)
[2025-03-29] MEDS: VIBRAMYCIN 100 MG PO ×2 (08:59→21:46)
[2025-03-29] MEDS: MAGNESIUM OXIDE 250 MG PO (08:59)
[2025-03-29] MEDS: TYLENOL 650 MG PO ×4 (08:59→21:45)
[2025-03-29] MEDS: REVATIO 20 MG PO (08:59)
[2025-03-29] MEDS: LASIX 20 MG PO ×2 (08:59→16:01)
[2025-03-29] MEDS: FLOMAX 0.4 MG PO (08:59)
[2025-03-29] MEDS: NEURONTIN 100 MG PO ×3 (08:59→21:48)
[2025-03-29] MEDS: COLACE 100 MG PO ×2 (08:59→21:47)
[2025-03-29] MEDS: PROTONIX 40 MG PO ×2 (09:00→21:45)
[2025-03-29] MEDS: PROSCAR 5 MG PO (09:00)
[2025-03-29] MEDS: ELIQUIS 5 MG PO ×2 (09:00→21:47)
--- NOTE | 2025-03-29 09:34 | W.PN.HOSP.TC ---
Today's Communication/Plan
-
see plan
Assessment / Plan
Assessment / Plan
Gen: appears mildly SOB, AAOx3, appears chronically ill.
Eyes: EOMI, PERRLA, no scleral icterus.
Neck: supple.
CV: irreg/irreg, +S1/S2, no m/r/g.
Resp: CTAB, no rales, wheezes, or rhonchi.
Abd: +BS, soft, NT, ND
Skin: No rashes.
Neuro: CN 2-12 intact, non-focal.
Psych: Normal mood and affect.
CXR:
1. Hazy opacity within the left upper lung zone, and left infrahilar region, new compared to prior chest x-ray, which may represent pneumonia or subsegmental atelectasis.
2. Minimal opacity within the right lung base, improved compared to prior study, which may represent scarring due to prior pneumonia.
Acute COPD exacerbation:
-chronic hypoxemic respiratory failure on 4l NC O2 at baseline
-cont Decadron
-cont Symbicort/Spiriva
-possible PNA, currently on Rocephin/Doxy, check procal
-c/s pulm
Other problems:
Pulmonary HTN: cont sildenafil
PAF: Cont BB/Cardizem/Eliquis
Chronic HFpEF: cont Lasix/BB
Essential HTN: cont Cardizem/BB
GERD/PUD: cont PPI
HLD: cont statin
BPH: cont finasteride/alfuzosin
Anxiety/depression: cont Lexapro
FULL/Eliquis
Anticipated Discharge: > 48 hours
Subjective/Interval History
-
Date of Service: March 29, 2025
States SOB is improving.
Objective Data
-
Labs:
Laboratory Results
03/29/25
06:45
WBC 7.9
Hgb 9.5 L
Hct 30.8 L
Plt Count 329
Sodium 139
Potassium 3.8
Chloride 101
Carbon Dioxide 33 H
BUN 13
Creatinine 0.7
Glucose 144 H
Calcium 9.4
Total Bilirubin 0.4
AST 16 L
ALT < 10
Alkaline Phosphatase 32 L
Vital Signs:
Vital Signs
Temp Pulse Resp BP Pulse Ox
98.2 F 88 18 163/83 95
03/29/25 07:49 03/29/25 08:58 03/29/25 08:12 03/29/25 08:58 03/29/25 08:12
I&O
03/28/25 03/29/25 03/30/25
06:59 06:59 06:59
Intake Total 240 / 240
Output Total 595 / 595
Balance -355 / -355
--- NOTE | 2025-03-29 10:06 | CON.PUL ---
Consultation
Consultation Request
Date/Time Consultation Requested: 03/29/2025-10 AM
Date/Time Consultation Performed: 03/29/2025-10:30 AM
Requesting Provider: Hospitalist-Dr. Warner
Performing Provider: Dr. Larsen
Reason for Consultation: shortness of breath
Medical History
-
Chief Complaint: Shortness of breath
History of Present Illness:
74-year-old former smoking male with a history of COPD on 4 L oxygen, pulmonary hypertension, PAF on Eliquis, GERD, hyperlipidemia, hypertension, BPH who presented with increasing shortness of breath and cough felt to have COPD
exacerbation-pulmonary consulted for COPD exacerbation 03/29/2025.. The patient never followed up with pulmonary. He complained of progressive shortness of breath but no chest pain, chest tightness, wheezing, nonproductive cough, and no pleurisy.
He does not complain of any abdominal pain, nausea, lower extremity swelling or weakness.
Past Medical History
Past Medical History: None (COPD on chronic 4 L oxygen. Pulm hypertension. PAF on Eliquis. History CHF. GERD. Hypertension. Hyperlipidemia. Peptic ulcer disease. BPH. Anxiety/depression. Right arm fracture. Finger surgery. Back
stimulator replacement/removal. Hernia repair. Cataract.)
Social History
Tobacco: Former Smoker ([id number], quit several years ago)
Alcohol: None
Drug: None
Occupational Exposures: No known asbestos exposure
Environmental Exposures: No known tuberculosis exposure
Family History
Family History: Reviewed & Not Pertinent
Allergies / Home Medications
Allergies
Allergy/AdvReac Type Severity Reaction Status Date / Time
No Known Allergies Allergy Verified 03/26/25 19:39
Home Medications
�Medication �Instructions �Recorded �Confirmed �Last Taken �Type
alfuzosin 10 mg tablet,extended 10 mg PO DAILY BPH 10/30/24 03/28/25 03/28/25 History
release 24 hr
apixaban 5 mg tablet (Eliquis) 5 mg PO BID Blood Clot 10/30/24 03/28/25 03/28/25 History
Prevention/Tx
atorvastatin 40 mg tablet 40 mg PO HS High Cholesterol 10/30/24 03/28/25 1 Day Ago History
~03/27/25
finasteride 5 mg tablet 5 mg PO DAILY BPH 10/30/24 03/28/25 03/28/25 History
fluticasone fur. 200 mcg-umeclid 1 inh inhalation R DAILY 10/30/24 03/28/25 03/28/25 History
62.5 mcg-vilant 25 mcg Lung/Breathing Issues
inhalat.powder (Trelegy Ellipta)
furosemide 20 mg tablet 20 mg PO BID Fluid 10/30/24 03/28/25 03/28/25 History
Retention/Swelling
sildenafil (pulm.hypertension) 20 20 mg PO DAILY PHTN 10/30/24 03/28/25 03/28/25 History
mg tablet
gabapentin 100 mg capsule 100 mg PO BID 30 days #60 caps 11/27/24 03/28/25 03/28/25 Rx
metoprolol succinate 25 mg 25 mg PO BID 30 days #60 tabs 11/27/24 03/28/25 03/28/25 Rx
tablet,extended release 24 hr
pantoprazole 40 mg tablet,delayed 40 mg PO BID GERD #0 tabs 11/27/24 03/28/25 03/28/25 Rx
release
acetaminophen 325 mg tablet 650 mg PO TID Pain 03/26/25 03/28/25 03/28/25 History
(Tylenol)
albuterol sulfate 2.5 mg/3 mL 2.5 mg inhalation R BID 03/26/25 03/28/25 03/28/25 History
(0.083 %) solution for nebulization Lung/Breathing Issues
bismuth subsalicylate 262 mg/15 mL 524 mg PO DAILYPRN PRN stomach 03/26/25 03/28/25 2 Days Ago History
oral suspension (Pepto-Bismol) upset ~03/26/25
diltiazem HCl 180 mg 180 mg PO DAILY@2000 Blood Pressure 03/26/25 03/28/25 1 Day Ago History
capsule,extended release 24 hr ~03/27/25
(Cardizem CD)
docusate sodium 100 mg capsule 100 mg PO BID Constipation 03/26/25 03/28/25 03/28/25 History
(Colace)
escitalopram oxalate 10 mg tablet 10 mg PO DAILY Depression 03/26/25 03/28/25 03/28/25 History
lidocaine 4 % topical patch 1 patch topical DAILY PRN apply to 03/26/25 03/28/25 03/26/25 History
R hip
magnesium oxide 250 mg PO DAILY Supplement 03/26/25 03/28/25 03/28/25 History
melatonin 5 mg tablet 5 mg PO HS Sleep 03/26/25 03/28/25 1 Day Ago History
~03/27/25
trazodone 50 mg tablet 12.5 mg PO HS Sleep 03/26/25 03/28/25 1 Day Ago History
~03/27/25
Review of Systems
-
Unable to Obtain full review of systems at this time due to: Other (Per HPI)
Vitals / Labs / Diagnostic Testing
Vital Signs
Temp Pulse Resp BP Pulse Ox
98.2 F 88 18 163/83 95
03/29/25 07:49 03/29/25 08:58 03/29/25 08:12 03/29/25 08:58 03/29/25 08:12
Lab Data
03/29/25 06:45
03/29/25 06:45
Laboratory Results
03/28/25
13:08
PT 19.5 H
INR 1.59
APTT 39.4 H
Microbiology
03/28/25 13:08 Nasal Swab Influenza Types A & B (DOREEN) - Final
Negative for Influenza A & B, NAAT
Negative results must be combined with clinical observations
and patient history.
Nucleic Acid Amplification test (NAAT)performed on the
[employer] ID NOW platform.
Diagnostic Testing:
Physical Exam
-
Exam:
Well-nourished and well-developed in no apparent distress
HEENT-atraumatic, normocephalic
Neck-supple, no JVD, no bruit
Heart-regular rate and rhythm--systolic murmur
Chest with diminished breath sounds, prolonged expiratory time, expiratory wheezes, rare crackles
Back without tenderness
Abdomen-soft, nontender, nondistended, no hepatosplenomegaly
Extremities-no cyanosis, clubbing, with lower extremity edema
Integument-intact, no rashes, lesions or ecchymosis
Neurology-alert and oriented, nonfocal motor and sensory exam
Assessment
-
74-year-old former smoking male with a history of COPD on 4 L oxygen, pulmonary hypertension, PAF on Eliquis, GERD, hyperlipidemia, hypertension, BPH who presented with increasing shortness of breath and cough felt to have COPD
exacerbation-pulmonary consulted for COPD exacerbation 03/29/2025.
COPD-oxygen dependent with acute exacerbation
Juxspw-jclntmabie-btsxqdgsio 9.5
Mild hyperglycemia
Conditions present prior to admission:
Recent hospitalization 11/07/2024-COPD exacerbation and hyperglycemia
Recent hospitalization 11/19/2024 for sepsis/pneumonia and GI bleed
COPD on chronic 4 L oxygen, chronic hypercapnia-baseline pCO2 60
Pulm hypertension.
PAF on Eliquis.
History CHF-preserved EF
GERD.
Hypertension.
Hyperlipidemia.
Peptic ulcer disease.
BPH.
Anxiety/depression.
Chronic back pain
Right arm fracture. Finger surgery. Back stimulator replacement/removal. Hernia repair. Cataract.
Plan
Patient requires admission for severe COPD exacerbation
Supplemental oxygen as needed
Symbicort 160/4.5
Spiriva daily
ABG noted-hypercapnia chronic
BiPAP if needed
High flow oxygen if appropriate
Intubate and mechanically ventilate if does not significantly improve
Sildenafil for pulmonary hypertension
Duo nebs
Pulmicort nebulizers
Mucolytic's
Decadron 4 mg IV every 12 hours
Incentive spirometry
Acapella
Consider vest if difficulties mobilizing secretions
Consider chest physiotherapy if difficulties mobilizing secretions
Check cultures
Empiric antibiotics-ceftriaxone and doxycycline initiated
Monitor leukocytosis.
Follow hemoglobin.
Transfuse if needed.
Monitor for sources for potential blood loss
Monitor blood sugars
Insulin supplementation as needed
DVT prophylaxis-on Eliquis
GI prophylaxis-on pantoprazole-recent GI bleed
Early nutrition
Early mobilization
Reviewed with nursing, respiratory therapy, and primary team.
Outpatient pulmonary [id number] has appointment 2:[address] Bland on 05/21/2025
Diagnostic data:
Chest x-ray 10/30/2024-hyperinflated lungs, no acute process
Chest x-ray 11/19/2024-bilateral opacifications right greater than left likely representing pneumonia
Chest x-ray 11/24/2024-stable small right pleural effusion probable right lung pneumonia and/or interstitial edema
Chest x-ray 03/28/2025-hazy opacification left upper lung zone may represent pneumonia or subsegmental atelectasis, minimal opacification within the right lung base improved
Echocardiogram 11/05/2024-EF 50-55%, no significant valvular disease
Data Reviewed
-
EKG: Report reviewed by me
Radiology: Image personally visualized and interpreted and Report reviewed by me
Medical Tests (Nuc Med, Echo etc): Report reviewed by me
Labs: Labs reviewed by me
Old Records: Reviewed
Total Time Spent with Patient (in minutes): 55
[2025-03-29 10:41] LABS: Procalcitonin 0.08 ng/ml (0.0-0.25)
[2025-03-29 10:57] LABS: Hepatitis C Antibody Negative (Negative)
[2025-03-29 11:28] VITALS: BMI 19.3
[2025-03-29 11:44] VITALS: BP 133/56
[2025-03-29] MEDS: ROCEPHIN 1000 MG IV (14:03)
[2025-03-29] MEDS: STERILE WATER FOR INJECTION 10 ML IV (14:03)
[2025-03-29 16:04] VITALS: BP 123/56
--- NOTE | 2025-03-29 16:52 | CM ---
Alert awake oriented patient who lives with his sister Maggi in a 2 story home with 10 step to enter and 15 steps to bed and bathroom. He is independent activities of daily living.He uses oxygen at home unsure of vendor.Will need PT OT for dc
planning . Requested Rehab orders from .
[facility] history
Pharmacy [facility]
PCP DR Garcia
PLAN Will neeed PT OT eval for dc planning
[2025-03-29] MEDS: DESYREL 12.5 MG PO (21:46)
[2025-03-29] MEDS: LIPITOR 40 MG PO (21:47)
[2025-03-29] MEDS: MELATONIN 5 MG PO (21:48)
[2025-03-29] MEDS: REMOVE LIDOCAINE PATCH 1 PATCH REMOVE (21:48)
[2025-03-29] MEDS: CARDIZEM CD PO (22:17)
[2025-03-29] MEDS: TOPROL XL PO (22:18)
[2025-03-29 23:31] VITALS: BP 141/61
[2025-03-30] VITALS (8 sets, daily range): BP systolic 124–148; BP diastolic 52–65; PULSE 57–59; O2SAT 93–96; BMI 19.3
[2025-03-30] MEDS: DECADRON 4 MG IV ×2 (05:20→17:05)
[2025-03-30] MEDS: SYMBICORT 160/4.5 MCG INHALER 2 PUFF INH ×2 (07:17→20:18)
[2025-03-30] MEDS: DUONEB 3 ML INH ×4 (07:18→20:17)
[2025-03-30] MEDS: SPIRIVA RESPIMAT 2.5 MCG 2 PUFF INH (07:18)
[2025-03-30] MEDS: VIBRAMYCIN 100 MG PO (07:57)
[2025-03-30] MEDS: MAGNESIUM OXIDE 250 MG PO (07:57)
[2025-03-30] MEDS: LEXAPRO 10 MG PO (07:57)
[2025-03-30] MEDS: LIDOCAINE 4% PATCH 1 PATCH TOPICAL (07:57)
[2025-03-30] MEDS: LASIX 20 MG PO ×2 (07:58→16:06)
[2025-03-30] MEDS: PROTONIX 40 MG PO ×2 (07:58→20:03)
[2025-03-30] MEDS: TOPROL XL 25 MG PO ×2 (07:58→20:02)
[2025-03-30] MEDS: REVATIO 20 MG PO (07:58)
[2025-03-30] MEDS: PROSCAR 5 MG PO (07:58)
[2025-03-30] MEDS: TYLENOL 650 MG PO ×4 (07:58→21:05)
[2025-03-30] MEDS: NEURONTIN 100 MG PO ×3 (07:58→21:05)
[2025-03-30] MEDS: FLOMAX 0.4 MG PO (07:59)
[2025-03-30] MEDS: COLACE 100 MG PO ×2 (07:59→20:02)
[2025-03-30] MEDS: ELIQUIS 5 MG PO ×2 (07:59→20:02)
--- NOTE | 2025-03-30 08:43 | W.PN.HOSP.TC ---
Today's Communication/Plan
-
see plan
Assessment / Plan
Assessment / Plan
Gen: NAD, AAOx3, appears chronically ill.
Eyes: EOMI, PERRLA, no scleral icterus.
Neck: supple.
CV: remains irreg/irreg, +S1/S2, no m/r/g.
Resp: remains CTAB, no rales, wheezes, or rhonchi.
Abd: remains +BS, soft, NT, ND
Skin: No rashes.
Neuro: CN 2-12 intact, non-focal.
Psych: Normal mood and affect.
CXR:
1. Hazy opacity within the left upper lung zone, and left infrahilar region, new compared to prior chest x-ray, which may represent pneumonia or subsegmental atelectasis.
2. Minimal opacity within the right lung base, improved compared to prior study, which may represent scarring due to prior pneumonia.
Acute COPD exacerbation:
-chronic hypoxemic respiratory failure on 4L NC O2 at baseline
-cont Decadron
-cont Symbicort/Spiriva
-procal NEG, stop abx
-pulm following
-wean O2 to pulse ox 90-92% (communicated to RN at 0845 via [employer])
Other problems:
Pulmonary HTN: cont sildenafil
PAF: Cont BB/Cardizem/Eliquis
Chronic HFpEF: cont Lasix/BB
Essential HTN: cont Cardizem/BB
GERD/PUD: cont PPI
HLD: cont statin
BPH: cont finasteride/alfuzosin
Anxiety/depression: cont Lexapro
FULL/Eliquis
Anticipated Discharge: 24 - 48 hours
Subjective/Interval History
-
Date of Service: March 30, 2025
SOB significantly improved from yesterday.
Objective Data
-
Vital Signs:
Vital Signs
Temp Pulse Resp BP Pulse Ox
97.6 F 61 18 132/53 99
03/30/25 07:10 03/30/25 07:58 03/30/25 07:20 03/30/25 07:58 03/30/25 08:00
I&O
03/29/25 03/30/25 03/31/25
06:59 06:59 06:59
Intake Total 240 / 240 480 / 480
Output Total 595 / 595
Balance -355 / -355 480 / 480
--- NOTE | 2025-03-30 16:35 | W.PN.PUL3 ---
Today's Communication / Plan
-
Continue Decadron
DuoNebs
Monitor I/O+ daily weight
Trend BNP, repeat CXR tomorrow, and consider being more aggressive with diuresis depending on these results
If SOB persists despite him being treated with steroids and nebulizers then would consult cardiology to consider stress testing vs [facility], mario with [id number] smoking Hx
He has outpatient visits already arranged for our office with Pulmonary on 05/21, and Cardiology on 06/13
We will continue to follow along
Assessment
-
74-year-old former smoking male with a history of COPD on 4 L oxygen, pulmonary hypertension, PAF on Eliquis, GERD, hyperlipidemia, hypertension, BPH who presented with increasing shortness of breath and cough felt to have COPD
exacerbation-pulmonary consulted for COPD exacerbation 03/29/2025.
COPD-oxygen dependent with acute exacerbation
Anemia
Mild hyperglycemia (HbA1c: 5.7 from 11/01/2024)
Conditions present prior to admission:
Recent hospitalization 11/07/2024-COPD exacerbation and hyperglycemia
Recent hospitalization 11/19/2024 for sepsis/pneumonia and GI bleed
COPD on chronic 4 L oxygen, chronic hypercapnia-baseline pCO2 60
Pulm hypertension.
PAF on Eliquis.
History CHF-preserved EF
GERD.
Hypertension.
Hyperlipidemia.
Peptic ulcer disease.
BPH.
Anxiety/depression.
Chronic back pain
Right arm fracture. Finger surgery. Back stimulator replacement/removal. Hernia repair. Cataract.
Plan
Patient requires admission for severe COPD exacerbation
Patient reports that he is on 4 L/min nasal cannula [id number]-[id number] at home, although he is currently on 2 L/min nasal cannula
Continue with supplemental oxygen, titrating to maintain SpO2 between 88-95%
He will need an ambulatory pulse oximetry prior to discharge
Blood gas from November 2024 showed chronic hypercapnia - can use BiPAP if needed
Check blood gas tomorrow morning to assure that pH + pCO2 are stable
Symbicort 160/4.5
Spiriva daily
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
- Interestingly, recent echo on 11/05/2024 showed a relatively normal PASP at 31 mmHg with a normal RA size and normal RV size and function; hence, I question if he has pulmonary hypertension especially with no dilation of the RA or RV
DuoNebs QID
Currently on Symbicort 160 mcg + Spiriva Respimat 2.5 mcg/actuation
Mucolytics if needed - currently does not have a bothersome cough
Decadron 4 mg IV every 12 hours ---> wean as he clinically improves
Incentive spirometry encouraged q1hr while awake
Acapella
Consider vest if difficulties mobilizing secretions
Consider chest physiotherapy if difficulties mobilizing secretions
Despite him being on steroids and nebulizers, he does not appear to be clinically improving despite his improved oxygen requirements.
- I question if there is an ischemic coronary component here causing his symptoms, mario with a reported 100-PY cigarette smoking history
- He does have an outpatient cardiology appointment with Dr. Chaudhary on 06/13/2025
- If patient does develop worsening SOB then would consult cardiology during this hospitalization
- He appears to have small bilateral pleural effusions on CXR from 03/28/2025, and seems like he has chronic pleural effusions
- Currently on his home PO Lasix dosing of 20 mg BID; trend BNP, repeat CXR tomorrow, and consider being more aggressive with diuresis depending on these results
- No signs of right sided heart failure despite Hx of PH, mario with no lower extremity edema, and no appreciable JVD or ascites
Flu swab has been negative
CXR from admission shows hazy opacities in the left upper lobe + left infrahilar region; have low suspicion for pneumonia given lack of leukocytosis or significant cough and he has remained afebrile
He is now s/p antibiotics with ceftriaxone and doxycycline; s/p 1 dose of zithromax
Monitor off ABx
Trend WBC and monitor temperature curve
Follow hemoglobin.
Transfuse if needed to keep Hb>7g/dL
Monitor blood sugars with goal >100 and <180mg/dL
Insulin supplementation as needed
DVT prophylaxis-on Eliquis
GI prophylaxis-on pantoprazole-recent GI bleed
Early nutrition
Early mobilization
Reviewed with nursing, respiratory therapy, and primary team.
Outpatient pulmonary [id number] has appointment 2:[address] Bland on 05/21/2025
Pulmonary service will continue to follow along
Diagnostic data:
Chest x-ray 10/30/2024-hyperinflated lungs, no acute process
Chest x-ray 11/19/2024-bilateral opacifications right greater than left likely representing pneumonia
Chest x-ray 11/24/2024-stable small right pleural effusion probable right lung pneumonia and/or interstitial edema
Chest x-ray 03/28/2025-hazy opacification left upper lung zone may represent pneumonia or subsegmental atelectasis, minimal opacification within the right lung base improved
Echocardiogram 11/05/2024-EF 50-55%, no significant valvular disease
Total time spent today was 39 minutes for this encounter. Time includes reviewing laboratory test/imaging results, reviewing pertinent medical records, obtaining and reviewing medical history, performing an appropriate exam, ordering medications,
tests and procedures. Time also includes documentation of this encounter, coordinating patient care and communicating with other healthcare professionals. Total time does not include separately billed tests performed on this date of service.
Subjective Data
-
Date of Service:
Date of Service: March 30, 2025
Chief Complaint: Pulmonary Follow Up
Subjective:
Patient seen and evaluated today at bedside with his sister, Walt, present at bedside (late note entry). All questions were answered. Patient says that he feels better but he continues to have a burning sensation in his back with shortness of
breath and difficulty to breathe in general. He has an occasional cough with clear phlegm production. Currently on 2 L/min nasal cannula, and he says he is on 4 L/min [id number] at home. He has an appointment to see us in the office in
May.
Review of Systems
General: Other (Negative unless mentioned above)
Objective Data
Data Reviewed
Vital Signs / I&O / Oxygen:
Vital Signs
Temp Pulse Resp BP Pulse Ox
98.5 F 61 18 132/53 100
03/30/25 03:31 03/30/25 07:58 03/30/25 07:20 03/30/25 07:58 03/30/25 07:20
Intake and Output
03/29/25 03/30/25 03/31/25
06:59 06:59 06:59
Intake Total 240 / 240 480 / 480
Output Total 595 / 595
Balance -355 / -355 480 / 480
SaO2 100
Nasal Cannula flow liters per 4
minute
Physical Exam
General: Respiratory Distress (negative), Comfortable, Chills (negative) and Sweats (negative)
HEENT: Normocephalic and Anicteric
Cardiovascular: S1-S2 and Peripheral Edema (negative)
Respiratory: Wheeze (negative), Rhonchi (negative), Non-Labored Respirations, Stridor (negative) and Other (Coarse breath sounds heard bilaterally)
GI: Soft, Non Distended, Non Tender and Normal Bowel Sounds
Neurology: Awake, Alert and Tremors (negative)
Skin: Warm, Dry, Cyanosis (negative) and Jaundice (negative)
Labs/Micro/Reports
Lab Data
03/29/25 06:45
03/29/25 06:45
Microbiology
03/28/25 13:08 Nasal Swab Influenza Types A & B (DOREEN) - Final
Negative for Influenza A & B, NAAT
Negative results must be combined with clinical observations
and patient history.
Nucleic Acid Amplification test (NAAT)performed on the
[employer] platform.
[2025-03-30] MEDS: CARDIZEM CD 180 MG PO (20:02)
[2025-03-30] MEDS: REMOVE LIDOCAINE PATCH 1 PATCH REMOVE (20:05)
[2025-03-30] MEDS: LIPITOR 40 MG PO (21:05)
[2025-03-30] MEDS: MELATONIN 5 MG PO (21:05)
[2025-03-30] MEDS: DESYREL 12.5 MG PO (21:05)
[2025-03-31] VITALS (7 sets, daily range): BP systolic 113–165; BP diastolic 46–73; BMI 19.6
[2025-03-31] MEDS: DECADRON 4 MG IV ×2 (05:08→18:16)
[2025-03-31] MEDS: TYLENOL 650 MG PO ×5 (05:50→21:44)
[2025-03-31 06:12] LABS: Venous Blood Gas B.E. 8.4 mmol/L (-4 to +4); Venous Blood Gas O2 Sat % 99.2 %
[2025-03-31] MEDS: DUONEB 3 ML INH ×4 (07:15→19:22)
[2025-03-31] MEDS: SPIRIVA RESPIMAT 2.5 MCG 2 PUFF INH (07:15)
[2025-03-31] MEDS: SYMBICORT 160/4.5 MCG INHALER 2 PUFF INH ×2 (07:16→19:22)
--- NOTE | 2025-03-31 08:19 | W.PN.HOSP.TC ---
Today's Communication/Plan
-
see plan
Assessment / Plan
Assessment / Plan
Gen: NAD, AAOx3, appears chronically ill.
Eyes: EOMI, PERRLA, no scleral icterus.
Neck: supple.
CV: continues to remain irreg/irreg, +S1/S2, no m/r/g.
Resp: continues to remain CTAB, no rales, wheezes, or rhonchi.
Abd: continues to remain +BS, soft, NT, ND
Skin: No rashes.
Neuro: CN 2-12 intact, non-focal.
Psych: Normal mood and affect.
CXR:
1. Hazy opacity within the left upper lung zone, and left infrahilar region, new compared to prior chest x-ray, which may represent pneumonia or subsegmental atelectasis.
2. Minimal opacity within the right lung base, improved compared to prior study, which may represent scarring due to prior pneumonia.
SOB:
*Acute COPD exacerbation (possible):
-chronic hypoxemic respiratory failure on 4L NC O2 at baseline (likely too much)
-cont Decadron for now
-cont Symbicort/Spiriva
-procal NEG, abx stopped
-pulm following
-cont O2 with goal pulse ox 90-92%, now down to 1L NC O2
*Another possibility is component of CHF (h/o chronic HFpEF)
-proBNP elevated at 3840
-cont BB
-check echo
-await final read of today's CXR and based on read may give IV Lasix (currently on PO Lasix)
Other problems:
Pulmonary HTN: cont sildenafil
PAF: Cont BB/Cardizem/Eliquis
Essential HTN: cont Cardizem/BB
GERD/PUD: cont PPI
HLD: cont statin
BPH: cont finasteride/alfuzosin
Anxiety/depression: cont Lexapro
FULL/Eliquis
Anticipated Discharge: 24 - 48 hours
Subjective/Interval History
-
Date of Service: March 31, 2025
When asked if the patient feels short of breath he says 'a little bit.'
Objective Data
-
Vital Signs:
Vital Signs
Temp Pulse Resp BP Pulse Ox
97.1 F 53 18 127/73 97
03/31/25 07:10 03/31/25 07:18 03/31/25 07:18 03/31/25 07:10 03/31/25 07:18
I&O
03/30/25 03/31/25 04/01/25
06:59 06:59 06:59
Intake Total 480 / 480 960 / 960
Output Total 200 / 200
Balance 480 / 480 760 / 760
[2025-03-31 08:33] LABS: Hematocrit 29.7 % (39.0-52.0); Hemoglobin 9.1 g/dL (13.0-18.0); Mean Corp Hgb Conc. 30.6 g/dL (33.0-37.0); Mean Corpuscular Volume 85.6 fL (80.0-94.0); Platelet Count 356 10^3/uL (130-400); Red Cell Dist. Width 16.6 % (11.5-14.5)
[2025-03-31 08:40] LABS: Blood Urea Nitrogen 34 mg/dl (9-20); Calcium 9.1 mg/dl (8.4-10.2); Carbon Dioxide 33 mmol/L (22-30); Chloride 103 mmol/L (98-107); Estimated Creatinine Clearance 69 ml/min; Glucose 169 mg/dl (70-99); Potassium 3.7 mmol/L (3.5-5.1); Sodium 142 mmol/L (135-145); eGFR > 60.00
[2025-03-31] MEDS: COLACE PO ×2 (09:11→19:54)
[2025-03-31] MEDS: FLOMAX 0.4 MG PO (09:16)
[2025-03-31] MEDS: ELIQUIS 5 MG PO ×2 (09:16→19:54)
[2025-03-31] MEDS: LASIX 20 MG PO ×2 (09:16→16:48)
[2025-03-31] MEDS: LIDOCAINE 4% PATCH 1 PATCH TOPICAL (09:16)
[2025-03-31] MEDS: LEXAPRO 10 MG PO (09:16)
[2025-03-31] MEDS: MAGNESIUM OXIDE 250 MG PO (09:17)
[2025-03-31] MEDS: PROSCAR 5 MG PO (09:17)
[2025-03-31] MEDS: TOPROL XL PO (09:17)
[2025-03-31] MEDS: NEURONTIN 100 MG PO ×3 (09:17→19:54)
[2025-03-31] MEDS: PROTONIX 40 MG PO ×2 (09:17→19:53)
[2025-03-31] MEDS: FLUSH (NSS) 1 FLUSH IV (09:18)
[2025-03-31] MEDS: REVATIO 20 MG PO (10:39)
--- NOTE | 2025-03-31 15:53 | W.PN.PUL3 ---
Today's Communication / Plan
-
Continue Decadron
DuoNebs
Monitor I/O+ daily weight
BMP has more than doubled since 03/28 � - hold home PO lasix and start IV lasix for several days, adjusting as needed
Recommend cardiology consult given [id number] smoking history and SOB has persisted despite being treated for AECOPD
He has outpatient visits already arranged for our office with Pulmonary on 05/21, and Cardiology on 06/13
We will continue to follow along
Assessment
-
74-year-old former smoking male with a history of COPD on 4 L oxygen, pulmonary hypertension, PAF on Eliquis, GERD, hyperlipidemia, hypertension, BPH who presented with increasing shortness of breath and cough felt to have COPD
exacerbation-pulmonary consulted for COPD exacerbation 03/29/2025.
COPD-oxygen dependent with acute exacerbation
Suspect component of acute HFpEF (LVEF 50-55% with normal RV size/function and PASP: 31 mmHg via TTE from 11/05/2024)
Anemia
Mild hyperglycemia (HbA1c: 5.7 from 11/01/2024)
Conditions present prior to admission:
Recent hospitalization 11/07/2024-COPD exacerbation and hyperglycemia
Recent hospitalization 11/19/2024 for sepsis/pneumonia and GI bleed
COPD on chronic 4 L oxygen, chronic hypercapnia-baseline pCO2 60
Pulm hypertension.
PAF on Eliquis.
History CHF-preserved EF
GERD.
Hypertension.
Hyperlipidemia.
Peptic ulcer disease.
BPH.
Anxiety/depression.
Chronic back pain
Right arm fracture. Finger surgery. Back stimulator replacement/removal. Hernia repair. Cataract.
Plan
Patient admitted for severe COPD exacerbation
Patient reports that he is on 4 L/min nasal cannula [id number] at home, although he is currently on 1-2 L/min nasal cannula
Continue with supplemental oxygen, titrating to maintain SpO2 between 88-95%
Check ambulatory pulse oximetry prior to discharge
Blood gas from November 2024 showed chronic hypercapnia - can use BiPAP if needed
Blood gas this morning shows compensated chronic hypercapnia with pH 7.3, pCO2 59
Sildenafil for pulmonary hypertension (pt says he does not follow with a discount clerk - unclear what workup has been done that led to him being started on PDE5-inhibitor)
- Interestingly, recent echo on 11/05/2024 showed a relatively normal PASP at 31 mmHg with a normal RA size and normal RV size and function; hence, I question if he has pulmonary hypertension especially with no dilation of the RA or RV
Change DuoNebs to albuterol while on Spiriva
Currently on Symbicort 160 mcg + Spiriva Respimat 2.5 mcg/actuation
Mucolytics if needed - currently does not have a bothersome cough
Decadron 4 mg IV every 12 hours ---> wean as he clinically improves
Incentive spirometry encouraged q1hr while awake
Acapella
Consider vest if difficulties mobilizing secretions
Consider chest physiotherapy if difficulties mobilizing secretions
Despite him being on steroids and nebulizers, he does not appear to be clinically improving despite his improved oxygen requirements.
- I question if there is an ischemic coronary component here causing his symptoms, mario with a reported 100-PY cigarette smoking history
- He does have an outpatient cardiology appointment with Dr. Chaudhary on 06/13/2025
- If patient does develop worsening SOB or fail to improve with steroids, then would consult cardiology during this hospitalization
- He has small, chronic bilateral pleural effusions
- Currently on his home PO Lasix dosing of 20 mg BID; BNP is rising and pt clinically has orthopnea and WALLS --> give additional dose of lasix 40mg IVP x1 now
- Would diurese more aggressively while trending BNP and monitor symptoms - hold home PO lasix and start IV lasix for several days, adjusting as needed
- No signs of acute right sided heart failure despite Hx of PH, mario with no lower extremity edema, and no appreciable JVD or ascites
Flu swab has been negative
CXR from admission shows hazy opacities in the left upper lobe + left infrahilar region; have low suspicion for pneumonia given lack of leukocytosis or significant cough and he has remained afebrile
He is now s/p antibiotics with ceftriaxone and doxycycline; s/p 1 dose of zithromax
Monitor off ABx
Trend WBC and monitor temperature curve
Follow hemoglobin.
Transfuse if needed to keep Hb>7g/dL
Monitor blood sugars with goal >100 and <180mg/dL
Insulin supplementation as needed
DVT prophylaxis-on Eliquis
GI prophylaxis-on pantoprazole-recent GI bleed
Early nutrition
Early mobilization
Reviewed with nursing, respiratory therapy, and primary team.
Outpatient pulmonary [id number] has appointment 2:[address] Bland on 05/21/2025
Pulmonary service will continue to follow along
Diagnostic data:
Chest x-ray 10/30/2024-hyperinflated lungs, no acute process
Chest x-ray 11/19/2024-bilateral opacifications right greater than left likely representing pneumonia
Chest x-ray 11/24/2024-stable small right pleural effusion probable right lung pneumonia and/or interstitial edema
Chest x-ray 03/28/2025-hazy opacification left upper lung zone may represent pneumonia or subsegmental atelectasis, minimal opacification within the right lung base improved
Echocardiogram 11/05/2024-EF 50-55%, no significant valvular disease
Total time spent today was 42 minutes for this encounter. Time includes reviewing laboratory test/imaging results, reviewing pertinent medical records, obtaining and reviewing medical history, performing an appropriate exam, ordering medications,
tests and procedures. Time also includes documentation of this encounter, coordinating patient care and communicating with other healthcare professionals. Total time does not include separately billed tests performed on this date of service.
Subjective Data
-
Date of Service:
Date of Service: March 31, 2025
Chief Complaint: Pulmonary Follow Up
Subjective:
Patient seen earlier this afternoon (late note entry). He says he feels better today but still short of breath when he lays down to go to sleep or during exertion/activity. CXR today shows continued costophrenic angle blunting with no obvious
signs of pneumonia. proBNP today has more than doubled now at 3840. Patient on 1 L/min nasal cannula saturating 97%. He denies TSAI, abdominal pain, nausea, fevers or chills.
Review of Systems
General: Other (Negative unless mentioned above)
Objective Data
Data Reviewed
Vital Signs / I&O / Oxygen:
Vital Signs
Temp Pulse Resp BP Pulse Ox
97.1 F 50 18 127/73 97
03/31/25 07:10 03/31/25 09:16 03/31/25 07:18 03/31/25 09:16 03/31/25 07:18
Intake and Output
03/30/25 03/31/25 04/01/25
06:59 06:59 06:59
Intake Total 480 / 480 960 / 960
Output Total 200 / 200
Balance 480 / 480 760 / 760
SaO2 97
Nasal Cannula flow liters per 1
minute
Physical Exam
General: Respiratory Distress (negative), Comfortable, Chills (negative) and Sweats (negative)
HEENT: Normocephalic and Anicteric
Cardiovascular: S1-S2 and Peripheral Edema (negative)
Respiratory: Wheeze (negative), Crackles (faintly heard bilaterally), Rhonchi (negative), Non-Labored Respirations, Stridor (negative) and Other (Diminished breath sounds bilaterally)
GI: Soft, Non Distended, Non Tender and Normal Bowel Sounds
Neurology: Awake, Alert and Tremors (negative)
Skin: Warm, Dry, Cyanosis (negative) and Jaundice (negative)
Labs/Micro/Reports
Lab Data
03/31/25 06:00
03/31/25 06:00
Microbiology
03/28/25 13:08 Nasal Swab Influenza Types A & B (DOREEN) - Final
Negative for Influenza A & B, NAAT
Negative results must be combined with clinical observations
and patient history.
Nucleic Acid Amplification test (NAAT)performed on the
[employer] platform.
[2025-03-31] MEDS: LASIX 40 MG IV (19:51)
[2025-03-31] MEDS: KCL ELIXIR 40 MEQ PO (19:52)
[2025-03-31] MEDS: MELATONIN 5 MG PO (19:53)
[2025-03-31] MEDS: LIPITOR 40 MG PO (19:53)
[2025-03-31] MEDS: CARDIZEM CD PO (20:00)
[2025-03-31] MEDS: TOPROL XL 25 MG PO (21:38)
[2025-03-31] MEDS: REMOVE LIDOCAINE PATCH 1 PATCH REMOVE (21:39)
[2025-03-31] MEDS: DESYREL 12.5 MG PO (21:40)
[2025-04-01] VITALS (7 sets, daily range): BP systolic 110–164; BP diastolic 51–65; PULSE 80–102; O2SAT 99; BMI 19.1
[2025-04-01] MEDS: TYLENOL 650 MG PO ×3 (05:06→21:49)
[2025-04-01] MEDS: DECADRON 4 MG IV ×2 (05:06→16:43)
[2025-04-01 06:44] LABS: Hematocrit 30.6 % (39.0-52.0); Hemoglobin 9.4 g/dL (13.0-18.0); Mean Corp Hgb Conc. 30.7 g/dL (33.0-37.0); Mean Corpuscular Volume 83.4 fL (80.0-94.0); Platelet Count 347 10^3/uL (130-400); Red Cell Dist. Width 16.5 % (11.5-14.5)
[2025-04-01 07:04] LABS: Blood Urea Nitrogen 27 mg/dl (9-20); Calcium 9.4 mg/dl (8.4-10.2); Carbon Dioxide 31 mmol/L (22-30); Chloride 99 mmol/L (98-107); Estimated Creatinine Clearance 67 ml/min; Glucose 129 mg/dl (70-99); Magnesium 1.9 mg/dl (1.6-2.3); Potassium 4.4 mmol/L (3.5-5.1); Sodium 137 mmol/L (135-145); eGFR > 60.00
[2025-04-01] MEDS: FLOMAX 0.4 MG PO (08:22)
[2025-04-01] MEDS: MAGNESIUM OXIDE 250 MG PO (08:22)
[2025-04-01] MEDS: COLACE PO ×2 (08:22→20:34)
[2025-04-01] MEDS: PROSCAR 5 MG PO (08:23)
[2025-04-01] MEDS: PROTONIX 40 MG PO ×2 (08:23→20:34)
[2025-04-01] MEDS: ELIQUIS 5 MG PO ×2 (08:23→20:33)
[2025-04-01] MEDS: NEURONTIN 100 MG PO ×3 (08:23→21:49)
[2025-04-01] MEDS: REVATIO 20 MG PO (08:23)
[2025-04-01] MEDS: LEXAPRO 10 MG PO (08:23)
[2025-04-01] MEDS: TOPROL XL 25 MG PO ×2 (08:23→20:34)
[2025-04-01] MEDS: LASIX 40 MG IV ×2 (08:25→16:43)
[2025-04-01] MEDS: LIDOCAINE 4% PATCH 1 PATCH TOPICAL (08:25)
[2025-04-01] MEDS: VENTOLIN NEBULES 2.5 MG INH ×4 (08:26→19:21)
[2025-04-01] MEDS: SPIRIVA RESPIMAT 2.5 MCG 2 PUFF INH (08:26)
[2025-04-01] MEDS: SYMBICORT 160/4.5 MCG INHALER 2 PUFF INH ×2 (08:26→19:21)
--- NOTE | 2025-04-01 09:13 | CON.CAR ---
Addendum entered and electronically signed by Sky Triplett MD 04/01/25 11:15:
I saw and examined the patient.
The PILLOW FILLER's note was reviewed and I agree with the note.
Comment: 74-year-old male (establishing care with Dr. Chaudhary), with chronic HFpEF, paroxysmal atrial fibrillation, hypertension, COPD, chronic hypoxic respiratory failure (on 4L NC), dyslipidemia, and pulmonary hypertension who presented to the
emergency department with a chief complaint of shortness of breath.
- IV lasix
- does not appear to have a lot of extra volume on board
Original Note:
Consultation
Consultation Request
Date/Time Consultation Requested: 04/01/2025 08:20
Date/Time Consultation Performed: 04/01/2025 09:15
Requesting Provider: Dr. Jillian Castrejon
Performing Provider: BURT Melo for Dr. Triplett
Reason for Consultation: Acute on chronic heart failure
Medical History
-
Chief Complaint: Shortness of breath
History of Present Illness:
Thomas De La Cruz is a 74-year-old male (establishing care with Dr. Chaudhary), with chronic HFpEF, paroxysmal atrial fibrillation, hypertension, COPD, chronic hypoxic respiratory failure (on 4L NC), dyslipidemia, and pulmonary hypertension who presented
to the emergency department with a chief complaint of shortness of breath. He endorsed an associated cough. He was admitted with an acute COPD exacerbation and acute on chronic HFpEF. He has had significant weight gain since his discharge. He
endorses a high sodium diet (canned ravioli, canned soup, bologna, deli cheese, roast beef, etc). HF education provided. He denies chest pain, dizziness, and syncope/presyncope. He has not yet established care with cardiology nor pulmonary in the
outpatient setting after his prior hospitalization. He was discharged from SNF 03/07/2025. He is having challenges at home. His sister is usually not home during the day and he believes he requires more care. 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
Past Medical History
Past Medical History: Arrhythmias (Paroxysmal atrial fibrillation), CHF (HFpEF), COPD (With oxygen dependence [4L]), GERD, HTN, Hypercholesterolemia and Other (Pulmonary hypertension)
Past Surgical History: Orthopedic
Social History
Tobacco: Former Smoker
Alcohol: None
Living: With Family (Sister)
Employment: Retired
Family History
Family History: Reviewed & Not Pertinent
Allergies / Home Medications
Allergy/AdvReac Type Severity Reaction Status Date / Time
No Known Allergies Allergy Verified 03/26/25 19:39
�Medication �Instructions �Recorded �Confirmed �Type
alfuzosin 10 mg tablet,extended 10 mg PO DAILY BPH 10/30/24 03/28/25 History
release 24 hr
apixaban 5 mg tablet (Eliquis) 5 mg PO BID Blood Clot 10/30/24 03/28/25 History
Prevention/Tx
atorvastatin 40 mg tablet 40 mg PO HS High Cholesterol 10/30/24 03/28/25 History
finasteride 5 mg tablet 5 mg PO DAILY BPH 10/30/24 03/28/25 History
fluticasone fur. 200 mcg-umeclid 1 inh inhalation R DAILY 10/30/24 03/28/25 History
62.5 mcg-vilant 25 mcg Lung/Breathing Issues
inhalat.powder (Trelegy Ellipta)
furosemide 20 mg tablet 20 mg PO BID Fluid 10/30/24 03/28/25 History
Retention/Swelling
sildenafil (pulm.hypertension) 20 20 mg PO DAILY PHTN 10/30/24 03/28/25 History
mg tablet
gabapentin 100 mg capsule 100 mg PO BID 30 days #60 caps 11/27/24 03/28/25 Rx
metoprolol succinate 25 mg 25 mg PO BID 30 days #60 tabs 11/27/24 03/28/25 Rx
tablet,extended release 24 hr
pantoprazole 40 mg tablet,delayed 40 mg PO BID GERD #0 tabs 11/27/24 03/28/25 Rx
release
acetaminophen 325 mg tablet 650 mg PO TID Pain 03/26/25 03/28/25 History
(Tylenol)
albuterol sulfate 2.5 mg/3 mL 2.5 mg inhalation R BID 03/26/25 03/28/25 History
(0.083 %) solution for nebulization Lung/Breathing Issues
bismuth subsalicylate 262 mg/15 mL 524 mg PO DAILYPRN PRN stomach 03/26/25 03/28/25 History
oral suspension (Pepto-Bismol) upset
diltiazem HCl 180 mg 180 mg PO DAILY@2000 Blood Pressure 03/26/25 03/28/25 History
capsule,extended release 24 hr
(Cardizem CD)
docusate sodium 100 mg capsule 100 mg PO BID Constipation 03/26/25 03/28/25 History
(Colace)
escitalopram oxalate 10 mg tablet 10 mg PO DAILY Depression 03/26/25 03/28/25 History
lidocaine 4 % topical patch 1 patch topical DAILY PRN apply to 03/26/25 03/28/25 History
R hip
magnesium oxide 250 mg PO DAILY Supplement 03/26/25 03/28/25 History
melatonin 5 mg tablet 5 mg PO HS Sleep 03/26/25 03/28/25 History
trazodone 50 mg tablet 12.5 mg PO HS Sleep 03/26/25 03/28/25 History
Review of Systems
-
All other systems: Negative unless noted
Constitutional: No Symptoms
EENT: No Symptoms
Respiratory: Cough and Trouble Breathing
Cardiac: No Symptoms
Abdomen/GI: No Symptoms
: No Symptoms
Musculoskeletal: No Symptoms
Skin: No Symptoms
Neurological: No Symptoms
Endocrine: No Symptoms
Hematologic/Lymphatic: No Symptoms
Physical Exam
Vital Signs
Temp Pulse Resp BP Pulse Ox
98.8 F 78 19 164/64 98
04/01/25 07:56 04/01/25 08:27 04/01/25 08:27 04/01/25 07:56 04/01/25 08:27
Lab Results
04/01/25 06:01
04/01/25 06:01
Troponin I 0.019 ng/ml 03/28/25 13:08
Vdc-T-Dpkzxyxmqtd Pept 2930 pg/ml 04/01/25 06:01
Physical Exam
General: Well Developed, No Apparent Distress and Comfortable
HEENT: Normocephalic, Anicteric and Moist Mucous Membranes
Respiratory: Crackles (coarse)
Cardiac: S1/S2, Irregular Rhythm and Peripheral Edema (+1 LE)
Breast: Deferred by me
GI: Soft, Non Tender, Non Distended and Normal Bowel Sounds
Rectal: Deferred by Provider
Genito-urinary: No Costovertebral Tender
Musculoskeletal: No Cyanosis
Skin: Warm and Dry
Neuro: Awake and Alert
Hematologic/Lymphatic: No Lymphadenopathy
Psych: Calm
Impression / Plan
-
I/P: 74M with chronic HFpEF, paroxysmal atrial fibrillation, hypertension, COPD, chronic hypoxic respiratory failure (on 4L NC), dyslipidemia, and pulmonary hypertension who presented to the emergency department with a chief complaint of shortness
of breath.
Outpatient crosstie inspector: Dr. Chaudhary (establishing care)
HFpEF, acute on chronic
- Shortness of breath, elevated proBNP, and weight gain
- Diuresis with furosemide 40 mg IV twice daily, this requires intensive monitoring
- Discharge weight on 11/27/2024 56.9 kg (standing scale)
- He was on furosemide 20 mg twice daily at home, he was discharged on 40mg daily, not sure why it was changed at rehab
- Case management to miller [id number]
- Heart failure education
Paroxysmal atrial fibrillation
- Maintaining sinus rhythm on diltiazem 180 mg and metoprolol succinate 25 mg twice daily
- Oral Anticoagulation: Apixaban, 5 mg twice daily
- [id number]: Score at least 4 (Heart failure, HTN, age 75 or more)
COPD, severe, in acute exacerbation, with chronic hypoxia on 4 L at baseline, per pulmonary
Pulmonary hypertension
- On sildenafil 20 mg daily
- Update echocardiogram
Dyslipidemia, on atorvastatin 40 mg
Anemia, likely of chronic disease, denies acute bleeding
Data Reviewed
-
EKG: Report Reviewed by me (Sinus rhythm, PVCs, rate 60)
Radiology: Report Reviewed by me
Medical Tests (Nuc Med, Echo etc): Report Reviewed by me
Labs: Labs Reviewed by me
Old Records: Reviewed
--- NOTE | 2025-04-01 13:15 | W.PN.HOSP.TC ---
Today's Communication/Plan
-
continue IV Lasix
continue IV steroids
follow cards/pulm recs
Assessment / Plan
Assessment / Plan
Assessment:
Shortness of breath
Acute COPD exacerbation (COPD on chronic 4 L oxygen, chronic hypercapnia-baseline pCO2 60)
chronic hypoxemic respiratory failure on 4L NC
- wean O2 to 2L titrate to 90-94% sats
- continue Decadron
- continue Symbicort and Spiriva
- Procal neg, off Abx
- pulm following
Acute on chronic HFpEF (LVEF 50-55% with normal RV size/function and PASP: 31 mmHg via TTE from 11/05/2024)
- Echo: normal EF. mild TR
- continue IV Lasix; requires intensive monitoring of I/Os, weights, lytes
- CBC Cards following
Chronic Anemia
Mild hyperglycemia (HbA1c: 5.7 from 11/01/2024)
Recent hospitalization 11/19/2024 for sepsis/pneumonia and GI bleed
Pulm hypertension.
- on Revatio
Parox A. Fib
- on Cardizem/Toprol and Eliquis
GERD.
- continue PPI
Essential Hypertension.
- on Cardizem/Toprol
Hyperlipidemia.
Peptic ulcer disease.
BPH - continue Flomax/Proscar
Anxiety/depression.
- continue Trazodone/Lexapro
Chronic back pain
DVT ppx: Eliquis
Code: Full
Anticipated Discharge: > 48 hours
Subjective/Interval History
-
Date of Service: April 01, 2025
reports improvement with SOB since Lasix initiated
Objective Data
-
Labs:
Laboratory Results
04/01/25
06:01
WBC 10.1
Hgb 9.4 L
Hct 30.6 L
Plt Count 347
Sodium 137
Potassium 4.4
Chloride 99
Carbon Dioxide 31 H
BUN 27 H
Creatinine 0.8
Glucose 129 H
Calcium 9.4
Vital Signs:
Vital Signs
Temp Pulse Resp BP Pulse Ox
98.3 F 74 18 136/65 95
04/01/25 11:49 04/01/25 11:49 04/01/25 11:49 04/01/25 11:49 04/01/25 11:49
I&O
03/31/25 04/01/25 04/02/25
06:59 06:59 06:59
Intake Total 960 / 960 1835 / 1835
Output Total 200 / 200 1900 / 1900 250 / 250
Balance 760 / 760 -65 / -65 -250 / -250
Physical Exam
-
General: No Apparent Distress
HEENT: Normocephalic and Atraumatic
Respiratory: Crackles and Decreased Breath Sounds
GI: Soft and Nontender
Musculoskeletal: Edema, Right Lower Extrem and Edema, Left Lower Extrem
Neuro: AO x 3
Psych: Calm
Data Reviewed
-
Total Time Spent with Patient (in minutes): 51
Labs: Labs Reviewed by me
--- NOTE | 2025-04-01 15:18 | W.PN.PUL3 ---
Today's Communication / Plan
-
Continue inhalers
Continue nebulizer therapy
Continue Decadron at the current dose
Continue oxygen supplementation-baseline
Diuretics as able-approaching euvolemia.
Monitor off antibiotics
Assessment
-
74-year-old former smoking male with a history of COPD on 4 L oxygen, pulmonary hypertension, PAF on Eliquis, GERD, hyperlipidemia, hypertension, BPH who presented with increasing shortness of breath and cough felt to have COPD
exacerbation-pulmonary consulted for COPD exacerbation 03/29/2025.
COPD-oxygen dependent with acute exacerbation
Suspect component of acute HFpEF (LVEF 50-55% with normal RV size/function and PASP: 31 mmHg via TTE from 11/05/2024)
Anemia
Mild hyperglycemia (HbA1c: 5.7 from 11/01/2024)
Conditions present prior to admission:
Recent hospitalization 11/07/2024-COPD exacerbation and hyperglycemia
Recent hospitalization 11/19/2024 for sepsis/pneumonia and GI bleed
COPD on chronic 4 L oxygen, chronic hypercapnia-baseline pCO2 60
Pulm hypertension.
PAF on Eliquis.
History CHF-preserved EF
GERD.
Hypertension.
Hyperlipidemia.
Peptic ulcer disease.
BPH.
Anxiety/depression.
Chronic back pain
Right arm fracture. Finger surgery. Back stimulator replacement/removal. Hernia repair. Cataract.
Plan
Patient admitted for severe COPD exacerbation
Patient reports that he is on 4 L/min nasal cannula [id number] at home, although he is currently on 1-2 L/min nasal cannula
Continue with supplemental oxygen, titrating to maintain SpO2 between 88-95%
Blood gas from November 2024 showed chronic hypercapnia - can use BiPAP if needed
Blood gas this admission shows compensated chronic hypercapnia with pH 7.38, pCO2 59
-
Sildenafil for pulmonary hypertension (pt says he does not follow with a road crew member - unclear what workup has been done that led to him being started on PDE5-inhibitor)
- Interestingly, recent echo on 11/05/2024 showed a relatively normal PASP at 31 mmHg with a normal RA size and normal RV size and function; hence, I question if he has pulmonary hypertension especially with no dilation of the RA or RV
Continue nebulizer with o albuterol while on Spiriva
Currently on Symbicort 160 mcg + Spiriva Respimat 2.5 mcg/actuation
Mucolytics if needed - currently does not have a bothersome cough
Decadron 4 mg IV every 12 hours ---> wean as he clinically improves
Incentive spirometry encouraged q1hr while awake
Acapella-continue
-
Despite him being on steroids and nebulizers, he does not appear to be clinically improving despite his improved oxygen requirements.
- I question if there is an ischemic coronary component here causing his symptoms, mario with a reported 100-PY cigarette smoking history
- He does have an outpatient cardiology appointment with Dr. Chaudhary on 06/13/2025
- He has small, chronic bilateral pleural effusions
- Diuretics per cardiology.
-
No evidence for acute infection of the lung. Afebrile, no significant leukocytosis.
Flu swab has been negative
CXR from admission shows hazy opacities in the left upper lobe + left infrahilar region; have low suspicion for pneumonia given lack of leukocytosis or significant cough and he has remained afebrile
He is now s/p antibiotics with ceftriaxone and doxycycline; s/p 1 dose of zithromax
Monitor off ABx
Trend WBC and monitor temperature curve
.
Chronic anemia: Contributing to symptoms as well.
Follow hemoglobin.
Transfuse if needed to keep Hb>7g/dL
Monitor blood sugars with goal >100 and <180mg/dL-particularly on IV steroids.
Insulin supplementation as needed
DVT prophylaxis-on Eliquis
GI prophylaxis-on pantoprazole-recent GI bleed
Outpatient pulmonary [id number] has appointment 2:[address] Bland on 05/21/2025-to establish care.
Pulmonary service will continue to follow along
Diagnostic data:
Chest x-ray 10/30/2024-hyperinflated lungs, no acute process
Chest x-ray 11/19/2024-bilateral opacifications right greater than left likely representing pneumonia
Chest x-ray 11/24/2024-stable small right pleural effusion probable right lung pneumonia and/or interstitial edema
Chest x-ray 03/28/2025-hazy opacification left upper lung zone may represent pneumonia or subsegmental atelectasis, minimal opacification within the right lung base improved
Echocardiogram 11/05/2024-EF 50-55%, no significant valvular disease
Total time spent today was 37 minutes for this encounter. Time includes reviewing laboratory test/imaging results, reviewing pertinent medical records, obtaining and reviewing medical history, performing an appropriate exam, ordering medications,
tests and procedures. Time also includes documentation of this encounter, coordinating patient care and communicating with other healthcare professionals. Total time does not include separately billed tests performed on this date of service.
Subjective Data
-
Date of Service:
Date of Service: April 01, 2025
Chief Complaint: Pulmonary Follow Up (Acute exacerbation of COPD)
Review of Systems
Cardiopulmonary: Dyspnea and Dyspnea on Exertion
Objective Data
Data Reviewed
Vital Signs / I&O / Oxygen:
Vital Signs
Temp Pulse Resp BP Pulse Ox
98.3 F 74 18 136/65 95
04/01/25 11:49 04/01/25 11:49 04/01/25 11:49 04/01/25 11:49 04/01/25 11:49
Intake and Output
03/31/25 04/01/25 04/02/25
06:59 06:59 06:59
Intake Total 960 / 960 1835 / 1835
Output Total 200 / 200 1900 / 1900 250 / 250
Balance 760 / 760 -65 / -65 -250 / -250
SaO2 95
Nasal Cannula flow liters per 2
minute
Physical Exam
General: Respiratory Distress (negative), Comfortable, Chills (negative) and Sweats (negative)
HEENT: Normocephalic and Anicteric
Cardiovascular: S1-S2 and Peripheral Edema (negative)
Respiratory: Wheeze (negative), Crackles (faintly heard bilaterally), Rhonchi (negative), Non-Labored Respirations, Stridor (negative) and Other (Diminished breath sounds bilaterally)
GI: Soft, Non Distended, Non Tender and Normal Bowel Sounds
Neurology: Awake, Alert and Tremors (negative)
Skin: Warm, Dry, Cyanosis (negative) and Jaundice (negative)
Labs/Micro/Reports
Lab Data
04/01/25 06:01
04/01/25 06:01
[2025-04-01] MEDS: REMOVE LIDOCAINE PATCH 1 PATCH REMOVE (20:34)
[2025-04-01] MEDS: CARDIZEM CD 180 MG PO (20:34)
[2025-04-01] MEDS: MELATONIN 5 MG PO (21:49)
[2025-04-01] MEDS: DESYREL 12.5 MG PO (21:49)
[2025-04-01] MEDS: LIPITOR 40 MG PO (21:49)
[2025-04-02] VITALS (7 sets, daily range): BP systolic 111–148; BP diastolic 41–70; BMI 19.7
[2025-04-02] MEDS: DECADRON 4 MG IV (05:15)
[2025-04-02 07:27] LABS: Hematocrit 33.2 % (39.0-52.0); Hemoglobin 10.4 g/dL (13.0-18.0); Mean Corp Hgb Conc. 31.3 g/dL (33.0-37.0); Mean Corpuscular Volume 81.6 fL (80.0-94.0); Platelet Count 402 10^3/uL (130-400); Red Cell Dist. Width 16.4 % (11.5-14.5)
[2025-04-02] MEDS: SPIRIVA RESPIMAT 2.5 MCG 2 PUFF INH (07:36)
[2025-04-02] MEDS: SYMBICORT 160/4.5 MCG INHALER 2 PUFF INH ×2 (07:36→18:57)
[2025-04-02] MEDS: VENTOLIN NEBULES 2.5 MG INH ×4 (07:36→18:57)
[2025-04-02 07:58] LABS: Blood Urea Nitrogen 45 mg/dl (9-20); Calcium 9.8 mg/dl (8.4-10.2); Carbon Dioxide 31 mmol/L (22-30); Chloride 97 mmol/L (98-107); Estimated Creatinine Clearance 55 ml/min; Glucose 114 mg/dl (70-99); Magnesium 2.2 mg/dl (1.6-2.3); Potassium 4.6 mmol/L (3.5-5.1); Sodium 137 mmol/L (135-145); eGFR > 60.00
--- NOTE | 2025-04-02 08:28 | W.PN.CD ---
Today's Communication / Plan
-
Hold Lasix today
Start PO Lasix 40mg daily tomorrow
Cardiology will sign-off at this time. Please call with additional questions or concerns
Impression / Plan
-
I/P: 74M with chronic HFpEF, paroxysmal atrial fibrillation, hypertension, COPD, chronic hypoxic respiratory failure (on 4L NC), dyslipidemia, and pulmonary hypertension who presented to the emergency department with a chief complaint of shortness
of breath.
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 Chaudhary (establishing care)
HFpEF, acute on chronic
- Suspect he is close to euvolemic. BUN/Cr rising
- Discharge weight in November was 125 lb and he is now 137 lb. I suspect he gained flesh weight because he examines euvolemic
- Hold Lasix today. Resume PO Lasix 40mg daily tomorrow
- Case management to miller SGLT2i
- Heart failure education
COPD, severe, in acute exacerbation
- chronic hypoxia on 4 L at baseline
- pulmonary following, on steroids
Paroxysmal atrial fibrillation
- Maintaining sinus rhythm on diltiazem 180 mg and metoprolol succinate 25 mg twice daily
- Oral Anticoagulation: Apixaban, 5 mg twice daily
- [id number]: Score at least 4 (Heart failure, HTN, age 75 or more)
Pulmonary hypertension
- On sildenafil 20 mg daily
Dyslipidemia, on atorvastatin 40 mg
Anemia, likely of chronic disease, denies acute bleeding
Subjective: Feels slightly improved compared to yesterday
Physical Exam
Vital Signs/Labs
Vital Signs
Temp Pulse Resp BP Pulse Ox
98.6 F 49 24 141/58 95
04/02/25 07:05 04/02/25 08:03 04/02/25 08:03 04/02/25 07:05 04/02/25 08:03
04/01/25 04/02/25 04/03/25
06:59 06:59 06:59
Actual Weight 133 lb 7 oz 137 lb 1 oz
04/02/25 06:14
04/02/25 06:14
PT 19.5 Sec (11.4-14.6) H 03/28/25 13:08
INR 1.59 03/28/25 13:08
APTT 39.4 Sec (23.4-35.0) H 03/28/25 13:08
Magnesium 2.2 mg/dl (1.6-2.3) 04/02/25 06:14
03/28/25 03/31/25 04/01/25
13:08 05:59 06:01
Ugr-I-Dwswqswjoxm Pept [id number]
Physical Exam
Constitutional: No acute distress and Comfortable
Cardiovascular: Rhythm & rate is regular, Pedal edema is absent, JVD pressure is normal, S1S2 is normal and Murmur/rub/gallop absent
Respiratory: Respiratory effort normal and Wheeze Present
Neuro/Psych: AO x 3
Data Reviewed
-
Date of Service: April 02, 2025
Medical Decision Making: Reviewed Test Results, Independent Historian Assessment, Test Interpretation and Review of Case with other Provider
EKG: Tracing Personally Visualized and interpreted
Echo: Report Reviewed by me
X-Ray/CT/US/MRI/NUC/PET: Image Personally Visualized and interpreted
Labs: Labs Reviewed by me
[2025-04-02] MEDS: LASIX IV (09:08)
[2025-04-02] MEDS: REVATIO 20 MG PO (09:08)
[2025-04-02] MEDS: PROTONIX 40 MG PO ×2 (09:08→20:56)
[2025-04-02] MEDS: NEURONTIN 100 MG PO ×3 (09:08→20:56)
[2025-04-02] MEDS: LEXAPRO 10 MG PO (09:09)
[2025-04-02] MEDS: FLOMAX 0.4 MG PO (09:09)
[2025-04-02] MEDS: MAGNESIUM OXIDE 250 MG PO (09:09)
[2025-04-02] MEDS: ELIQUIS 5 MG PO (09:09)
[2025-04-02] MEDS: LIDOCAINE 4% PATCH 1 PATCH TOPICAL (09:10)
[2025-04-02] MEDS: TOPROL XL PO ×2 (09:11→19:55)
[2025-04-02] MEDS: TYLENOL 650 MG PO ×3 (09:12→21:25)
[2025-04-02] MEDS: PROSCAR 5 MG PO (09:14)
[2025-04-02] MEDS: COLACE PO ×2 (09:18→20:55)
--- NOTE | 2025-04-02 10:45 | W.PN.HOSP.TC ---
Today's Communication/Plan
-
continue steroids
possible oral lasix tomorrow; IV lasix held
Assessment / Plan
Assessment / Plan
Assessment:
Shortness of breath
Acute COPD exacerbation (COPD on chronic 4 L oxygen, chronic hypercapnia-baseline pCO2 60)
chronic hypoxemic respiratory failure on 4L NC
- wean O2 to 2L titrate to 90-94% sats
- continue Decadron, per pulmonary
- continue Symbicort and Spiriva
- Procal neg, off Abx
- pulm following
Acute on chronic HFpEF (LVEF 50-55% with normal RV size/function and PASP: 31 mmHg via TTE from 11/05/2024)
- Echo: normal EF. mild TR
- s/p IV Lasix course
- transition to PO Lasix in AM
- CBC Cards following
Chronic Anemia
Mild hyperglycemia (HbA1c: 5.7 from 11/01/2024)
Recent hospitalization 11/19/2024 for sepsis/pneumonia and GI bleed
Pulm hypertension.
- on Revatio
Parox A. Fib
- on Cardizem/Toprol and Eliquis
GERD.
- continue PPI
Essential Hypertension.
- on Cardizem/Toprol
Hyperlipidemia.
Peptic ulcer disease.
BPH - continue Flomax/Proscar
Anxiety/depression.
- continue Trazodone/Lexapro
Chronic back pain
DVT ppx: Eliquis
Code: Full
Anticipated Discharge: 24 - 48 hours
Subjective/Interval History
-
Date of Service: April 02, 2025
reports breathing improving
Objective Data
-
Labs:
Laboratory Results
04/02/25
06:14
WBC 9.7
Hgb 10.4 L
Hct 33.2 L
Plt Count 402 H
Sodium 137
Potassium 4.6
Chloride 97 L
Carbon Dioxide 31 H
BUN 45 H
Creatinine 1.0
Glucose 114 H
Calcium 9.8
Vital Signs:
Vital Signs
Temp Pulse Resp BP Pulse Ox
98.6 F 49 24 141/58 95
04/02/25 07:05 04/02/25 08:03 04/02/25 08:03 04/02/25 07:05 04/02/25 08:03
I&O
04/01/25 04/02/25 04/03/25
06:59 06:59 06:59
Intake Total 1835 / 1835 240 / 240
Output Total 1900 / 1900 500 / 500
Balance -65 / -65 -260 / -260
Physical Exam
-
General: No Apparent Distress
HEENT: Normocephalic and Atraumatic
Respiratory: Negative Wheezes
Cardiac: Regular Rhythm and S1/S2
GI: Soft and Nontender
Neuro: AO x 3
Psych: Calm
Data Reviewed
-
Total Time Spent with Patient (in minutes): 44
Labs: Labs Reviewed by me
--- NOTE | 2025-04-02 11:33 | W.PN.PUL3 ---
Today's Communication / Plan
-
Transition to oral prednisone today
Continue nebulizer therapy and inhalers for now.
Continue Acapella device
Monitor off antibiotics
Oxygen supplementation at baseline
Continue mucolytics
Strongly encouraged to maintain appointment in my office
Hopefully discharge to longterm facility in the next 24 hours
Pulmonary will follow
Assessment
-
74-year-old former smoking male with a history of COPD on 4 L oxygen, pulmonary hypertension, PAF on Eliquis, GERD, hyperlipidemia, hypertension, BPH who presented with increasing shortness of breath and cough felt to have COPD
exacerbation-pulmonary consulted for COPD exacerbation 03/29/2025.
COPD-oxygen dependent with acute exacerbation
Suspect component of acute HFpEF (LVEF 50-55% with normal RV size/function and PASP: 31 mmHg via TTE from 11/05/2024)
Anemia
Mild hyperglycemia (HbA1c: 5.7 from 11/01/2024)
Conditions present prior to admission:
Recent hospitalization 11/07/2024-COPD exacerbation and hyperglycemia
Recent hospitalization 11/19/2024 for sepsis/pneumonia and GI bleed
COPD on chronic 4 L oxygen, chronic hypercapnia-baseline pCO2 60
Pulm hypertension.
PAF on Eliquis.
History CHF-preserved EF
GERD.
Hypertension.
Hyperlipidemia.
Peptic ulcer disease.
BPH.
Anxiety/depression.
Chronic back pain
Right arm fracture. Finger surgery. Back stimulator replacement/removal. Hernia repair. Cataract.
Plan
Patient admitted for severe COPD exacerbation
Patient reports that he is on 4 L/min nasal cannula knvwlj-pbk-scyis at home, although he is currently on 1-2 L/min nasal cannula- currently baseline.
Blood gas from November 2024 showed chronic hypercapnia - can use BiPAP if needed
Blood gas this admission shows compensated chronic hypercapnia with pH 7.38, pCO2 59
-
Sildenafil for pulmonary hypertension (pt says he does not follow with a quality auditor - unclear what workup has been done that led to him being started on PDE5-inhibitor)
- Interestingly, recent echo on 11/05/2024 showed a relatively normal PASP at 31 mmHg with a normal RA size and normal RV size and function; hence, I question if he has pulmonary hypertension especially with no dilation of the RA or RV
Continue nebulizer with o albuterol while on Spiriva
Currently on Symbicort 160 mcg + Spiriva Respimat 2.5 mcg/actuation
Restart Trelegy upon DC
Mucolytics if needed - currently does not have a bothersome cough
DC decadron and transition to prednisone 40mg PO on taper by 10 mg every 72 hours to off.
Incentive spirometry encouraged q1hr while awake
Ihsxujlr-iomuhztp-lsla was encouraged. Patient has a wet cough.
-
Despite him being on steroids and nebulizers, he does not appear to be clinically improving despite his improved oxygen requirements.
- I question if there is an ischemic coronary component here causing his symptoms, mario with a reported 100-PY cigarette smoking history
- He does have an outpatient cardiology appointment with Dr. Chaudhary on 06/13/2025
- He has small, chronic bilateral pleural effusions
- Cardiology has signed off. To be transition to oral diuretics.
-
No evidence for acute infection of the lung. Afebrile, no significant leukocytosis.
Flu swab has been negative
CXR from admission shows hazy opacities in the left upper lobe + left infrahilar region; have low suspicion for pneumonia given lack of leukocytosis or significant cough and he has remained afebrile
He is now s/p antibiotics with ceftriaxone and doxycycline; s/p 1 dose of zithromax
Monitor off ABx
Trend WBC and monitor temperature curve-remains stable.
.
Chronic anemia: Contributing to symptoms as well.
Follow hemoglobin.
Transfuse if needed to keep Hb>7g/dL
Monitor blood sugars with goal >100 and <180mg/dL-particularly on IV steroids.
Insulin supplementation as needed
DVT prophylaxis-on Eliquis
GI prophylaxis-on pantoprazole-recent GI bleed
Outpatient pulmonary [id number] has appointment 2:[address] Bland on 05/21/2025-to establish care.
Plan to discharge in the next 24 hours to longterm facility.
Diagnostic data:
Chest x-ray 10/30/2024-hyperinflated lungs, no acute process
Chest x-ray 11/19/2024-bilateral opacifications right greater than left likely representing pneumonia
Chest x-ray 11/24/2024-stable small right pleural effusion probable right lung pneumonia and/or interstitial edema
Chest x-ray 03/28/2025-hazy opacification left upper lung zone may represent pneumonia or subsegmental atelectasis, minimal opacification within the right lung base improved
Echocardiogram 11/05/2024-EF 50-55%, no significant valvular disease
Subjective Data
-
Date of Service:
Date of Service: April 02, 2025
Chief Complaint: Pulmonary Follow Up (Acute exacerbation of COPD)
Subjective:
Continues to have a wet cough with minimal expectoration
Denies hemoptysis
Clinically feels better
Review of Systems
General: Fever (n)
Cardiopulmonary: Dyspnea (improved), Cough and Sputum Production (minimal)
GI: Abdominal Pain (n) and Nausea (n)
Objective Data
Data Reviewed
Vital Signs / I&O / Oxygen:
Vital Signs
Temp Pulse Resp BP Pulse Ox
97.9 F 48 16 130/52 99
04/02/25 11:00 04/02/25 11:00 04/02/25 11:00 04/02/25 11:00 04/02/25 11:00
Intake and Output
04/01/25 04/02/25 04/03/25
06:59 06:59 06:59
Intake Total 1835 / 1835 240 / 240
Output Total 1900 / 1900 500 / 500
Balance -65 / -65 -260 / -260
SaO2 99
Nasal Cannula flow liters per 2
minute
Physical Exam
General: Respiratory Distress (negative), Comfortable, Chills (negative) and Sweats (negative)
HEENT: Normocephalic and Anicteric
Cardiovascular: S1-S2 and Peripheral Edema (negative)
Respiratory: Wheeze (negative), Crackles (faintly heard bilaterally), Rhonchi (negative), Non-Labored Respirations, Stridor (negative) and Other (Diminished breath sounds bilaterally)
GI: Soft, Non Distended, Non Tender and Normal Bowel Sounds
Neurology: Awake, Alert, AO x 3 and Tremors (negative)
Skin: Warm, Dry, Cyanosis (negative) and Jaundice (negative)
Labs/Micro/Reports
Lab Data
04/02/25 06:14
04/02/25 06:14
--- NOTE | 2025-04-02 17:06 | CM ---
As per [facility] liaison [facility] patient is out of rehab days.
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
PLAN To [facility] under nursing home care
[2025-04-02] MEDS: CARDIZEM CD PO (19:55)
[2025-04-02] MEDS: REMOVE LIDOCAINE PATCH 1 PATCH REMOVE (20:55)
[2025-04-02] MEDS: LIPITOR 40 MG PO (20:56)
[2025-04-02] MEDS: DESYREL PO (21:24)
[2025-04-02] MEDS: ELIQUIS PO (21:24)
[2025-04-02] MEDS: MELATONIN PO (21:25)
--- NOTE | 2025-04-02 21:25 | W.PN.UPDATE ---
Update Note
Progress Note Update
Asked to evaluate patient s/p fall. Patient stated he got up to go to the bathroom and then his vision when black, the next thing he remembers is sitting on the floor next to his bed. Vital signs: BP 139/50, HR 49, temp 98.2, 94% on 2L NC, blood
glucose 136, EKG showed sinus bernadine with PAC, HR 55. On evaluation, patient c/o left buttocks/hip pain and posterior headache that is new. Held Eliquis, Trazodone, Melatonin. Ordered Head CT and xray left hip/buttocks.
Patient on fall risk precautions and bed alarm in place. Neuro checks Q4H.
Head CT impression: No acute intracranial abnormality noted.
Pelvis xray impression: No radiographically demonstrable osseous pelvic fracture.
--- NOTE | 2025-04-02 21:30 | FALL ---
Description of Fall:
Loud noise heard from outside of patient's room and patient found sitting next to bed on the floor. Patient stated he was trying to get up to use the bathroom. Patient stated he felt like his vision went black and that he might've passed out.
Patient reported 3/10 pain to the back of head and left hip. Assisted patient back to bed x2 assist. Patient also reporting blurry vision at times and stated, 'I could just need a new prescription for my glasses'. BP 139/50, HR 49, temp 98.2, pulse
ox 94% on 2L, 20 RR.
Injuries Noted:
Slight redness and small bump noted to left lower posterior head. Patient also reporting pain to left hip. No injury noted.
Action Taken:
Bed alarm and fall risk bracelet placed on patient. Neuro checks implemented and patient taken for stat head CT and pelvis XR. HS eliquis, trazodone, and melatonin held per BURT.
Name of Provider Notified: BURT Woodruff
[2025-04-02 21:36] LABS: Glucose - Point of Care 136 mg/dl (70-99)
[2025-04-03] VITALS (10 sets, daily range): BP systolic 115–140; BP diastolic 46–66; PULSE 48–53; O2SAT 98; BMI 19.7
[2025-04-03] MEDS: TYLENOL 650 MG PO ×4 (03:24→22:27)
[2025-04-03] MEDS: TUMS CHEWABLE TABLET 200 MG PO (05:56)
[2025-04-03] MEDS: VENTOLIN NEBULES 2.5 MG INH (07:04)
[2025-04-03] MEDS: SPIRIVA RESPIMAT 2.5 MCG 2 PUFF INH (07:04)
[2025-04-03] MEDS: SYMBICORT 160/4.5 MCG INHALER 2 PUFF INH ×2 (07:05→19:50)
[2025-04-03 07:42] LABS: Hematocrit 30.3 % (39.0-52.0); Hemoglobin 9.4 g/dL (13.0-18.0); Mean Corp Hgb Conc. 31.0 g/dL (33.0-37.0); Mean Corpuscular Volume 82.6 fL (80.0-94.0); Platelet Count 341 10^3/uL (130-400); Red Cell Dist. Width 16.2 % (11.5-14.5)
[2025-04-03] MEDS: REVATIO 20 MG PO (08:17)
[2025-04-03] MEDS: DELTASONE 40 MG PO (08:17)
[2025-04-03] MEDS: LIDOCAINE 4% PATCH 1 PATCH TOPICAL (08:17)
[2025-04-03] MEDS: PROTONIX 40 MG PO ×2 (08:17→22:24)
[2025-04-03] MEDS: NEURONTIN 100 MG PO ×3 (08:18→22:26)
[2025-04-03] MEDS: LEXAPRO 10 MG PO (08:18)
[2025-04-03] MEDS: PROSCAR 5 MG PO (08:18)
[2025-04-03] MEDS: FLOMAX 0.4 MG PO (08:19)
[2025-04-03] MEDS: MAGNESIUM OXIDE 250 MG PO (08:19)
[2025-04-03] MEDS: COLACE PO (08:21)
[2025-04-03 08:22] LABS: Blood Urea Nitrogen 39 mg/dl (9-20); Calcium 9.2 mg/dl (8.4-10.2); Carbon Dioxide 33 mmol/L (22-30); Chloride 98 mmol/L (98-107); Estimated Creatinine Clearance 69 ml/min; Glucose 91 mg/dl (70-99); Potassium 4.1 mmol/L (3.5-5.1); Sodium 136 mmol/L (135-145); eGFR > 60.00
[2025-04-03] MEDS: TOPROL XL PO (08:22)
[2025-04-03] MEDS: ELIQUIS 5 MG PO ×2 (08:34→22:24)
--- NOTE | 2025-04-03 10:01 | W.PN.CD ---
Today's Communication / Plan
-
Hold Lasix until orthostasis resolves
Agree with decreasing BB/CCB and monitoring
Impression / Plan
-
I/P: 74M with chronic HFpEF, paroxysmal atrial fibrillation, hypertension, COPD, chronic hypoxic respiratory failure (on 4L NC), dyslipidemia, and pulmonary hypertension who presented to the emergency department with a chief complaint of shortness
of breath.
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 Chaudhary (establishing care)
Syncope
- Occurred on 04/02 evening around 9PM. Nothing on tele at that time. Has been sinus bernadine throughout admission. No pauses.
- Likely orthostasis and iatrogenic from overdiuresis. Lasix held yesterday and today
- Encouraged him to hydrate today. Liberalized fluid restriction
- Follow orthostatics
- Resume Lasix once orthostasis is improved
- Agree with decreased BB and CCB
HFpEF, acute on chronic
- Suspect he is dry as above
- Discharge weight in November was 125 lb and he is now 137 lb. I suspect he gained flesh weight because he examines euvolemic
- Diuretic plan as above
- Case management to miller SGLT2i
- Heart failure education
COPD, severe, in acute exacerbation
- chronic hypoxia on 4 L at baseline
- pulmonary following, on steroids
Paroxysmal atrial fibrillation
- Maintaining sinus rhythm. Dose reduced of CCB/BB for syncope.
- Oral Anticoagulation: Apixaban, 5 mg twice daily
- [id number]: Score at least 4 (Heart failure, HTN, age 75 or more)
Pulmonary hypertension
- On sildenafil 20 mg daily
Dyslipidemia, on atorvastatin 40 mg
Anemia, likely of chronic disease, denies acute bleeding
Subjective: He fell last night. Reports he stood up to go to the bathroom and saw black. Thought to call out for help but didn't have time before he hit the floor. Woke to 4 people standing over him. This AM, tried to obtain orthostatic vitals but
he was dizzy upon standing.
Physical Exam
Vital Signs/Labs
Vital Signs
Temp Pulse Resp BP Pulse Ox
97.8 F 46 18 139/58 99
04/03/25 07:00 04/03/25 07:08 04/03/25 07:08 04/03/25 07:00 04/03/25 07:08
04/02/25 04/03/25 04/04/25
06:59 06:59 06:59
Actual Weight 137 lb 1 oz 137 lb 1 oz
04/03/25 06:13
04/03/25 06:13
PT 19.5 Sec (11.4-14.6) H 03/28/25 13:08
INR 1.59 03/28/25 13:08
APTT 39.4 Sec (23.4-35.0) H 03/28/25 13:08
Magnesium 2.2 mg/dl (1.6-2.3) 04/02/25 06:14
03/28/25 03/31/25 04/01/25
13:08 05:59 06:01
Que-H-Iuzukpyltma Pept [id number]
Physical Exam
Constitutional: No acute distress and Comfortable
Cardiovascular: Rhythm & rate is regular, Pedal edema is absent, S1S2 is normal and Murmur/rub/gallop absent
Respiratory: Respiratory effort normal and Lungs clear to auscul.
Neuro/Psych: AO x 3
Data Reviewed
-
Date of Service: April 03, 2025
Medical Decision Making: Reviewed Test Results, Independent Historian Assessment, Test Interpretation and Review of Case with other Provider
EKG: Tracing Personally Visualized and interpreted
Echo: Report Reviewed by me
Labs: Labs Reviewed by me
--- NOTE | 2025-04-03 10:04 | CM ---
Addendum entered by Elza Vuong 04/03/25 14:54:
CM consult completed for pricing of Jardiance 10mg daily & Farxiga 10 mg daily
CM called [facility] in [place] [phone] & spoke with pharmacist
Jardiance - $45/30 day supply, Farxiga $288/30 day supply
Original Note:
Patient seen at bedside
left message for [facility] admissions at [facility] [phone] ext [phone]
referral in [facility] for [place]
[facility] can accept [place] [facility] private pay.Pt informed to call [facility] and he will need 5 years financials.
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
[2025-04-03 10:29] LABS: Glucose - Point of Care 87 mg/dl (70-99)
--- NOTE | 2025-04-03 13:28 | W.PN.HOSP.TC ---
Today's Communication/Plan
-
hydrated, liberalize OFR
decrease CCB/BB. hold Lasix
Assessment / Plan
Assessment / Plan
Assessment:
Shortness of breath
Acute COPD exacerbation (COPD on chronic 4 L oxygen, chronic hypercapnia-baseline pCO2 60)
chronic hypoxemic respiratory failure on 4L NC
- wean O2 to 2L titrate to 90-94% sats
- continue prednisone with taper
- continue Symbicort and Spiriva
- Procal neg, off Abx
- pulm following
Syncopal event 04/02
Dizziness
- holding Lasix
- decreasing CCB/BB
- add compression therapy
- encourage hydration to limit of 1.5L
Acute on chronic HFpEF (LVEF 50-55% with normal RV size/function and PASP: 31 mmHg via TTE from 11/05/2024)
- Echo: normal EF. mild TR
- s/p IV Lasix course
- hold PO Lasix with syncopal episode; likely reintroduce in 24 hours
- CBC Cards following
Chronic Anemia
Mild hyperglycemia (HbA1c: 5.7 from 11/01/2024)
Recent hospitalization 11/19/2024 for sepsis/pneumonia and GI bleed
Pulm hypertension.
- on Revatio
Parox A. Fib
- on Cardizem/Toprol and Eliquis
GERD.
- continue PPI
Essential Hypertension.
- on Cardizem/Toprol
Hyperlipidemia.
Peptic ulcer disease.
BPH - continue Flomax/Proscar
Anxiety/depression.
- continue Trazodone/Lexapro
Chronic back pain
DVT ppx: Eliquis
Code: Full
Anticipated Discharge: Within 24 hours
Subjective/Interval History
-
Date of Service: April 03, 2025
Fell with syncope last night
feels dizzy with ambulation
Objective Data
-
Labs:
Laboratory Results
04/03/25
06:13
WBC 8.3
Hgb 9.4 L
Hct 30.3 L
Plt Count 341
Sodium 136
Potassium 4.1
Chloride 98
Carbon Dioxide 33 H
BUN 39 H
Creatinine 0.8
Glucose 91
Calcium 9.2
Vital Signs:
Vital Signs
Temp Pulse Resp BP Pulse Ox
98.3 F 51 18 117/46 98
04/03/25 11:05 04/03/25 11:05 04/03/25 11:05 04/03/25 11:05 04/03/25 11:05
I&O
04/02/25 04/03/25 04/04/25
06:59 06:59 06:59
Intake Total 240 / 240 1360 / 1360
Output Total 500 / 500 945 / 945
Balance -260 / -260 415 / 415
Physical Exam
-
General: No Apparent Distress
HEENT: Normocephalic and Atraumatic
Respiratory: Negative Wheezes
Cardiac: Regular Rhythm and S1/S2
GI: Soft
Genito-urinary: No Costovertebral Tender
Neuro: AO x 3
Psych: Calm
Data Reviewed
-
Total Time Spent with Patient (in minutes): 41
Labs: Labs Reviewed by me
--- NOTE | 2025-04-03 13:33 | W.PN.PUL3 ---
Today's Communication / Plan
-
Continue inhaler/nebulizer
Prednisone taper
Mucolytics
Acapella device
Oxygen per mentation-baseline
Monitor telemetry
Diuretics on hold
Will follow
Assessment
-
74-year-old former smoking male with a history of COPD on 4 L oxygen, pulmonary hypertension, PAF on Eliquis, GERD, hyperlipidemia, hypertension, BPH who presented with increasing shortness of breath and cough felt to have COPD
exacerbation-pulmonary consulted for COPD exacerbation 03/29/2025.
COPD-oxygen dependent with acute exacerbation
Suspect component of acute HFpEF (LVEF 50-55% with normal RV size/function and PASP: 31 mmHg via TTE from 11/05/2024)
Anemia
Mild hyperglycemia (HbA1c: 5.7 from 11/01/2024)
Conditions present prior to admission:
Recent hospitalization 11/07/2024-COPD exacerbation and hyperglycemia
Recent hospitalization 11/19/2024 for sepsis/pneumonia and GI bleed
COPD on chronic 4 L oxygen, chronic hypercapnia-baseline pCO2 60
Pulm hypertension.
PAF on Eliquis.
History CHF-preserved EF
GERD.
Hypertension.
Hyperlipidemia.
Peptic ulcer disease.
BPH.
Anxiety/depression.
Chronic back pain
Right arm fracture. Finger surgery. Back stimulator replacement/removal. Hernia repair. Cataract.
Plan
-
Events from last time noted: syncopal episode
Diuresis on hold
Antihypertensive on hold
Continue to follow telemetry
Cardiology following
-
From the COPD perspective, seems to be improved.
Patient reports that he is on 4 L/min nasal cannula bzswob-zyd-gyhew at home, although he is currently on 1-2 L/min nasal cannula- currently baseline.
Blood gas from November 2024 showed chronic hypercapnia - can use BiPAP if needed-mental status at baseline.
Blood gas this admission shows compensated chronic hypercapnia with pH 7.38, pCO2 59
-
Sildenafil for pulmonary hypertension (pt says he does not follow with a platform supervisor - unclear what workup has been done that led to him being started on PDE5-inhibitor)
- Interestingly, recent echo on 11/05/2024 showed a relatively normal PASP at 31 mmHg with a normal RA size and normal RV size and function; hence, I question if he has pulmonary hypertension especially with no dilation of the RA or RV
Continue nebulizer with albuterol while on Spiriva-May discontinue nebulizers upon discharge.
Currently on Symbicort 160 mcg + Spiriva Respimat 2.5 mcg/actuation
Restart Trelegy upon DC
Continue mucolytics
DC decadron and transition to prednisone 40mg PO on taper by 10 mg every 72 hours to off.
Incentive spirometry encouraged q1hr while awake
Ezbqtglp-bfjzuims-xjzl was encouraged. Patient has a wet cough.
-
Heart failure/volume overload. Responded to diuresis.
Now on hold due to syncopal episode.
- He does have an outpatient cardiology appointment with Dr. Chaudhary on 06/13/2025
- He has small, chronic bilateral pleural effusions
- Antihypertensive on hold due to syncopal episode
-Continue telemetry
-
Remains afebrile without leukocytosis off antibiotics.
Flu swab has been negative
CXR from admission shows hazy opacities in the left upper lobe + left infrahilar region; have low suspicion for pneumonia given lack of leukocytosis or significant cough and he has remained afebrile
He is now s/p antibiotics with ceftriaxone and doxycycline; s/p 1 dose of zithromax
Continue to monitor off ABx
.
Chronic anemia: Contributing to symptoms as well.
Follow hemoglobin.
Transfuse if needed to keep Hb>7g/dL
Monitor blood sugars with goal >100 and <180mg/dL-particularly on IV steroids.
Insulin supplementation as needed
DVT prophylaxis-on Eliquis
GI prophylaxis-on pantoprazole-recent GI bleed
Outpatient pulmonary sqdavr-do-yeizeyr has appointment 2:[address] Bland on 05/21/2025-to establish care.
Discharge on hold due to syncopal episode. Observation for now
Pulmonary will follow
Diagnostic data:
Chest x-ray 10/30/2024-hyperinflated lungs, no acute process
Chest x-ray 11/19/2024-bilateral opacifications right greater than left likely representing pneumonia
Chest x-ray 11/24/2024-stable small right pleural effusion probable right lung pneumonia and/or interstitial edema
Chest x-ray 03/28/2025-hazy opacification left upper lung zone may represent pneumonia or subsegmental atelectasis, minimal opacification within the right lung base improved
Echocardiogram 11/05/2024-EF 50-55%, no significant valvular disease
Subjective Data
-
Date of Service:
Date of Service: April 03, 2025
Chief Complaint: Pulmonary Follow Up (Acute exacerbation of COPD)
Subjective:
Patient has syncopal episode left leg
Continues to have intermittent cough but no significant phlegm production
Exertional dyspnea improved since admission
Denies hemoptysis
Denies headache or blurry vision
Objective Data
Data Reviewed
Vital Signs / I&O / Oxygen:
Vital Signs
Temp Pulse Resp BP Pulse Ox
98.3 F 51 18 117/46 98
04/03/25 11:05 04/03/25 11:05 04/03/25 11:05 04/03/25 11:05 04/03/25 11:05
Intake and Output
04/02/25 04/03/25 04/04/25
06:59 06:59 06:59
Intake Total 240 / 240 1360 / 1360
Output Total 500 / 500 945 / 945
Balance -260 / -260 415 / 415
SaO2 98
Nasal Cannula flow liters per 2
minute
Physical Exam
General: Respiratory Distress (negative), Comfortable, Chills (negative) and Sweats (negative)
HEENT: Normocephalic and Anicteric
Cardiovascular: S1-S2 and Peripheral Edema (negative)
Respiratory: Wheeze (negative), Crackles (faintly heard bilaterally), Rhonchi (negative), Non-Labored Respirations, Stridor (negative) and Other (Diminished breath sounds bilaterally)
GI: Soft, Non Distended, Non Tender and Normal Bowel Sounds
Neurology: Awake, Alert, AO x 3 and Tremors (negative)
Skin: Warm, Dry, Cyanosis (negative) and Jaundice (negative)
Labs/Micro/Reports
Lab Data
04/03/25 06:13
04/03/25 06:13
[2025-04-03] MEDS: MIRALAX 17 GRAMS PO (18:27)
[2025-04-03] MEDS: REMOVE LIDOCAINE PATCH 1 PATCH REMOVE (22:24)
[2025-04-03] MEDS: SENOKOT PO (22:25)
[2025-04-03] MEDS: LIPITOR 40 MG PO (22:25)
[2025-04-03] MEDS: MELATONIN 5 MG PO (22:26)
[2025-04-03] MEDS: DESYREL 12.5 MG PO (22:26)
[2025-04-04] VITALS (8 sets, daily range): BP systolic 111–143; BP diastolic 47–62; PULSE 48–59; O2SAT 97–98; BMI 19.9
[2025-04-04 06:45] LABS: Hematocrit 30.5 % (39.0-52.0); Hemoglobin 9.3 g/dL (13.0-18.0); Mean Corp Hgb Conc. 30.5 g/dL (33.0-37.0); Mean Corpuscular Volume 83.3 fL (80.0-94.0); Platelet Count 332 10^3/uL (130-400); Red Cell Dist. Width 16.4 % (11.5-14.5)
[2025-04-04] MEDS: SPIRIVA RESPIMAT 2.5 MCG 2 PUFF INH (07:21)
[2025-04-04] MEDS: SYMBICORT 160/4.5 MCG INHALER 2 PUFF INH ×2 (07:21→19:29)
[2025-04-04 08:27] LABS: Blood Urea Nitrogen 31 mg/dl (9-20); Calcium 8.8 mg/dl (8.4-10.2); Carbon Dioxide 33 mmol/L (22-30); Chloride 102 mmol/L (98-107); Estimated Creatinine Clearance 70 ml/min; Glucose 83 mg/dl (70-99); Potassium 4.5 mmol/L (3.5-5.1); Sodium 139 mmol/L (135-145); eGFR > 60.00
[2025-04-04] MEDS: SENOKOT 8.6 MG PO ×2 (09:11→19:20)
[2025-04-04] MEDS: MAGNESIUM OXIDE 250 MG PO (09:12)
[2025-04-04] MEDS: LEXAPRO 10 MG PO (09:12)
[2025-04-04] MEDS: FLOMAX 0.4 MG PO (09:12)
[2025-04-04] MEDS: REVATIO 20 MG PO (09:13)
[2025-04-04] MEDS: ELIQUIS 5 MG PO ×2 (09:15→19:20)
[2025-04-04] MEDS: NEURONTIN 100 MG PO ×3 (09:15→21:21)
[2025-04-04] MEDS: PROTONIX 40 MG PO ×2 (09:16→19:20)
[2025-04-04] MEDS: DELTASONE 40 MG PO (09:16)
[2025-04-04] MEDS: TYLENOL 650 MG PO ×4 (09:17→21:21)
[2025-04-04] MEDS: MIRALAX 17 GRAMS PO (09:17)
[2025-04-04] MEDS: PROSCAR 5 MG PO (09:18)
[2025-04-04] MEDS: LIDOCAINE 4% PATCH 1 PATCH TOPICAL (09:19)
--- NOTE | 2025-04-04 10:02 | W.PN.CD ---
Addendum entered and electronically signed by Sky Triplett MD 04/04/25 16:39:
I saw and examined the patient.
The CHEESEMAKING LABORER's note was reviewed and I agree with the note.
Comment: OFF AV star agents
monitor tele
PT
Original Note:
Today's Communication / Plan
-
-continue to hold Lasix today
-ambulate with physical therapy
-remain off CCB and BB at this time
-follow telemetry and orthos
Impression / Plan
-
I/P: 74M with chronic HFpEF, paroxysmal atrial fibrillation, hypertension, COPD, chronic hypoxic respiratory failure (on 4L NC), dyslipidemia, and pulmonary hypertension who presented to the emergency department with a chief complaint of shortness
of breath.
Outpatient control panel operator crude unit: Dr. Chaudhary (establishing care)
Syncope
- Occurred on 04/02 evening around 9PM. Nothing on tele at that time. Has been sinus bernadine throughout admission. No pauses. I do not see any severe bradycardia. However, will remain off BB and CCB at this time (last dose 04/01/25).
-Likely orthostasis and iatrogenic from overdiuresis. Continue to hold Lasix. He is also on BPH meds (alfuzosin, finasteride) and sildenafil for pulm HTN, which can all contribute as well.
-Follow orthostatics (still positive)
-Resume Lasix once orthostasis is improved, currently fluid liberalized a bit
-he has compression on legs
-Encourage ambulation (with assistance)
HFpEF, acute on chronic
- Suspect he is dry as above
- Discharge weight in November was 125 lb and he is now 139 lb. I suspect he gained flesh weight because he examines euvolemic.
- Diuretic plan as above
- Case management to miller SGLT2i
- Heart failure education
COPD, severe, in acute exacerbation
- chronic hypoxia on 4 L at baseline
- pulmonary following, on steroids
Paroxysmal atrial fibrillation
- Maintaining sinus rhythm
- continue Eliquis
Pulmonary hypertension
- On sildenafil 20 mg daily
Dyslipidemia, on atorvastatin 40 mg
Anemia, likely of chronic disease, denies acute bleeding
Subjective:
He is feeling better overall- breathing improved
Did get orthostatic today with standing BP. No further syncope.
Physical Exam
Vital Signs/Labs
Vital Signs
Temp Pulse Resp BP Pulse Ox
97.6 F 48 18 140/60 99
04/04/25 03:00 04/04/25 07:26 04/04/25 07:26 04/04/25 03:00 04/04/25 07:26
04/03/25 04/04/25 04/05/25
06:59 06:59 06:59
Actual Weight 62.171 kg 63.049 kg
04/04/25 06:05
04/04/25 06:05
PT 19.5 Sec (11.4-14.6) H 03/28/25 13:08
INR 1.59 03/28/25 13:08
APTT 39.4 Sec (23.4-35.0) H 03/28/25 13:08
Magnesium 2.2 mg/dl (1.6-2.3) 04/02/25 06:14
03/28/25 03/31/25 04/01/25
13:08 05:59 06:01
Tld-E-Iqyntbkzvhh Pept 1470 [id number] 2930
Physical Exam
Constitutional: No acute distress
EENT: Anicteric
Cardiovascular: Rhythm & rate is regular
Respiratory: Other (on O2 by NC, coarse lung sounds)
Neuro/Psych: AO x 3
Data Reviewed
-
Date of Service: April 04, 2025
EKG: Other (SB/SR on telemetry, PAC's, no severe bradycardia on telemetry)
Labs: Labs Reviewed by me
--- NOTE | 2025-04-04 10:04 | W.PN.HOSP.TC ---
Today's Communication/Plan
-
hold Lasix/CCB/BB
encourage hydration
PT/OT eval
follow cards recs
Assessment / Plan
Assessment / Plan
Assessment:
Shortness of breath
Acute COPD exacerbation (COPD on chronic 4 L oxygen, chronic hypercapnia-baseline pCO2 60)
chronic hypoxemic respiratory failure on 4L NC
- wean O2 to 2L titrate to 90-94% sats
- continue prednisone with taper
- continue Symbicort and Spiriva
- Procal neg, off Abx
- pulm following
Syncopal event 04/02
Dizziness
Orthostatic hypotension
- holding Lasix
- holding CCB/BB with ongoing bradycardia
- if bradycardia felt to be cause of syncope/pre-syncope and dizziness, may need to consider pacemaker - will review with Cardiology after ambulation.
- add compression therapy
- encourage hydration; fluid restriction removed
Acute on chronic HFpEF (LVEF 50-55% with normal RV size/function and PASP: 31 mmHg via TTE from 11/05/2024)
- Echo: normal EF. mild TR
- s/p IV Lasix course
- hold PO Lasix with syncopal episode; orthostasis
- CBC Cards following
Chronic Anemia
Mild hyperglycemia (HbA1c: 5.7 from 11/01/2024)
Recent hospitalization 11/19/2024 for sepsis/pneumonia and GI bleed
Pulm hypertension.
- on Revatio
Parox A. Fib
- on Eliquis
- holding CCB/BB with ongoing bradycardia
GERD.
- continue PPI
Essential Hypertension.
- holding CCB/BB with ongoing bradycardia
Hyperlipidemia.
Peptic ulcer disease.
BPH - continue Flomax/Proscar
Anxiety/depression.
- continue Trazodone/Lexapro
Chronic back pain
DVT ppx: Eliquis
Code: Full
Anticipated Discharge: > 48 hours
Subjective/Interval History
-
Date of Service: April 04, 2025
reports slightly dizziness resting and with standing
for PT/OT repeat eval today
denies SOB or CP
Objective Data
-
Labs:
Laboratory Results
04/04/25
06:05
WBC 8.7
Hgb 9.3 L
Hct 30.5 L
Plt Count 332
Sodium 139
Potassium 4.5
Chloride 102
Carbon Dioxide 33 H
BUN 31 H
Creatinine 0.8
Glucose 83
Calcium 8.8
Vital Signs:
Vital Signs
Temp Pulse Resp BP Pulse Ox
97.6 F 48 18 140/60 99
04/04/25 03:00 04/04/25 07:26 04/04/25 07:26 04/04/25 03:00 04/04/25 07:26
I&O
04/03/25 04/04/25 04/05/25
06:59 06:59 06:59
Intake Total 1360 / 1360 660 / 660
Output Total 945 / 945 925 / 925
Balance 415 / 415 -265 / -265
Physical Exam
-
General: No Apparent Distress
HEENT: Normocephalic and Atraumatic
Respiratory: Negative Wheezes
Cardiac: Regular Rhythm and Bradycardic
GI: Soft
Genito-urinary: No Costovertebral Tender
Neuro: AO x 3
Psych: Calm
Data Reviewed
-
Total Time Spent with Patient (in minutes): 45
Labs: Labs Reviewed by me
[2025-04-04] MEDS: NSS 500 IV (11:41)
--- NOTE | 2025-04-04 11:45 | CM ---
Patient seen at bedside
PT rec SNF
followed up & left Message with Caro in admissions at [facility]
patient accepted at [facility] in [facility], but request financials
PLAN: [facility] under parts counterman care when stable
--- NOTE | 2025-04-04 14:12 | W.PN.PUL3 ---
Today's Communication / Plan
-
Transition back to usual inhaler upon discharge
Continue prednisone taper
Continue physical therapy
Oxygen supplementation to maintain pulse ox above 90%
Diuretics per cardiology and primary team
Sign off
Assessment
-
74-year-old former smoking male with a history of COPD on 4 L oxygen, pulmonary hypertension, PAF on Eliquis, GERD, hyperlipidemia, hypertension, BPH who presented with increasing shortness of breath and cough felt to have COPD
exacerbation-pulmonary consulted for COPD exacerbation 03/29/2025.
COPD-oxygen dependent with acute exacerbation
Suspect component of acute HFpEF (LVEF 50-55% with normal RV size/function and PASP: 31 mmHg via TTE from 11/05/2024)
Anemia
Mild hyperglycemia (HbA1c: 5.7 from 11/01/2024)
Conditions present prior to admission:
Recent hospitalization 11/07/2024-COPD exacerbation and hyperglycemia
Recent hospitalization 11/19/2024 for sepsis/pneumonia and GI bleed
COPD on chronic 4 L oxygen, chronic hypercapnia-baseline pCO2 60
Pulm hypertension.
PAF on Eliquis.
History CHF-preserved EF
GERD.
Hypertension.
Hyperlipidemia.
Peptic ulcer disease.
BPH.
Anxiety/depression.
Chronic back pain
Right arm fracture. Finger surgery. Back stimulator replacement/removal. Hernia repair. Cataract.
Plan
-
Events from last time noted: syncopal episode
Diuresis on hold
Antihypertensive on hold
Continue to follow telemetry
Cardiology following
-
From the COPD perspective, seems to be improved.
Patient reports that he is on 4 L/min nasal cannula wazlog-nsj-uenxg at home, although he is currently on 1-2 L/min nasal cannula- currently baseline.
Blood gas from November 2024 showed chronic hypercapnia - can use BiPAP if needed-mental status at baseline.
Blood gas this admission shows compensated chronic hypercapnia with pH 7.38, pCO2 59
-
Sildenafil for pulmonary hypertension (pt says he does not follow with a forensic specialist - unclear what workup has been done that led to him being started on PDE5-inhibitor)
- Interestingly, recent echo on 11/05/2024 showed a relatively normal PASP at 31 mmHg with a normal RA size and normal RV size and function; hence, I question if he has pulmonary hypertension especially with no dilation of the RA or RV
Continue nebulizer with albuterol while on Spiriva-May discontinue nebulizers upon discharge.
Currently on Symbicort 160 mcg + Spiriva Respimat 2.5 mcg/actuation
Restart Trelegy upon DC
Continue mucolytics
DC decadron and transition to prednisone 40mg PO on taper by 10 mg every 72 hours to off.
Incentive spirometry encouraged q1hr while awake
Jjxjnhoq-fugmjbve-dugx was encouraged. Patient has a wet cough.
-
Heart failure/volume overload. Responded to diuresis.
Now on hold due to syncopal episode.
- He does have an outpatient cardiology appointment with Dr. Chaudhary on 06/13/2025
- He has small, chronic bilateral pleural effusions
- Antihypertensive on hold due to syncopal episode
-Continue telemetry
-
Remains afebrile without leukocytosis off antibiotics.
Flu swab has been negative
CXR from admission shows hazy opacities in the left upper lobe + left infrahilar region; have low suspicion for pneumonia given lack of leukocytosis or significant cough and he has remained afebrile
He is now s/p antibiotics with ceftriaxone and doxycycline; s/p 1 dose of zithromax
Continue to monitor off ABx
.
Chronic anemia: Contributing to symptoms as well.
Follow hemoglobin.
Transfuse if needed to keep Hb>7g/dL
Monitor blood sugars with goal >100 and <180mg/dL-particularly on IV steroids.
Insulin supplementation as needed
DVT prophylaxis-on Eliquis
GI prophylaxis-on pantoprazole-recent GI bleed
Outpatient pulmonary opfwpm-uj-poiwoli has appointment 2:[address] Bland on 05/21/2025-to establish care.
No additional pulmonary recommendations.
Continue with above plan.
Sign off
Diagnostic data:
Chest x-ray 10/30/2024-hyperinflated lungs, no acute process
Chest x-ray 11/19/2024-bilateral opacifications right greater than left likely representing pneumonia
Chest x-ray 11/24/2024-stable small right pleural effusion probable right lung pneumonia and/or interstitial edema
Chest x-ray 03/28/2025-hazy opacification left upper lung zone may represent pneumonia or subsegmental atelectasis, minimal opacification within the right lung base improved
Echocardiogram 11/05/2024-EF 50-55%, no significant valvular disease
Subjective Data
-
Date of Service:
Date of Service: April 04, 2025
Chief Complaint: Pulmonary Follow Up (Acute exacerbation of COPD)
Objective Data
Data Reviewed
Vital Signs / I&O / Oxygen:
Vital Signs
Temp Pulse Resp BP Pulse Ox
98.4 F 55 24 111/47 99
04/04/25 11:07 04/04/25 11:07 04/04/25 11:07 04/04/25 11:07 04/04/25 11:07
Intake and Output
04/03/25 04/04/25 04/05/25
06:59 06:59 06:59
Intake Total 1360 / 1360 660 / 660
Output Total 945 / 945 925 / 925
Balance 415 / 415 -265 / -265
SaO2 99
Nasal Cannula flow liters per 2
minute
Physical Exam
General: Respiratory Distress (negative), Comfortable, Chills (negative) and Sweats (negative)
HEENT: Normocephalic and Anicteric
Cardiovascular: S1-S2 and Peripheral Edema (negative)
Respiratory: Wheeze (negative), Crackles (faintly heard bilaterally), Rhonchi (negative), Non-Labored Respirations, Stridor (negative) and Other (Diminished breath sounds bilaterally)
GI: Soft, Non Distended, Non Tender and Normal Bowel Sounds
Neurology: Awake, Alert, AO x 3 and Tremors (negative)
Skin: Warm, Dry, Cyanosis (negative) and Jaundice (negative)
Labs/Micro/Reports
Lab Data
04/04/25 06:05
04/04/25 06:05
[2025-04-04] MEDS: ULTRAM 50 MG PO (14:42)
--- NOTE | 2025-04-04 17:33 | PTCARENOTE ---
Patient had complaints of dizziness and double vision while working with PT. Specifically when changing from sit to stand position. Once patient felt comfortable to take walk patient again felt dizzy and experienced double vision at the end of his
one minute walke, per PT. Cardiology and Dr. Castrejon aware.
[2025-04-04] MEDS: REMOVE LIDOCAINE PATCH 1 PATCH REMOVE (19:21)
[2025-04-04] MEDS: LIPITOR 40 MG PO (21:21)
[2025-04-04] MEDS: DESYREL 12.5 MG PO (21:21)
[2025-04-04] MEDS: MELATONIN 5 MG PO (21:21)
[2025-04-05] VITALS (10 sets, daily range): BP systolic 122–171; BP diastolic 49–78; PULSE 51–59; O2SAT 99; BMI 19.6
[2025-04-05] MEDS: ULTRAM 50 MG PO ×2 (03:21→15:14)
[2025-04-05 07:14] LABS: Hematocrit 30.9 % (39.0-52.0); Hemoglobin 9.3 g/dL (13.0-18.0); Mean Corp Hgb Conc. 30.1 g/dL (33.0-37.0); Mean Corpuscular Volume 84.7 fL (80.0-94.0); Platelet Count 299 10^3/uL (130-400); Red Cell Dist. Width 16.4 % (11.5-14.5)
[2025-04-05] MEDS: SYMBICORT 160/4.5 MCG INHALER 2 PUFF INH ×2 (07:19→19:32)
[2025-04-05] MEDS: SPIRIVA RESPIMAT 2.5 MCG 2 PUFF INH (07:19)
[2025-04-05 07:51] LABS: Blood Urea Nitrogen 29 mg/dl (9-20); Calcium 8.9 mg/dl (8.4-10.2); Carbon Dioxide 33 mmol/L (22-30); Chloride 103 mmol/L (98-107); Estimated Creatinine Clearance 79 ml/min; Glucose 79 mg/dl (70-99); Potassium 4.6 mmol/L (3.5-5.1); Sodium 139 mmol/L (135-145); eGFR > 60.00
--- NOTE | 2025-04-05 08:09 | W.PN.CD ---
Today's Communication / Plan
-
Hold BB/CCB for bradycardia
Resume PO Lasix on Tuesday
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
We will sign off. Please call with additional questions/concerns. Our office will schedule him for follow-up in 4-6 weeks.
Impression / Plan
-
I/P: 74M with chronic HFpEF, paroxysmal atrial fibrillation, hypertension, COPD, chronic hypoxic respiratory failure (on 4L NC), dyslipidemia, and pulmonary hypertension who presented to the emergency department with a chief complaint of shortness
of breath.
Outpatient tugboat engineer: Dr. Chaudhary ([facility] care)
Syncope
-Occurred on 04/02 evening around 9PM. Nothing on tele at that time. Has been sinus bernadine throughout admission. No pauses. CCB/BB stopped.
-Likely orthostasis and iatrogenic from overdiuresis. Continue to hold Lasix. He is also on BPH meds (alfuzosin, finasteride) and sildenafil for pulm HTN, which can all contribute as well.
-Orthostatics negative yesterday
-Resume Lasix Tuesday. PO Lasix 20mg BID
-he has compression on legs
-Encourage ambulation (with assistance)
HFpEF, acute on chronic
- Suspect he is dry as above
- Discharge weight in November was 125 lb and he is now 136 lb. I suspect he gained flesh weight because he examines euvolemic.
- Diuretic plan as above
- Hold off on SGLT2i for now given dehydration. Can consider as outpatient. Jardiance will be $45 per month
- Heart failure education
COPD, severe, in acute exacerbation
- chronic hypoxia on 4 L at baseline
- pulmonary following, on steroids
Paroxysmal atrial fibrillation
- Maintaining sinus rhythm. Stop CCB/BB for sinus bradycardia with dizziness/syncope (though was orthostatic and dehyrdated at the time)
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
- continue Eliquis
Pulmonary hypertension
- On sildenafil 20 mg daily
Dyslipidemia, on atorvastatin 40 mg
Anemia, likely of chronic disease, denies acute bleeding
Subjective:
He is stable. Got up to go to the bathroom and felt a little wobbly on the way back. No recurrent syncope.
Physical Exam
Vital Signs/Labs
Vital Signs
Temp Pulse Resp BP Pulse Ox
97.6 F 53 16 157/68 98
04/05/25 03:57 04/05/25 07:22 04/05/25 07:22 04/05/25 03:57 04/05/25 07:22
04/04/25 04/05/25 04/06/25
06:59 06:59 06:59
Actual Weight 139 lb 136 lb 6 oz
04/05/25 06:11
04/05/25 06:11
PT 19.5 Sec (11.4-14.6) H 03/28/25 13:08
INR 1.59 03/28/25 13:08
APTT 39.4 Sec (23.4-35.0) H 03/28/25 13:08
Magnesium 2.2 mg/dl (1.6-2.3) 04/02/25 06:14
03/28/25 03/31/25 04/01/25
13:08 05:59 06:01
Vdk-V-Vclyloywqyw Pept 1470 [id number] 2930
Physical Exam
Constitutional: No acute distress and Comfortable
Cardiovascular: Rhythm & rate is regular, Pedal edema is absent, S1S2 is normal and Murmur/rub/gallop absent
Respiratory: Respiratory effort normal and Lungs clear to auscul.
Neuro/Psych: AO x 3
Data Reviewed
-
Date of Service: April 05, 2025
Medical Decision Making: Reviewed Test Results, Independent Historian Assessment, Test Interpretation and Review of Case with other Provider
EKG: Tracing Personally Visualized and interpreted
Echo: Report Reviewed by me
Labs: Labs Reviewed by me
[2025-04-05] MEDS: ELIQUIS 5 MG PO ×2 (09:23→20:55)
[2025-04-05] MEDS: MAGNESIUM OXIDE 250 MG PO (09:23)
[2025-04-05] MEDS: LEXAPRO 10 MG PO (09:24)
[2025-04-05] MEDS: NEURONTIN 100 MG PO ×3 (09:24→21:10)
[2025-04-05] MEDS: TYLENOL 650 MG PO ×3 (09:24→21:10)
[2025-04-05] MEDS: REVATIO 20 MG PO (09:24)
[2025-04-05] MEDS: MIRALAX PO (09:24)
[2025-04-05] MEDS: PROSCAR 5 MG PO (09:24)
[2025-04-05] MEDS: PROTONIX 40 MG PO ×2 (09:24→20:56)
[2025-04-05] MEDS: FLOMAX 0.4 MG PO (09:24)
[2025-04-05] MEDS: DELTASONE 40 MG PO (09:25)
[2025-04-05] MEDS: LIDOCAINE 4% PATCH 1 PATCH TOPICAL (09:25)
[2025-04-05] MEDS: FLUSH (NSS) 1 FLUSH IV (09:26)
[2025-04-05] MEDS: SENOKOT PO (09:26)
--- NOTE | 2025-04-05 10:05 | W.PN.HOSP.TC ---
Today's Communication/Plan
-
repeat evaluate with PT/OT
Assessment / Plan
Assessment / Plan
Assessment:
Shortness of breath
Acute COPD exacerbation (COPD on chronic 4 L oxygen, chronic hypercapnia-baseline pCO2 60)
chronic hypoxemic respiratory failure on 4L NC
- wean O2 to 2L titrate to 90-94% sats
- continue prednisone with taper
- continue Symbicort and Spiriva
- Procal neg, off Abx
- pulm following
Syncopal event 04/02
Dizziness
Orthostatic hypotension
- holding Lasix; resume Tuesday as 20mg BID per Cardiology
- holding CCB/BB with ongoing bradycardia
- if recurrent Afib - might need PPM but no indication for now - reviewed with Cardiology
- continue compression therapy
- encourage hydration; fluid restriction removed
Acute on chronic HFpEF (LVEF 50-55% with normal RV size/function and PASP: 31 mmHg via TTE from 11/05/2024)
- Echo: normal EF. mild TR
- s/p IV Lasix course
- holding Lasix; resume Tuesday as 20mg BID per Cardiology
- CBC Cards following
Chronic Anemia
Mild hyperglycemia (HbA1c: 5.7 from 11/01/2024)
Recent hospitalization 11/19/2024 for sepsis/pneumonia and GI bleed
Pulm hypertension.
- on Revatio
Parox A. Fib
- on Eliquis
- holding CCB/BB with ongoing bradycardia
GERD.
- continue PPI
Essential Hypertension.
- holding CCB/BB with ongoing bradycardia
Hyperlipidemia.
Peptic ulcer disease.
BPH - continue Flomax/Proscar
Anxiety/depression.
- continue Trazodone/Lexapro
Chronic back pain
DVT ppx: Eliquis
Code: Full
Anticipated Discharge: Within 24 hours
Subjective/Interval History
-
Date of Service: April 05, 2025
resting comfortably
reports no further dizziness or vision changes with ambulation
Objective Data
-
Labs:
Laboratory Results
04/05/25
06:11
WBC 8.1
Hgb 9.3 L
Hct 30.9 L
Plt Count 299
Sodium 139
Potassium 4.6
Chloride 103
Carbon Dioxide 33 H
BUN 29 H
Creatinine 0.7
Glucose 79
Calcium 8.9
Vital Signs:
Vital Signs
Temp Pulse Resp BP Pulse Ox
97.5 F 43 22 171/78 97
04/05/25 07:55 04/05/25 07:55 04/05/25 07:55 04/05/25 07:55 04/05/25 09:14
I&O
04/04/25 04/05/25 04/06/25
06:59 06:59 06:59
Intake Total 660 / 660 960 / 960
Output Total 925 / 925 1175 / 1175
Balance -265 / -265 -215 / -215
Physical Exam
-
General: No Apparent Distress
HEENT: Normocephalic and Atraumatic
Respiratory: Negative Wheezes
Cardiac: Regular Rhythm and S1/S2
GI: Soft
Genito-urinary: No Costovertebral Tender
Neuro: AO x 3
Psych: Calm
Data Reviewed
-
Total Time Spent with Patient (in minutes): 42
Labs: Labs Reviewed by me
--- NOTE | 2025-04-05 11:29 | CM ---
Addendum entered by Cate Snider 04/05/25 12:22:
IMM completed at 12:00 04/05/25
Original Note:
Plan now is to home with [facility] visiting nurses, referral sent to [facility], Patient is on home oxygen, from [employer]. regional marketing manager spoke with patient's sister and updated her on patient progress.
[facility]
[phone]
--- NOTE | 2025-04-05 15:56 | PTCARENOTE ---
Pt AAO x3, BURNS; OOB to BR with assist x1/walker, mark well, occ tremulous. Denies dizziness. VSS. Telemetry:SB. Maintained on nc 2 lpm- pulse ox 96%, pt with (+) slight WALLS/tachypnea; denies SOB. Abd soft, sl rounded, mark PO well. Voids clear
yellow urine in urinal; also voids in BR at times. Resting in bed at present. Will continue to monitor.
[2025-04-05] MEDS: SENOKOT 8.6 MG PO (20:56)
[2025-04-05] MEDS: REMOVE LIDOCAINE PATCH 1 PATCH REMOVE (20:56)
[2025-04-05] MEDS: LIPITOR 40 MG PO (21:09)
[2025-04-05] MEDS: MELATONIN 5 MG PO (21:09)
[2025-04-05] MEDS: DESYREL 12.5 MG PO (21:10)
--- NOTE | 2025-04-06 01:25 | PTCARENOTE ---
Pt shared concerns about going home with VNS to live with his sister. Case management consult placed.
[2025-04-06 03:57] VITALS: BP 164/64
[2025-04-06 06:00] VITALS: BMI 19.2
[2025-04-06] MEDS: TYLENOL 650 MG PO ×4 (06:28→22:01)
[2025-04-06 07:05] VITALS: BP 158/74
[2025-04-06] MEDS: SYMBICORT 160/4.5 MCG INHALER 2 PUFF INH ×2 (07:48→19:21)
[2025-04-06] MEDS: SPIRIVA RESPIMAT 2.5 MCG 2 PUFF INH (07:48)
[2025-04-06 08:02] LABS: Hematocrit 31.1 % (39.0-52.0); Hemoglobin 9.5 g/dL (13.0-18.0); Mean Corp Hgb Conc. 30.5 g/dL (33.0-37.0); Mean Corpuscular Volume 83.6 fL (80.0-94.0); Platelet Count 294 10^3/uL (130-400); Red Cell Dist. Width 16.3 % (11.5-14.5)
[2025-04-06 08:11] LABS: Blood Urea Nitrogen 25 mg/dl (9-20); Calcium 9.1 mg/dl (8.4-10.2); Carbon Dioxide 32 mmol/L (22-30); Chloride 104 mmol/L (98-107); Estimated Creatinine Clearance 77 ml/min; Glucose 77 mg/dl (70-99); Potassium 4.4 mmol/L (3.5-5.1); Sodium 138 mmol/L (135-145); eGFR > 60.00
[2025-04-06] MEDS: MAGNESIUM OXIDE 250 MG PO (08:39)
[2025-04-06] MEDS: LEXAPRO 10 MG PO (08:39)
[2025-04-06] MEDS: FLOMAX 0.4 MG PO (08:39)
[2025-04-06] MEDS: DELTASONE 30 MG PO (08:39)
[2025-04-06] MEDS: ELIQUIS 5 MG PO ×2 (08:39→20:10)
[2025-04-06] MEDS: LIDOCAINE 4% PATCH 1 PATCH TOPICAL (08:39)
[2025-04-06] MEDS: PROTONIX 40 MG PO ×2 (08:40→20:10)
[2025-04-06] MEDS: PROSCAR 5 MG PO (08:40)
[2025-04-06] MEDS: REVATIO 20 MG PO (08:40)
[2025-04-06] MEDS: NEURONTIN 100 MG PO ×3 (08:40→22:01)
[2025-04-06] MEDS: FLUSH (NSS) 1 FLUSH IV (08:41)
[2025-04-06] MEDS: SENOKOT PO (09:46)
[2025-04-06] MEDS: MIRALAX PO (09:46)
--- NOTE | 2025-04-06 10:55 | W.PN.HOSP.TC ---
Today's Communication/Plan
-
DC planning; remains medically stable. CM aware.
Assessment / Plan
Assessment / Plan
Assessment:
Shortness of breath
Acute COPD exacerbation (COPD on chronic 4 L oxygen, chronic hypercapnia-baseline pCO2 60)
chronic hypoxemic respiratory failure on 4L NC
- wean O2 to 2L titrate to 90-94% sats
- continue prednisone with taper
- continue Symbicort and Spiriva
- Procal neg, off Abx
- pulm following
Syncopal event 04/02
Dizziness
Orthostatic hypotension
- holding Lasix; resume Tuesday as 20mg BID per Cardiology
- holding CCB/BB with ongoing bradycardia
- if recurrent Afib - might need PPM but no indication for now - reviewed with Cardiology
- continue compression therapy
- encourage hydration; fluid restriction removed
Acute on chronic HFpEF (LVEF 50-55% with normal RV size/function and PASP: 31 mmHg via TTE from 11/05/2024)
- Echo: normal EF. mild TR
- s/p IV Lasix course
- holding Lasix; resume Tuesday as 20mg BID per Cardiology
- CBC Cards following
Chronic Anemia
Mild hyperglycemia (HbA1c: 5.7 from 11/01/2024)
Recent hospitalization 11/19/2024 for sepsis/pneumonia and GI bleed
Pulm hypertension.
- on Revatio
Parox A. Fib
- on Eliquis
- holding CCB/BB with ongoing bradycardia
GERD.
- continue PPI
Essential Hypertension.
- holding CCB/BB with ongoing bradycardia
Hyperlipidemia.
Peptic ulcer disease.
BPH - continue Flomax/Proscar
Anxiety/depression.
- continue Trazodone/Lexapro
Chronic back pain
DVT ppx: Eliquis
Code: Full
Dispo: patient originally comfortable with home/VN option but today 04/06 is now expressing interest in SNF. CM notified.
Anticipated Discharge: 24 - 48 hours
Subjective/Interval History
-
Date of Service: April 06, 2025
now wants to explore SNF, citing that he does not feel he is back to baseline to go home
denies any CP or SOB
Objective Data
-
Labs:
Laboratory Results
04/06/25
06:03
WBC 7.5
Hgb 9.5 L
Hct 31.1 L
Plt Count 294
Sodium 138
Potassium 4.4
Chloride 104
Carbon Dioxide 32 H
BUN 25 H
Creatinine 0.7
Glucose 77
Calcium 9.1
Vital Signs:
Vital Signs
Temp Pulse Resp BP Pulse Ox
97.6 F 56 16 158/74 99
04/06/25 07:05 04/06/25 07:50 04/06/25 07:50 04/06/25 07:05 04/06/25 09:00
I&O
04/05/25 04/06/25 04/07/25
06:59 06:59 06:59
Intake Total 960 / 960 640 / 640
Output Total 1175 / 1175 2365 / 2365
Balance -215 / -215 -1725 / -1725
Physical Exam
-
General: No Apparent Distress
HEENT: Normocephalic and Atraumatic
Respiratory: Clear to Auscultation; Negative Wheezes
GI: Soft
Genito-urinary: No Costovertebral Tender
Neuro: AO x 3
Psych: Calm
Data Reviewed
-
Total Time Spent with Patient (in minutes): 42
Labs: Labs Reviewed by me
[2025-04-06 11:00] VITALS: BP 110/52; BP 133/58; BP 141/60; PULSE 59; PULSE 61; PULSE 62
--- NOTE | 2025-04-06 13:06 | CM ---
Was advised by attending that patient is medically cleared for discharge but wants to go to SNF even though he exhausted SNF benefit as he was at [facility] in [place] for 100 days and has only been out for 2 weeks.
Spoke with patient who stated that he would like to return to [facility] and pay privately. He stated that he was never provided with a financial application. Referral was made and facility offered acceptance upon completion of financial forms.
Placed a call to [facility] admissions but had to leave a voice mail. Left phone and fax and requested that if line is being monitored over the weekend, to please fax paperwork so that patient can get started.
Attending updated.
Plan: Case management will continue to follow and assist with discharge planning. SNF once financial forms have been submitted.
[2025-04-06 15:20] VITALS: BP 124/55
[2025-04-06] MEDS: ULTRAM 50 MG PO (16:40)
[2025-04-06] MEDS: SENOKOT 8.6 MG PO (20:11)
[2025-04-06] MEDS: REMOVE LIDOCAINE PATCH 1 PATCH REMOVE (20:13)
[2025-04-06] MEDS: DESYREL 12.5 MG PO (22:01)
[2025-04-06] MEDS: MELATONIN 5 MG PO (22:01)
[2025-04-06] MEDS: LIPITOR 40 MG PO (22:02)
[2025-04-06 23:23] VITALS: BP 133/57
[2025-04-07 06:00] VITALS: BMI 19.8
[2025-04-07 07:55] VITALS: BP 187/78
[2025-04-07] MEDS: SYMBICORT 160/4.5 MCG INHALER 2 PUFF INH ×2 (08:26→19:43)
[2025-04-07] MEDS: SPIRIVA RESPIMAT 2.5 MCG 2 PUFF INH (08:26)
[2025-04-07] MEDS: LIDOCAINE 4% PATCH 1 PATCH TOPICAL (08:58)
[2025-04-07] MEDS: MAGNESIUM OXIDE 250 MG PO (08:58)
[2025-04-07] MEDS: MIRALAX PO ×2 (08:58→09:03)
[2025-04-07] MEDS: PROSCAR 5 MG PO (08:59)
[2025-04-07] MEDS: SENOKOT 8.6 MG PO ×2 (08:59→19:59)
[2025-04-07] MEDS: LEXAPRO 10 MG PO (08:59)
[2025-04-07] MEDS: REVATIO 20 MG PO (08:59)
[2025-04-07] MEDS: FLOMAX 0.4 MG PO (08:59)
[2025-04-07] MEDS: DELTASONE 30 MG PO (08:59)
[2025-04-07] MEDS: TYLENOL 650 MG PO ×3 (08:59→21:11)
[2025-04-07] MEDS: ELIQUIS 5 MG PO ×2 (09:00→19:59)
[2025-04-07] MEDS: NEURONTIN 100 MG PO ×3 (09:00→21:11)
[2025-04-07] MEDS: PROTONIX 40 MG PO ×2 (09:00→19:59)
[2025-04-07 09:04] VITALS: BP 127/50
--- NOTE | 2025-04-07 11:27 | W.PN.HOSP.TC ---
Today's Communication/Plan
-
Medically stable for DC. CM notified.
Assessment / Plan
Assessment / Plan
Assessment:
Shortness of breath
Acute COPD exacerbation (COPD on chronic 4 L oxygen, chronic hypercapnia-baseline pCO2 60)
chronic hypoxemic respiratory failure on 4L NC
- wean O2 to 2L titrate to 90-94% sats
- continue prednisone with taper (30mg through 04/08, then 20mg x 3 days, then 10mg x 3 days)
- continue Symbicort and Spiriva
- Procal neg, off Abx
- pulm following
Syncopal event 04/02
Dizziness
Orthostatic hypotension
- holding Lasix; resume Tuesday as 20mg BID per Cardiology
- holding CCB/BB with ongoing bradycardia
- if recurrent Afib - might need PPM but no indication for now - reviewed with Cardiology
- continue compression therapy
- encourage hydration; fluid restriction removed
Acute on chronic HFpEF (LVEF 50-55% with normal RV size/function and PASP: 31 mmHg via TTE from 11/05/2024)
- Echo: normal EF. mild TR
- s/p IV Lasix course
- holding Lasix; resume Tuesday as 20mg BID per Cardiology
- CBC Cards following
Chronic Anemia
Mild hyperglycemia (HbA1c: 5.7 from 11/01/2024)
Recent hospitalization 11/19/2024 for sepsis/pneumonia and GI bleed
Pulm hypertension.
- on Revatio
Parox A. Fib
- on Eliquis
- holding CCB/BB with ongoing bradycardia
GERD.
- continue PPI
Essential Hypertension.
- holding CCB/BB with ongoing bradycardia
Hyperlipidemia.
Peptic ulcer disease.
BPH - continue Flomax/Proscar
Anxiety/depression.
- continue Trazodone/Lexapro
Chronic back pain
DVT ppx: Eliquis
Code: Full
Dispo: patient originally comfortable with home/VN option but on 04/06 is now expressing interest in SNF. Medically stable for DC. CM notified.
Anticipated Discharge: 24 - 48 hours
Subjective/Interval History
-
Date of Service: April 07, 2025
resting comfortably, no complaints at present
Objective Data
-
Vital Signs:
Vital Signs
Temp Pulse Resp BP Pulse Ox
97.9 F 62 16 127/50 99
04/07/25 07:55 04/07/25 09:04 04/07/25 08:25 04/07/25 09:04 04/07/25 08:25
I&O
04/06/25 04/07/25 04/08/25
06:59 06:59 06:59
Intake Total 640 / 640 420 / 420
Output Total 2365 / 2365 575 / 575
Balance -1725 / -1725 -155 / -155
Physical Exam
-
General: No Apparent Distress
HEENT: Normocephalic and Atraumatic
Respiratory: Negative Wheezes
Cardiac: Regular Rhythm and S1/S2
GI: Soft
Genito-urinary: No Costovertebral Tender
Musculoskeletal: No Edema
Neuro: AO x 3
Psych: Calm
Data Reviewed
-
Total Time Spent with Patient (in minutes): 41
Labs: Labs Reviewed by me
[2025-04-07] MEDS: ULTRAM 50 MG PO (14:49)
[2025-04-07 15:55] VITALS: BP 125/56
[2025-04-07] MEDS: REMOVE LIDOCAINE PATCH 1 PATCH REMOVE (19:59)
[2025-04-07] MEDS: MELATONIN 5 MG PO (21:11)
[2025-04-07] MEDS: DESYREL 12.5 MG PO (21:11)
[2025-04-07] MEDS: LIPITOR 40 MG PO (21:11)
[2025-04-07] MEDS: VENTOLIN NEBULES 2.5 MG INH (23:37)
[2025-04-07 23:55] VITALS: BP 119/47
[2025-04-08 06:00] VITALS: BMI 19.9
[2025-04-08 07:05] VITALS: BP 170/74
[2025-04-08] MEDS: SYMBICORT 160/4.5 MCG INHALER 2 PUFF INH (07:32)
[2025-04-08] MEDS: SPIRIVA RESPIMAT 2.5 MCG 2 PUFF INH (07:32)
[2025-04-08 07:53] VITALS: BP 170/74
[2025-04-08] MEDS: PROTONIX 40 MG PO (08:05)
[2025-04-08] MEDS: FLOMAX 0.4 MG PO (08:05)
[2025-04-08] MEDS: NEURONTIN 100 MG PO ×2 (08:05→16:57)
[2025-04-08] MEDS: DELTASONE 30 MG PO (08:05)
[2025-04-08] MEDS: LASIX 20 MG PO ×2 (08:06→16:57)
[2025-04-08] MEDS: LEXAPRO 10 MG PO (08:06)
[2025-04-08] MEDS: MAGNESIUM OXIDE 250 MG PO (08:06)
[2025-04-08] MEDS: REVATIO 20 MG PO (08:06)
[2025-04-08] MEDS: PROSCAR 5 MG PO (08:07)
[2025-04-08] MEDS: LIDOCAINE 4% PATCH 1 PATCH TOPICAL (08:07)
[2025-04-08] MEDS: MIRALAX PO ×2 (08:08→08:12)
[2025-04-08] MEDS: TYLENOL 650 MG PO ×2 (08:08→16:58)
[2025-04-08] MEDS: ELIQUIS 5 MG PO (08:08)
[2025-04-08] MEDS: SENOKOT 8.6 MG PO (08:08)
[2025-04-08] MEDS: FLUSH (NSS) 1 FLUSH IV (08:09)
[2025-04-08 08:33] LABS: Hematocrit 31.5 % (39.0-52.0); Hemoglobin 9.4 g/dL (13.0-18.0); Mean Corp Hgb Conc. 29.8 g/dL (33.0-37.0); Mean Corpuscular Volume 84.7 fL (80.0-94.0); Platelet Count 287 10^3/uL (130-400); Red Cell Dist. Width 16.7 % (11.5-14.5)
[2025-04-08 08:58] LABS: Blood Urea Nitrogen 29 mg/dl (9-20); Calcium 8.7 mg/dl (8.4-10.2); Carbon Dioxide 26 mmol/L (22-30); Chloride 107 mmol/L (98-107); Estimated Creatinine Clearance 80 ml/min; Glucose 73 mg/dl (70-99); Potassium 4.6 mmol/L (3.5-5.1); Sodium 138 mmol/L (135-145); eGFR > 60.00
--- NOTE | 2025-04-08 09:49 | CM ---
Addendum entered by Yaa Bates RN 04/08/25 16:04:
No call back form sister. Pt spoke with sister she will drive him home from hospital today.Nurse said that patient said sister does not help in in home and he wants to go to terminal make up operator care but did not get financial work together. RN said that sister
takes his credit card also. Call placed with [facility] with above information and call back info.
PLAn Home with Ayana MOREIRA
Original Note:
Spoke with pt he said that he agrees with discharge to home with sister and Ayana [facility]IR[facility] .
Pt does want terminal make up operator in future . Spoke with [facility] (pts pick)their is no bed and pt has to provide financial.
Spoke with pt he is aware he needs to provide paper work for placement.
LM with pts sister Jordy [phone].
PLAN Home with Ayana MOREIRA
--- NOTE | 2025-04-08 10:21 | W.PN.UPDATE ---
Addendum entered and electronically signed by Frankie Warner MD 04/08/25 14:09:
Total time spent on d/c = 35 min. This included today's physical exam, progress note, review of laboratory and diagnostic data, preparation of discharge documents and prescriptions, and discussions about the pt's hospital course and discharge plan
with the patient and other medical records manager involved in the patient's care.
Original Note:
Update Note
Progress Note Update
I saw and evaluated the patient. I reviewed the resident�s note and agree with findings and plan as documented in the resident�s note.
Denies shortness of breath
Gen: NAD, AAOx3, appears chronically ill.
Eyes: EOMI, PERRLA, no scleral icterus.
Neck: supple.
CV: Bradycardic, regular rhythm, +S1/S2, no m/r/g.
Resp: CTAB, no rales, wheezes, or rhonchi.
Abd: +BS, soft, NT, ND
Skin: No rashes.
Neuro: CN 2-12 intact, non-focal.
Psych: Normal mood and affect.
Acute COPD exacerbation (COPD on chronic 4 L oxygen, chronic hypercapnia-baseline pCO2 60):
-presented with SOB
-chronic hypoxemic respiratory failure on 4L NC [employer], now on 2L NC O2 (goal pulse ox 90-92%)
-cont prednisone with taper (30mg through 04/08, then 20mg x 3 days, then 10mg x 3 days)
-cont Symbicort/Spiriva
-procal neg, off Abx
-pulm following
Syncopal event 04/02 due to orthostatic hypotension:
-lasix was held, restart today at 20mg PO BID
-holding CCB/BB with ongoing bradycardia
-if recurrent Afib might need PPM but no indication for now (reviewed with Cardiology)
-cont compression therapy
-encourage hydration, FR removed
-orthostatic VS NEG 04/08/25AM
Acute on chronic HFpEF (LVEF 50-55% with normal RV size/function and PASP: 31 mmHg via TTE from 11/05/2024)
-Echo: normal EF. mild TR
-s/p IV Lasix course
-Lasix was held as above for orthostatic hypotension; restart today at Lasix 20mg BID per Cardiology
Other problems:
Chronic Anemia
Mild hyperglycemia (HbA1c: 5.7 from 11/01/2024)
Pulm HTN: cont Revatio
PAF: Cont Eliquis, holding CCB/BB with ongoing bradycardia
Essential HTN: holding CCB/BB with ongoing bradycardia
PUD/GERD: cont PPI
HLD: cont statin
BPH: cont Flomax/Proscar
Anxiety/depression: cont Trazodone/Lexapro
Chronic back pain
FULL/Eliquis
Medically cleared for discharge.
[2025-04-08 10:22] VITALS: BP 107/50; BP 110/45; BP 118/49; PULSE 64; PULSE 66; PULSE 70
[2025-04-08 10:45] VITALS: BP 107/50; BP 110/45; BP 118/49; PULSE 59; PULSE 65; PULSE 66; O2SAT 97
--- NOTE | 2025-04-08 12:49 | W.PN.HOSP.TC ---
Addendum entered and electronically signed by Fran Becker MD, Resident 04/08/25 13:39:
added lisinopril 10 mg to control HTN on discharge
Original Note:
Today's Communication/Plan
-
- dc patient home today with visiting nurse
Assessment / Plan
Assessment / Plan
Assessment:
1. Shortness of breath
Acute COPD exacerbation (COPD on chronic 4 L oxygen, chronic hypercapnia-baseline pCO2 60)
chronic hypoxemic respiratory failure on 4L NC
- wean O2 to 2L titrate to 90-94% sats
- continue prednisone with taper (30mg through 04/08, then 20mg x 3 days, then 10mg x 3 days)
- continue Symbicort and Spiriva
- Procal neg, off Abx
- schedule o/p f/u with pulm
2. Syncopal event 04/02
Orthostatic hypotension
- holding Lasix; restart 20 mg bid today
- holding CCB/BB due to bradycardia
- if recurrent Afib - might need PPM but no indication for now - reviewed with Cardiology
- continue compression therapy
- encourage hydration; fluid restriction removed
3. Acute on chronic HFpEF (LVEF 50-55% with normal RV size/function and PASP: 31 mmHg via TTE from 11/05/2024)
- Echo: normal EF. mild TR
- resume lasix 20mg BID today
- CBC Cards following
- schedule appointment with cards in 4 weeks o/p
4. Chronic Anemia
5. Mild hyperglycemia (HbA1c: 5.7 from 11/01/2024)
6. Pulm hypertension.
- continue Revatio
7. Parox A. Fib
- on Eliquis
- holding CCB/BB with ongoing bradycardia
8. GERD.
- continue PPI
9. Essential Hypertension.
- holding CCB/BB with ongoing bradycardia
- will continue to monitor blood pressure
10. Hyperlipidemia
- continue statin
11. Peptic ulcer disease.
- Continue pantoprazole 40 mg bid
12. BPH - continue Flomax/Proscar
13. Anxiety/depression.
- continue Trazodone/Lexapro
14. Chronic back pain
DVT ppx: Eliquis
Code: Full
Anticipated Discharge: Today
Subjective/Interval History
-
Date of Service: April 08, 2025
74-year-old male past medical history of paroxysmal atrial fibrillation on Eliquis, HFpEF, COPD on 4 hours oxygen, pulmonary hypertension, GERD, peptic ulcer disease, hyperlipidemia, hypertension, BPH, presenting with shortness of breath for the
past 2 days with some mild cough.
Chest x-ray showed possible pneumonia or subsegmental atelectasis. Patient diagnosed with acute COPD exacerbation started on Decadron, Symbicort/Spiriva, initially placed on antibiotics but then stopped after Pro-Facundo negative, pulmonary was
consulted, recommended prednisone taper and maintaining oxygen saturation above 90 on 2l, with outpatient pulmonary follow-up.
He is BNP double since admissions at home p.o. Lasix was held and IV Lasix was started and cardiology was consulted because of 100-year pack smoking history and persistent shortness of breath despite being treated for exacerbation of COPD. Echo was
benign and showed a normal ejection fraction of 50-55%. Diagnosed with acute on chronic HFpEF. Cardiology then signed off initially. On patient was status post fall. His Eliquis/trazodone/melatonin was held and CT scan was ordered along
with x-ray of the left hip buttocks because on evaluation patient complained of left buttock/hip pain and posterior headache. Head CT was normal pelvic x-ray was normal. Cardiology was then consulted for syncope and held patient's Lasix which was
later resumed, started following orthostatic vitals which were positive, held beta-john and calcium channel john, compression therapy was added, placed on telemetry, PT/OT ordered.
No SOB, chest pain, dizziness, syncope today. No acute overnight events.
Objective Data
-
Labs:
Laboratory Results
04/08/25
07:18
WBC 8.1
Hgb 9.4 L
Hct 31.5 L
Plt Count 287
Sodium 138
Potassium 4.6
Chloride 107
Carbon Dioxide 26
BUN 29 H
Creatinine 0.7
Glucose 73
Calcium 8.7
Vital Signs:
Vital Signs
Temp Pulse Resp BP Pulse Ox
98.1 F 55 14 170/74 100
04/08/25 07:05 04/08/25 07:32 04/08/25 07:32 04/08/25 07:05 04/08/25 07:32
I&O
04/07/25 04/08/25 04/09/25
06:59 06:59 06:59
Intake Total 420 / 420 1380 / 1380
Output Total 575 / 575 1250 / 1250
Balance -155 / -155 130 / 130
Review of Systems
-
History Source: Patient
All other systems: Reviewed and negative
Physical Exam
-
General: No Apparent Distress
HEENT: Normocephalic and Atraumatic
Respiratory: Rhonchi (heard bilaterally)
Cardiac: Regular Rhythm and S1/S2
GI: Soft
Genito-urinary: No Costovertebral Tender
Musculoskeletal: No Clubbing, No Cyanosis and No Edema
Skin: Warm and Dry
Neuro: Awake, Alert, Oriented and AO x 3
Psych: Calm
Data Reviewed
-
Labs: Labs Reviewed by me and Discussed with Physician
[2025-04-08 12:51] VITALS: BP 122/54; BP 127/55; PULSE 62; O2SAT 97
[2025-04-08 15:05] VITALS: BP 121/59
--- NOTE | 2025-04-08 15:33 | W.DCSUMMARY ---
Discharge Summary
Discharge Data
Date of Admission: 03/28/25
Date of Discharge: 04/08/25
-
Pending Results: No
Hospital Course
Discharging Physician : Dr. Frankie Warner and Dr. Fran Becker
Disposition : Home with visiting nurse
Primary care physician : Dr. Kelsi Garcia
Principal Discharge diagnosis : Chronic hypoxemic respiratory failure on 4 L nasal cannula possibly due to an acute COPD exacerbation, syncopal event/orthostatic hypotension, acute on chronic HFpEF with an ejection fraction of 50 to 55%
Chronic Discharge diagnosis : Chronic anemia, mild hyperglycemia, pulmonary hypertension, paroxysmal atrial fibrillation, GERD, essential hypertension, hyperlipidemia, peptic ulcer disease, BPH, anxiety/depression, chronic back pain
Hospital Course : 74M with chronic HFpEF, paroxysmal atrial fibrillation, hypertension, COPD, chronic hypoxic respiratory failure (on 4L NC), dyslipidemia, and pulmonary hypertension who presented to the emergency department with a chief complaint
of shortness of breath.
Problem #1---> acute COPD exacerbation (COPD on 4 L oxygen, chronic hypercapnia�baseline pCO2 60)
-Patient initially admitted with shortness of breath from the ED. He is on 4 L/minute nasal cannula [id number] at home. Blood gas shows chronic hypercapnia with pH 7.38, [id number]. Chest x-ray on 03/28/25 showed hazy opacity within the left
upper lung zone and left infrahilar region new compared to prior chest x-ray which may represent pneumonia or subsegmental atelectasis. Minimal opacity within the right lung base improved compared to prior study may represent scarring due to prior
pneumonia. Influenza and COVID test were both negative. Initial labs showed a hemoglobin of 9.2, WBC of 7.8 and normal, normal CMP. Patient was placed on DuoNebs and then those were discontinued to start Symbicort 160 mcg plus Spiriva Respimat
2.5 mcg during the course of hospital stay which were both discontinued so that the patient could restart Trelegy upon discharge. Albuterol inhaler home dose was continued throughout hospital course and to be continued on discharge. Mucolytic's
were continued. Incentive spirometry was encouraged every 1 hour while awake. Antibiotics were started however they were discontinued as procalcitonin was negative. Initially started on Decadron which was then transitioned to prednisone taper.
Patient was discharged with 7 tablets, 30 mg to be taken on day of discharge, 20 mg 3 days thereafter, and then 10 mg last 3 days, then stop. On discharge he is on 2 L nasal cannula with a goal pulse ox of 90 to 92%. Patient is stable on
discharge. Has an outpatient pulmonology follow-up scheduled.
Problem #2---> syncopal event/orthostatic hypotension:
- On 04/02/2025, patient had a syncopal event where he blacked out next to his bed, woke up with left pelvic pain and posterior headache. vitals were normal and blood glucose was 136, EKG showed sinus bradycardia with PAC, heart rate 55 at the time
of event. Head CT and pelvic x-ray were both benign. cardiology was consulted for syncope (positive orthostatic vitals) and held the patient's Lasix which they then recontinued 20 mg twice daily on discharge as his orthostatic vitals were
negative on discharge. They held the patient's calcium channel john and beta-john, not to be continued until patient has seen PCP or survey research center director. Compression therapy was added, encourage hydration to limited 1.5 L. For the pain patient was
placed on lidocaine patch (continued on discharge ) and as needed acetaminophen (continued on discharge). CBC with PCP in 1 week.
Problem #3---> acute on chronic HFpEF with an ejection fraction of 50 to 55%:
- His BNP doubled since admissions went from 1472 to 3840, so echo was ordered and cardiology were consulted. Echo was normal with a ejection fraction of 50 to 55% and patient was placed on p.o. Lasix 40 Mg daily, which was later held due to his
syncopal event, and then restarted again on discharge. On discharge, patient is to resume 20 mg twice daily Lasix because his orthostatic vitals were negative. His calcium channel john and beta-john are being held due to causing potential
bradycardia and syncopal events. Considering the possibility of adding SGLT2 inhibitor which will cost around $45 per month, please discuss with PCP. He has cardiology appointment to be scheduled in 4 to 6 weeks.
Problem #4---> paroxysmal atrial fibrillation:
- Patient's heart rate on discharge was 58 and well-controlled, in sinus rhythm,, no symptoms such as difficulty breathing, chest pain, palpitations, syncope. He is to be continued on Eliquis on discharge. [id number] or is 4. His calcium
channel john/beta-john was stopped due to concerns of it causing bradycardia and therefore a syncopal episode. No overnight events on telemetry. Please consult with PCP/survey research center director before restarting medication.
problem #5---> pulmonary hypertension:
- Continue Revatio at home dose on discharge.
Problem #6---> GERD:
- Continue pantoprazole 40 mg p.o. twice daily on discharge.
Problem #7---> hyperlipidemia:
- Continue atorvastatin 40 mg p.o. on discharge.
Problem #8---> essential hypertension:
- Continue on lisinopril 10 mg once daily. His home dose of beta-john/calcium channel john was stopped during the course of his admission for potential causing bradycardia/syncope. Please consult with PCP/survey research center director before restarting on
medication.
Problem 9---> BPH:
- Alfuzosin was replaced with tamsulosin 0.4 to be continued once daily on discharge.
Problem #10---> anxiety/depression:
- Continue trazodone/Lexapro on discharge.
Important imaging findings :
Chest x-ray on 03/28/2025:
IMPRESSION:
1. Hazy opacity within the left upper lung zone, and left infrahilar region, new compared to prior chest x-ray, which may represent pneumonia or subsegmental atelectasis.
2. Minimal opacity within the right lung base, improved compared to prior study, which may represent scarring due to prior pneumonia.
Chest x-ray on 03/31/2025:
IMPRESSION:
Hyperinflated lungs, with findings compatible with emphysema.
Since most recent radiograph of March 28, 2025, interval improvement in band-shaped opacity in the lateral left upper lung, suggesting improvement in a focus of pneumonia and/or atelectasis
Head CT on 04/02/2025
-No acute intracranial abnormality noted
Pelvic x-ray on 04/02/2025:
- No radiographically demonstratable osseous pelvic fracture
Procedure findings :
Discharge Plan
-
Patient Disposition: Home (Routine Discharge)
Discharge Diagnosis/Procedures: Shortness of breath secondary to acute copd exacerbation, syncope, dyspnea, orthostatic hypotension, acute on chronic HfpEf, mild hyperglycemia, pulmonary hypertension, paroxysmal afib, GERD, Essential hypertension,
Hyperlipidemia, peptic ulcer disease, BPH, Anxiety/depression, Chronic back pain
Condition: Fair
Diet: Low Cholesterol
Additional Diets: fluid restrict to 1500cc/day
Activity: With assistance and As tolerated
Driving Restrictions: Not until seen by your Dr
Bathing Restrictions: None
Blood Work: CBC and BMP in 1 week with PCP
Other Services: VN
Specialty Instructions: Weigh Daily- Call MD for wt gain/loss 3 lbs overnight/5 lbs in 1 week
Referrals:
Kelsi Garcia MD, Resident [Family Provider, General] - in less than 1 week
Jayden Godfrey MD [Active, Pulmonary Medicine] - in one to two weeks
Referral Note: PFT and hospital follow-up
Sky Triplett MD [Active, Cardiology] - in four to six weeks
Additional Discharge Medication Instructions: continue prednisone with taper (30mg through 04/08, then 20mg x 3 days, then 10mg x 3 days)
Continue Albuterol inhaler
Added Tamsulosin 0.4 mg which replaced Alfuzosin
Gabapentin was increased from BID to TID ( means 2 to 3 times a day)
Hold metoprolol and Diltiazem until cleared to retake by PCP or survey research center director.
Added lisinopril 10 mg once a day to control High blood pressure
Prescriptions:
New
sennosides [Dunia-adán] 8.6 mg Tablet
8.6 mg PO BID Qty: 30 0RF
prednisone 10 mg Tablet
30 mg PO DAILY Qty: 7 0RF
lidocaine 4 % Adhesive Patch,Medicated
1 patch topical DAILY Qty: 5 0RF
tamsulosin 0.4 mg Capsule
0.4 mg PO DAILY Qty: 30 0RF
gabapentin 100 mg Capsule
100 mg PO TID Qty: 30 0RF
simethicone 80 mg Tablet,Chewable
80 mg PO QIDPRN PRN (Reason: gas pains) Qty: 30 0RF
albuterol sulfate 2.5 mg /3 mL (0.083 %) Solution For Nebulization
2.5 mg inhalation R Q4HPRN PRN (Reason: SOB/Wheezing) Qty: 30 0RF
lisinopril 10 mg tablet
10 mg PO DAILY Qty: 30 0RF
Continued
atorvastatin 40 mg Tablet
40 mg PO HS
furosemide 20 mg Tablet
20 mg PO BID
finasteride 5 mg Tablet
5 mg PO DAILY
sildenafil (pulm.hypertension) 20 mg Tablet
20 mg PO DAILY
Eliquis 5 mg Tablet
5 mg PO BID
Trelegy Ellipta 200-62.5-25 mcg Blister With Device
1 inh INHALATION R DAILY
pantoprazole 40 mg Tablet,Delayed Release (Dr/Ec)
40 mg PO BID Qty: 0 0RF
acetaminophen [Tylenol] 325 mg Tablet
650 mg PO TID
albuterol sulfate 2.5 mg /3 mL (0.083 %) Solution For Nebulization
2.5 mg INHALATION R BID
trazodone 50 mg Tablet
12.5 mg PO HS
bismuth subsalicylate [Pepto-Bismol] 262 mg/15 mL Suspension
524 mg PO DAILYPRN PRN (Reason: stomach upset)
magnesium oxide 250 mg magnesium Tablet
250 mg PO DAILY
escitalopram oxalate 10 mg Tablet
10 mg PO DAILY
melatonin 5 mg Tablet
5 mg PO HS
Discontinued
alfuzosin 10 mg Tablet Extended Release 24 Hr
10 mg PO DAILY
gabapentin 100 mg Capsule
100 mg PO BID 30 Days Qty: 60 0RF
metoprolol succinate 25 mg Tablet Extended Release 24 Hr
25 mg PO BID 30 Days Qty: 60 0RF
lidocaine 4 % Adhesive Patch,Medicated
1 patch TOPICAL DAILY PRN (Reason: apply to R hip)
Patient Comments:
03/26/2025, pt. applied yesterday and is still currently wearing the same patch on his R hip.
diltiazem HCl [Cardizem CD] 180 mg Capsule,Extended Release 24hr
180 mg PO DAILY@1999
docusate sodium [Colace] 100 mg Capsule
100 mg PO BID
Discharge Orders:
Discharge Patient (As Directed); Ordered 04/08/25
Ordered By: Frankie Warner
Discharge Date and Time
Print Language: KAZAKH
== END 2025-04-08 18:20 | disposition home or self-care (01) | DRG 291 ==
LOC: 4 EAST ACU 16:18
PROVIDERS: Internal Medicine; Internal Medicine Critical Care Medicine; ADMITTING PHYSICIAN Hospitalist; ATTENDING PHYSICIAN Internal Medicine; CONSULT PHYSICIAN Internal Medicine Cardiovascular Disease; CONSULT PHYSICIAN Internal Medicine Critical Care Medicine; EMERGENCY PHYSICIAN Student in an Organized Health Care Education/Training Program; FAMILY PHYSICIAN Student in an Organized Health Care Education/Training Program
DX: I11.0 Hypertensive heart disease with heart failure (principal); I50.33 Acute on chronic diastolic (congestive) heart failure; J18.9 Pneumonia, unspecified organism; J44.1 Chronic obstructive pulmonary disease with (acute) exacerbation; J96.11 Chronic respiratory failure with hypoxia; J98.11 Atelectasis; J44.0 Chronic obstructive pulmonary disease with (acute) lower respiratory infection; I95.1 Orthostatic hypotension; I48.0 Paroxysmal atrial fibrillation; K21.9 Gastro-esophageal reflux disease without esophagitis; E78.00 Pure hypercholesterolemia, unspecified; Z87.11 Personal history of peptic ulcer disease; N40.0 Benign prostatic hyperplasia without lower urinary tract symptoms; F41.9 Anxiety disorder, unspecified; F32.A Depression, unspecified; G89.29 Other chronic pain; D64.9 Anemia, unspecified; R73.9 Hyperglycemia, unspecified; Z87.01 Personal history of pneumonia (recurrent); Z11.52 Encounter for screening for COVID-19; Z79.899 Other long term (current) drug therapy; I27.20 Pulmonary hypertension, unspecified; J43.9 Emphysema, unspecified; Z99.81 Dependence on supplemental oxygen; Z87.891 Personal history of nicotine dependence; Z79.01 Long term (current) use of anticoagulants
CPT/HCPCS: 70450; 71045; 71046; 72190; 80048; 80053; 82805; 82962; 83735; 83880; 84100; 84145; 84443; 84484; 85025; 85027; 85610; 85730; 86803; 86850; 86900; 86901; 87502; 87811; 93005; 93306; 94640; 96365; 96375; 97116; 97162; 97166; 97530; 97535; 99285

== ENCOUNTER 2025-04-26 18:30 | Inpatient (IN) | payer MEDICARE, OTHER, SELFPAY ==
[2025-04-26 12:42] VITALS: BP 122/68
[2025-04-26 12:49] VITALS: BMI 20.6
[2025-04-26 13:09] LABS: Hematocrit 31.8 % (39.0-52.0); Hemoglobin 9.7 g/dL (13.0-18.0); Mean Corp Hgb Conc. 30.5 g/dL (33.0-37.0); Mean Corpuscular Volume 87.6 fL (80.0-94.0); Nucleated Red Blood Cells % 0 % (-); Platelet Count 269 10^3/uL (130-400); Red Cell Dist. Width 18.5 % (11.5-14.5)
[2025-04-26 13:19] LABS: APTT 40.6 Sec (23.4-35.0)
[2025-04-26 13:23] LABS: ALT (SGPT) 12 U/L (0-50); AST (SGOT) 23 U/L (17-59); Albumin 3.9 g/dl (3.5-5.0); Alkaline Phosphatase 24 U/L (38-126); Blood Urea Nitrogen 13 mg/dl (9-20); Calcium 9.6 mg/dl (8.4-10.2); Carbon Dioxide 31 mmol/L (22-30); Chloride 103 mmol/L (98-107); Estimated Creatinine Clearance 80 ml/min; Glucose 97 mg/dl (70-99); Potassium 4.5 mmol/L (3.5-5.1); Sodium 140 mmol/L (135-145); Total Protein 6.3 g/dl (6.3-8.2); eGFR > 60.00
--- NOTE | 2025-04-26 14:57 | ED.GENMED ---
History of Present Illness
General
Chief Complaint: Breathing Problem
Source: patient and ambulance crew
Exam Limitations: none
Time Seen by Provider: 04/26/25 14:37
Nursing documentation reviewed up to this point in time: agreed with
History of Present Illness
History of Present Illness:
Note:
CHIEF COMPLAINT(S)
shortness of breath
HISTORY OF PRESENT ILLNESS
The patient is a 74-year-old male known for atrial fibrillation, who has presented today without experiencing any worsening of symptoms. He reports no fever or increasing discomfort related to her current medical concerns. The patient lives with his
sister and has been using anticoagulant therapy, specifically Eliquis (apixaban), for the management of his atrial fibrillation.
PAST MEDICAL AND SURIGICAL HISTORY
The patient is known to have atrial fibrillation. COPD.
ADDITIONAL HISTORY OBTAINED FROM SOURCES OTHER THAN THE PATIENT
Not applicable.
CHRONIC MEDICAL CONDITIONS SIGNIFICANTLY AFFECTING CARE
Atrial fibrillation. COPD.
SOCIAL DETERMINANTS AFFECTING HEALTH
The patient lives with her sister, which may influence her social support and care dynamics.
MEDICATIONS
The patient is taking Eliquis (apixaban) for atrial fibrillation.
PHYSICAL EXAM
General: Alert, moderate respiratory distress.
Skin: Warm, dry.
Head: Normocephalic, atraumatic.
Neck: Supple, trachea midline.
Eye, Ears, Nose, Mouth, and Throat: Oral mucosa moist.
Cardiovascular: Normal peripheral perfusion, No edema.
Respiratory: moderate respiratory distress
Gastrointestinal: Abdomen nondistended
Back: Normal range of motion, Normal alignment.
Musculoskeletal: Normal range of motion, normal strength.
Neurological: Alert and oriented to person, place, time, and situation. No focal neurological deficit observed.
Psychiatric: Cooperative, appropriate mood & affect.
PROBLEM LIST
Acute:
Evaluation of atrial fibrillation. COPD exacerbation
Chronic:
Atrial fibrillation. COPD
PLAN
Continue monitoring symptoms related to atrial fibrillation and ensure the effectiveness of anticoagulation therapy with Eliquis (apixaban).
DIFFERENTIAL DIAGNOSIS
The Differential Diagnosis includes, in no particular order and is not limited to:
1. Exacerbation of atrial fibrillation
2. Hypertension
3. Coronary artery disease
4. Heart failure
5. Hyperthyroidism
6. Pulmonary embolism
7. Pericarditis
8. Valvular heart disease
9. Anxiety or panic disorder
10. Chronic obstructive pulmonary disease (COPD)
CARE-UPDATE
04/26/25 - 16:57
Patient shows some improvement with Duraneb and Decadron, yet continues to experience shortness of breath. Plan to admit under hospitalist care for management of COPD exacerbation. Current assessment reveals no indications of pneumonia.
EKG
My independent EKG interpretation is:
- Time of EKG: Not specified.
- Rhythm: Normal sinus rhythm with premature atrial contractions (PACs).
- Heart Rate: 68 beats per minute.
- Notable Intervals: Not specified.
- [place]: Not specified.
- Abnormalities: Indications of ischemia.
Disposition:
SUMMARY OF ENCOUNTER
The patient, a 74-year-old male with a history of COPD exacerbation, presented to the emergency department with shortness of breath. Initial management included administration of nebulized bronchodilators (Duoneb) and corticosteroids
(dexamethasone). These treatments resulted in an improvement in the patients oxygenation and respiratory distress. No evidence of pneumonia was found in the current assessment.
DISPOSITION
Admit under hospitalist care for management of COPD exacerbation.
PLAN
Admit for continued management and monitoring of COPD exacerbation under hospitalist care.
INDEPENDENT REVIEW OF LABS AND INTERPRETATION OF TESTS
My independent EKG interpretation is: Normal sinus rhythm with premature atrial contractions (PACs), heart rate of 68 beats per minute, and indications of ischemia.
MEDICAL DECISION MAKING
- Number and Complexity of Problems Addressed: Chronic conditions affecting care [COPD, atrial fibrillation]
- Data:
Category 1:
My independent interpretation of EKG revealed a normal sinus rhythm with PACs and ischemia indications.
Category 3:
Discussion of management with the hospitalist for admission of the patient for further management of COPD exacerbation and monitoring.
- Risk:
Decisions to escalate care through hospitalization due to the complexity and risks associated with COPD exacerbation and the patients underlying comorbidities.
DIAGNOSIS
- Chronic Obstructive Pulmonary Disease with (acute) exacerbation, unspecified [J44.1]
Past History
Past History
ED Past Medical History: Arrthythmia (afib on Eliquis), COPD, GERD, HTN, Hypercholesterolemia and Psychiatric (Anxiety/depression)
ED Past Surgical History: Orthopedic and Other (Hernia repair surgery)
Social History
Tobacco: Former smoker
Alcohol: None
Drug: None
Personal: Single
Living: with family
Employment: Other
Family History
Family History: Other
Phy Exam
Physical Exam
Physical Exam:
.
Scores
Heart Failure Risk
Heart Failure Risk Score: Not Applicable
Course
Orders/Labs/Results
Orders:
Orders
04/26/25 12:41
Electrocardiogram (*1) Urgent
Reason for Study: Shortness of Breath
EKG- Treatment ONCE
04/26/25 12:54
Complete Blood Count/With Diff Urgent
Comprehensive Metabolic Panel Urgent
PTT Urgent
Pro-BNP [NT-proBNP] Urgent
04/26/25 14:39
CR Chest - 2 Views Urgent
Comment:
Reason For Exam: shortness of breath
04/26/25 14:59
Dexamethasone Sod Phosphate [Decadron] 10 mg IV NOW STA
Ipratropium/Albuterol Sulfate [Duoneb] 3 ml INH R NOW STA
04/26/25 15:10
Ipratropium/Albuterol Sulfate [Duoneb] 3 ml .ROUTE .STK-MED ONE
04/26/25 16:48
Acetaminophen [Tylenol] 650 mg PO NOW STA
Abnormal Lab Results
04/26/25
12:54
RBC 3.63 L 10^6/uL
(4.70-6.10)
Hgb 9.7 L g/dL
(13.0-18.0)
Hct 31.8 L %
(39.0-52.0)
MCH 26.7 L pg
(27.0-31.0)
MCHC 30.5 L g/dL
(33.0-37.0)
RDW 18.5 H %
(11.5-14.5)
MPV 10.5 H fL
(7.4-10.4)
Absolute Lymphs (auto) 0.5 L 10^3/uL
(1.2-3.4)
Neutrophils % 79.9 H %
(42.2-75.2)
Lymphocytes % 8.5 L %
(20.5-51.1)
APTT 40.6 H Sec
(23.4-35.0)
Carbon Dioxide 31 H mmol/L
(22-30)
Alkaline Phosphatase 24 L U/L
(38-126)
04/26/25 12:54
04/26/25 12:54
Vital Signs
Initial and Last Documented VS:
Initial Vital Signs
Temp Pulse Resp BP Pulse Ox
98.8 F 77 18 122/68 100
04/26/25 12:42 04/26/25 12:42 04/26/25 12:42 04/26/25 12:42 04/26/25 12:42
Last Documented Vital Signs
Temp Pulse Resp BP Pulse Ox
98.8 F 65 23 122/68 100
04/26/25 12:42 04/26/25 14:30 04/26/25 14:30 04/26/25 12:42 04/26/25 14:59
*Pulse Oximetry
SaO2: 100
Oxygen Mode of Delivery: Room air
Patient hypoxic: no
*Critical Care Note
Total Time (30-74mins, 75-104mins- exclusive of procedures): Not Applicable
ED Attending Note
-
Portions of this chart may have been created with voice recognition software.� Occasional wrong word or��sound alike� substitutions may have occurred due to the inherent limitations of voice recognition software.
Discharge Plan
Departure
Patient Disposition: Admit
Date of Disposition: 04/26/25
Time of Disposition: 17:46
Admit to: Telemetry
Presentation/result/management discussed w/ accepting MD/DO: Hospitalist
Patient with high blood pressure during this ER visit?: Yes
Condition: Fair
Discharge Problem:
COPD exacerbation
Prescriptions:
No Action
atorvastatin 40 mg Tablet
40 mg PO HS
furosemide 20 mg Tablet
20 mg PO BID
finasteride 5 mg Tablet
5 mg PO DAILY
sildenafil (pulm.hypertension) 20 mg Tablet
20 mg PO DAILY
Eliquis 5 mg Tablet
5 mg PO BID
Trelegy Ellipta 200-62.5-25 mcg Blister With Device
1 inh INHALATION R DAILY
pantoprazole 40 mg Tablet,Delayed Release (Dr/Ec)
40 mg PO BID Qty: 0 0RF
acetaminophen [Tylenol] 325 mg Tablet
650 mg PO TID
albuterol sulfate 2.5 mg /3 mL (0.083 %) Solution For Nebulization
2.5 mg INHALATION R BID
trazodone 50 mg Tablet
12.5 mg PO HS
bismuth subsalicylate [Pepto-Bismol] 262 mg/15 mL Suspension
524 mg PO DAILYPRN PRN (Reason: stomach upset)
magnesium oxide 250 mg magnesium Tablet
250 mg PO DAILY
escitalopram oxalate 10 mg Tablet
10 mg PO DAILY
melatonin 5 mg Tablet
5 mg PO HS
sennosides [Dunia-adán] 8.6 mg Tablet
8.6 mg PO BID Qty: 30 0RF
prednisone 10 mg Tablet
30 mg PO DAILY Qty: 7 0RF
lidocaine 4 % Adhesive Patch,Medicated
1 patch topical DAILY Qty: 5 0RF
tamsulosin 0.4 mg Capsule
0.4 mg PO DAILY Qty: 30 0RF
gabapentin 100 mg Capsule
100 mg PO TID Qty: 30 0RF
simethicone 80 mg Tablet,Chewable
80 mg PO QIDPRN PRN (Reason: gas pains) Qty: 30 0RF
albuterol sulfate 2.5 mg /3 mL (0.083 %) Solution For Nebulization
2.5 mg inhalation R Q4HPRN PRN (Reason: SOB/Wheezing) Qty: 30 0RF
lisinopril 10 mg tablet
10 mg PO DAILY Qty: 30 0RF
Referrals:
Kelsi Garcia MD, Resident [Family Provider, General]
Interventions
Interventions:
*Risk Screen - Suicide Last Done: 04/26/25 12:42
*General Assessment Last Done: 04/26/25 12:42
*Neglect/Abuse Screening Last Done: 04/26/25 12:42
Discharge Date and Time
Print Language: ARABIC
[2025-04-26] MEDS: DUONEB 3 ML INH ×2 (15:20→21:05)
[2025-04-26] MEDS: DECADRON 10 MG IV (15:23)
[2025-04-26] MEDS: TYLENOL 650 MG PO (17:08)
--- NOTE | 2025-04-26 17:17 | HPS.HSE ---
Family Physician
-
Family Physician: Kelsi Garcia MD, Reside
Chief Complaint
-
worsening shortness of breath
History of Present Illness
Patient is a 74-year-old male with past medical history significant for hypertension, hyperlipidemia, paroxysmal atrial fibrillation on Eliquis, HFpEF, COPD on 4 L oxygen, pulmonary hypertension, GERD, peptic ulcer disease and BPH who presented to
[facility] ED for evaluation of worsening shortness of breath. Patient states that he feels he has had increased shortness of breath over the past 3-4 days and was progressively getting worse. He reports associated dry cough and mild discomfort 'aching'
in ribs. He reports having loose stool last 2 days. He does indicate a 2 pound weight gain in last 3 days. Denies any recent travel, sick contact, fever, chills, nausea, vomiting or urinary symptoms.
Medical History
Past Medical History
Past Medical History: Reports Other
Additional Past Medical History:
hypertension
hyperlipidemia
paroxysmal atrial fibrillation on Eliquis
HFpEF
COPD on 4 L oxygen
pulmonary hypertension
GERD
peptic ulcer disease
BPH
Past Surgical History: Reports None
Social History
Tobacco: Former Smoker (quit 5 years ago with approximate 50 pack year history )
Alcohol: None
Drug: None
Living: With Family
Family History
Family History: Not pertinent
Allergies / Home Medications
Allergies reflects when Allergies were last updated in [facility].
Home Medications with original date entered in [facility]
Allergy/Medication List:
Allergies
Allergy/AdvReac Type Severity Reaction Status Date / Time
No Known Allergies Allergy Verified 03/26/25 19:39
Home Medications
apixaban 5 mg tablet (Eliquis) 5 mg PO BID Blood Clot Prevention/Tx 10/30/24
atorvastatin 40 mg tablet 40 mg PO HS High Cholesterol 10/30/24
finasteride 5 mg tablet 5 mg PO DAILY BPH 10/30/24
fluticasone fur. 200 mcg-umeclid 62.5 mcg-vilant 25 mcg inhalat.powder (Trelegy Ellipta) 1 inh inhalation R DAILY Lung/Breathing Issues 10/30/24
furosemide 20 mg tablet 20 mg PO BID Fluid Retention/Swelling 10/30/24
sildenafil (pulm.hypertension) 20 mg tablet 20 mg PO DAILY PHTN 10/30/24
pantoprazole 40 mg tablet,delayed release 40 mg PO BID GERD #0 tabs 11/27/24
acetaminophen 325 mg tablet (Tylenol) 650 mg PO TID mild Pain 03/26/25
bismuth subsalicylate 262 mg/15 mL oral suspension (Pepto-Bismol) 524 mg PO DAILYPRN PRN stomach upset 03/26/25
escitalopram oxalate 10 mg tablet 10 mg PO DAILY Depression 03/26/25
magnesium oxide 250 mg PO DAILY Supplement 03/26/25
melatonin 5 mg tablet 5 mg PO HS Sleep 03/26/25
trazodone 50 mg tablet 12.5 mg PO HS Sleep 03/26/25
albuterol sulfate 2.5 mg/3 mL (0.083 %) solution for nebulization 2.5 mg (3 mL) inhalation R Q4HPRN PRN SOB/Wheezing #30 mL 04/08/25
gabapentin 100 mg capsule 100 mg PO TID Pain #30 caps 04/08/25
lisinopril 10 mg tablet 10 mg PO DAILY #30 tabs 04/08/25
simethicone 80 mg chewable tablet 80 mg PO QIDPRN PRN gas pains #30 tabs 04/08/25
tamsulosin 0.4 mg capsule 0.4 mg PO DAILY BPH #30 caps 04/08/25
lidocaine 4 % topical patch 1 patch topical DAILY 04/26/25
sennosides 8.6 mg tablet (Dunia-adán) 8.6 mg PO BIDPRN PRN constipation 04/26/25
Review of Systems
-
History Source: Patient
Constitutional: Reports No Symptoms
EENT: Reports No Symptoms
Respiratory: Reports Cough (dry) and Trouble Breathing (shortness of breath at rest )
Cardiac: Reports No Symptoms
Abdomen/GI: Reports No Symptoms
: Reports No Symptoms
Musculoskeletal: Reports No Symptoms
Skin: Reports No Symptoms
Neurological: Reports No Symptoms
Endocrine: Reports No Symptoms
Hematologic/Lymphatic: Reports No Symptoms
Psych: Reports No Symptoms
Physical Exam
Vital Signs
Vital Signs
Temp Pulse Resp BP Pulse Ox
98.8 F 65 23 122/68 100
04/26/25 12:42 04/26/25 14:30 04/26/25 14:30 04/26/25 12:42 04/26/25 14:59
Physical Exam
General: Well Developed, Well Nourished, No Apparent Distress and Appears Chronically Ill
HEENT: NormoCephalic, Moist mucous membranes and Atraumatic
Respiratory: Clear
Cardiac: S1/S2 and Irregular Rhythm
GI: Soft, Non Tender, Non Distended and Normal Bowel Sounds; No Organomegaly
Rectal: Deferred by Provider
Genito-urinary: Deferred by me
Musculoskeletal: No Clubbing, No Cyanosis and No Edema
Skin: Warm and IV/Catheter Site
Neuro: Awake, AO x 3 and Nonfocal/grossly intact
Hematologic/Lymphatic: No Lymphadenopathy
Psych: Calm
Laboratory Results
-
04/26/25 12:54
04/26/25 12:54
Laboratory Results
APTT 40.6 Sec (23.4-35.0) H 04/26/25 12:54
Total Bilirubin 0.5 mg/dl (0.2-1.3) 04/26/25 12:54
AST 23 U/L (17-59) 04/26/25 12:54
ALT 12 U/L (0-50) 04/26/25 12:54
Alkaline Phosphatase 24 U/L (38-126) L 04/26/25 12:54
Data Reviewed
-
Diagnostic Radiology: Report Reviewed by me (CXR: Chronic obstructive lung disease. Linear scarring in the right lung apex. No acute cardiopulmonary process.)
Medical Tests (Nuc Med, Echo, EKG etc): Report Reviewed by me (EKG: SINUS RHYTHM WITH PREMATURE ATRIAL COMPLEXES WITH Aberrant conduction NONSPECIFIC ST ABNORMALITY)
Lab Data: Labs Reviewed by me (hgb 9.7, hct 31.8, pBNP 1760)
Impression/Plan
-
IMPRESSION/PLAN:
#COPD exacerbation
hgb 9.7, hct 31.8
EKG: SINUS RHYTHM WITH PREMATURE ATRIAL COMPLEXES WITH Aberrant conduction
NONSPECIFIC ST ABNORMALITY
CXR: Chronic obstructive lung disease. Linear scarring in the right lung apex. No acute cardiopulmonary process.
- Admit to
- DuoNebs QID and PRN
- Dexamethasone 4mg q8
- continue Trelegy
#paroxysmal atrial fibrillation
- continue Eliquis and metoprolol
#hypertension
- continue lisinopril
#hyperlipidemia
- continue atorvastatin
#HFpEF
pBNP 1760
- daily weights
- I & Os
- continue furosemide
#pulmonary hypertension
- continue sildenafil
#GERD
#peptic ulcer disease
- continue pantoprazole
#BPH
- continue finasteride and tamsulosin
#depression/anxiety
- continue escitalopram
Code status: full code
DVT prophylaxis: Eliquis
--- NOTE | 2025-04-26 18:16 | CM ---
CM reviewed chart and met with pt bedside in ED. Lives with his sister Jordy in 2 story home, 10 BO, 15 steps to BR/BA.
Independent in ADLs, personal care and ambulation at baseline. Has home O2, uses 3L NC continuously, supplied by [employer].
Confirms prescription coverage.
Current with [facility] for [facility], also hx [facility]. Hx [facility] in [place], per notes from previous admission, pt is out of Rehab days.
PCP: Kelsi Garcia
Pharmacy: [facility]
CM will continue to follow for any discharge planning needs.
--- NOTE | 2025-04-26 19:17 | W.PN.UPDATE ---
Update Note
Progress Note Update
This is an addendum to H&P written by Amina Roman on 04/26/2025. �Patient seen and examined independently with [facility].
74-year-old male past medical history of COPD on 3 L baseline, pulmonary hypertension, paroxysmal atrial fibrillation on Eliquis, HFpEF, hypertension, chronic anemia, GERD, hyperlipidemia, peptic ulcer disease, BPH, anxiety/depression, chronic back
pain, presenting with shortness of breath.
Vital signs normal. �Labs show hemoglobin stable 9.7. �Cardiac BNP 1700. �Chest x-ray shows chronic obstructive lung disease. �Linear scarring in the right lung apex.
Patient with acute COPD exacerbation. �DuoNebs every 6 hours. �Dexamethasone every 12 hours.
--- NOTE | 2025-04-26 19:30 | PTCARENOTE ---
Pt. admitted through E.D., AAO x 3, vs stable, SA, PVC, PAC's on monitor, bed alarm intact, call zhang within reach.
[2025-04-26 19:40] VITALS: BP 144/62
[2025-04-26 20:17] VITALS: BMI 19.7
[2025-04-26 20:22] VITALS: BP 152/70
[2025-04-26] MEDS: ELIQUIS 5 MG PO (21:29)
[2025-04-26] MEDS: LASIX 20 MG PO (21:30)
[2025-04-26] MEDS: PROTONIX 40 MG PO (21:30)
[2025-04-26] MEDS: MELATONIN 5 MG PO (21:30)
[2025-04-26] MEDS: NEURONTIN 100 MG PO (21:31)
[2025-04-26] MEDS: LIPITOR 40 MG PO (21:31)
[2025-04-26] MEDS: DESYREL 12.5 MG PO (21:38)
[2025-04-26] MEDS: LIDOCAINE 4% PATCH 1 PATCH TOPICAL (22:58)
[2025-04-26] MEDS: DECADRON 4 MG IV (23:01)
[2025-04-26] MEDS: FLUSH (NSS) 1 FLUSH IV (23:03)
[2025-04-26 23:32] VITALS: BP 156/70
[2025-04-27 06:36] VITALS: BMI 19.7
[2025-04-27 07:08] VITALS: BP 137/70
[2025-04-27] MEDS: NEURONTIN 100 MG PO ×3 (07:51→21:23)
[2025-04-27] MEDS: REVATIO 20 MG PO (07:52)
[2025-04-27] MEDS: TYLENOL 650 MG PO ×3 (07:52→18:20)
[2025-04-27] MEDS: ZESTRIL 10 MG PO (07:52)
[2025-04-27] MEDS: PROTONIX 40 MG PO ×2 (07:52→21:19)
[2025-04-27] MEDS: LASIX 20 MG PO ×2 (07:52→16:37)
[2025-04-27] MEDS: ELIQUIS 5 MG PO ×2 (07:53→21:19)
[2025-04-27] MEDS: PROSCAR 5 MG PO (07:53)
[2025-04-27] MEDS: LEXAPRO 10 MG PO (07:53)
[2025-04-27] MEDS: REMOVE LIDOCAINE PATCH 1 PATCH REMOVE (07:53)
[2025-04-27] MEDS: FLOMAX 0.4 MG PO (07:53)
[2025-04-27] MEDS: SYMBICORT 160/4.5 MCG INHALER 2 PUFF INH (08:07)
[2025-04-27] MEDS: VENTOLIN NEBULES 2.5 MG INH ×3 (08:07→15:07)
[2025-04-27] MEDS: SPIRIVA RESPIMAT 2.5 MCG 2 PUFF INH (08:08)
[2025-04-27] MEDS: DECADRON 4 MG IV ×2 (08:30→16:37)
[2025-04-27 08:59] LABS: Hematocrit 30.7 % (39.0-52.0); Hemoglobin 9.6 g/dL (13.0-18.0); Mean Corp Hgb Conc. 31.3 g/dL (33.0-37.0); Mean Corpuscular Volume 85.0 fL (80.0-94.0); Nucleated Red Blood Cells % 0 % (-); Platelet Count 282 10^3/uL (130-400); Red Cell Dist. Width 17.9 % (11.5-14.5)
--- NOTE | 2025-04-27 09:19 | W.PN.HOSP.TC ---
Today's Communication/Plan
-
Continue DuoNebs, Trelegy, Decadron
Pulmonary and cardiology consulted
Monitor labs, symptoms.
Assessment / Plan
Assessment / Plan
Patient is a 74-year-old male with past medical history significant for hypertension, hyperlipidemia, paroxysmal atrial fibrillation on Eliquis, HFpEF, COPD on 4 L oxygen, pulmonary hypertension, GERD, peptic ulcer disease and BPH who presented to
[facility] ED for evaluation of worsening shortness of breath. Patient states that he feels he has had increased shortness of breath over the past 3-4 days and was progressively getting worse. He reports associated dry cough and mild discomfort 'aching'
in ribs. He reports having loose stool last 2 days. He does indicate a 2 pound weight gain in last 3 days. Denies any recent travel, sick contact, fever, chills, nausea, vomiting or urinary symptoms.�
EKG 04/26/25: SINUS RHYTHM WITH PREMATURE ATRIAL COMPLEXES WITH Aberrant conduction.�NONSPECIFIC ST ABNORMALITY
CXR 04/26/25: Chronic obstructive lung disease. Linear scarring in the right lung apex. No acute cardiopulmonary process.
ECHO 04/01/25: LV ejection fraction is 60-65%
Assessment/Plan:
# Acute COPD exacerbation
History of chronic hypoxemic respiratory failure, uses 3 L O2 at baseline. Currently not having shortness of breath/recent.
- Hemoglobin 9.7 04/26/25, hct 31.8. Trend H&H.
- Continue DuoNebs QID and PRN
- Continue Dexamethasone 4mg q8, and Trelegy.
�Pulmonary consulted.
# Ventricular tachycardia
� Patient had 15 beats of V. tach at rest. No chest pain/discomfort.
� Cardiology consulted.
� Check Echo.
# Paroxysmal atrial fibrillation
- Continue Eliquis and metoprolol
# Hypertension
- Continue lisinopril 10 mg PO daily
# Hyperlipidemia
- Continue atorvastatin
# Heart failure with preserved ejection fraction
Echo as above
- proBNP 1760 on 04/26/25
- Continue daily weights, I&Os.
- Continue furosemide
# Pulmonary hypertension
- Continue sildenafil
# Gastroesophageal reflux disease
# Peptic ulcer disease
- continue pantoprazole
# Benign prostatic hyperplasia
- continue finasteride and tamsulosin
# Depression
# Anxiety
- Continue escitalopram
Code status: full code
DVT prophylaxis: Eliquis�
Anticipated Discharge: > 48 hours
Subjective/Interval History
-
Date of Service: April 27, 2025
Patient said his breathing improved from yesterday. He he still have Lateral chest wall pain with deep breathing, improved from yesterday. No new complaints. The nurse informed that patient had 19 beats of ventricular tachycardia at rest with no
chest discomfort/pain.
Objective Data
-
Labs:
Laboratory Results
04/27/25 04/27/25 04/27/25
08:36 08:36 08:36
WBC 4.8
Hgb 9.6 L
Hct 30.7 L
Plt Count 282
Sodium Cancelled Pending
Potassium Cancelled Pending
Chloride Cancelled
Carbon Dioxide
BUN
Creatinine
Glucose
Calcium
Total Bilirubin
AST
ALT
Alkaline Phosphatase
04/27/25 04/27/25 04/27/25
08:36 08:36 08:36
WBC
Hgb
Hct
Plt Count
Sodium
Potassium
Chloride Pending
Carbon Dioxide Cancelled Pending
BUN Cancelled Pending
Creatinine Cancelled
Glucose
Calcium
Total Bilirubin
AST
ALT
Alkaline Phosphatase
04/27/25 04/27/25 04/27/25
08:36 08:36 08:36
WBC
Hgb
Hct
Plt Count
Sodium
Potassium
Chloride
Carbon Dioxide
BUN
Creatinine Pending
Glucose Cancelled Pending
Calcium Cancelled Pending
Total Bilirubin Pending
AST Pending
ALT Pending
Alkaline Phosphatase Pending
Vital Signs:
Vital Signs
Temp Pulse Resp BP Pulse Ox
98.4 F 62 16 137/70 100
04/27/25 07:08 04/27/25 08:11 04/27/25 08:11 04/27/25 07:08 04/27/25 08:11
I&O
04/26/25 04/27/25 04/28/25
06:59 06:59 06:59
Intake Total 120 / 120
Output Total 200 / 200
Balance -80 / -80
Review of Systems
-
History Source: Patient
Constitutional: Reports No Symptoms
EENT: Reports No Symptoms Reported
Respiratory: Reports Trouble Breathing
Cardiac: Reports Other (Left chest wall pain.)
Abdomen/GI: Reports No Symptoms
Genitourinary: Reports No Symptoms
Musculoskeletal: Reports No Symptoms
Skin: Reports No Symptoms
Neuro: Reports No Symptoms
Endocrine: Reports No Symptoms
Hematologic / Lymphatic: Reports No Symptoms
Allergy / Immunology: Reports No Symptoms
Physical Exam
-
General: Well Developed, Well Nourished, No Apparent Distress, Comfortable and Conversant
HEENT: Normocephalic, Atraumatic, Moist Mucous Membranes and Anicteric
Respiratory: Clear to Auscultation
Cardiac: Regular Rhythm and S1/S2
GI: Soft, Nontender, Nondistended, Normal Bowel Sounds and No Hepatosplenomegaly
Musculoskeletal: No Clubbing, No Cyanosis and No Edema
Skin: Warm and Dry
Neuro: Awake, AO x 3 and Nonfocal/Grossly Intact
Psych: Calm
Data Reviewed
-
Diagnostic Radiology: Report Reviewed by me and Discussed with Physician
Labs: Labs Reviewed by me, Discussed with Physician and Discussed with Nurse
Old Records: Reviewed
[2025-04-27 09:30] LABS: ALT (SGPT) 13 U/L (0-50); AST (SGOT) 17 U/L (17-59); Albumin 3.7 g/dl (3.5-5.0); Alkaline Phosphatase 30 U/L (38-126); Blood Urea Nitrogen 18 mg/dl (9-20); Calcium 9.8 mg/dl (8.4-10.2); Carbon Dioxide 31 mmol/L (22-30); Chloride 104 mmol/L (98-107); Estimated Creatinine Clearance 77 ml/min; Glucose 203 mg/dl (70-99); Magnesium 1.9 mg/dl (1.6-2.3); Potassium 4.4 mmol/L (3.5-5.1); Sodium 140 mmol/L (135-145); Total Protein 6.2 g/dl (6.3-8.2); eGFR > 60.00
--- NOTE | 2025-04-27 09:32 | W.PN.UPDATE ---
Update Note
Progress Note Update
I saw and evaluated the patient. I reviewed the resident�s note and agree with findings and plan as documented in the resident�s note.
Reports SOB
Gen: NAD, AAOx3, appears chronically ill.
Eyes: EOMI, PERRLA, no scleral icterus.
Neck: supple.
CV: RRR, +S1/S2, no m/r/g.
Resp: CTAB, no rales, wheezes, or rhonchi.
Abd: +BS, soft, NT, ND
Skin: No rashes.
Neuro: CN 2-12 intact, non-focal.
Psych: Normal mood and affect.
CXR: Chronic obstructive lung disease. Linear scarring in the right lung apex. No acute cardiopulmonary process.
Possible acute COPD exac:
-chronic hypoxemic respiratory failure, on 3L NC O2 at baseline, currently on 3L NC O2
-Patient without wheezing and does not appear short of breath (similar to prior admission)
-cont Duonebs
-cont Trelegy equivalent
-cont Decadron for now
-c/s pulmonary
NSVT:
-15 bts
-c/s cards
-check echo
Other problems:
PAF: cont Eliquis
Essential HTN: cont ACEi
HLD: cont stat
Chronic HFpEF: cont Lasix
Pulm HTN: cont sildenafil
GERD/PUD: cont PPI
BPH: cont finasteride/tamsulosin
Depression/anxiety: cont Lexapro
FULL/Eliquis
--- NOTE | 2025-04-27 10:06 | PTCARENOTE ---
at 10:00, the patient has 19 beats of Vtach showing in tele monitor, at that time, the patient was resting in bed, no discomfort complain, MD and residents are notified, no new order at this time.
[2025-04-27 11:08] VITALS: BP 121/55
[2025-04-27 15:05] VITALS: BP 118/46
--- NOTE | 2025-04-27 15:46 | CON.PUL ---
Consultation
Consultation Request
Date/Time Consultation Requested: 04/27
Date/Time Consultation Performed: 04/27
Reason for Consultation: COPD exacerbation
Medical History
-
History of Present Illness:
History obtained from the chart and obtaining history from the patient. Of note patient was recently discharged 04/08/2025 for COPD exacerbation. Also of note, despite multiple recommendations during prior hospital stays, patient has not followed up
with pulmonary or primary as recommended post discharge. Hospitalized October 2024, November 2024, March 2025. 74-year-old male with history of COPD, atrial fibrillation presents by ambulance to the ED. Per ED records, patient did not have any
significant complaints (possible dictation error), but responded to Decadron and DuoNebs. Per admission records patient has been complaining of increasing shortness of breath over 3 to 4 days along with mild loose stool. Upon arrival, afebrile,
pulse 77, breathing 18, blood pressure 122/68, 100% saturation on room air. Patient was admitted for COPD exacerbation. We are asked to help from a pulmonary standpoint
Patient states he finds it difficult to take a deep breath over the last 3 to 5 days. He admits to a dry cough, denies hemoptysis, chest pain, lightheadedness, dizziness. His chronic shortness of breath, finds it difficult to walk up 8 steps. He
has been on oxygen therapy for 2 years.
.
PMH: Hypertension, hyperlipidemia, atrial fibrillation on anticoagulation, history of heart failure, COPD on 4 L of oxygen, pulmonary hypertension, GERD, peptic ulcer disease, BPH. History of back stimulator, hernia repair, right arm fracture
Past Medical History
Past Medical History: None (See above)
Past Surgical History: None (See above)
Social History
Tobacco: Former Smoker ([id number], quit 2014)
Alcohol: None
Drug: None
Personal: Single
Living: With Family (Lives with sister)
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
Family History
Family History: Other (8 children, 1 with cystic fibrosis. 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 He has 9 siblings, none with lung problems. He thinks his mother was a carrier)
Allergies / Home Medications
Allergies
Allergy/AdvReac Type Severity Reaction Status Date / Time
No Known Allergies Allergy Verified 03/26/25 19:39
Home Medications
�Medication �Instructions �Recorded �Confirmed �Last Taken �Type
apixaban 5 mg tablet (Eliquis) 5 mg PO BID Blood Clot 10/30/24 04/26/25 04/25/25 History
Prevention/Tx
atorvastatin 40 mg tablet 40 mg PO HS High Cholesterol 10/30/24 04/26/25 04/25/25 History
finasteride 5 mg tablet 5 mg PO DAILY BPH 10/30/24 04/26/25 04/25/25 History
fluticasone fur. 200 mcg-umeclid 1 inh inhalation R DAILY 10/30/24 04/26/25 04/25/25 History
62.5 mcg-vilant 25 mcg Lung/Breathing Issues
inhalat.powder (Trelegy Ellipta)
furosemide 20 mg tablet 20 mg PO BID Fluid 10/30/24 04/26/25 04/25/25 History
Retention/Swelling
sildenafil (pulm.hypertension) 20 20 mg PO DAILY PHTN 10/30/24 04/26/25 04/25/25 History
mg tablet
pantoprazole 40 mg tablet,delayed 40 mg PO BID GERD #0 tabs 11/27/24 04/26/25 04/25/25 Rx
release
acetaminophen 325 mg tablet 650 mg PO TID mild Pain 03/26/25 04/26/25 04/25/25 History
(Tylenol)
bismuth subsalicylate 262 mg/15 mL 524 mg PO DAILYPRN PRN stomach 03/26/25 04/26/25 2 Days Ago History
oral suspension (Pepto-Bismol) upset ~03/26/25
escitalopram oxalate 10 mg tablet 10 mg PO DAILY Depression 03/26/25 04/26/25 04/25/25 History
magnesium oxide 250 mg PO DAILY Supplement 03/26/25 04/26/25 04/25/25 History
melatonin 5 mg tablet 5 mg PO HS Sleep 03/26/25 04/26/25 04/25/25 History
trazodone 50 mg tablet 12.5 mg PO HS Sleep 03/26/25 04/26/25 04/25/25 History
albuterol sulfate 2.5 mg/3 mL 2.5 mg (3 mL) inhalation R Q4HPRN 04/08/25 04/26/25 Unknown Rx
(0.083 %) solution for nebulization PRN SOB/Wheezing #30 mL
gabapentin 100 mg capsule 100 mg PO TID Pain #30 caps 04/08/25 04/26/25 04/25/25 Rx
lisinopril 10 mg tablet 10 mg PO DAILY #30 tabs 04/08/25 04/26/25 04/25/25 Rx
simethicone 80 mg chewable tablet 80 mg PO QIDPRN PRN gas pains #30 04/08/25 04/26/25 Unknown Rx
tabs
tamsulosin 0.4 mg capsule 0.4 mg PO DAILY BPH #30 caps 04/08/25 04/26/25 04/25/25 Rx
lidocaine 4 % topical patch 1 patch topical DAILY 04/26/25 04/26/25 Unknown History
sennosides 8.6 mg tablet (Dunia-adán) 8.6 mg PO BIDPRN PRN constipation 04/26/25 04/26/25 Unknown History
Review of Systems
-
All other systems: Negative unless noted
Vitals / Labs / Diagnostic Testing
Vital Signs
Temp Pulse Resp BP Pulse Ox
98.2 F 70 16 118/46 99
04/27/25 15:05 04/27/25 15:08 04/27/25 15:08 04/27/25 15:05 04/27/25 15:05
Lab Data
04/27/25 08:36
04/27/25 08:36
Diagnostic Testing:
Physical Exam
-
HEENT: Normocephalic and Anicteric
Cardiovascular: S1/S2, Irregular Rhythm, Murmur (n), Rub (n) and Peripheral Edema (n)
Respiratory: Wheeze (n), Rales (n), Rhonchi (n), Non-Labored Respirations and Other (Bronchial breath sounds)
GI: Soft, Non Distended and Non Tender
Neurology: Awake, Alert and No Motor Deficits
Skin: Good Color
General: Comfortable
Assessment
-
74-year-old former smoking male with a history of COPD on 4 L oxygen, pulmonary hypertension, PAF on Eliquis, GERD, hyperlipidemia, hypertension, BPH who presented with increasing shortness of breath for 3-5 days, admitted for COPD exacerbation.
Patient has been admitted for COPD exacerbations 3 times in the last 7 months in 2024. He has failed to follow-up with pulmonary nor his primary postdischarge
Increased shortness of breath x 3 to 4 days
Chest exam is clear, no wheezes
Acute COPD exacerbation
Doubt significant component
Aspiration syndrome
Abnormal barium swallow study November 2024
Transient Benadryl penetration
Severe emphysema
Basilar changes per lumbar CT November 2024 (my review)
Anemia
History of heart failure, elevated proBNP
Profoundly deconditioned
Conditions present prior to admission:
Mild pulm hypertension, PA systolic pressure 36
Normal biventricular function, per echo 04/01/2025
History of COPD
On home oxygen, 4 L since 2022
COPD exacerbation October, November, March 2025
Does not follow-up with pulmonary
Chronic hypercapnic respiratory insufficiency
Baseline pCO2 suspected 60
PAF on Eliquis.
History of heart failure
Suspect diastolic dysfunction
GERD.
Hypertension/Hyperlipidemia.
Peptic ulcer disease
BPH
Family history of cystic fibrosis
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
1 son with cystic fibrosis,
Anxiety/depression
Chronic back pain
Right arm fracture. Finger surgery. Back stimulator replacement/removal. Hernia repair. Cataract.
Plan/recommendations
At this time, patient appears to be deconditioned. Chest exam is clear, bronchial breath sounds
I cannot appreciate any wheezes or crackles
Chest x-ray consistent with COPD, hyperinflation
Lumbar CT from earlier 2024 shows severe emphysema basilar predominant
Questionable family history of cystic fibrosis noted, likely not pertinent to patient's clinical status
It is also noted that patient was evaluated by palliative care earlier in 2024 and was being followed by them
Moving forward
I have a low suspicion for significant COPD exacerbation at this time
Would prefer to discontinue IV Decadron
We will place on prednisone 20 mg for now and reassess
Patient denies taking regular inhalers at home, only albuterol and nebulizer
Medication lists Trelegy, patient not sure whether he is using this
Preferred DuoNebs 4 times daily and budesonide twice a day for now
Patient has history of heart failure although does not have crackles, does not have lower extremity swelling
Elevated proBNP noted. This appears to be elevated during multiple hospital stays in 2024
Check nocturnal oximetry on 2 L
Check ABG in a.m.
Thromboembolic disease less likely given chronic Eliquis therapy
Depending on clinical status, will check Doppler study on Tuesday if symptoms persist
Recent echocardiogram in March does not confirm significant pulm hypertension
If he continues to have subjective dyspnea, shortness of breath, he may benefit from right heart catheterization
Patient was seen by cardiology during last hospital stay
History of syncope also noted, thought to be due from overdiuresis, orthostasis. Apparently patient was on sildenafil at that time.
Would n consider discontinuing sildenafil. Not sure about indication. Would consider right heart catheterization, left heart catheterization. Unclear how long patient has been on this medication
After reviewing his records, this was on his medication list when he presented to [facility] in October 2024. Patient cannot recall when this medication was started or why
DVT prophylaxis: Remains on Eliquis
GI prophylaxis: Remains on Protonix
Reviewed with patient at length
Reviewed with patient importance of pulmonary follow-up postdischarge
We will continue to follow
Diagnostic data:
Chest x-ray 10/30/2024-hyperinflated lungs, no acute process
Chest x-ray 11/19/2024-bilateral opacifications right greater than left likely representing pneumonia
Chest x-ray 11/24/2024-stable small right pleural effusion probable right lung pneumonia and/or interstitial edema
Chest x-ray 03/28/2025-hazy opacification left upper lung zone may represent pneumonia or subsegmental atelectasis, minimal opacification within the right lung base improved
Echo 04/01/2025: Normal biventricular function, PA pressure 36
--- NOTE | 2025-04-27 16:50 | CON.CAR ---
Consultation
Consultation Request
Date/Time Consultation Requested: 04/27/25 @ 10:10 AM
Date/Time Consultation Performed: 04/27/25 @ 4 PM
Requesting Provider: Pedro Paris MD
Performing Provider: Jin Diaz MD
Reason for Consultation: NSVT
Medical History
-
Chief Complaint: NSVT
History of Present Illness:
Thomas De La Cruz is a 74-year-old male (establishing care with Dr. Chaudhary), with chronic HFpEF, paroxysmal atrial fibrillation, hypertension, COPD, chronic hypoxic respiratory failure (on 4L NC), dyslipidemia, and pulmonary hypertension who presented
to the emergency department with a chief complaint of shortness of breath, found to have COPD exacerbation. Improving with steroids and DuoNebs. He had an asymptomatic 16 beat run NSVT on telemetry at 10 AM today for which we are consulted. Of note,
recent admission (03/28/25-04/08/25) for CHF/COPD exacerbation complicated by syncopal event; mostly thought to be orthostatic hypotension but CCBs and BBs were held on discharge. He tells me SOB has improved from admission; no other CV complaints.
Past Medical History
Past Medical History: Arrhythmias (Paroxysmal atrial fibrillation), CHF (HFpEF), COPD (With oxygen dependence [4L]), GERD, HTN, Hypercholesterolemia and Other (Pulmonary hypertension)
Past Surgical History: Orthopedic
Social History
Tobacco: Former Smoker
Alcohol: None
Living: With Family (Sister)
Employment: Retired
Family History
Family History: Reviewed & Not Pertinent
Allergies / Home Medications
Allergy/AdvReac Type Severity Reaction Status Date / Time
No Known Allergies Allergy Verified 03/26/25 19:39
�Medication �Instructions �Recorded �Confirmed �Type
apixaban 5 mg tablet (Eliquis) 5 mg PO BID Blood Clot 10/30/24 04/26/25 History
Prevention/Tx
atorvastatin 40 mg tablet 40 mg PO HS High Cholesterol 10/30/24 04/26/25 History
finasteride 5 mg tablet 5 mg PO DAILY BPH 10/30/24 04/26/25 History
fluticasone fur. 200 mcg-umeclid 1 inh inhalation R DAILY 10/30/24 04/26/25 History
62.5 mcg-vilant 25 mcg Lung/Breathing Issues
inhalat.powder (Trelegy Ellipta)
furosemide 20 mg tablet 20 mg PO BID Fluid 10/30/24 04/26/25 History
Retention/Swelling
sildenafil (pulm.hypertension) 20 20 mg PO DAILY PHTN 10/30/24 04/26/25 History
mg tablet
pantoprazole 40 mg tablet,delayed 40 mg PO BID GERD #0 tabs 11/27/24 04/26/25 Rx
release
acetaminophen 325 mg tablet 650 mg PO TID mild Pain 03/26/25 04/26/25 History
(Tylenol)
bismuth subsalicylate 262 mg/15 mL 524 mg PO DAILYPRN PRN stomach 03/26/25 04/26/25 History
oral suspension (Pepto-Bismol) upset
escitalopram oxalate 10 mg tablet 10 mg PO DAILY Depression 03/26/25 04/26/25 History
magnesium oxide 250 mg PO DAILY Supplement 03/26/25 04/26/25 History
melatonin 5 mg tablet 5 mg PO HS Sleep 03/26/25 04/26/25 History
trazodone 50 mg tablet 12.5 mg PO HS Sleep 03/26/25 04/26/25 History
albuterol sulfate 2.5 mg/3 mL 2.5 mg (3 mL) inhalation R Q4HPRN 04/08/25 04/26/25 Rx
(0.083 %) solution for nebulization PRN SOB/Wheezing #30 mL
gabapentin 100 mg capsule 100 mg PO TID Pain #30 caps 04/08/25 04/26/25 Rx
lisinopril 10 mg tablet 10 mg PO DAILY #30 tabs 04/08/25 04/26/25 Rx
simethicone 80 mg chewable tablet 80 mg PO QIDPRN PRN gas pains #30 04/08/25 04/26/25 Rx
tabs
tamsulosin 0.4 mg capsule 0.4 mg PO DAILY BPH #30 caps 04/08/25 04/26/25 Rx
lidocaine 4 % topical patch 1 patch topical DAILY 04/26/25 04/26/25 History
sennosides 8.6 mg tablet (Dunia-adán) 8.6 mg PO BIDPRN PRN constipation 04/26/25 04/26/25 History
Review of Systems
-
All other systems: Negative unless noted
Physical Exam
Vital Signs
Temp Pulse Resp BP Pulse Ox
98.2 F 70 16 118/46 99
04/27/25 15:05 04/27/25 15:08 04/27/25 15:08 04/27/25 15:05 04/27/25 15:05
Lab Results
04/27/25 08:36
04/27/25 08:36
Ifd-N-Ucgkilzphbo Pept 1760 pg/ml 04/26/25 12:54
Physical Exam
General: Other (chronic cachexia)
Respiratory: Rhonchi and Other (breathing sounds 'tight')
Cardiac: S1/S2; Negative Murmur or Peripheral Edema
Neuro: AO x 3
Impression / Plan
-
74-year-old male with chronic HFpEF, paroxysmal atrial fibrillation, hypertension, COPD, chronic hypoxic respiratory failure (on 4L NC), dyslipidemia, and pulmonary hypertension who presented to the emergency department with a chief complaint of
shortness of breath, found to have COPD exacerbation. Cardiology is consulted for NSVT.
Business Administration Instructor: Jet
NSVT
-Asymptomatic. 16 beat run on 04/27 @ 10 AM.
-Unclear etiology. Normal electrolytes. No evidence of structural heart disease by recent echo. ECG unchanged.
-Resume low dose metoprolol succinate and monitor
COPD exacerbation
-Primary team managing
HFpEF
-Chronic, does not appear to be in an exacerbation
-Continue home Lasix BID
pAF
-Continue Eliquis
Data Reviewed
-
EKG: Tracing Personally Visualized and interpreted, Discussed with Physician and Discussed with Patient
Radiology: Report Reviewed by me
Medical Tests (Nuc Med, Echo etc): Report Reviewed by me
Labs: Labs Reviewed by me, Discussed with Physician and Discussed with Patient
[2025-04-27] MEDS: DUONEB 3 ML INH (20:20)
[2025-04-27] MEDS: PULMICORT 0.5 MG INH (20:20)
[2025-04-27 20:24] VITALS: BP 129/65
[2025-04-27] MEDS: LIDOCAINE 4% PATCH 1 PATCH TOPICAL (21:20)
[2025-04-27] MEDS: MELATONIN 5 MG PO (21:23)
[2025-04-27] MEDS: DESYREL 12.5 MG PO (21:23)
[2025-04-27] MEDS: LIPITOR 40 MG PO (21:23)
[2025-04-27] MEDS: TOPROL XL 25 MG PO (21:28)
[2025-04-27 23:40] VITALS: BP 103/63
[2025-04-28] VITALS (10 sets, daily range): BP systolic 94–176; BP diastolic 42–82; PULSE 59–66; O2SAT 99; BMI 19.9
[2025-04-28] MEDS: TYLENOL 650 MG PO ×4 (04:43→22:49)
[2025-04-28 05:05] LABS: B.E. 6.9 mmol/L; HCO3 31.9 mmol/L (21-28); O2 Saturation % 100.0 % (94-98); PCO2 47 mmHg (35-48); PO2 116 mmHg (83-108)
[2025-04-28] MEDS: LEXAPRO 10 MG PO (07:30)
[2025-04-28] MEDS: PROTONIX 40 MG PO ×2 (07:30→20:42)
[2025-04-28] MEDS: ELIQUIS 5 MG PO ×2 (07:31→20:42)
[2025-04-28] MEDS: NEURONTIN 100 MG PO ×3 (07:31→20:42)
[2025-04-28] MEDS: ZESTRIL 10 MG PO (07:31)
[2025-04-28] MEDS: PROSCAR 5 MG PO (07:31)
[2025-04-28] MEDS: FLOMAX 0.4 MG PO (07:31)
[2025-04-28] MEDS: DELTASONE 20 MG PO (07:31)
[2025-04-28] MEDS: LASIX 20 MG PO ×2 (07:34→15:56)
[2025-04-28] MEDS: PULMICORT 0.5 MG INH ×2 (07:47→20:13)
[2025-04-28] MEDS: DUONEB 3 ML INH ×4 (07:47→20:13)
--- NOTE | 2025-04-28 09:20 | W.PN.HOSP.TC ---
Today's Communication/Plan
-
PT/OT consult
Pulm following, bedside spirometry tomorrow
Assessment / Plan
Assessment / Plan
Patient is a 74-year-old male with past medical history significant for hypertension, hyperlipidemia, paroxysmal atrial fibrillation on Eliquis, HFpEF, COPD on 4 L oxygen, pulmonary hypertension, GERD, peptic ulcer disease and BPH who presented to
[facility] ED for evaluation of worsening shortness of breath. Patient states that he feels he has had increased shortness of breath over the past 3-4 days and was progressively getting worse. He reports associated dry cough and mild discomfort 'aching'
in ribs. He reports having loose stool last 2 days. He does indicate a 2 pound weight gain in last 3 days. Denies any recent travel, sick contact, fever, chills, nausea, vomiting or urinary symptoms.�
EKG 04/26/25: SINUS RHYTHM WITH PREMATURE ATRIAL COMPLEXES WITH Aberrant conduction.�NONSPECIFIC ST ABNORMALITY
CXR 04/26/25: Chronic obstructive lung disease. Linear scarring in the right lung apex. No acute cardiopulmonary process.
ECHO 04/01/25: LV ejection fraction is 60-65%
Assessment/Plan:
# Acute COPD exacerbation
History of chronic hypoxemic respiratory failure, uses 3 L O2 at baseline. Currently not having shortness of breath/recent.
Patient's O2 stable overnight with no desaturations
- Hemoglobin 9.7 04/26/25, decreased to 8.9 today 04/28/2025. Trend H&H.
- Continue DuoNebs QID and PRN, and Trelegy equivalent.
�Pulmonary consulted and following: Decadron discontinued, and switched to prednisone. Bedside spirometry tomorrow.
# Ventricular tachycardia
� Patient had 15 beats of V. tach at rest on 04/27/25. No chest pain/discomfort. Another 9 beats overnight.
� Cardiology consulted 04/27/25, and knows about overnight events: started low dose metoprolol
� Echo as above.
# Paroxysmal atrial fibrillation
- Continue Eliquis and metoprolol
# Hypertension
- Continue lisinopril 10 mg PO daily
# Hyperlipidemia
- Continue atorvastatin 40 mg PO HS
# Heart failure with preserved ejection fraction
Echo as above
- proBNP 1760 on 04/26/25
- Continue daily weights, I&Os.
- Continue furosemide
# Pulmonary hypertension
- Sildenafil was discontinued by Pulmonary. Unclear why patient was on it.
# Gastroesophageal reflux disease
# Peptic ulcer disease
- continue pantoprazole
# Benign prostatic hyperplasia
- continue finasteride and tamsulosin
# Depression
# Anxiety
- Continue escitalopram
Code status: full code
DVT prophylaxis: Eliquis�
Anticipated Discharge: Today
Subjective/Interval History
-
Date of Service: April 28, 2025
Patient lying comfortably on the bed, and states he feels that shortness of breath has improved.
Objective Data
-
Labs:
Laboratory Results
04/28/25 04/28/25
04:58 10:46
WBC 8.4
Hgb 8.9 L
Hct 28.7 L
Plt Count 328
HCO3 31.9 H
Sodium 141
Potassium 4.0
Chloride 104
Carbon Dioxide 31 H
BUN 24 H
Creatinine 0.8
Glucose 166 H
Calcium 9.1
Total Bilirubin 0.3
AST 16 L
ALT 12
Alkaline Phosphatase 43
Vital Signs:
Vital Signs
Temp Pulse Resp BP Pulse Ox
98.5 F 61 18 144/70 99
04/28/25 11:41 04/28/25 11:41 04/28/25 11:41 04/28/25 11:41 04/28/25 11:41
I&O
04/27/25 04/28/25 04/29/25
06:59 06:59 06:59
Intake Total 120 / 120 1200 / 1200
Output Total 200 / 200 1450 / 1450
Balance -80 / -80 -250 / -250
Review of Systems
-
History Source: Patient
Constitutional: Reports No Symptoms
EENT: Reports No Symptoms Reported
Abdomen/GI: Reports No Symptoms
Genitourinary: Reports No Symptoms
Musculoskeletal: Reports No Symptoms
Skin: Reports No Symptoms
Neuro: Reports No Symptoms
Endocrine: Reports No Symptoms
Hematologic / Lymphatic: Reports No Symptoms
Allergy / Immunology: Reports No Symptoms
Physical Exam
-
General: Well Developed, Well Nourished, No Apparent Distress, Comfortable and Conversant
HEENT: Normocephalic, Atraumatic, Moist Mucous Membranes and Anicteric
Respiratory: Clear to Auscultation
Cardiac: Regular Rhythm and S1/S2
GI: Soft, Nontender, Nondistended, Normal Bowel Sounds and No Hepatosplenomegaly
Musculoskeletal: No Clubbing, No Cyanosis and No Edema
Skin: Warm and Dry
Neuro: Awake, AO x 3 and Nonfocal/Grossly Intact
Psych: Calm
Data Reviewed
-
Labs: Labs Reviewed by me and Discussed with Physician
Old Records: Reviewed
--- NOTE | 2025-04-28 09:57 | W.PN.UPDATE ---
Update Note
Progress Note Update
I saw and evaluated the patient. I reviewed the resident�s note and agree with findings and plan as documented in the resident�s note.
Reports shortness of breath is improved.
Gen: NAD, AAOx3, appears chronically ill.
Eyes: EOMI, PERRLA, no scleral icterus.
Neck: supple.
CV: Remains RRR, +S1/S2, no m/r/g.
Resp: Remains CTAB, no rales, wheezes, or rhonchi.
Abd: +BS, soft, diffuse, mild, tenderness to palpation, ND
Skin: No rashes.
Neuro: CN 2-12 intact, non-focal.
Psych: Normal mood and affect.
CXR: Chronic obstructive lung disease. Linear scarring in the right lung apex. No acute cardiopulmonary process.
COPD exac:
-no evidence of acute exac, patient without wheezing and does not appear short of breath (similar to prior admission)
-chronic hypoxemic respiratory failure, on 3L NC O2 at baseline, currently on 3L NC O2
-cont Duonebs
-cont Trelegy equivalent
-was on Decadron, seen by pulm, decadron stopped, now on Prednisone
-nocturnal pulse ox with zero desaturation events
-case discussed with Dr. Tay. For bedside spirometry tomorrow.
NSVT:
-15 bts initially, 9 beats overnight
-cards saw in consult, low dose BB started
-discussed with Dr. Diaz this AM, no need for further w/u inpt
Other problems:
PAF: cont Eliquis/BB
Essential HTN: cont ACEi/BB
HLD: cont statin
Chronic HFpEF: cont Lasix/BB
Pulm HTN: cont sildenafil
GERD/PUD: cont PPI
BPH: cont finasteride/tamsulosin
Depression/anxiety: cont Lexapro
PT/OT
FULL/Eliquis
Total time spent on today's encounter was 50 minutes which included time spent in counseling the patient/family regarding diagnosis and treatment plan as listed above, goals of care, and symptom management. Case was discussed with nursing staff,
specialists, and care coordinators/case management. All labs and imaging personally reviewed by me. Remainder the time spent in detailed review of previous records, lab data, imaging, and other medical provider documentation.
[2025-04-28] MEDS: REMOVE LIDOCAINE PATCH 1 PATCH REMOVE (10:32)
[2025-04-28 11:01] LABS: Hematocrit 28.7 % (39.0-52.0); Hemoglobin 8.9 g/dL (13.0-18.0); Mean Corp Hgb Conc. 31.0 g/dL (33.0-37.0); Mean Corpuscular Volume 85.2 fL (80.0-94.0); Nucleated Red Blood Cells % 0 % (-); Platelet Count 328 10^3/uL (130-400); Red Cell Dist. Width 18.5 % (11.5-14.5)
[2025-04-28 11:21] LABS: ALT (SGPT) 12 U/L (0-50); AST (SGOT) 16 U/L (17-59); Albumin 3.5 g/dl (3.5-5.0); Alkaline Phosphatase 43 U/L (38-126); Blood Urea Nitrogen 24 mg/dl (9-20); Calcium 9.1 mg/dl (8.4-10.2); Carbon Dioxide 31 mmol/L (22-30); Chloride 104 mmol/L (98-107); Estimated Creatinine Clearance 68 ml/min; Glucose 166 mg/dl (70-99); Magnesium 1.7 mg/dl (1.6-2.3); Potassium 4.0 mmol/L (3.5-5.1); Sodium 141 mmol/L (135-145); Total Protein 5.7 g/dl (6.3-8.2); eGFR > 60.00
--- NOTE | 2025-04-28 15:36 | W.PN.CD ---
Addendum entered and electronically signed by Jin Diaz MD 04/28/25 15:43:
BB uptitration limited by baseline bradycardia
Original Note:
Today's Communication / Plan
-
Continue Metoprolol.
Cardiology will sign off. Please call with questions or concerns.
Impression / Plan
-
74-year-old male with chronic HFpEF, paroxysmal atrial fibrillation, hypertension, COPD, chronic hypoxic respiratory failure (on 4L NC), dyslipidemia, and pulmonary hypertension who presented to the emergency department with a chief complaint of
shortness of breath, found to have COPD exacerbation. Cardiology is consulted for NSVT.
Legal Secretary Receptionist: Jet
NSVT
-Asymptomatic. 16 beat run on 04/27 @ 10 AM. 9 beat run last PM.
-Unclear etiology. Normal electrolytes. No evidence of structural heart disease by recent echo. ECG unchanged.
-Continue low dose metoprolol succinate
COPD
-Primary team and pulmonary managing
HFpEF
-Chronic, does not appear to be in an exacerbation
-Continue home Lasix BID
pAF
-Continue Eliquis
Subjective: Breathing is somewhat improved.
Physical Exam
Vital Signs/Labs
Vital Signs
Temp Pulse Resp BP Pulse Ox
98.5 F 64 16 144/70 99
04/28/25 11:41 04/28/25 15:30 04/28/25 15:30 04/28/25 11:41 04/28/25 11:41
04/27/25 04/28/25 04/29/25
06:59 06:59 06:59
Actual Weight 133 lb 134 lb 12.8 oz
04/28/25 10:46
04/28/25 10:46
APTT 40.6 Sec (23.4-35.0) H 04/26/25 12:54
Magnesium 1.7 mg/dl (1.6-2.3) 04/28/25 10:46
04/26/25
12:54
Drw-F-Xkquthkslom Pept 1760
Physical Exam
Constitutional: No acute distress and Comfortable
Cardiovascular: Rhythm & rate is regular, Pedal edema is absent, S1S2 is normal and Murmur/rub/gallop absent
Respiratory: Respiratory effort normal and Wheeze Absent
Neuro/Psych: AO x 3
Data Reviewed
-
Date of Service: April 28, 2025
Medical Decision Making: Reviewed Test Results, Independent Historian Assessment, Test Interpretation and Review of Case with other Provider
EKG: Tracing Personally Visualized and interpreted (tele: sinus rhythm, frequent PACs; 1 9 beat run of NSVT)
Echo: Report Reviewed by me
Labs: Labs Reviewed by me
--- NOTE | 2025-04-28 15:43 | PTCARENOTE ---
patient states feeling dizzy when he gets up. MD Paris notified of this change. Per ok to give oral lasix and new orders placed. will continue to monitor. bed alarm in place. call zhang in reach. safety maintained. will continue to monitor.
--- NOTE | 2025-04-28 15:46 | RESPNOTE ---
Respiratory: Patient already has home Oxygen currently at 3 LPM. Patient on 2 LPM SpO2 100% patient walked 120ft. with walker SpO2 94% on 2 LPM with some WALLS.
--- NOTE | 2025-04-28 15:53 | W.PN.PUL3 ---
Addendum entered and electronically signed by Jeniffer Tay MD 04/28/25 16:01:
Reviewed physical therapy correspondence
Skilled rehabilitation is recommended
We will try to help set up appointment in 2 to 4 weeks with nurse practitioner as patient is not been compliant with appointment in the past after multiple hospital stays
See discharge information/instructions
Original Note:
Today's Communication / Plan
-
Prednisone 20 mg, wean by 10 mg every 7 days until off
Plan to discharge on 20 mg
Discontinue maintenance inhaler therapy
Plan for discharge on DuoNebs 4 times a day, budesonide twice a day
Continue GERD therapy
Check ambulatory saturation in a.m. on room air, titrate oxygen
Check spirometry in a.m.
PT
Discussed importance of pulmonary follow-up
Assessment
-
74-year-old former smoking male with a history of COPD on 4 L oxygen, pulmonary hypertension, PAF on Eliquis, GERD, hyperlipidemia, hypertension, BPH who presented with increasing shortness of breath for 3-5 days, admitted for COPD exacerbation.
Patient has been admitted for COPD exacerbations 3 times in the last 7 months in 2024. He has failed to follow-up with pulmonary nor his primary postdischarge
Increased shortness of breath x 3 to 4 days
Chest exam is clear, no wheezes
Acute COPD exacerbation
Doubt significant component
Aspiration syndrome
Abnormal barium swallow study November 2024
Transient Benadryl penetration
Severe emphysema
Basilar changes per lumbar CT November 2024 (my review)
Anemia
History of heart failure, elevated proBNP
Profoundly deconditioned
Conditions present prior to admission:
Mild pulm hypertension, PA systolic pressure 36
Normal biventricular function, per echo 04/01/2025
History of COPD
On home oxygen, 4 L since 2022
COPD exacerbation October, November, March 2025
Does not follow-up with pulmonary
Chronic hypercapnic respiratory insufficiency
Baseline pCO2 suspected 60
PAF on Eliquis.
History of heart failure
Suspect diastolic dysfunction
GERD.
Hypertension/Hyperlipidemia.
Peptic ulcer disease
BPH
Family history of cystic fibrosis
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
1 son with cystic fibrosis,
Anxiety/depression
Chronic back pain
Right arm fracture. Finger surgery. Back stimulator replacement/removal. Hernia repair. Cataract.
Plan/recommendations
At this time, patient appears to be improved subjectively
I cannot appreciate any wheezes or crackles, bronchial breath sounds noted
Chest x-ray consistent with COPD, hyperinflation
Lumbar CT from earlier 2024 shows severe emphysema basilar predominant
Questionable family history of cystic fibrosis noted, likely not pertinent to patient's clinical status
It is also noted that patient was evaluated by palliative care earlier in 2024 and was being followed by them
ABG shows adequate oxygenation and ventilation
Moving forward
I have a low suspicion for significant COPD exacerbation at this time
Would prefer to discontinue IV Decadron
We will place on prednisone 20 mg for now and consider taper to off for the next 2 weeks
Patient denies taking regular inhalers at home, only albuterol and nebulizer. Cannot confirm this
Medication lists Trelegy, patient not sure whether he is using this. Cannot confirm this
For now we will continue DuoNebs 4 times daily and budesonide twice a day
This will be as new maintenance regimen at time of discharge
Check ambulatory saturation and spirometry 04/29
Nocturnal oximetry stable on 2 L. Continue with 2 L with sleep
Patient has history of heart failure although does not have crackles, does not have lower extremity swelling
Elevated proBNP noted. This appears to be elevated during multiple hospital stays in 2024
Cardiology has signed off
Lasix therapy will continue
Recent echocardiogram in March does not confirm significant pulm hypertension
Sildenafil has been discontinued at this time
Only taking 20 mg a day by another physician prior to entering the [facility] system in October
If we are to pursue this treatment, would recommend right and left heart catheterization.
It is also noted the patient was on palliative care one point
PT/OT evaluation
DVT prophylaxis: Remains on Eliquis
GI prophylaxis: Remains on Protonix
Disposition efforts
Diagnostic data:
Chest x-ray 10/30/2024-hyperinflated lungs, no acute process
Chest x-ray 11/19/2024-bilateral opacifications right greater than left likely representing pneumonia
Chest x-ray 11/24/2024-stable small right pleural effusion probable right lung pneumonia and/or interstitial edema
Chest x-ray 03/28/2025-hazy opacification left upper lung zone may represent pneumonia or subsegmental atelectasis, minimal opacification within the right lung base improved
Echo 04/01/2025: Normal biventricular function, PA pressure 36
Subjective Data
-
Date of Service:
Date of Service: April 28, 2025
Subjective:
Patient examined earlier this morning. He feels his breathing has improved. He thinks nebulizer treatments help him. He has mild cough, no hemoptysis, chest pain, abdominal pain, nausea
Objective Data
Data Reviewed
Vital Signs / I&O / Oxygen:
Vital Signs
Temp Pulse Resp BP Pulse Ox
98.5 F 64 16 144/70 99
04/28/25 11:41 04/28/25 15:30 04/28/25 15:30 04/28/25 11:41 04/28/25 11:41
Intake and Output
04/27/25 04/28/25 04/29/25
06:59 06:59 06:59
Intake Total 120 / 120 1200 / 1200
Output Total 200 / 200 1450 / 1450
Balance -80 / -80 -250 / -250
SaO2 99
Nasal Cannula flow liters per 2
minute
Physical Exam
General: Comfortable
HEENT: Normocephalic and Anicteric
Cardiovascular: S1-S2, Regular Rhythm, Murmur (2/6) and Peripheral Edema (n)
Respiratory: Wheeze (n), Crackles (n), Rhonchi (n), Non-Labored Respirations and Other (Bronchial, decreased)
GI: Soft, Non Distended and Non Tender
Neurology: Awake, Alert and No Motor Deficits (Able to sit up without assistance)
Skin: Cyanosis (n), Jaundice (n) and Rash (n)
Labs/Micro/Reports
Lab Data
04/28/25 10:46
04/28/25 10:46
Laboratory Results
04/28/25
04:58
pH 7.44
pCO2 47
pO2 116 H
HCO3 31.9 H
O2 Delivery Level
--- NOTE | 2025-04-28 18:47 | PTOTSP ---
ST Acute Care Evaluation
Pt currently presents clinical signs of suspected mild pharyngoesophageal dysphagia characterized by occasional delayed onset of a wet vocal quality, fleeting cough, and/or throat clear s/p ingestion of either single sips or sequential sips of thin
liquids possibly indicative of penetration/aspiration events, suspected from retrograde flow from esophagus given delayed onset in nature s/p swallow initiation and clear vocal quality prior to the onset of these clinical signs with hx of GERD and
not on currently on meds.
Recommendations:
- Continue with regular solids, thin liquids, meds whole with water one at a time.
- Aspiration and reflux precautions: HOB upright for all PO intake and for 60 minutes after PO intake; small bites; small single sips; slow intake rate; chew food thoroughly.
- Consider GERD medication.
- ROBOTIC WELDER to f/u re: diet tolerance, use of compensatory strategies, reinforce aspiration precautions, and to determine if repeat VFSS would be appropriate at this time.
[2025-04-28] MEDS: LIDOCAINE 4% PATCH 1 PATCH TOPICAL (20:42)
[2025-04-28] MEDS: LIPITOR 40 MG PO (20:42)
[2025-04-28] MEDS: DESYREL 12.5 MG PO (22:48)
[2025-04-28] MEDS: TOPROL XL 25 MG PO (22:49)
[2025-04-28] MEDS: MELATONIN 5 MG PO (22:49)
[2025-04-29] VITALS (7 sets, daily range): BP systolic 102–162; BP diastolic 48–111; PULSE 48–61; O2SAT 97; BMI 19.9
--- NOTE | 2025-04-29 04:45 | PTCARENOTE ---
Tele monitor has been alarming (at least 10 times) d/t HR dropping to around 40 while asleep. It does go back up to the upper 40's-50s. It was in the upper 40's & 50's around [place] and in the 60's around 11pm. SWISS MACHINIST made aware via TT.
--- NOTE | 2025-04-29 05:52 | W.PN.UPDATE ---
Update Note
Progress Note Update
RN reports nocturnal bradycardia. asymptomatic. Recently started on metoprolol for NVST. May need to titrate dose down.
[2025-04-29 06:08] LABS: Hematocrit 29.6 % (39.0-52.0); Hemoglobin 9.0 g/dL (13.0-18.0); Mean Corp Hgb Conc. 30.4 g/dL (33.0-37.0); Mean Corpuscular Volume 87.3 fL (80.0-94.0); Nucleated Red Blood Cells % 0 % (-); Platelet Count 375 10^3/uL (130-400); Red Cell Dist. Width 18.4 % (11.5-14.5)
[2025-04-29 06:32] LABS: ALT (SGPT) 19 U/L (0-50); AST (SGOT) 24 U/L (17-59); Albumin 3.4 g/dl (3.5-5.0); Alkaline Phosphatase 45 U/L (38-126); Blood Urea Nitrogen 28 mg/dl (9-20); Calcium 9.2 mg/dl (8.4-10.2); Carbon Dioxide 36 mmol/L (22-30); Chloride 102 mmol/L (98-107); Estimated Creatinine Clearance 60 ml/min; Glucose 83 mg/dl (70-99); Magnesium 1.7 mg/dl (1.6-2.3); Potassium 4.7 mmol/L (3.5-5.1); Sodium 141 mmol/L (135-145); Total Protein 5.5 g/dl (6.3-8.2); eGFR > 60.00
[2025-04-29] MEDS: PULMICORT 0.5 MG INH ×2 (07:26→19:12)
[2025-04-29] MEDS: DUONEB 3 ML INH ×4 (07:26→19:12)
[2025-04-29] MEDS: NEURONTIN 100 MG PO ×3 (08:05→22:14)
[2025-04-29] MEDS: PROTONIX 40 MG PO ×2 (08:05→20:14)
[2025-04-29] MEDS: FLOMAX 0.4 MG PO (08:05)
[2025-04-29] MEDS: LASIX 20 MG PO ×2 (08:06→16:43)
[2025-04-29] MEDS: DELTASONE 20 MG PO (08:06)
[2025-04-29] MEDS: ELIQUIS 5 MG PO ×2 (08:06→20:14)
[2025-04-29] MEDS: PROSCAR 5 MG PO (08:06)
[2025-04-29] MEDS: ZESTRIL 10 MG PO (08:06)
[2025-04-29] MEDS: TYLENOL 650 MG PO ×3 (08:08→20:17)
--- NOTE | 2025-04-29 08:31 | VNURNOTE ---
Patient current with [facility] (not [facility]). Will continue to follow for final DC dispo.
--- NOTE | 2025-04-29 10:03 | W.PN.PUL3 ---
Today's Communication / Plan
-
Spirometry confirms severe COPD, continue prednisone taper
Will need to stay on maximal inhaler therapy, there has been questionable compliance
We discussed need for OP treatment/therapies
He has declined hospice/pall care per primary team
Home O2 eval--needs 2L with ambulation, ok on RA at rest
D/c planning per team pending improvement of complaints--defer to team
Assessment
-
74-year-old former smoking male with a history of COPD on 4 L oxygen, pulmonary hypertension, PAF on Eliquis, GERD, hyperlipidemia, hypertension, BPH who presented with increasing shortness of breath for 3-5 days, admitted for COPD exacerbation.
Patient has been admitted for COPD exacerbations 3 times in the last 7 months in 2024. He has failed to follow-up with pulmonary nor his primary postdischarge
Increased shortness of breath x 3 to 4 days
Chest exam is clear, no wheezes
Acute COPD exacerbation
Aspiration syndrome
Abnormal barium swallow study November 2024
Transient Benadryl penetration
Severe emphysema
Basilar changes per lumbar CT November 2024 (my review)
Anemia
History of heart failure, elevated proBNP
Profoundly deconditioned
Conditions present prior to admission:
Mild pulm hypertension, PA systolic pressure 36
Normal biventricular function, per echo 04/01/2025
History of COPD
On home oxygen, 4 L since 2022
COPD exacerbation October, November, March 2025
Does not follow-up with pulmonary
Chronic hypercapnic respiratory insufficiency
Baseline pCO2 suspected 60
PAF on Eliquis.
History of heart failure
Suspect diastolic dysfunction
GERD.
Hypertension/Hyperlipidemia.
Peptic ulcer disease
BPH
Family history of cystic fibrosis
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
1 son with cystic fibrosis,
Anxiety/depression
Chronic back pain
Right arm fracture. Finger surgery. Back stimulator replacement/removal. Hernia repair. Cataract.
Plan/recommendations
At this time, patient appears to be improved subjectively
I cannot appreciate any wheezes or crackles, bronchial breath sounds noted
Chest x-ray consistent with COPD, hyperinflation
Lumbar CT from earlier 2024 shows severe emphysema basilar predominant
Questionable family history of cystic fibrosis noted, likely not pertinent to patient's clinical status
It is also noted that patient was evaluated by palliative care earlier in 2024 and was being followed by them
ABG shows adequate oxygenation and ventilation
Moving forward, continue treatment for AECOPD
Transitioned to prednisone 20 mg for now and consider taper to off for the next 2 weeks
Patient denies taking regular inhalers at home, only albuterol and nebulizer. Cannot confirm this
Medication lists Trelegy, patient not sure whether he is using this. Cannot confirm this
For now we will continue DuoNebs 4 times daily and budesonide twice a day
This will be as new maintenance regimen at time of discharge
Spirometry obtained showing severe COPD--will certainly need to continue maximal inhaler therapy
Check ambulatory saturation and spirometry 04/29
Nocturnal oximetry stable on 2 L. Continue with 2 L with sleep
2L required with ambulation, home O2 arrangements
Patient has history of heart failure although does not have crackles, does not have lower extremity swelling
Elevated proBNP noted. This appears to be elevated during multiple hospital stays in 2024
Cardiology has signed off
Lasix therapy will continue
Recent echocardiogram in March does not confirm significant pulm hypertension
Sildenafil has been discontinued at this time
Only taking 20 mg a day by another physician prior to entering the [facility] system in October
If we are to pursue this treatment, would recommend right and left heart catheterization.
It is also noted the patient was on palliative care one point
PT/OT evaluation
DVT prophylaxis: Remains on Eliquis
GI prophylaxis: Remains on Protonix
Disposition efforts
Diagnostic data:
Chest x-ray 10/30/2024-hyperinflated lungs, no acute process
Chest x-ray 11/19/2024-bilateral opacifications right greater than left likely representing pneumonia
Chest x-ray 11/24/2024-stable small right pleural effusion probable right lung pneumonia and/or interstitial edema
Chest x-ray 03/28/2025-hazy opacification left upper lung zone may represent pneumonia or subsegmental atelectasis, minimal opacification within the right lung base improved
Echo 04/01/2025: Normal biventricular function, PA pressure 36
Spirometry 04/29/2025: FEV1 0.78 L 27%, FVC 1.98 L 51%, ratio of 39. Post FEV1 0.86 L 30% 10% change�severe obstruction
Total time spent on this consultation/encounter __50__ minutes which includes review of history, physical exam, medications, laboratory data, personal review of imaging, extensive review of outpatient records, discussion with care team and
respiratory therapy.
Subjective Data
-
Date of Service:
Date of Service: April 29, 2025
Chief Complaint: Pulmonary Follow Up
Objective Data
Data Reviewed
Vital Signs / I&O / Oxygen:
Vital Signs
Temp Pulse Resp BP Pulse Ox
98.5 F 51 20 162/77 97
04/29/25 07:48 04/29/25 08:06 04/29/25 07:48 04/29/25 08:06 04/29/25 07:48
Intake and Output
04/28/25 04/29/25 04/30/25
06:59 06:59 06:59
Intake Total 1200 / 1200 500 / 500
Output Total 1450 / 1450 850 / 850
Balance -250 / -250 -350 / -350
SaO2 97
Nasal Cannula flow liters per 3
minute
Physical Exam
General: Comfortable
HEENT: Normocephalic and Anicteric
Cardiovascular: S1-S2, Regular Rhythm, Murmur (2/6) and Peripheral Edema (n)
Respiratory: Wheeze (n), Crackles (n), Rhonchi (n), Non-Labored Respirations and Other (Bronchial, decreased)
GI: Soft, Non Distended and Non Tender
Neurology: Awake, Alert and No Motor Deficits (Able to sit up without assistance)
Skin: Cyanosis (n), Jaundice (n) and Rash (n)
Labs/Micro/Reports
Lab Data
04/29/25 05:07
04/29/25 05:07
[2025-04-29] MEDS: LEXAPRO 10 MG PO (10:24)
--- NOTE | 2025-04-29 11:01 | W.PN.CD ---
Addendum entered and electronically signed by Jarad Laam MD 04/29/25 18:38:
I saw and evaluated the patient, and I provided the substantive portion of the medical decision making.
I reviewed and agree with the note by BURT Burnham and it accurately reflects our care.
I personally performed the medical decision making of the this encounter and my assessment and plan is below:
He has been documented to have syncope unrelated to arrhythmia.
PAF has been documented
Asymptomatic nonsustained has been been seen
Now is having asymptomatic sinus bradycardia/junctional rhythm.
I would favor cutting metoprolol by 50%. If he represents with symptomatic A-fib with rapid ventricular rates we certainly will consider pacemaker implantation.
For further clarification of his rhythm status we should consider obtaining a 28-day cardiac monitoring. I would not intervene particularly aggressively for asymptomatic bradycardia occurring at rest or during sleeping hours. 4 short runs of
nonsustained VT that are asymptomatic I would not intervene. Symptomatic rapid A-fib could lead to pacemaker implantation if the overall rates are slow on very low-dose dose medications. I left a message for our office to arrange the outpatient
monitor.
Original Note:
Today's Communication / Plan
-
Decrease metoprolol dosing and follow telemetry.
Impression / Plan
-
74-year-old male with chronic HFpEF, paroxysmal atrial fibrillation, hypertension, COPD, chronic hypoxic respiratory failure (on 4L NC), dyslipidemia, and pulmonary hypertension who presented to the emergency department with a chief complaint of
shortness of breath, found to have COPD exacerbation. Cardiology is consulted for NSVT.
Director Of Learning: Jet
NSVT:
-Asymptomatic. 16 beat run on 04/27 @ 10 AM. Then later that day 9 beat run.
-Unclear etiology. Normal electrolytes. No evidence of structural heart disease by recent echo. ECG unchanged.
-low dose metoprolol succinate restarted this admit- no NSVT on monitor last 24 hours- follow. Will decrease metoprolol dosing due to bradycardia.
Bradycardia:
-telemetry reviewed. HR as low as 40's during hours of sleep. No prolonged pauses or advanced HB. Some junctional on my review. Decrease metoprolol.
COPD
-Primary team and pulmonary managing
HFpEF
-Chronic, does not appear to be in an exacerbation
-Continue home Lasix BID
pAF
-Continue Eliquis
-currently in SR, back on BB
Hx orthostatic hypotension:
-patient had episode syncope on recent admission here last month- telemetry unremarkable at the time
-was felt to be related to orthostasis and BB/CCB were held. Lisinopril and lasix continued (lasix held briefly)
-he was also on sildenafil, Proscar, and finasteride- sildenafil d/c'd by pulm
Subjective:
Thinks breathing is a bit better
Denies palpitations
Does report light-headedness, but only with position change
Physical Exam
Vital Signs/Labs
Vital Signs
Temp Pulse Resp BP Pulse Ox
98.5 F 51 20 162/77 97
04/29/25 07:48 04/29/25 08:06 04/29/25 07:48 04/29/25 08:06 04/29/25 07:48
04/28/25 04/29/25 04/30/25
06:59 06:59 06:59
Actual Weight 61.144 kg 60.951 kg
04/29/25 05:07
04/29/25 05:07
APTT 40.6 Sec (23.4-35.0) H 04/26/25 12:54
Magnesium 1.7 mg/dl (1.6-2.3) 04/29/25 05:07
04/26/25
12:54
[id number] Pept 1760
Physical Exam
Constitutional: No acute distress
EENT: Anicteric
Cardiovascular: Rhythm & rate is regular (bradycardia at times)
Respiratory: Respiratory effort normal, Lungs clear to auscul. and Other (on O2 by NC)
Neuro/Psych: AO x 3
Data Reviewed
-
Date of Service: April 29, 2025
EKG: Other (Tele: SR/SB, some junctional beats)
Echo: Report Reviewed by me
Labs: Labs Reviewed by me
[2025-04-29] MEDS: REMOVE LIDOCAINE PATCH 1 PATCH REMOVE (11:57)
--- NOTE | 2025-04-29 12:11 | CM ---
Addendum entered by Lydia Fry 04/29/25 14:58:
Spoke w/ [facility], will review to see cost for rehab as both facilities have different PT contracts. CM was informed patient will have to pay additional cost for room and board.
Original Note:
Chart reviewed. Patient recently discharged to home on 04/08. Per chart from previous admission, patient does not have any more Medicare rehab days to use. Patient is current w/ [facility], CM was informed from home visit last week w/ that patient shared
he wants to work on assisted living placement.
Patient is being recommended for SNF at d/c. Discussed w/ patient, he shared he wants go to rehab, is aware that he doesn't have anymore rehab days and will private pay. Patient shared he would like referrals to facilities in [place]. CM informed
he may have to do a financial review but will confirm cost per day for rehab and anything additional needed once referrals are placed. Patient confirmed plan after rehab will return home w/ his sister and continue to work on getting into an assisted
living.
Referrals sent to [facility], [facility]
Plan: SNF. Patient will private pay
--- NOTE | 2025-04-29 14:10 | W.PN.HOSP.TC ---
Today's Communication/Plan
-
Assessment / Plan
Assessment / Plan
Acute COPD exacerbation
Continue prednisone will need taper per pulmonary
Continue nebs along with Symbicort while inpatient and then Trelegy on discharge with maximum inhaler therapy
Per pulmonary spirometry confirmed severe COPD
Not interested in hospice/palliative care
NSVT
Uptitrated beta-john
Overnight bradycardic
Cardiology signed off however will plan to reengage
P A-fib
Continue Eliquis beta-john
Hypertension
Continue BEATA inhibitor beta-john
Hyperlipidemia
Continue statin
Chronic HFpEF
Continue Lasix beta-john
Pulmonary hypertension
Has been off of sildenafil while inpatient
Per pulmonary if wanting continued then would consider right and left heart catheterization
Awaiting to hear back from cardiology if they want to resume or continue to hold
GERD
Continue Protonix
Peptic ulcer disease
Continue Protonix
BPH
Continue finasteride Flomax
Depression and anxiety
Continue escitalopram
PT rec SNF
Anticipated Discharge: 24 - 48 hours
Subjective/Interval History
-
Date of Service: April 29, 2025
seen and examined. no new complaints. no acute overnight events
Objective Data
-
Labs:
Laboratory Results
04/29/25
05:07
WBC 8.4
Hgb 9.0 L
Hct 29.6 L
Plt Count 375
Sodium 141
Potassium 4.7
Chloride 102
Carbon Dioxide 36 H
BUN 28 H
Creatinine 0.9
Glucose 83
Calcium 9.2
Total Bilirubin 0.3
AST 24
ALT 19
Alkaline Phosphatase 45
Vital Signs:
Vital Signs
Temp Pulse Resp BP Pulse Ox
98.7 F 57 20 130/60 97
04/29/25 12:29 04/29/25 12:29 04/29/25 12:29 04/29/25 12:29 04/29/25 12:29
I&O
04/28/25 04/29/25 04/30/25
06:59 06:59 06:59
Intake Total 1200 / 1200 500 / 500
Output Total 1450 / 1450 850 / 850
Balance -250 / -250 -350 / -350
Physical Exam
-
General: Well Developed and Well Nourished
HEENT: Normocephalic and Atraumatic
Respiratory: Clear to Auscultation
Cardiac: Regular Rhythm and Bradycardic
GI: Soft, Nontender, Nondistended and Normal Bowel Sounds
Musculoskeletal: No Clubbing
Skin: Warm and Dry
Neuro: Awake and AO x 3
Psych: Calm
[2025-04-29] MEDS: LIDOCAINE 4% PATCH 1 PATCH TOPICAL (22:13)
[2025-04-29] MEDS: LIPITOR 40 MG PO (22:15)
[2025-04-29] MEDS: MELATONIN 5 MG PO (22:15)
[2025-04-29] MEDS: DESYREL 12.5 MG PO (22:15)
[2025-04-30 03:08] VITALS: BP 120/59
[2025-04-30 06:00] VITALS: BMI 19.7
[2025-04-30] MEDS: TYLENOL 650 MG PO ×2 (07:43→12:55)
[2025-04-30] MEDS: PROSCAR 5 MG PO (07:44)
[2025-04-30] MEDS: ELIQUIS 5 MG PO (07:44)
[2025-04-30] MEDS: NEURONTIN 100 MG PO ×2 (07:44→15:04)
[2025-04-30] MEDS: ZESTRIL 10 MG PO (07:44)
[2025-04-30] MEDS: PROTONIX 40 MG PO (07:44)
[2025-04-30] MEDS: LEXAPRO 10 MG PO (07:44)
[2025-04-30] MEDS: LASIX 20 MG PO ×2 (07:45→15:04)
[2025-04-30] MEDS: FLOMAX 0.4 MG PO (07:45)
[2025-04-30] MEDS: DELTASONE 20 MG PO (07:45)
[2025-04-30] MEDS: PULMICORT 0.5 MG INH (07:49)
[2025-04-30] MEDS: DUONEB 3 ML INH ×3 (07:49→15:29)
[2025-04-30 08:03] LABS: Hematocrit 32.2 % (39.0-52.0); Hemoglobin 9.8 g/dL (13.0-18.0); Mean Corp Hgb Conc. 30.4 g/dL (33.0-37.0); Mean Corpuscular Volume 87.3 fL (80.0-94.0); Nucleated Red Blood Cells % 0 % (-); Platelet Count 402 10^3/uL (130-400); Red Cell Dist. Width 18.2 % (11.5-14.5)
[2025-04-30 08:18] VITALS: BP 155/76
[2025-04-30 08:37] LABS: ALT (SGPT) 17 U/L (0-50); AST (SGOT) 19 U/L (17-59); Albumin 3.5 g/dl (3.5-5.0); Alkaline Phosphatase 41 U/L (38-126); Blood Urea Nitrogen 30 mg/dl (9-20); Calcium 9.1 mg/dl (8.4-10.2); Carbon Dioxide 37 mmol/L (22-30); Chloride 101 mmol/L (98-107); Estimated Creatinine Clearance 60 ml/min; Glucose 83 mg/dl (70-99); Magnesium 1.7 mg/dl (1.6-2.3); Potassium 4.5 mmol/L (3.5-5.1); Sodium 142 mmol/L (135-145); Total Protein 5.7 g/dl (6.3-8.2); eGFR > 60.00
--- NOTE | 2025-04-30 09:11 | W.PN.PUL3 ---
Today's Communication / Plan
-
Spirometry reviewed with patient, encouraged compliance with inhaler therapy
Prednisone taper continued
OP FU to be arranged, he has not followed up in past
Hopeful discharge planning per team today
We will sign off at this time, please call with questions
Assessment
-
74-year-old former smoking male with a history of COPD on 4 L oxygen, pulmonary hypertension, PAF on Eliquis, GERD, hyperlipidemia, hypertension, BPH who presented with increasing shortness of breath for 3-5 days, admitted for COPD exacerbation.
Patient has been admitted for COPD exacerbations 3 times in the last 7 months in 2024. He has failed to follow-up with pulmonary nor his primary postdischarge
Increased shortness of breath x 3 to 4 days
Chest exam is clear, no wheezes
Acute COPD exacerbation
Aspiration syndrome
Abnormal barium swallow study November 2024
Transient Benadryl penetration
Severe emphysema
Basilar changes per lumbar CT November 2024 (my review)
Anemia
History of heart failure, elevated proBNP
Profoundly deconditioned
Conditions present prior to admission:
Mild pulm hypertension, PA systolic pressure 36
Normal biventricular function, per echo 04/01/2025
History of COPD
On home oxygen, 4 L since 2022
COPD exacerbation October, November, March 2025
Does not follow-up with pulmonary
Chronic hypercapnic respiratory insufficiency
Baseline pCO2 suspected 60
PAF on Eliquis.
History of heart failure
Suspect diastolic dysfunction
GERD.
Hypertension/Hyperlipidemia.
Peptic ulcer disease
BPH
Family history of cystic fibrosis
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
1 son with cystic fibrosis,
Anxiety/depression
Chronic back pain
Right arm fracture. Finger surgery. Back stimulator replacement/removal. Hernia repair. Cataract.
Plan/recommendations
At this time, patient appears to be improved subjectively
I cannot appreciate any wheezes or crackles, bronchial breath sounds noted
Chest x-ray consistent with COPD, hyperinflation
Lumbar CT from earlier 2024 shows severe emphysema basilar predominant
Questionable family history of cystic fibrosis noted, likely not pertinent to patient's clinical status
It is also noted that patient was evaluated by palliative care earlier in 2024 and was being followed by them
ABG shows adequate oxygenation and ventilation
Moving forward, continue treatment for AECOPD
Transitioned to prednisone 20 mg for now and consider taper to off for the next 2 weeks
Patient denies taking regular inhalers at home, only albuterol and nebulizer. Cannot confirm this
Medication lists Trelegy, patient not sure whether he is using this. Cannot confirm this
For now we will continue DuoNebs 4 times daily and budesonide twice a day
This will be as new maintenance regimen at time of discharge
Spirometry obtained showing severe COPD--will certainly need to continue maximal inhaler therapy
I reviewed results w/ patient
Check ambulatory saturation and spirometry 04/29
Nocturnal oximetry stable on 2 L. Continue with 2 L with sleep
2L required with ambulation, home O2 arrangements
Patient has history of heart failure although does not have crackles, does not have lower extremity swelling
Elevated proBNP noted. This appears to be elevated during multiple hospital stays in 2024
Cardiology has signed off
Lasix therapy will continue
Recent echocardiogram in March does not confirm significant pulm hypertension
Sildenafil has been discontinued at this time
Only taking 20 mg a day by another physician prior to entering the [facility] system in October
If we are to pursue this treatment, would recommend right and left heart catheterization.
It is also noted the patient was on palliative care one point
PT/OT evaluation
DVT prophylaxis: Remains on Eliquis
GI prophylaxis: Remains on Protonix
Disposition efforts
Diagnostic data:
Chest x-ray 10/30/2024-hyperinflated lungs, no acute process
Chest x-ray 11/19/2024-bilateral opacifications right greater than left likely representing pneumonia
Chest x-ray 11/24/2024-stable small right pleural effusion probable right lung pneumonia and/or interstitial edema
Chest x-ray 03/28/2025-hazy opacification left upper lung zone may represent pneumonia or subsegmental atelectasis, minimal opacification within the right lung base improved
Echo 04/01/2025: Normal biventricular function, PA pressure 36
Spirometry 04/29/2025: FEV1 0.78 L 27%, FVC 1.98 L 51%, ratio of 39. Post FEV1 0.86 L 30% 10% change�severe obstruction
Total time spent on this consultation/encounter __45__ minutes which includes review of history, physical exam, medications, laboratory data, personal review of imaging, extensive review of outpatient records, discussion with care team and
respiratory therapy.
Subjective Data
-
Date of Service:
Date of Service: April 30, 2025
Chief Complaint: Pulmonary Follow Up
Subjective:
No new complaints, stable on RA at rest
Objective Data
Data Reviewed
Vital Signs / I&O / Oxygen:
Vital Signs
Temp Pulse Resp BP Pulse Ox
98.5 F 44 18 155/76 100
04/30/25 08:18 04/30/25 08:18 04/30/25 08:18 04/30/25 08:18 04/30/25 08:18
Intake and Output
04/29/25 04/30/25 05/01/25
06:59 06:59 06:59
Intake Total 500 / 500 680 / 680
Output Total 850 / 850 1650 / 1650
Balance -350 / -350 -970 / -970
SaO2 100
Nasal Cannula flow liters per 2
minute
Physical Exam
General: Comfortable
HEENT: Normocephalic and Anicteric
Cardiovascular: S1-S2, Regular Rhythm, Murmur (2/6) and Peripheral Edema (n)
Respiratory: Wheeze (n), Crackles (n), Rhonchi (n), Non-Labored Respirations and Other (Bronchial, decreased)
GI: Soft, Non Distended and Non Tender
Neurology: Awake, Alert and No Motor Deficits (Able to sit up without assistance)
Skin: Cyanosis (n), Jaundice (n) and Rash (n)
Labs/Micro/Reports
Lab Data
04/30/25 06:48
04/30/25 06:48
[2025-04-30] MEDS: REMOVE LIDOCAINE PATCH 1 PATCH REMOVE (10:22)
[2025-04-30 12:11] VITALS: BP 163/78
[2025-04-30 12:40] VITALS: PULSE 83; O2SAT 96
--- NOTE | 2025-04-30 14:11 | CM ---
Discussed costs of a stay at [facility] and [facility], they could offer $350 per day for the first week and PT/OT would go thru insurance. Patient stated this was a lot of money and would wait for therapy today.
Physical therapy saw patient today and recommendation is still for skilled rehab.
Patient lives with sister and would prefer home with [facility] at this time.
Patient has oxygen at home and sister will bring in portable when ready for d/c.
Patient aware of CM availability should additional needs arise.
Plan: home with [facility] when stable.
--- NOTE | 2025-04-30 14:31 | VNURNOTE ---
Addendum entered by Eloise Padilla RN 04/30/25 16:11:
Spoke with patient, he is aware that [facility] will contact him within 1-2 days after DC for resumption home visit. Resumption referral accepted in [facility].
Original Note:
Rec'ed update from ELOINA Tucker that DC plan is now to return home. Confirmed that patient would like to resume w/ [facility] services. Resumption referral placed in [facility].
--- NOTE | 2025-04-30 14:54 | W.PN.HOSP.TC ---
Today's Communication/Plan
-
Assessment / Plan
Assessment / Plan
General: Well Developed and Well Nourished
HEENT: Normocephalic and Atraumatic
Respiratory: Clear to Auscultation
Cardiac: Regular Rhythm and Bradycardic
GI: Soft, Nontender, Nondistended and Normal Bowel Sounds
Musculoskeletal: No Clubbing
Skin: Warm and Dry
Neuro: Awake and AO x 3
Psych: Calm
Acute COPD exacerbation
Continue prednisone will need taper per pulmonary
Continue nebs along with Symbicort while inpatient and then Trelegy on discharge with maximum inhaler therapy
Per pulmonary spirometry confirmed severe COPD
Not interested in hospice/palliative care
NSVT
Uptitrated beta-john
Overnight bradycardic
Cardiology signed off however will plan to reengage
P A-fib
Continue Eliquis beta-john
Hypertension
Continue BEATA inhibitor beta-john
Hyperlipidemia
Continue statin
Chronic HFpEF
Continue Lasix beta-john
Pulmonary hypertension
Has been off of sildenafil while inpatient
Per pulmonary if wanting continued then would consider right and left heart catheterization
Awaiting to hear back from cardiology if they want to resume or continue to hold
GERD
Continue Protonix
Peptic ulcer disease
Continue Protonix
BPH
Continue finasteride Flomax
Depression and anxiety
Continue escitalopram
PT rec SNF
- Unfortunately out of SNF days. Per case management through them doing 50 close. Day PT/OT will go through insurance.
Unable to afford this
Will discharge home
Anticipated Discharge: Today
Subjective/Interval History
-
Date of Service: April 30, 2025
Seen and examined. No new complaints. No acute overnight events.
Objective Data
-
Labs:
Laboratory Results
04/30/25
06:48
WBC 7.6
Hgb 9.8 L
Hct 32.2 L
Plt Count 402 H
Sodium 142
Potassium 4.5
Chloride 101
Carbon Dioxide 37 H
BUN 30 H
Creatinine 0.9
Glucose 83
Calcium 9.1
Total Bilirubin 0.4
AST 19
ALT 17
Alkaline Phosphatase 41
Vital Signs:
Vital Signs
Temp Pulse Resp BP Pulse Ox
97.7 F 51 18 163/78 100
04/30/25 12:11 04/30/25 12:11 04/30/25 12:11 04/30/25 12:11 04/30/25 12:11
I&O
04/29/25 04/30/25 05/01/25
06:59 06:59 06:59
Intake Total 500 / 500 680 / 680
Output Total 850 / 850 1650 / 1650
Balance -350 / -350 -970 / -970
--- NOTE | 2025-04-30 15:57 | W.DCSUMMARY ---
Discharge Summary
Discharge Data
Date of Admission: 04/26/25
Date of Discharge: 04/30/25
-
Pending Results: No
Hospital Course
74-year-old male with past medical history significant for hypertension, hyperlipidemia, paroxysmal atrial fibrillation on Eliquis, HFpEF, COPD on 4 L oxygen, pulmonary hypertension, GERD, peptic ulcer disease and BPH
Presented with worsening shortness of breath that progressively got worse over 3 to 4 days associated dry cough mild chest discomfort along with a 2 pound weight gain in 3 days. Therefore admitted and treated for COPD exacerbation started on IV
steroids and breathing therapy. Evaluated by pulmonary recommending prednisone taper and continue compliance with inhaler therapy. Will need to repeat outpatient PFTs. Additionally, pulmonary also discussed potentially palliative care/hospice
however at this time not interested. Additionally pulmonary was also concerned about sildenafil for pulmonary hypertension as it is currently believed it is not indicated due to the fact that the estimate pulmonary artery pressure is 36 on most
recent echocardiogram from 03/29.
Additionally, hospitalization complicated by nonsustained ventricular tachycardia with multiple episodes. Cardiology consulted. Started on beta-blockers and titrated up. However, unfortunately developed asymptomatic bradycardia/nocturnal
bradycardia therefore cardiology recommended to reduce beta-john dosing, because he did not have a symptomatic bradycardia cardiology did not believe at this time he required PPM and recommended outpatient 28-day cardiac monitoring device that
will be started in the outpatient setting. Cardiology's office will call to set this up.
Cxr
IMPRESSION:
Chronic obstructive lung disease. Linear scarring in the right lung apex. No acute cardiopulmonary process.
Discharge Plan
-
Patient Disposition: Home with Home Care
Discharge Diagnosis/Procedures: Acute COPD exacerbation
NSVT
P A-fib
Hypertension
Hyperlipidemia
Pulmonary hypertension
Condition: Fair
Diet: As tolerated
Activity: As tolerated
Other Services: VN, PT and OT
Activity Restrictions/Additional Instructions:
74-year-old male with past medical history significant for hypertension, hyperlipidemia, paroxysmal atrial fibrillation on Eliquis, HFpEF, COPD on 4 L oxygen, pulmonary hypertension, GERD, peptic ulcer disease and BPH
Presented with worsening shortness of breath that progressively got worse over 3 to 4 days associated dry cough mild chest discomfort along with a 2 pound weight gain in 3 days. Therefore admitted and treated for COPD exacerbation started on IV
steroids and breathing therapy. Evaluated by pulmonary recommending prednisone taper and continue compliance with inhaler therapy. Will need to repeat outpatient PFTs. Additionally, pulmonary also discussed potentially palliative care/hospice
however at this time not interested. Additionally pulmonary was also concerned about sildenafil for pulmonary hypertension as it is currently believed it is not indicated due to the fact that the estimate pulmonary artery pressure is 36 on most
recent echocardiogram from 03/29.
Additionally, hospitalization complicated by nonsustained ventricular tachycardia with multiple episodes. Cardiology consulted. Started on beta-blockers and titrated up. However, unfortunately developed asymptomatic bradycardia/nocturnal
bradycardia therefore cardiology recommended to reduce beta-john dosing. Cardiology plans to place a 28-day cardiac monitoring device that will be implanted in the outpatient setting. Cardiology's office will call to set this up.
Cxr
IMPRESSION:
Chronic obstructive lung disease. Linear scarring in the right lung apex. No acute cardiopulmonary process.
Referrals:
Jeniffer Tay MD [Active, Pulmonary Medicine]
Referral Note: [facility] visit within 2 weeks
Jasvir visit in 3 mo
Kelsi Garcia MD, Resident [Family Provider, General]
Prescriptions:
New
metoprolol succinate 25 mg Tablet Extended Release 24 Hr
12.5 mg PO HS Qty: 30 0RF
prednisone 10 mg tablet
See Taper PO DAILY Qty: 9 0RF
Taper: Prednisone DC Starting at 40 mg daily
20 mg Daily for 3 Days and 0 Hour
10 mg Daily for 3 Days and 0 Hour
Continued
atorvastatin 40 mg Tablet
40 mg PO HS
furosemide 20 mg Tablet
20 mg PO BID
finasteride 5 mg Tablet
5 mg PO DAILY
Eliquis 5 mg Tablet
5 mg PO BID
Trelegy Ellipta 200-62.5-25 mcg Blister With Device
1 inh INHALATION R DAILY
pantoprazole 40 mg Tablet,Delayed Release (Dr/Ec)
40 mg PO BID Qty: 0 0RF
acetaminophen [Tylenol] 325 mg Tablet
650 mg PO TID
trazodone 50 mg Tablet
12.5 mg PO HS
bismuth subsalicylate [Pepto-Bismol] 262 mg/15 mL Suspension
524 mg PO DAILYPRN PRN (Reason: stomach upset)
magnesium oxide 250 mg magnesium Tablet
250 mg PO DAILY
escitalopram oxalate 10 mg Tablet
10 mg PO DAILY
melatonin 5 mg Tablet
5 mg PO HS
tamsulosin 0.4 mg Capsule
0.4 mg PO DAILY Qty: 30 0RF
gabapentin 100 mg Capsule
100 mg PO TID Qty: 30 0RF
simethicone 80 mg Tablet,Chewable
80 mg PO QIDPRN PRN (Reason: gas pains) Qty: 30 0RF
albuterol sulfate 2.5 mg /3 mL (0.083 %) Solution For Nebulization
2.5 mg inhalation R Q4HPRN PRN (Reason: SOB/Wheezing) Qty: 30 0RF
lisinopril 10 mg tablet
10 mg PO DAILY Qty: 30 0RF
sennosides [Dunia-adán] 8.6 mg tablet
8.6 mg PO BIDPRN PRN (Reason: constipation)
lidocaine 4 % adhesive patch,medicated
1 patch topical DAILY
Rx Instructions:
right butt check/lower back
Discontinued
sildenafil (pulm.hypertension) 20 mg Tablet
20 mg PO DAILY
Discharge Orders:
Discharge Patient (As Directed); Ordered 04/30/25
Ordered By: Keanu Singer
Discharge Date and Time
Print Language: SWEDISH
[2025-04-30 16:00] VITALS: BP 132/86
== END 2025-04-30 18:39 | disposition home health service (06) | DRG 191 ==
LOC: 4 WEST ACU 18:30
PROVIDERS: Emergency Medicine; ADMITTING PHYSICIAN Hospitalist; ATTENDING PHYSICIAN Hospitalist; CONSULT PHYSICIAN Internal Medicine Critical Care Medicine; CONSULT PHYSICIAN Student in an Organized Health Care Education/Training Program; EMERGENCY PHYSICIAN Emergency Medicine; FAMILY PHYSICIAN Student in an Organized Health Care Education/Training Program
DX: J43.9 Emphysema, unspecified (principal); I47.29 Other ventricular tachycardia; I50.32 Chronic diastolic (congestive) heart failure; J96.11 Chronic respiratory failure with hypoxia; I48.0 Paroxysmal atrial fibrillation; I49.1 Atrial premature depolarization; E78.00 Pure hypercholesterolemia, unspecified; I11.0 Hypertensive heart disease with heart failure; K21.9 Gastro-esophageal reflux disease without esophagitis; N40.0 Benign prostatic hyperplasia without lower urinary tract symptoms; F32.A Depression, unspecified; F41.9 Anxiety disorder, unspecified; I27.20 Pulmonary hypertension, unspecified; D64.9 Anemia, unspecified; G89.29 Other chronic pain; M54.9 Dorsalgia, unspecified; J98.4 Other disorders of lung; Z87.891 Personal history of nicotine dependence; Z79.51 Long term (current) use of inhaled steroids; Z79.52 Long term (current) use of systemic steroids; Z79.01 Long term (current) use of anticoagulants; Z87.11 Personal history of peptic ulcer disease; Z99.81 Dependence on supplemental oxygen; Z14.1 Cystic fibrosis carrier; Z83.49 Family history of other endocrine, nutritional and metabolic diseases
CPT/HCPCS: 36600; 71046; 80053; 82805; 83735; 83880; 85025; 85730; 92610; 93005; 94060; 94640; 94762; 96374; 97162; 97167; 97530; 99285

== ENCOUNTER 2025-06-17 08:25 | Inpatient (IN) | payer MEDICARE, OTHER, SELFPAY ==
[2025-06-12 14:35] VITALS: BP 162/59
[2025-06-12 15:20] LABS: Hematocrit 33.7 % (39.0-52.0); Hemoglobin 10.3 g/dL (13.0-18.0); Mean Corp Hgb Conc. 30.6 g/dL (33.0-37.0); Mean Corpuscular Volume 88.7 fL (80.0-94.0); Nucleated Red Blood Cells % 0 % (-); Platelet Count 249 10^3/uL (130-400); Red Cell Dist. Width 17.5 % (11.5-14.5)
--- NOTE | 2025-06-12 15:42 | ED.GENMED ---
History of Present Illness
<BURT Katz - Last Filed: 06/12/25 16:40>
General
Chief Complaint: Breathing Problem
Source: patient
Exam Limitations: none
Time Seen by Provider: 06/12/25 14:58
Nursing documentation reviewed up to this point in time: agreed with
History of Present Illness
History of Present Illness:
Patient is a 75-year-old male who presents to the ER for evaluation. Patient with past medical history including COPD, hyperlipidemia hypertension paroxysmal A-fib on Eliquis peptic ulcer disease . Patient is on 3 L nasal cannula for COPD. He
reports starting 11 AM he felt short of breath he was given a neb and route via ambulance. He denies any recent cough fever chills.
Past History
<BURT Katz - Last Filed: 06/12/25 16:40>
Past History
ED Past Medical History: Arrthythmia (afib on Eliquis), COPD, GERD, HTN, Hypercholesterolemia and Psychiatric (Anxiety/depression)
ED Past Surgical History: Orthopedic and Other (Hernia repair surgery)
Social History
Tobacco: Former smoker
Alcohol: None
Drug: None
Personal: Single
Living: with family
Employment: Other
Family History
Family History: Other
Phy Exam
<BURT Kazt - Last Filed: 06/12/25 16:40>
General Physical Exam
General Presentation: no apparent distress
General age: appears stated age
General Skin: warm and dry
General Habitus: normal
General Mental: alert
General Hydration: appears well hydrated
Cardiovascular Exam
Cardiovascular Exam: regular rate/rhythm, no murmur and normal peripheral pulses
Pulmonary Exam
Pulmonary Exam: no respiratory distress and other (Lungs decreased throughout)
Neurological Exam
Neurological Exam: alert and oriented x3
Musculoskeletal Exam
Musculoskeletal Exam: full ROM
Skin Exam
Skin Exam: normal color and warm/dry
Psychiatric Exam
Psychiatric Exam: normal mood/affect
Scores
<BURT Katz - Last Filed: 06/12/25 16:40>
Heart Failure Risk
Heart Failure Risk Score: Not Applicable
Course
<BURT Katz - Last Filed: 06/12/25 16:40>
Orders/Labs/Results
Orders:
Orders
06/12/25 14:38
Electrocardiogram (*1) Urgent
Reason for Study: Shortness of Breath
EKG- Treatment ONCE
06/12/25 15:11
Complete Blood Count/With Diff Urgent
Comprehensive Metabolic Panel Urgent
Troponin I Urgent
06/12/25 15:45
Albuterol Sulfate [Ventolin Nebules] 7.5 mg INH R NOW STA
Ipratropium Nebs [Atrovent Nebules] 1 mg INH R NOW STA
06/12/25 15:46
Chest [CR Chest - 2 Views ] Urgent
Comment:
Reason For Exam: SOB
06/12/25 15:50
Dexamethasone Sod Phosphate [Decadron] 10 mg IV NOW STA
Abnormal Lab Results
06/12/25
15:11
RBC 3.80 L 10^6/uL
(4.70-6.10)
Hgb 10.3 L g/dL
(13.0-18.0)
Hct 33.7 L %
(39.0-52.0)
MCHC 30.6 L g/dL
(33.0-37.0)
RDW 17.5 H %
(11.5-14.5)
MPV 10.6 H fL
(7.4-10.4)
Absolute Lymphs (auto) 1.0 L 10^3/uL
(1.2-3.4)
Lymphocytes % 18.3 L %
(20.5-51.1)
Carbon Dioxide 31 H mmol/L
(22-30)
Glucose 101 H mg/dl
(70-99)
Alkaline Phosphatase 32 L U/L
(38-126)
06/12/25 15:11
06/12/25 15:11
Vital Signs
Initial and Last Documented VS:
Initial Vital Signs
Temp Pulse Resp BP Pulse Ox
98.7 F 51 18 162/59 96
06/12/25 14:35 06/12/25 14:35 06/12/25 14:35 06/12/25 14:35 06/12/25 14:35
Last Documented Vital Signs
Temp Pulse Resp BP Pulse Ox
98.7 F 51 18 162/59 96
06/12/25 14:35 06/12/25 14:35 06/12/25 14:35 06/12/25 14:35 06/12/25 15:43
<Moreno Taylor, DO - Last Filed: 06/12/25 16:36>
Orders/Labs/Results
Orders:
Orders
06/12/25 14:38
Electrocardiogram (*1) Urgent
Reason for Study: Shortness of Breath
EKG- Treatment ONCE
06/12/25 15:11
Complete Blood Count/With Diff Urgent
Comprehensive Metabolic Panel Urgent
Troponin I Urgent
06/12/25 15:45
Albuterol Sulfate [Ventolin Nebules] 7.5 mg INH R NOW STA
Ipratropium Nebs [Atrovent Nebules] 1 mg INH R NOW STA
06/12/25 15:46
Chest [CR Chest - 2 Views ] Urgent
Comment:
Reason For Exam: SOB
06/12/25 15:50
Dexamethasone Sod Phosphate [Decadron] 10 mg IV NOW STA
Abnormal Lab Results
06/12/25
15:11
RBC 3.80 L 10^6/uL
(4.70-6.10)
Hgb 10.3 L g/dL
(13.0-18.0)
Hct 33.7 L %
(39.0-52.0)
MCHC 30.6 L g/dL
(33.0-37.0)
RDW 17.5 H %
(11.5-14.5)
MPV 10.6 H fL
(7.4-10.4)
Absolute Lymphs (auto) 1.0 L 10^3/uL
(1.2-3.4)
Lymphocytes % 18.3 L %
(20.5-51.1)
Carbon Dioxide 31 H mmol/L
(22-30)
Glucose 101 H mg/dl
(70-99)
Alkaline Phosphatase 32 L U/L
(38-126)
06/12/25 15:11
06/12/25 15:11
Vital Signs
Initial and Last Documented VS:
Initial Vital Signs
Temp Pulse Resp BP Pulse Ox
98.7 F 51 18 162/59 96
06/12/25 14:35 06/12/25 14:35 06/12/25 14:35 06/12/25 14:35 06/12/25 14:35
Last Documented Vital Signs
Temp Pulse Resp BP Pulse Ox
98.7 F 51 18 162/59 96
06/12/25 14:35 06/12/25 14:35 06/12/25 14:35 06/12/25 14:35 06/12/25 15:43
<BURT Katz - Last Filed: 06/12/25 16:40>
MDM/Problems Addressed
Differential Diagnosis Includes:
Not limited to COPD exacerbation, pneumonia
MDM/Problems Addressed:
Patient is a 75-year-old chronic COPD on chronic O2 presents for shortness of breath, pursed lip breathing on exam lungs decreased throughout. He was given a neb prior to arrival via EMS however still is short of breath. He denies any chest pain
recent cough illness fever chills. He was placed on an hour-long neb and given steroids with his exam will likely need admission. Patient evaluated Dr. Taylor who agrees with assessment and plan.
<BURT Katz - Last Filed: 06/12/25 16:40>
*Radiology
Radiology exam reviewed: radiology read reviewed
*Pulse Oximetry
SaO2: 96
Nasal Cannula flow liters per minute: 3
Patient hypoxic: no
*EKG
Interpreted by ED Provider?: Yes
Heart Rate: 64
Rate: normal
Rhythm: sinus
Ischemia: non-specific ST changes
*Critical Care Note
Total Time (30-74mins, 75-104mins- exclusive of procedures): Not Applicable
ED Attending Note
<BURT Katz - Last Filed: 06/12/25 16:40>
-
Portions of this chart may have been created with voice recognition software.� Occasional wrong word or��sound alike� substitutions may have occurred due to the inherent limitations of voice recognition software.
<Moreno Taylor DO - Last Filed: 06/12/25 16:36>
ED Attending Note
Patient seen and examined by attending physician: Yes
I performed the substantive portion of visit, reviewed & personally made and approve the management plan that is documented in note by myself or SARAH.: Yes
ED Attending Note:
I have seen and evaluated the patient with a paer-[id number] encounter. I have spoken to the advance practicer provider and involved in the medical history, the physical exam, medical decision making.
Evaluation and management service: agree unless noted differently below.
Results interpretation: agree unless noted differently below.
Focused HPI: 75-year-old male presenting with worsening shortness of breath. He does have a history of COPD and is chronically on home oxygen.
Physical exam: Frail-appearing. Prolonged expiratory phase and respiratory exam. No leg edema
Medical Decision Making: Patient treated as a COPD exacerbation. Chest x-ray clear. Doubt PE given current Eliquis use. Will admit given his respiratory status
Discharge Plan
Departure
Patient Disposition: Admit
Date of Disposition: 06/12/25
Time of Disposition: 16:37
Admit to: Telemetry
Admit to doctor: hospitalist
Presentation/result/management discussed w/ accepting MD/DO: Hospitalist
Patient with high blood pressure during this ER visit?: Yes
Condition: Fair
Covid-19: Not Applicable
Discharge Problem:
copd exacerbation
Prescriptions:
No Action
atorvastatin 40 mg Tablet
40 mg PO HS
furosemide 20 mg Tablet
20 mg PO BID
finasteride 5 mg Tablet
5 mg PO DAILY
Eliquis 5 mg Tablet
5 mg PO BID
Trelegy Ellipta 200-62.5-25 mcg Blister With Device
1 inh INHALATION R DAILY
pantoprazole 40 mg Tablet,Delayed Release (Dr/Ec)
40 mg PO BID Qty: 0 0RF
acetaminophen [Tylenol] 325 mg Tablet
650 mg PO TID
trazodone 50 mg Tablet
12.5 mg PO HS
bismuth subsalicylate [Pepto-Bismol] 262 mg/15 mL Suspension
524 mg PO DAILYPRN PRN (Reason: stomach upset)
magnesium oxide 250 mg magnesium Tablet
250 mg PO DAILY
escitalopram oxalate 10 mg Tablet
10 mg PO DAILY
melatonin 5 mg Tablet
5 mg PO HS
tamsulosin 0.4 mg Capsule
0.4 mg PO DAILY Qty: 30 0RF
gabapentin 100 mg Capsule
100 mg PO TID Qty: 30 0RF
simethicone 80 mg Tablet,Chewable
80 mg PO QIDPRN PRN (Reason: gas pains) Qty: 30 0RF
albuterol sulfate 2.5 mg /3 mL (0.083 %) Solution For Nebulization
2.5 mg inhalation R Q4HPRN PRN (Reason: SOB/Wheezing) Qty: 30 0RF
lisinopril 10 mg tablet
10 mg PO DAILY Qty: 30 0RF
sennosides [Dunia-adán] 8.6 mg tablet
8.6 mg PO BIDPRN PRN (Reason: constipation)
lidocaine 4 % adhesive patch,medicated
1 patch topical DAILY
Rx Instructions:
right butt check/lower back
metoprolol succinate 25 mg Tablet Extended Release 24 Hr
12.5 mg PO HS Qty: 30 0RF
prednisone 10 mg tablet
See Taper PO DAILY Qty: 9 0RF
Taper: Prednisone DC Starting at 40 mg daily
20 mg Daily for 3 Days and 0 Hour
10 mg Daily for 3 Days and 0 Hour
Referrals:
Kelsi Garcia MD, Resident [Family Provider, General]
Interventions
Interventions:
*Risk Screen - Suicide Last Done: 06/12/25 14:35
*General Assessment Last Done: 06/12/25 14:35
*Neglect/Abuse Screening Last Done: 06/12/25 14:35
Discharge Date and Time
Print Language: ESTONIAN
[2025-06-12 15:46] LABS: Troponin I 0.018 ng/ml
[2025-06-12 15:56] LABS: ALT (SGPT) 12 U/L (0-50); AST (SGOT) 19 U/L (17-59); Albumin 4.2 g/dl (3.5-5.0); Alkaline Phosphatase 32 U/L (38-126); Blood Urea Nitrogen 14 mg/dl (9-20); Calcium 9.8 mg/dl (8.4-10.2); Carbon Dioxide 31 mmol/L (22-30); Chloride 104 mmol/L (98-107); Glucose 101 mg/dl (70-99); Potassium 4.1 mmol/L (3.5-5.1); Sodium 141 mmol/L (135-145); Total Protein 6.6 g/dl (6.3-8.2); eGFR > 60.00
[2025-06-12] MEDS: VENTOLIN NEBULES 7.5 MG INH (16:04)
[2025-06-12] MEDS: ATROVENT NEBULES 1 MG INH (16:04)
[2025-06-12] MEDS: DECADRON 10 MG IV (16:04)
--- NOTE | 2025-06-12 16:44 | HPS.HSE ---
Addendum entered and electronically signed by James Tatum MD 06/12/25 17:45:
This is an addendum to H&P written by Amina Roman on 06/12/2025. �Patient seen and examined independently with SAFETY DEPOSIT SUPERVISOR.
75-year-old male past medical history significant for hypertension, hyperlipidemia, paroxysmal atrial fibrillation on Eliquis, HFpEF, COPD on 3 L oxygen, pulmonary hypertension, GERD, peptic ulcer disease and BPH presenting with increasing shortness
of breath with pain under his right arm for few days. �Increase his oxygen from 3 to 3.5 L for the past day.
Vital signs unremarkable. �Patient pain in his right axilla is worse with palpation.
Labs show stable anemia of 10.3.
Chest x-ray shows hyperinflated lungs without any acute abnormality.
Patient with likely progressive COPD rather than acute COPD exacerbation. �Currently saturating 100% on 3 L which is his baseline. �DuoNebs, dexamethasone 4 mg every 12.
Original Note:
Family Physician
-
Family Physician: Kelsi Garcia MD, Reside
Chief Complaint
-
increased shortness of breath at rest
History of Present Illness
Patient is a 75-year-old male with past medical history significant for hypertension, hyperlipidemia, paroxysmal atrial fibrillation on Eliquis, HFpEF, COPD on 4 L oxygen, pulmonary hypertension, GERD, peptic ulcer disease and BPH who presented to
[facility] ED for evaluation of increased shortness of breath at rest. Patient reports needing to increase his O2 at home to 3.5L from 3L for the past day, has had right sided rib pain with breathing and increased shortness of breath. He denies any recent
sick contact, fever, chills, cough, chest pain, nausea, vomting or changes to bowels or urine.
Medical History
Past Medical History
Past Medical History: Reports Other
Additional Past Medical History:
hypertension
hyperlipidemia
paroxysmal atrial fibrillation on Eliquis
HFpEF
COPD on 4 L oxygen
pulmonary hypertension
GERD
peptic ulcer disease
BPH
Past Surgical History: Reports None
Social History
Tobacco: Former Smoker (quit 5 years ago with approximate 50 pack year history )
Alcohol: None
Drug: None
Living: With Family
Family History
Family History: Not pertinent
Allergies / Home Medications
Allergies reflects when Allergies were last updated in [employer].
Home Medications with original date entered in [employer]
Allergy/Medication List:
Allergies
Allergy/AdvReac Type Severity Reaction Status Date / Time
No Known Allergies Allergy Verified 06/12/25 14:35
Home Medications
apixaban 5 mg tablet (Eliquis) 5 mg PO BID Blood Clot Prevention/Tx 10/30/24
atorvastatin 40 mg tablet 40 mg PO HS High Cholesterol 10/30/24
finasteride 5 mg tablet 5 mg PO DAILY BPH 10/30/24
acetaminophen 325 mg tablet (Tylenol) 650 mg PO TID mild Pain 03/26/25
bismuth subsalicylate 262 mg/15 mL oral suspension (Pepto-Bismol) 524 mg PO DAILYPRN PRN stomach upset 03/26/25
escitalopram oxalate 10 mg tablet 10 mg PO DAILY Depression 03/26/25
melatonin 5 mg tablet 5 mg PO HS Sleep 03/26/25
trazodone 50 mg tablet 12.5 mg PO HS Sleep 03/26/25
tamsulosin 0.4 mg capsule 0.4 mg PO DAILY BPH #30 caps 04/08/25
lidocaine 4 % topical patch 1 patch topical DAILY mild Pain 04/26/25
arformoterol 15 mcg/2 mL solution for nebulization 15 mcg inhalation R BID sob 06/12/25
budesonide 0.5 mg/2 mL suspension for nebulization 0.5 mg inhalation R BID sob 06/12/25
furosemide 40 mg tablet (Lasix) 40 mg PO DAILY@1400 Fluid Retention/Swelling 06/12/25
gabapentin 100 mg capsule 100 mg PO TID mild Pain 06/12/25
lisinopril 10 mg tablet 10 mg PO DAILY Blood Pressure 06/12/25
magnesium oxide 400 mg PO DAILY Supplement 06/12/25
metoprolol succinate 25 mg tablet,extended release 24 hr 12.5 mg PO HS Blood Pressure 06/12/25
pantoprazole 40 mg tablet,delayed release 40 mg PO DAILY GERD 06/12/25
Review of Systems
-
History Source: Patient
Constitutional: Denies Fever or Chills
EENT: Denies Sore Throat
Respiratory: Reports Trouble Breathing (increased shortness of breath at rest and increased O2 use ); Denies Cough
Cardiac: Denies Chest Pain, Diaphoresis, Palpitations or Syncope
Abdomen/GI: Denies Nausea, Vomiting or Diarrhea
: Denies Dysuria, Frequency or Urgency
Musculoskeletal: Denies Joint Pain
Skin: Denies Rash
Neurological: Denies Dizzy, Headache, Weakness or Numbness
Hematologic/Lymphatic: Denies Bleeding
Physical Exam
Vital Signs
Vital Signs
Temp Pulse Resp BP Pulse Ox
98.7 F 51 18 162/59 96
06/12/25 14:35 06/12/25 14:35 06/12/25 14:35 06/12/25 14:35 06/12/25 15:43
Physical Exam
General: Well Developed and Conversant
HEENT: NormoCephalic, Moist mucous membranes, Nose Appears Normal and Ears Appear Normal
Respiratory: Clear and Decreased Breath Sounds (throughout all lung howard ); No Wheezes, Rales, Rhonchi or Crackles
Cardiac: S1/S2 and Regular Rhythm; No Murmur, Rub, Gallop or Peripheral Edema
Breast: No Skin Changes
GI: Soft, Non Tender, Non Distended and Normal Bowel Sounds
Musculoskeletal: No Clubbing, No Cyanosis and No Edema
Skin: Warm and IV/Catheter Site
Neuro: Awake and AO x 3
Hematologic/Lymphatic: No Lymphadenopathy
Psych: Calm
Laboratory Results
-
06/12/25 15:11
06/12/25 15:11
Laboratory Results
Total Bilirubin 0.4 mg/dl (0.2-1.3) 06/12/25 15:11
AST 19 U/L (17-59) 06/12/25 15:11
ALT 12 U/L (0-50) 06/12/25 15:11
Alkaline Phosphatase 32 U/L (38-126) L 06/12/25 15:11
Troponin I 0.018 ng/ml 06/12/25 15:11
Data Reviewed
-
Diagnostic Radiology: Report Reviewed by me (CXR: Lungs appear hyperinflated, findings suggesting severe changes of emphysema. No evidence for new lung parenchymal opacity. Cardiac silhouette size is slightly enlarged with no evidence for
pulmonary edema or pleural effusion. Of note, given the findings of emphysema, the patient may meet cri)
Medical Tests (Nuc Med, Echo, EKG etc): Report Reviewed by me (EKG: SINUS RHYTHM WITH PAC's MARKED ST ABNORMALITY, POSSIBLE INFERIOR SUBENDOCARDIAL INJURY)
Lab Data: Labs Reviewed by me (hgb 10.3, hct 33.7)
Impression/Plan
-
IMPRESSION/PLAN:
#COPD exacerbation
hgb 10.3, hct 33.7
EKG: SINUS RHYTHM WITH PAC's
MARKED ST ABNORMALITY, POSSIBLE INFERIOR SUBENDOCARDIAL INJURY
CXR: Lungs appear hyperinflated, findings suggesting severe changes of emphysema.
No evidence for new lung parenchymal opacity.
Cardiac silhouette size is slightly enlarged with no evidence for pulmonary edema or pleural effusion.
Of note, given the findings of emphysema, the patient may meet criteria for CT lung screening program.
- Admit to med/surg
- DuoNebs QID and PRN
- Dexamethasone 4mg q12
- continue arformoterol, budesonide and Trelegy
#paroxysmal atrial fibrillation
- continue Eliquis and metoprolol
#hypertension
- continue lisinopril
#hyperlipidemia
- continue atorvastatin
#HFpEF
- daily weights
- I & Os
- continue furosemide
#pulmonary hypertension
- continue sildenafil
#GERD
#peptic ulcer disease
- continue pantoprazole
#BPH
- continue finasteride and tamsulosin
#depression/anxiety
- continue escitalopram and trazodone
Code status: full code
DVT prophylaxis: Eliquis
[2025-06-12 17:00] VITALS: BP 161/65
[2025-06-12 18:00] VITALS: BP 158/68
[2025-06-12 18:43] VITALS: BMI 19.7
[2025-06-12 19:00] VITALS: BP 165/70
[2025-06-12] MEDS: TYLENOL 650 MG PO (19:55)
[2025-06-12 20:00] VITALS: BP 163/68
[2025-06-12 20:15] VITALS: BP 135/101
[2025-06-12] MEDS: PULMICORT INH (20:36)
[2025-06-12 20:41] VITALS: BMI 19.7
--- NOTE | 2025-06-12 20:41 | PTCARENOTE ---
Rn metal flow coordinator-Admission assessment completed remotely via phone. Called to train clerk and informed community health educator that patient is a fall risk, and adolfo texted Swathi Rn as well.
[2025-06-12] MEDS: VENTOLIN NEBULES INH (21:30)
[2025-06-12] MEDS: LIPITOR 40 MG PO (21:43)
[2025-06-12] MEDS: TOPROL XL 12.5 MG PO (21:43)
[2025-06-12] MEDS: NEURONTIN 100 MG PO (21:43)
[2025-06-12] MEDS: ELIQUIS 5 MG PO (21:45)
[2025-06-12] MEDS: MELATONIN 5 MG PO (21:45)
[2025-06-12] MEDS: DESYREL 12.5 MG PO (21:46)
[2025-06-12] MEDS: REMOVE LIDOCAINE PATCH 1 PATCH REMOVE (22:15)
[2025-06-13] VITALS: BP 136/47
[2025-06-13 03:44] VITALS: BP 106/62
[2025-06-13] MEDS: DECADRON 4 MG IV ×2 (03:53→15:04)
[2025-06-13 06:00] VITALS: BMI 19.0
[2025-06-13 07:00] VITALS: BP 159/63
--- NOTE | 2025-06-13 07:12 | W.PN.HOSP.TC ---
Addendum entered and electronically signed by Keanu Singer MD 06/14/25 16:39:
I personally reviewed and evaluated this patient with the resident. I agree with above unless if otherwise stated below.
I personally reviewed labs and imaging home care consultant notes case management note
Addendum entered and electronically signed by Keanu Singer MD 06/13/25 12:40:
Acute COPD exacerbation
Currently on 3 L home O2 at baseline
Transition dexamethasone to oral prednisone
Continue MDIs
Continue DuoNebs
Incentive spirometer
Flu negative
COVID pending
Paroxysmal atrial fibrillation
Metoprolol Eliquis
Hypertension
Lisinopril
Hyperlipidemia
Statin
HFpEF
Daily weights I's and O's
Lasix
Pulmonary hypertension
Sildenafil
GERD/peptic ulcer disease
PPIs
BPH
Finasteride Flomax
Read, reviewed, and agree. See same day progress note for additional details. Time spent reviewing records in EMR, med rec, consults, notes, d/w consultants, nursing, family, and CM
Original Note:
Today's Communication/Plan
-
Continue IV steroids
Duonebs
Assessment / Plan
Assessment / Plan
75-year-old male past medical history significant for hypertension, hyperlipidemia, paroxysmal atrial fibrillation on Eliquis, HFpEF, COPD on 3 L oxygen, pulmonary hypertension, GERD, peptic ulcer disease and BPH who presented to the ED with
progressive shortness of breath. He has 50 pack years history of smoking and quit 1 year ago. Admitted with exacerbation of COPD, with pleurisy.
Denies any recent sick contacts, fever, chills, nausea, vomiting or any recent viral illness.
Follows up with pulmonology, patient of Dr. Bland. Last visit with pulmonology in May 2025, he is on azithromycin therapy for anti-inflammatory effects.
Advanced COPD/emphysema phenotype: Chronic hypoxemic and hypercapnic respiratory failure
FEV1 less than 30%oxygen desaturation with exertion up to 2 L with ambulation.Emphysema on CT abdomen and pelvis.Mild pulmonary hypertension on echocardiogram-normal RV function. Echocardiogram 03/24/25.exacerbation March 2025 and 04/2025-requiring
hospitalization stay.
#Acute exacerbation of COPD
Chest x-ray done in the ED consistent with hyperinflated lungs with severe emphysematous changes with no new lung pathology
DuoNebs 4 times daily and as needed
Continue dexamethasone 4 mg 12 hourly
Continue oxygen therapy
Continue budesonide and Trelegy
Test for COVID and influenza
PT/OT
#paroxysmal atrial fibrillation
- continue Eliquis and metoprolol
#hypertension
- continue lisinopril
#hyperlipidemia
- continue atorvastatin
#HFpEF
- daily weights
- I & Os
- continue furosemide
#pulmonary hypertension- continue sildenafil
#GERD
#peptic ulcer disease - continue pantoprazole
#BPH - continue finasteride and tamsulosin
#depression/anxiety - continue escitalopram and trazodone
Code status: full code
DVT prophylaxis: Eliquis
Anticipated Discharge: 24 - 48 hours
Subjective/Interval History
-
Date of Service: June 13, 2025
Patient seen and examined at bedside
currently breathing on 2 L of oxygen
Reports pain in right side of the chest, axilla with breathing
Afebrile, has dry cough
Objective Data
-
Labs:
Laboratory Results
06/13/25
06:55
WBC Pending
Hgb Pending
Hct Pending
Plt Count Pending
Sodium Pending
Potassium Pending
Chloride Pending
Carbon Dioxide Pending
BUN Pending
Creatinine Pending
Glucose Pending
Calcium Pending
Vital Signs:
Vital Signs
Temp Pulse Resp BP Pulse Ox
98.1 F 82 12 106/62 98
06/13/25 03:44 06/13/25 03:44 06/13/25 03:44 06/13/25 03:44 06/13/25 03:44
I&O
06/12/25 06/13/25 06/14/25
06:59 06:59 06:59
Intake Total 0 / 0
Balance 0 / 0
Review of Systems
-
All other systems: Reviewed and negative
Physical Exam
-
General: Appears Chronically Ill and Other (Weak and fragile, breathing on 2 L of oxygen)
HEENT: Normocephalic, Atraumatic, Anicteric and [place] Conjunctivae
Respiratory: Clear to Auscultation and Decreased Breath Sounds; Negative Wheezes, Rales or Crackles
Cardiac: Regular Rhythm and S1/S2; Negative Murmur, Rub or Gallop
GI: Soft, Nontender and Normal Bowel Sounds
Musculoskeletal: No Clubbing, No Cyanosis and No Edema
Skin: Warm and Dry
Neuro: Awake and AO x 3
Psych: Calm
[2025-06-13] MEDS: PULMICORT 0.5 MG INH ×2 (07:13→20:00)
[2025-06-13] MEDS: VENTOLIN NEBULES 2.5 MG INH (07:13)
[2025-06-13] MEDS: DUONEB 3 ML INH ×4 (07:27→20:00)
[2025-06-13] MEDS: LEXAPRO 10 MG PO (07:29)
[2025-06-13] MEDS: ZESTRIL 10 MG PO (07:29)
[2025-06-13] MEDS: FLOMAX 0.4 MG PO (07:29)
[2025-06-13] MEDS: MAGNESIUM OXIDE 400 MG PO (07:29)
[2025-06-13] MEDS: PROTONIX 40 MG PO (07:29)
[2025-06-13] MEDS: PROSCAR 5 MG PO (07:29)
[2025-06-13] MEDS: ELIQUIS 5 MG PO ×2 (07:29→19:51)
[2025-06-13] MEDS: NEURONTIN 100 MG PO ×3 (07:29→22:23)
[2025-06-13] MEDS: LIDOCAINE 4% PATCH 1 PATCH TOPICAL (07:30)
[2025-06-13 07:48] LABS: Hematocrit 32.4 % (39.0-52.0); Hemoglobin 10.2 g/dL (13.0-18.0); Mean Corp Hgb Conc. 31.5 g/dL (33.0-37.0); Mean Corpuscular Volume 88.0 fL (80.0-94.0); Platelet Count 246 10^3/uL (130-400); Red Cell Dist. Width 17.0 % (11.5-14.5)
--- NOTE | 2025-06-13 08:18 | VNURNOTE ---
Chart reviewed. Patient is current with [facility]. Will continue to follow hospital course and DC plans.
[2025-06-13 08:50] VITALS: BMI 19.0
[2025-06-13 09:00] LABS: Blood Urea Nitrogen 15 mg/dl (9-20); Calcium 9.9 mg/dl (8.4-10.2); Carbon Dioxide 28 mmol/L (22-30); Chloride 102 mmol/L (98-107); Estimated Creatinine Clearance 75 ml/min; Glucose 126 mg/dl (70-99); Potassium 4.5 mmol/L (3.5-5.1); Sodium 138 mmol/L (135-145); eGFR > 60.00
--- NOTE | 2025-06-13 11:17 | CM ---
CM reviewed chart, patient seen bedside, initial assessment completed.
Patient is a 75-year-old male who presents to the ER for evaluation. Patient w/ PMH including COPD, hyperlipidemia hypertension paroxysmal A-fib on Eliquis peptic ulcer disease . Patient is on 3 L nasal cannula for COPD. He reports starting 11 AM
he felt short of breath he was given a neb and route via ambulance.
Patient resides with sister in a multiple level home, about eight steps to enter.
Bedroom on second floor, normal flight of steps up.
DME included RW, cane, has O2 baseline 3L at home, believes supplier is [employer].
Patient [facility] with [facility].
PCP Kelsi Rebolledo
Pharmacy [facility], confirms prescription coverage.
Pt denies insecurities at home.
ZE[employer] form verbally reviewed, provided with copy, placed in chart.
CM will continue to follow for all d/c planning needs.
Plan; home with [facility], has home O2
[2025-06-13 11:23] VITALS: BP 161/75
[2025-06-13] MEDS: LASIX 40 MG PO (13:08)
[2025-06-13 15:00] VITALS: BP 131/56
[2025-06-13] MEDS: TYLENOL 650 MG PO (19:51)
[2025-06-13 21:00] LABS: COVID-19 Antigen Negative (Negative)
[2025-06-13] MEDS: MELATONIN 5 MG PO (22:21)
[2025-06-13] MEDS: LIPITOR 40 MG PO (22:21)
[2025-06-13] MEDS: DESYREL 12.5 MG PO (22:22)
[2025-06-13] MEDS: TOPROL XL 12.5 MG PO (22:23)
[2025-06-13] MEDS: REMOVE LIDOCAINE PATCH 1 PATCH REMOVE (22:24)
[2025-06-13 23:55] VITALS: BP 139/56
[2025-06-14] VITALS (7 sets, daily range): BP systolic 120–163; BP diastolic 50–80; PULSE 61; O2SAT 97; BMI 18.4
[2025-06-14] MEDS: PULMICORT 0.5 MG INH ×2 (07:47→19:22)
[2025-06-14] MEDS: DUONEB 3 ML INH ×4 (07:47→19:22)
[2025-06-14] MEDS: MAGNESIUM OXIDE 400 MG PO (08:04)
[2025-06-14] MEDS: NEURONTIN 100 MG PO ×3 (08:04→20:34)
[2025-06-14] MEDS: DELTASONE 40 MG PO (08:04)
[2025-06-14] MEDS: LIDOCAINE 4% PATCH 1 PATCH TOPICAL (08:05)
[2025-06-14] MEDS: ELIQUIS 5 MG PO ×2 (08:05→20:31)
[2025-06-14] MEDS: PROSCAR 5 MG PO (08:05)
[2025-06-14] MEDS: ZESTRIL 10 MG PO (08:05)
[2025-06-14] MEDS: FLOMAX 0.4 MG PO (08:05)
[2025-06-14] MEDS: LEXAPRO 10 MG PO (08:05)
[2025-06-14] MEDS: PROTONIX 40 MG PO (08:05)
--- NOTE | 2025-06-14 08:34 | W.PN.HOSP.TC ---
Addendum entered and electronically signed by Keanu Singer MD 06/14/25 16:40:
Acute COPD exacerbation
Currently on 3 L home O2 at baseline
Transition dexamethasone to oral prednisone
Continue MDIs
Continue DuoNebs
Incentive spirometer
Flu negative
COVID pending
Paroxysmal atrial fibrillation
Metoprolol Eliquis
Hypertension
Lisinopril
Hyperlipidemia
Statin
HFpEF
Daily weights I's and O's
Lasix
Pulmonary hypertension
Sildenafil
GERD/peptic ulcer disease
PPIs
BPH
Finasteride Flomax
For SNF
I personally reviewed and evaluated this patient with the resident. I agree with above unless if otherwise stated below.
I personally reviewed labs and imaging portrait consultant notes case management note
Original Note:
Today's Communication/Plan
-
PT/OT
SNF
Assessment / Plan
Assessment / Plan
75-year-old male past medical history significant for hypertension, hyperlipidemia, paroxysmal atrial fibrillation on Eliquis, HFpEF, COPD on 3 L oxygen, pulmonary hypertension, GERD, peptic ulcer disease and BPH who presented to the ED with
progressive shortness of breath. He has 50 pack years history of smoking and quit 1 year ago. Admitted with exacerbation of COPD, with pleurisy.
Denies any recent sick contacts, fever, chills, nausea, vomiting or any recent viral illness.
Follows up with pulmonology, patient of Dr. Bland. Last visit with pulmonology in May 2025, he is on azithromycin therapy for anti-inflammatory effects.
Advanced COPD/emphysema phenotype: Chronic hypoxemic and hypercapnic respiratory failure
FEV1 less than 30%oxygen desaturation with exertion up to 2 L with ambulation.Emphysema on CT abdomen and pelvis.Mild pulmonary hypertension on echocardiogram-normal RV function. Echocardiogram 03/24/25.exacerbation March 2025 and 04/2025-requiring
hospitalization stay.
#Acute exacerbation of COPD
Hemoglobin stable, white blood cell count BMP WNL
Chest x-ray done in the ED consistent with hyperinflated lungs with severe emphysematous changes with no new lung pathology
DuoNebs 4 times daily and as needed
Started oral prednisone 40 mg daily
Continue oxygen therapy-on baseline 3 L oxygen at home
Continue budesonide and Trelegy
COVID and flu negative
PT/OT
#paroxysmal atrial fibrillation
- continue Eliquis and metoprolol
#hypertension
- continue lisinopril
#hyperlipidemia
- continue atorvastatin
#HFpEF
- daily weights
- I & Os
- continue furosemide
#pulmonary hypertension- continue sildenafil
#GERD
#peptic ulcer disease - continue pantoprazole
#BPH - continue finasteride and tamsulosin
#depression/anxiety - continue escitalopram and trazodone
Goals of care discussion initiated-patient wants to try alf facility/rehab before deciding about hospice
Code status: full code
DVT prophylaxis: Eliquis
Anticipated Discharge: 24 - 48 hours
Subjective/Interval History
-
Date of Service: June 14, 2025
Objective Data
-
Labs:
Laboratory Results
06/14/25
07:57
WBC Pending
Hgb Pending
Hct Pending
Plt Count Pending
Sodium Pending
Potassium Pending
Chloride Pending
Carbon Dioxide Pending
BUN Pending
Creatinine Pending
Glucose Pending
Calcium Pending
Total Bilirubin Pending
AST Pending
ALT Pending
Alkaline Phosphatase Pending
Vital Signs:
Vital Signs
Temp Pulse Resp BP Pulse Ox
98.3 F 48 20 158/80 95
06/14/25 08:02 06/14/25 08:02 06/14/25 08:02 06/14/25 08:02 06/14/25 08:02
I&O
06/13/25 06/14/25 06/15/25
06:59 06:59 06:59
Intake Total 0 / 0 240 / 240
Output Total 375 / 375
Balance 0 / 0 -135 / -135
Physical Exam
-
General: Appears Chronically Ill and Other (Weak and fragile, breathing on 3 L of oxygen)
HEENT: Anicteric, [place] Conjunctivae and Other (Dry mucous membranes)
Respiratory: Clear to Auscultation and Decreased Breath Sounds
Cardiac: Regular Rhythm and S1/S2; Negative Murmur, Rub or Gallop
GI: Soft, Nondistended and Normal Bowel Sounds
Musculoskeletal: No Clubbing, No Cyanosis and Other (+1 edema of bilateral legs)
Skin: Warm and Dry
Neuro: Awake, AO x 3 and Nonfocal/Grossly Intact
Psych: Calm
[2025-06-14 08:52] LABS: Hematocrit 34.3 % (39.0-52.0); Hemoglobin 10.4 g/dL (13.0-18.0); Mean Corp Hgb Conc. 30.3 g/dL (33.0-37.0); Mean Corpuscular Volume 90.7 fL (80.0-94.0); Nucleated Red Blood Cells % 0 % (-); Platelet Count 252 10^3/uL (130-400); Red Cell Dist. Width 17.4 % (11.5-14.5)
[2025-06-14 09:27] LABS: ALT (SGPT) 12 U/L (0-50); AST (SGOT) 18 U/L (17-59); Albumin 4.0 g/dl (3.5-5.0); Alkaline Phosphatase 34 U/L (38-126); Blood Urea Nitrogen 26 mg/dl (9-20); Calcium 9.8 mg/dl (8.4-10.2); Carbon Dioxide 29 mmol/L (22-30); Chloride 104 mmol/L (98-107); Estimated Creatinine Clearance 64 ml/min; Glucose 96 mg/dl (70-99); Magnesium 1.9 mg/dl (1.6-2.3); Potassium 4.3 mmol/L (3.5-5.1); Sodium 141 mmol/L (135-145); Total Protein 6.4 g/dl (6.3-8.2); eGFR > 60.00
--- NOTE | 2025-06-14 11:06 | HOSPNOTE ---
Spoke with patient and discussed hospice and the philosophy. The patient would like to go to rehab and does not wish for hospice services at this time. I asked patient if he wanted me to speak with sister since he lives with the sister and he stated
that he would speak with her later. CM is aware that patient is choosing rehab and mentioned he was at [facility] rehab in [place]. We will sign off.
[2025-06-14] MEDS: TYLENOL 650 MG PO ×2 (11:33→17:56)
--- NOTE | 2025-06-14 13:44 | CM ---
Addendum entered by Abril Sales 06/14/25 16:12:
CM met with patient, therapy rec SNF.
Patient currently admitted observation status, does not qualify for [facility] waiver program.
CM discussed if patient d/c to SNF, will be private pay.
Patient unsure if private pay is an option, agreeable for CM to send referral to [facility] as has been to their rehab in the past to see what cost would be.
CM discussed plan B returning home with services, patient not agreeable to this and would like to explore private pay of rehab.
Original Note:
CM reviewed chart, consult received for hospice.
Patient seen bedside, agreeable to meet with hospice, referral to Hospice.
Marie from Hospice to meet with patient, patient looking for rehab at this time.
TT to Resident for PT orders, pending therapy recommendations will place referrals for SNF.
CM will continue to follow for all d/c planning needs.
Plan; likely SNF, PT evals pending
[2025-06-14] MEDS: LASIX 40 MG PO (14:57)
[2025-06-14] MEDS: TOPROL XL 12.5 MG PO (20:30)
[2025-06-14] MEDS: LIPITOR 40 MG PO (20:32)
[2025-06-14] MEDS: MELATONIN 5 MG PO (20:35)
[2025-06-14] MEDS: DESYREL 12.5 MG PO (20:35)
[2025-06-14] MEDS: REMOVE LIDOCAINE PATCH 1 PATCH REMOVE (20:36)
[2025-06-15] VITALS (7 sets, daily range): BP systolic 118–163; BP diastolic 49–80; PULSE 50; O2SAT 99; BMI 18.8
[2025-06-15] MEDS: PULMICORT 0.5 MG INH ×2 (07:09→19:08)
[2025-06-15] MEDS: DUONEB 3 ML INH ×4 (07:09→19:08)
--- NOTE | 2025-06-15 07:44 | W.PN.HOSP.TC ---
Addendum entered and electronically signed by Keanu Singer MD 06/15/25 13:20:
Acute COPD exacerbation
Currently on 3 L home O2 at baseline
Transition dexamethasone to oral prednisone
Continue MDIs
Continue DuoNebs
Incentive spirometer
Flu negative
COVID negative
Paroxysmal atrial fibrillation
Metoprolol Eliquis
Hypertension
Lisinopril
Hyperlipidemia
Statin
HFpEF
Daily weights I's and O's
Lasix
Pulmonary hypertension
Sildenafil
GERD/peptic ulcer disease
PPIs
BPH
Finasteride Flomax
For SNF
I personally reviewed and evaluated this patient with the resident. I agree with above unless if otherwise stated below.
I personally reviewed labs and imaging renewable energy consultant notes case management note
Original Note:
Today's Communication/Plan
-
SNF placement
Assessment / Plan
Assessment / Plan
75-year-old male past medical history significant for hypertension, hyperlipidemia, paroxysmal atrial fibrillation on Eliquis, HFpEF, COPD on 3 L oxygen, pulmonary hypertension, GERD, peptic ulcer disease and BPH who presented to the ED with
progressive shortness of breath. He has 50 pack years history of smoking and quit 1 year ago. Admitted with exacerbation of COPD, with pleurisy.
Denies any recent sick contacts, fever, chills, nausea, vomiting or any recent viral illness.
Follows up with pulmonology, patient of Dr. Bland. Last visit with pulmonology in May 2025, he is on azithromycin therapy for anti-inflammatory effects.
Advanced COPD/emphysema phenotype: Chronic hypoxemic and hypercapnic respiratory failure
FEV1 less than 30%oxygen desaturation with exertion up to 2 L with ambulation.Emphysema on CT abdomen and pelvis.Mild pulmonary hypertension on echocardiogram-normal RV function. Echocardiogram 03/24/25.exacerbation March 2025 and 04/2025-requiring
hospitalization stay.
#Acute exacerbation of COPD
Hemoglobin stable, white blood cell count BMP WNL
Chest x-ray done in the ED consistent with hyperinflated lungs with severe emphysematous changes with no new lung pathology
DuoNebs 4 times daily and as needed
Started oral prednisone 40 mg daily
Continue oxygen therapy-on baseline 3 L oxygen at home
Continue budesonide and Trelegy
COVID and flu negative
PT/OT
#paroxysmal atrial fibrillation
- continue Eliquis and metoprolol
#hypertension
- continue lisinopril
#hyperlipidemia
- continue atorvastatin
#HFpEF
- daily weights
- I & Os
- continue furosemide
#pulmonary hypertension- continue sildenafil
#GERD
#peptic ulcer disease - continue pantoprazole
#BPH - continue finasteride and tamsulosin
#depression/anxiety - continue escitalopram and trazodone
Goals of care discussion initiated-patient wants to try half-way facility/rehab before deciding about hospice
PT recommends skilled rehab-patient does not fulfill criteria for inpatient admission-case consultant working with family to find placement
Code status: full code
DVT prophylaxis: Eliquis
Anticipated Discharge: Within 24 hours
Subjective/Interval History
-
Date of Service: June 15, 2025
Patient seen and examined at bedside
Breathing on 3liters of oxygen which is baseline for him
Objective Data
-
Labs:
Laboratory Results
06/15/25
06:00
WBC Pending
Hgb Pending
Hct Pending
Plt Count Pending
Sodium Pending
Potassium Pending
Chloride Pending
Carbon Dioxide Pending
BUN Pending
Creatinine Pending
Glucose Pending
Calcium Pending
Total Bilirubin Pending
AST Pending
ALT Pending
Alkaline Phosphatase Pending
Vital Signs:
Vital Signs
Temp Pulse Resp BP Pulse Ox
97.9 F 56 16 149/75 100
06/15/25 03:40 06/15/25 07:12 06/15/25 07:12 06/15/25 03:40 06/15/25 03:40
I&O
06/14/25 06/15/25 06/16/25
06:59 06:59 06:59
Intake Total 240 / 240 960 / 960
Output Total 375 / 375 1400 / 1400
Balance -135 / -135 -440 / -440
Physical Exam
-
General: Appears Chronically Ill and Other (weak and fragile)
HEENT: Anicteric and [place] Conjunctivae
Respiratory: Clear to Auscultation and Decreased Breath Sounds
Cardiac: Regular Rhythm and S1/S2; Negative Murmur, Rub or Gallop
GI: Soft, Nondistended and Normal Bowel Sounds
Musculoskeletal: No Clubbing, No Cyanosis and No Edema
Skin: Warm and Dry
Neuro: Awake, Oriented and Nonfocal/Grossly Intact
Psych: Calm
[2025-06-15] MEDS: LIDOCAINE 4% PATCH 1 PATCH TOPICAL (08:09)
[2025-06-15] MEDS: MAGNESIUM OXIDE 400 MG PO (08:09)
[2025-06-15] MEDS: DELTASONE 40 MG PO (08:09)
[2025-06-15] MEDS: NEURONTIN 100 MG PO ×3 (08:09→22:49)
[2025-06-15] MEDS: LEXAPRO 10 MG PO (08:10)
[2025-06-15] MEDS: PROTONIX 40 MG PO (08:10)
[2025-06-15] MEDS: PROSCAR 5 MG PO (08:10)
[2025-06-15] MEDS: FLOMAX 0.4 MG PO (08:10)
[2025-06-15] MEDS: ELIQUIS 5 MG PO ×2 (08:10→20:16)
[2025-06-15] MEDS: ZESTRIL 10 MG PO (08:10)
--- NOTE | 2025-06-15 09:06 | CM ---
manager contracting reviewed patient's chart and spoke with physician this morning plan for skilled placement, patient is still under OBS, therefore insurance is not paying for skilled placement patient has to private pay for skilled, skilled placement
cost is $350 a night and they need to provide the facility with 5 years of financial history before they will accept [facility] as the need to prove that they can continue to private pay.
Plan; Skilled placement at [facility] once financial history is secured by facility.
[2025-06-15 09:53] LABS: Hematocrit 31.5 % (39.0-52.0); Hemoglobin 9.7 g/dL (13.0-18.0); Mean Corp Hgb Conc. 30.8 g/dL (33.0-37.0); Mean Corpuscular Volume 88.0 fL (80.0-94.0); Nucleated Red Blood Cells % 0 % (-); Platelet Count 216 10^3/uL (130-400); Red Cell Dist. Width 17.3 % (11.5-14.5)
[2025-06-15 10:14] LABS: ALT (SGPT) 11 U/L (0-50); AST (SGOT) 17 U/L (17-59); Albumin 3.7 g/dl (3.5-5.0); Alkaline Phosphatase 27 U/L (38-126); Blood Urea Nitrogen 27 mg/dl (9-20); Calcium 9.5 mg/dl (8.4-10.2); Carbon Dioxide 31 mmol/L (22-30); Chloride 104 mmol/L (98-107); Estimated Creatinine Clearance 65 ml/min; Glucose 135 mg/dl (70-99); Magnesium 1.8 mg/dl (1.6-2.3); Potassium 4.0 mmol/L (3.5-5.1); Sodium 144 mmol/L (135-145); Total Protein 6.0 g/dl (6.3-8.2); eGFR > 60.00
[2025-06-15] MEDS: TYLENOL 650 MG PO ×3 (11:17→22:52)
[2025-06-15] MEDS: LASIX 40 MG PO (15:35)
[2025-06-15] MEDS: REMOVE LIDOCAINE PATCH 1 PATCH REMOVE (20:17)
[2025-06-15] MEDS: MELATONIN 5 MG PO (22:43)
[2025-06-15] MEDS: LIPITOR 40 MG PO (22:44)
[2025-06-15] MEDS: DESYREL 12.5 MG PO (22:46)
[2025-06-15] MEDS: TOPROL XL 12.5 MG PO (22:46)
[2025-06-16] VITALS (7 sets, daily range): BP systolic 115–144; BP diastolic 54–63; PULSE 48–55; O2SAT 98; BMI 19.1
[2025-06-16] MEDS: PULMICORT 0.5 MG INH ×2 (07:22→19:12)
[2025-06-16] MEDS: DUONEB 3 ML INH ×4 (07:22→19:12)
[2025-06-16 07:52] LABS: Hematocrit 30.1 % (39.0-52.0); Hemoglobin 9.3 g/dL (13.0-18.0); Mean Corp Hgb Conc. 30.9 g/dL (33.0-37.0); Mean Corpuscular Volume 88.3 fL (80.0-94.0); Nucleated Red Blood Cells % 0 % (-); Platelet Count 210 10^3/uL (130-400); Red Cell Dist. Width 17.3 % (11.5-14.5)
[2025-06-16] MEDS: LIDOCAINE 4% PATCH 1 PATCH TOPICAL (07:58)
[2025-06-16] MEDS: MAGNESIUM OXIDE 400 MG PO (08:00)
[2025-06-16] MEDS: ELIQUIS 5 MG PO ×2 (08:00→20:37)
[2025-06-16] MEDS: LEXAPRO 10 MG PO (08:00)
[2025-06-16] MEDS: FLOMAX 0.4 MG PO (08:00)
[2025-06-16] MEDS: PROTONIX 40 MG PO (08:00)
[2025-06-16] MEDS: ZESTRIL 10 MG PO (08:00)
[2025-06-16] MEDS: PROSCAR 5 MG PO (08:00)
[2025-06-16] MEDS: NEURONTIN 100 MG PO ×3 (08:01→20:38)
[2025-06-16] MEDS: DELTASONE 40 MG PO (08:01)
[2025-06-16 08:10] LABS: ALT (SGPT) 11 U/L (0-50); AST (SGOT) 17 U/L (17-59); Albumin 3.5 g/dl (3.5-5.0); Alkaline Phosphatase 45 U/L (38-126); Blood Urea Nitrogen 30 mg/dl (9-20); Calcium 9.2 mg/dl (8.4-10.2); Carbon Dioxide 31 mmol/L (22-30); Chloride 106 mmol/L (98-107); Estimated Creatinine Clearance 66 ml/min; Glucose 88 mg/dl (70-99); Magnesium 2.0 mg/dl (1.6-2.3); Potassium 4.0 mmol/L (3.5-5.1); Sodium 140 mmol/L (135-145); Total Protein 5.8 g/dl (6.3-8.2); eGFR > 60.00
[2025-06-16] MEDS: TYLENOL 650 MG PO ×2 (10:00→20:42)
--- NOTE | 2025-06-16 11:35 | W.PN.HOSP.TC ---
Addendum entered and electronically signed by Keanu Singer MD 06/16/25 14:05:
Acute COPD exacerbation
Currently on 3 L home O2 at baseline
Transition dexamethasone to oral prednisone
Continue MDIs
Continue DuoNebs
Incentive spirometer
Flu negative
COVID negative
Paroxysmal atrial fibrillation
Metoprolol Eliquis
Hypertension
Lisinopril
Hyperlipidemia
Statin
HFpEF
Daily weights I's and O's
Lasix
Pulmonary hypertension
Sildenafil
GERD/peptic ulcer disease
PPIs
BPH
Finasteride Flomax
For SNF
I personally reviewed and evaluated this patient with the resident. I agree with above unless if otherwise stated below.
I personally reviewed labs and imaging spa consultant notes case management note
Original Note:
Today's Communication/Plan
-
Discharge patient and offer outpatient palliative care
Assessment / Plan
Assessment / Plan
75-year-old male past medical history significant for hypertension, hyperlipidemia, paroxysmal atrial fibrillation on Eliquis, HFpEF, COPD on 3 L oxygen, pulmonary hypertension, GERD, peptic ulcer disease and BPH who presented to the ED with
progressive shortness of breath. He has 50 pack years history of smoking and quit 1 year ago. Admitted with exacerbation of COPD, with pleurisy.
Denies any recent sick contacts, fever, chills, nausea, vomiting or any recent viral illness.
Follows up with pulmonology, patient of Dr. Bland. Last visit with pulmonology in May 2025, he is on azithromycin therapy for anti-inflammatory effects.
Advanced COPD/emphysema phenotype: Chronic hypoxemic and hypercapnic respiratory failure
FEV1 less than 30%oxygen desaturation with exertion up to 2 L with ambulation.Emphysema on CT abdomen and pelvis.Mild pulmonary hypertension on echocardiogram-normal RV function. Echocardiogram 03/24/25.exacerbation March 2025 and 04/2025-requiring
hospitalization stay.
#Acute exacerbation of COPD
Hemoglobin stable, white blood cell count BMP WNL
Chest x-ray done in the ED consistent with hyperinflated lungs with severe emphysematous changes with no new lung pathology
DuoNebs 4 times daily and as needed
Started oral prednisone 40 mg daily to complete 5 days-course ends on 06/19/2025
Continue oxygen therapy-on baseline 3 L oxygen at home
Continue budesonide and Trelegy
COVID and flu negative
Offered hospice consult-patient refused to proceed with path-does not qualify hospital admission criteria
Outpatient palliative care
PT/OT
#paroxysmal atrial fibrillation
- continue Eliquis and metoprolol
#hypertension
- continue lisinopril
#hyperlipidemia
- continue atorvastatin
#HFpEF
- daily weights
- I & Os
- continue furosemide
#pulmonary hypertension- continue sildenafil
#GERD
#peptic ulcer disease - continue pantoprazole
#BPH - continue finasteride and tamsulosin
#depression/anxiety - continue escitalopram and trazodone
Goals of care discussion initiated-patient wants to try longterm facility/rehab before deciding about hospice
PT recommends skilled rehab-patient does not fulfill criteria for inpatient admission-sample case porter working with family to find placement
Code status: full code
DVT prophylaxis: Eliquis
Anticipated Discharge: Today
Subjective/Interval History
-
Date of Service: June 16, 2025
Patient seen and examined at bedside
Remains on 3 L of oxygen which is baseline for him
No active issues, agreeable with discharge to home
Objective Data
-
Labs:
Laboratory Results
06/16/25
07:33
WBC 7.4
Hgb 9.3 L
Hct 30.1 L
Plt Count 210
Sodium 140
Potassium 4.0
Chloride 106
Carbon Dioxide 31 H
BUN 30 H
Creatinine 0.8
Glucose 88
Calcium 9.2
Total Bilirubin 0.4
AST 17
ALT 11
Alkaline Phosphatase 45
Vital Signs:
Vital Signs
Temp Pulse Resp BP Pulse Ox
97.9 F 51 16 133/63 100
06/16/25 07:00 06/16/25 08:45 06/16/25 08:45 06/16/25 07:00 06/16/25 08:45
I&O
06/15/25 06/16/25 06/17/25
06:59 06:59 06:59
Intake Total 960 / 960 540 / 540
Output Total 1400 / 1400 100 / 100
Balance -440 / -440 440 / 440
Review of Systems
-
Respiratory: Reports Cough, Trouble Breathing and Pleurisy
Physical Exam
-
General: Appears Chronically Ill and Other (Very weak and fragile)
HEENT: Moist Mucous Membranes, Anicteric and [place] Conjunctivae
Respiratory: Clear to Auscultation and Decreased Breath Sounds
Cardiac: Regular Rhythm and S1/S2
GI: Soft, Nondistended and Normal Bowel Sounds
Musculoskeletal: No Clubbing, No Cyanosis and No Edema
Skin: Warm and Dry
Neuro: Awake, AO x 3 and Nonfocal/Grossly Intact
Psych: Calm
--- NOTE | 2025-06-16 12:24 | W.DCSUMMARY ---
Discharge Summary
Discharge Data
Date of Admission: 06/12/25
Date of Discharge: 06/16/25
-
Pending Results: No
Hospital Course
Discharging Physician :
Keanu Singer
Disposition :
Home
Primary care physician :
Kelsi Garcia
Principal Discharge diagnosis :
Acute exacerbation of COPD
Chronic Discharge diagnosis :
hypertension
hyperlipidemia
paroxysmal atrial fibrillation on Eliquis
HFpEF
COPD on 4 L oxygen
pulmonary hypertension
GERD
peptic ulcer disease
BPH
Hospital Course :
75-year-old male with past medical history significant for end-stage COPD with home oxygen requirement of 3 to 4 L, paroxysmal atrial fibrillation, hyperlipidemia, hypertension, pulmonary hypertension, GERD, peptic ulcer disease and BPH presented to
ED with progressive shortness of breath.Evaluation in ED, no leukocytosis, hemoglobin stable, normal BMP,Chest x-ray without any acute findings EKG showed Sinus rhythm with PVCs
[id number] smoking history, quit 1 year ago. Follows up with Dr. Bland, on chronic azithromycin therapy for anti-inflammatory effects
Managed COPD exacerbation with IV steroids.After a couple of days of receiving IV steroids, he was back to his baseline and was transitioned to oral steroids to complete 5 days. Tested negative for flu and COVID
Recommended goals of care discussion, refused hospice but wants to discuss outpatient palliative care.
Important imaging findings :
Chest x-ray 06/12/2025
FINDINGS: The lungs are hyperinflated compatible with emphysema. Stable vertical thin linear scar in the medial right apex.
No new lung parenchymal opacity is identified.
Cardiac silhouette size is slightly enlarged with no evidence for pulmonary edema or pleural effusion.
IMPRESSION:
Lungs appear hyperinflated, findings suggesting severe changes of emphysema.
Discharge Plan
-
Patient Disposition: Home (Routine Discharge)
Discharge Diagnosis/Procedures: Acute COPD exacerbation
Condition: Fair
Diet: Regular and Low Cholesterol
Activity: As tolerated
Driving Restrictions: Not until seen by your Dr
Bathing Restrictions: OK to Shower
Referrals:
Kelsi Garcia MD, Resident [Family Provider, General] - in less than 1 week
Jasper Quach MD [Active, Palliative Care] - in one week
Prescriptions:
New
ipratropium-albuterol 0.5 mg-3 mg(2.5 mg base)/3 mL Solution For Nebulization
3 ml inhalation R QID 30 Days Qty: 360 0RF
albuterol sulfate 2.5 mg /3 mL (0.083 %) Solution For Nebulization
2.5 mg inhalation R Q4HPRN PRN (Reason: shortness of breath) 30 Days Qty: 30 0RF
prednisone 20 mg Tablet
40 mg PO DAILY 3 Days Qty: 6 0RF
(DME) nebulizer accessories Kit
See Rx Instructions .Route Qty: 1 0RF
Rx Instructions:
As directed
azithromycin 500 mg tablet
500 mg PO .MWF 3 Days Qty: 9 0RF
Continued
atorvastatin 40 mg Tablet
40 mg PO HS
finasteride 5 mg Tablet
5 mg PO DAILY
Eliquis 5 mg Tablet
5 mg PO BID
acetaminophen [Tylenol] 325 mg Tablet
650 mg PO TID
trazodone 50 mg Tablet
12.5 mg PO HS
bismuth subsalicylate [Pepto-Bismol] 262 mg/15 mL Suspension
524 mg PO DAILYPRN PRN (Reason: stomach upset)
escitalopram oxalate 10 mg Tablet
10 mg PO DAILY
melatonin 5 mg Tablet
5 mg PO HS
tamsulosin 0.4 mg Capsule
0.4 mg PO DAILY Qty: 30 0RF
lidocaine 4 % adhesive patch,medicated
1 patch topical DAILY
Rx Instructions:
right butt check/lower back
furosemide [Lasix] 40 mg Tablet
40 mg PO DAILY@1400
budesonide 0.5 mg/2 mL Suspension For Nebulization
0.5 mg INHALATION R BID
arformoterol 15 mcg/2 mL Solution For Nebulization
15 mcg INHALATION R BID
magnesium oxide 400 mg magnesium Tablet
400 mg PO DAILY
pantoprazole 40 mg tablet,delayed release (DR/EC)
40 mg PO DAILY
lisinopril 10 mg tablet
10 mg PO DAILY
gabapentin 100 mg capsule
100 mg PO TID
metoprolol succinate 25 mg tablet extended release 24 hr
12.5 mg PO HS
Discharge Orders:
Discharge Patient (As Directed); Ordered 06/16/25
Ordered By: Jose Enrique Valentine
Discharge Date and Time
Print Language: THAI
--- NOTE | 2025-06-16 12:25 | CM ---
Addendum entered by Becca Redding 06/16/25 17:18:
PT re-evaluated; patient unable to climb stairs.
CM spoke with patient's sister via phone. She is not coming to last picker patient. Sister is a ; works for the [employer];
Patient has been living with sister for the past year; sister reported she is unable to take care of her brother in her home.
Patient does not have money to pay for SNF stay. Sister will call to speak with assigned case finishing machine adjuster tomorrow hopes an alternative discharge plan can be identified.
Addendum entered by Becca Redding 06/16/25 15:40:
Patient was re-evaluated by OT yesterday; SNF recommended
Discussed patient with Physical Therapist; requested stair trial to ensure patient is able to climb 8 steps to enter the house.
Addendum entered by Becca Redding 06/16/25 15:27:
Met with patient again. His sister has not returned my call. Tried to connect again, she did not answer.
Per the Resident; Patient is being discharged to home; will resume home health with [facility]; his sister will provide transport home
Original Note:
Met with patient; [facility]
Aircraft Dispatcher called patient's sister to discuss status of Financial Application submission; left a voice mail to call case management to discuss
Plan: Discharge to [facility] pending financial application approval
[2025-06-16] MEDS: LASIX 40 MG PO (15:02)
[2025-06-16] MEDS: DESYREL 12.5 MG PO (20:37)
[2025-06-16] MEDS: REMOVE LIDOCAINE PATCH 1 PATCH REMOVE (20:37)
[2025-06-16] MEDS: TOPROL XL 12.5 MG PO (20:38)
[2025-06-16] MEDS: MELATONIN 5 MG PO (20:38)
[2025-06-16] MEDS: LIPITOR 40 MG PO (20:38)
[2025-06-17 03:40] VITALS: BP 129/60
[2025-06-17] MEDS: PROTONIX 40 MG PO (07:38)
[2025-06-17] MEDS: NEURONTIN 100 MG PO ×3 (07:38→20:06)
[2025-06-17] MEDS: MAGNESIUM OXIDE 400 MG PO (07:38)
[2025-06-17] MEDS: DELTASONE 40 MG PO (07:38)
[2025-06-17] MEDS: PROSCAR 5 MG PO (07:39)
[2025-06-17] MEDS: LEXAPRO 10 MG PO (07:39)
[2025-06-17] MEDS: ZESTRIL 10 MG PO (07:39)
[2025-06-17] MEDS: FLOMAX 0.4 MG PO (07:39)
[2025-06-17] MEDS: ELIQUIS 5 MG PO ×2 (07:39→20:12)
[2025-06-17] MEDS: LIDOCAINE 4% PATCH 1 PATCH TOPICAL (07:40)
[2025-06-17 07:55] VITALS: BP 163/66
--- NOTE | 2025-06-17 07:55 | W.PN.HOSP.TC ---
Addendum entered and electronically signed by Johnna Encarnacion MD 06/17/25 14:33:
Attending�addendum:
I�saw�and�evaluated�the�patient.�I�reviewed�the�resident�s�note�and�agree�with�findings�and�plan�as�documented�in�the�resident�s�note.��
�patient seen and examined at bedside, denies any chest pain or shortness of breath, no abdominal pain, no nausea, no vomiting, no diarrhea or constipation.
Patient noted to be bradycardic on front desk monitor, cardiology consulted.
Physical�exam:
GENERAL : Patient is awake, alert, oriented x3
HEENT: Nonicteric sclerae, PERRLA, EOMI. Oropharynx clear. Moist mucous membranes. Conjunctivae appear well perfused.
CHEST: Chest wall is nontender.
HEART: Regular rhythm, bradycardia, S1, S2 normal without murmurs.
LUNGS: Clear to auscultation bilaterally.
ABDOMEN: Soft, positive bowel sounds, nontender, no organomegaly.
RECTAL: Deferred.
SKIN: No rash, no excessive bruising, petechiae, or purpura.
NEUROLOGIC: Cranial nerves II-XII intact without motor/sensory deficit.
�
Assessment/plan:
Acute exacerbation.
Continue prednisone oral.
Breathing treatment
Paroxysmal A-fib.
Continue Eliquis/metoprolol.
Noted to be bradycardic.
Cardiology consulted
Hypertension/hyperlipidemia.
Continue home meds
�
Abnormal labs:
Wounds:
CODE STATUS: Full code
DVT prophylaxis: Eliquis
Diet: cardiac diet
Disposition: Cardiology consult
Total�time�spent�on�today�s�encounter�was�55�minutes�which�included�time�spent�in�counseling�the�patient/family�regarding�diagnosis�and�treatment�plan�as�listed�above,�goals�of�care,�and�symptom�management.�Case�was�discussed�with�nursing�staff,�spec
ialists,�and�care�coordinators/case�management.�All�labs�and�imaging�personally�reviewed�by�me.�Remainder�the�time�spent�in�detailed�review�of�previous�records,�lab�data,�imaging,�and�other�medical�provider�documentation.
Original Note:
Today's Communication/Plan
-
SNF
Monitor bradycardia
Assessment / Plan
Assessment / Plan
75-year-old male past medical history significant for hypertension, hyperlipidemia, paroxysmal atrial fibrillation on Eliquis, HFpEF, COPD on 3 L oxygen, pulmonary hypertension, GERD, peptic ulcer disease and BPH who presented to the ED with
progressive shortness of breath. He has 50 pack years history of smoking and quit 1 year ago. Admitted with exacerbation of COPD, with pleurisy.
Denies any recent sick contacts, fever, chills, nausea, vomiting or any recent viral illness.
Follows up with pulmonology, patient of Dr. Bland. Last visit with pulmonology in May 2025, he is on azithromycin therapy for anti-inflammatory effects.
Advanced COPD/emphysema phenotype: Chronic hypoxemic and hypercapnic respiratory failure
FEV1 less than 30%oxygen desaturation with exertion up to 2 L with ambulation.Emphysema on CT abdomen and pelvis.Mild pulmonary hypertension on echocardiogram-normal RV function. Echocardiogram 03/24/25.exacerbation March 2025 and 04/2025-requiring
hospitalization stay.
#Acute exacerbation of COPD
Hemoglobin stable, white blood cell count BMP WNL
Chest x-ray done in the ED consistent with hyperinflated lungs with severe emphysematous changes with no new lung pathology
DuoNebs 4 times daily and as needed
Started oral prednisone 40 mg daily to complete 5 days-course ends on 06/19/2025
Continue oxygen therapy-on baseline 3 L oxygen at home
Continue budesonide and Trelegy
COVID and flu negative
Offered hospice consult-patient refused to proceed with path-upgraded to inpatient -SNF placement by case technician
Outpatient palliative care recommended
PT/OT
#paroxysmal atrial fibrillation
- continue Eliquis and metoprolol
- Patient bradycardic, sinus bradycardia with no heart block
- Placed on telemetry, monitor and adjust metoprolol accordingly
#hypertension
- continue lisinopril
#hyperlipidemia
- continue atorvastatin
#HFpEF
- daily weights
- I & Os
- continue furosemide
#pulmonary hypertension- continue sildenafil
#GERD
#peptic ulcer disease - continue pantoprazole
#BPH - continue finasteride and tamsulosin
#depression/anxiety - continue escitalopram and trazodone
Goals of care discussion initiated-patient wants to try fdc facility/rehab before deciding about hospice
PT recommends skilled rehab-patient does not fulfill criteria for inpatient admission-case technician working with family to find placement
Code status: full code
DVT prophylaxis: Eliquis
Anticipated Discharge: Today
Subjective/Interval History
-
Date of Service: June 17, 2025
Patient seen and examined at bedside
Back to baseline-breathing on 3 L of oxygen
Objective Data
-
Labs:
Laboratory Results
06/17/25
07:37
WBC Pending
Hgb Pending
Hct Pending
Plt Count Pending
Sodium Pending
Potassium Pending
Chloride Pending
Carbon Dioxide Pending
BUN Pending
Creatinine Pending
Glucose Pending
Calcium Pending
Total Bilirubin Pending
AST Pending
ALT Pending
Alkaline Phosphatase Pending
Vital Signs:
Vital Signs
Temp Pulse Resp BP Pulse Ox
98.3 F 54 18 129/60 100
06/17/25 03:40 06/17/25 03:40 06/17/25 03:40 06/17/25 03:40 06/17/25 03:40
I&O
06/16/25 06/17/25 06/18/25
06:59 06:59 06:59
Intake Total 540 / 540 960 / 960
Output Total 100 / 100 1150 / 1150
Balance 440 / 440 -190 / -190
Review of Systems
-
All other systems: Reviewed and negative
Physical Exam
-
General: Appears Chronically Ill and Other (Very weak and fragile, barrel like chest and scaphoid abdomen)
HEENT: Normocephalic, Moist Mucous Membranes, Anicteric and [place] Conjunctivae
Respiratory: Clear to Auscultation and Decreased Breath Sounds
Cardiac: Regular Rhythm, S1/S2 and Bradycardic
GI: Soft, Nontender and Normal Bowel Sounds
Musculoskeletal: No Clubbing, No Cyanosis and No Edema
Skin: Warm and Dry
Neuro: AO x 3 and Nonfocal/Grossly Intact
Psych: Calm
[2025-06-17 08:09] LABS: Hematocrit 31.8 % (39.0-52.0); Hemoglobin 9.8 g/dL (13.0-18.0); Mean Corp Hgb Conc. 30.8 g/dL (33.0-37.0); Mean Corpuscular Volume 90.9 fL (80.0-94.0); Nucleated Red Blood Cells % 0 % (-); Platelet Count 191 10^3/uL (130-400); Red Cell Dist. Width 17.0 % (11.5-14.5)
[2025-06-17 08:33] LABS: ALT (SGPT) 12 U/L (0-50); AST (SGOT) 16 U/L (17-59); Albumin 3.5 g/dl (3.5-5.0); Alkaline Phosphatase 41 U/L (38-126); Blood Urea Nitrogen 29 mg/dl (9-20); Calcium 9.2 mg/dl (8.4-10.2); Carbon Dioxide 35 mmol/L (22-30); Chloride 102 mmol/L (98-107); Estimated Creatinine Clearance 66 ml/min; Glucose 92 mg/dl (70-99); Magnesium 1.8 mg/dl (1.6-2.3); Potassium 4.0 mmol/L (3.5-5.1); Sodium 141 mmol/L (135-145); Total Protein 5.6 g/dl (6.3-8.2); eGFR > 60.00
--- NOTE | 2025-06-17 09:00 | PTCARENOTE ---
06/17- Patient states generalized weakness and dizziness upon exertion over the past few days. Advised last week we were walking the halls with O2, and all he was experiencing was WALLS but no dizziness or changes in HR. He understood but states this
has occurred over the past few days. He feels like he is 'going to pass out if I walk too far.' Patient has been bradycardic with PQT and Sinus Pauses consistently on Teley over the past few days. AAOX3, not dyspneic or dizzy at rest.
Skin=pale/warm/dry. +PulsesX4; Irregular Apical. VSS. Will continue to monitor.
[2025-06-17 11:20] VITALS: BP 153/75
--- NOTE | 2025-06-17 11:20 | PTCARENOTE ---
06/17- Patient's HR on Telemetry continues to persist with HR in 30s-40s with Sinus pauses lasting 1-2seconds. Patient c/o weakness at rest but only dizziness upon exertion. Notified Physician. 12lead EKG performed. Sinus Bradycardia with
pauses in AVL and AVF leads. VSS. Skin=pale/warm/dry with +PulsesX4. Continue to monitor.
--- NOTE | 2025-06-17 12:14 | CM ---
CM reviewed chart, spoke with patient, agreeable for financial application to be completed for LTC at [facility]- patient would like sister, Walt, to be crack off person and to assist with application.
CM spoke with patients sister, Walt, also provided contact information for Apolonia Davenport at [facility]. Walt willing to assist with financial application. Walt reports patient does not have any savings/finances other than social security.
Updates to Caro at [facility] with request to please call sister to provide financial application. Per Caro, patient has used all of his rehab days, will be private pay.
Patient upgraded to inpatient status, IMM provided, placed in chart.
CM will continue to assist w/ discharge planning.
Plan; financial application required for LTC at [facility], sister Walt to assist with application
[2025-06-17] MEDS: LASIX 40 MG PO (13:50)
[2025-06-17] MEDS: TYLENOL 650 MG PO ×2 (13:51→20:16)
--- NOTE | 2025-06-17 14:58 | CON.CAR ---
Addendum entered and electronically signed by Martinez Wright MD 06/17/25 17:18:
I saw and examined the patient independently and performed majority of MDM.
The FAMILY WELFARE SOCIAL WORK PROFESSOR's note was reviewed and I agree with the note with changes/additions below.
Comment: 74 yo male with paroxysmal A fib, orthostatic hypotension and syncope, severe COPD is admitted with COPD exacerbation. We are consulted for bradycardia. He does report dizziness with changes in position, and syncope when standing up
quickly. Exam with RRR, no murmurs, no edema. Tele: SR, with periods of sinus arrhythmia, sinus bradycardia to 40s, PAC, PVC, AIVR.
Sinus bradycardia. At this time, does not seem symptomatic. Dizziness seems to be orthostatic. We discussed orthostatic precautions. Trend tele.
PAC's, PVC's, NSVT (on prior monitor). Continue Toprol XL 12.5mg qHS. We discussed indication for PPM if he were to develop tachy/bernadine syndrome.
Original Note:
Consultation
Consultation Request
Date/Time Consultation Requested: 06/17/2025 1400
Date/Time Consultation Performed: 06/17/2025 1415
Requesting Provider:
Performing Provider:
Reason for Consultation: bradycardia
Medical History
-
Chief Complaint: SOB
History of Present Illness:
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
74-year-old male with chronic HFpEF, paroxysmal atrial fibrillation, NSVT, hypertension, COPD, chronic hypoxic respiratory failure (on 4L NC), dyslipidemia, and pulmonary hypertension who presented to the emergency department with a chief complaint
of shortness of breath.Treated for acute exacerbation of COPD. Noted to have bradycardia on telemetry . Cardiology is consulted. Previous admission in April 2025 pt was evaluated for bradycardia and NSVT. Notes indicate metoprolol was decreased as
that time.
Pt states he can get lightheaded with changing positions or standing at times. Usually this goes away within 1 min. He notes last week his neighbor came to the door and he was standing there speaking with her and went down. He thinks he may have
passed out. he woke on the ground. he states she had left. He denies feeling lightheaded prior to the event. He states he got up slowly and waited prior to walking to the door. He did not have CP or diaphoresis with the event. He thinks he may have
had some nausea.
Of note pt with prior OP monitor 05/2025 without significant pauses or heart block. No symptoms while wearing it.
Past Medical History
Past Medical History: Other ( HTN, hyperlipidemia,PAF, bradycardia, HFpEF, COPD,anemia,PUD, GERD,BPH)
Social History
Tobacco: Former Smoker
Alcohol: None
Living: With Family
Family History
Family History: Reviewed & Not Pertinent
Allergies / Home Medications
Allergy/AdvReac Type Severity Reaction Status Date / Time
No Known Allergies Allergy Verified 06/12/25 14:35
�Medication �Instructions �Recorded �Confirmed �Type
apixaban 5 mg tablet (Eliquis) 5 mg PO BID Blood Clot 10/30/24 06/12/25 History
Prevention/Tx
atorvastatin 40 mg tablet 40 mg PO HS High Cholesterol 10/30/24 06/12/25 History
finasteride 5 mg tablet 5 mg PO DAILY BPH 10/30/24 06/12/25 History
acetaminophen 325 mg tablet 650 mg PO TID mild Pain 03/26/25 06/12/25 History
(Tylenol)
bismuth subsalicylate 262 mg/15 mL 524 mg PO DAILYPRN PRN stomach 03/26/25 06/12/25 History
oral suspension (Pepto-Bismol) upset
escitalopram oxalate 10 mg tablet 10 mg PO DAILY Depression 03/26/25 06/12/25 History
melatonin 5 mg tablet 5 mg PO HS Sleep 03/26/25 06/12/25 History
trazodone 50 mg tablet 12.5 mg PO HS Sleep 03/26/25 06/12/25 History
tamsulosin 0.4 mg capsule 0.4 mg PO DAILY BPH #30 caps 04/08/25 06/12/25 Rx
lidocaine 4 % topical patch 1 patch topical DAILY mild Pain 04/26/25 06/12/25 History
arformoterol 15 mcg/2 mL solution 15 mcg inhalation R BID sob 06/12/25 06/12/25 History
for nebulization
budesonide 0.5 mg/2 mL suspension 0.5 mg inhalation R BID sob 06/12/25 06/12/25 History
for nebulization
furosemide 40 mg tablet (Lasix) 40 mg PO DAILY@1400 Fluid 06/12/25 06/12/25 History
Retention/Swelling
gabapentin 100 mg capsule 100 mg PO TID mild Pain 06/12/25 06/12/25 History
lisinopril 10 mg tablet 10 mg PO DAILY Blood Pressure 06/12/25 06/12/25 History
magnesium oxide 400 mg PO DAILY Supplement 06/12/25 06/12/25 History
metoprolol succinate 25 mg 12.5 mg PO HS Blood Pressure 06/12/25 06/12/25 History
tablet,extended release 24 hr
pantoprazole 40 mg tablet,delayed 40 mg PO DAILY GERD 06/12/25 06/12/25 History
release
albuterol sulfate 2.5 mg/3 mL 2.5 mg (3 mL) inhalation R Q4HPRN 06/15/25 Rx
(0.083 %) solution for nebulization PRN shortness of breath 30 days
#30 packets
ipratropium 0.5 mg-albuterol 3 mg 3 ml inhalation R QID 30 days #360 06/15/25 Rx
(2.5 mg base)/3 mL nebulization mL
soln
nebulizer accessories #1 ea 06/15/25 Rx
prednisone 20 mg tablet 40 mg (2 x 20 mg) PO DAILY 3 days 06/15/25 Rx
#6 tabs
azithromycin 500 mg tablet 500 mg PO .MWF 3 days #9 tabs 06/16/25 Rx
Review of Systems
-
History Source: Patient
All other systems: Negative unless noted
Constitutional: Fatigue
EENT: No Symptoms
Respiratory: Trouble Breathing
Cardiac: Syncope
Abdomen/GI: No Symptoms
: No Symptoms
Musculoskeletal: No Symptoms
Neurological: No Symptoms
Physical Exam
Vital Signs
Temp Pulse Resp BP Pulse Ox
98.1 F 46 20 153/75 100
06/17/25 11:20 06/17/25 11:20 06/17/25 11:20 06/17/25 11:20 06/17/25 11:20
Lab Results
06/17/25 07:37
06/17/25 07:37
Troponin I 0.018 ng/ml 06/12/25 15:11
Physical Exam
General: Well Developed and No Apparent Distress
HEENT: Normocephalic and Moist Mucous Membranes
Respiratory: Clear (decreased bases )
Cardiac: S1/S2 and Regular Rhythm
GI: Soft, Non Tender and Normal Bowel Sounds
Musculoskeletal: No Edema
Skin: Warm and Dry
Neuro: Awake and Alert
Psych: Calm
Impression / Plan
-
Bradycardia:
- Noted last admission
- Recent [place] 05/11/25, SB-SR HR 35-66 bpm, avg 49 bpm, No AF, VT 166 bpm max 8 beats. 10 runs SVT 137 bpm, 8 beats.
- on low dose metoprolol for PAF and NSVT
NSVT:
- noted in the past.
-on low dose metoprolol
COPD
-Primary team and pulmonary managing
HFpEF
-Chronic, does not appear to be in an exacerbation
PAF
- SB on tele, PVC's
- on low dose metoprolol and eliquis.
syncope:
-several episodes of syncope. He relates one last week.
-Prior event while hospitalized 04/02/25 nothing on tele at that time.
Hx orthostatic hypotension:
- meds had been held in past, BP stable currently.
Data Reviewed
-
EKG: Tracing Personally Visualized and interpreted (EKG 06/17/[address] SB [address] abn )
Radiology: Report Reviewed by me (CXR 06/12/25 Lungs appear hyperinflated, findings suggesting severe changes of emphysema. No evidence for new lung parenchymal opacity. Cardiac silhouette size is slightly enlarged with no evidence for pulmonary
edema or pleural effusion.)
Medical Tests (Nuc Med, Echo etc): Report Reviewed by me (Echo 04/01/25 EF60-65, mild TR, PASP 26mmhg )
Labs: Labs Reviewed by me, Discussed with Physician and Discussed with Patient
[2025-06-17 15:30] VITALS: BP 129/46
[2025-06-17 19:27] VITALS: BP 132/61
[2025-06-17] MEDS: TOPROL XL 12.5 MG PO (20:06)
[2025-06-17] MEDS: MELATONIN 5 MG PO (20:07)
[2025-06-17] MEDS: DESYREL 12.5 MG PO (20:07)
[2025-06-17] MEDS: LIPITOR 40 MG PO (20:07)
[2025-06-17] MEDS: REMOVE LIDOCAINE PATCH 1 PATCH REMOVE (20:15)
[2025-06-17 23:28] VITALS: BP 114/75
[2025-06-18] VITALS (7 sets, daily range): BP systolic 95–144; BP diastolic 44–69; PULSE 46–58; BMI 18.9
[2025-06-18] MEDS: ELIQUIS 5 MG PO ×2 (07:38→19:54)
[2025-06-18] MEDS: ZESTRIL 10 MG PO (07:38)
[2025-06-18] MEDS: PROTONIX 40 MG PO (07:38)
[2025-06-18] MEDS: PROSCAR 5 MG PO (07:38)
[2025-06-18] MEDS: LEXAPRO 10 MG PO (07:38)
[2025-06-18] MEDS: MAGNESIUM OXIDE 400 MG PO (07:38)
[2025-06-18] MEDS: FLOMAX 0.4 MG PO (07:38)
[2025-06-18] MEDS: DELTASONE 40 MG PO (07:38)
[2025-06-18] MEDS: NEURONTIN 100 MG PO ×3 (07:38→22:10)
[2025-06-18] MEDS: LIDOCAINE 4% PATCH 1 PATCH TOPICAL (07:39)
--- NOTE | 2025-06-18 09:04 | W.PN.HOSP.TC ---
Addendum entered and electronically signed by Johnna Encarnacion MD 06/18/25 14:01:
Patient is underweight with BMI 18.9, present on admission
Addendum entered and electronically signed by Johnna Encarnacion MD 06/18/25 13:53:
Attending�addendum:
I�saw�and�evaluated�the�patient.�I�reviewed�the�resident�s�note�and�agree�with�findings�and�plan�as�documented�in�the�resident�s�note.��
�patient seen and examined at bedside, denies any chest pain or shortness of breath, no abdominal pain, no nausea, no vomiting, no diarrhea or constipation.
Patient noted to be bradycardic on monitoring tech, cardiology consulted.
Metoprolol stopped
Physical�exam:
GENERAL : Patient is awake, alert, oriented x3
HEENT: Nonicteric sclerae, PERRLA, EOMI. Oropharynx clear. Moist mucous membranes. Conjunctivae appear well perfused.
CHEST: Chest wall is nontender.
HEART: Regular rhythm, bradycardia, S1, S2 normal without murmurs.
LUNGS: Clear to auscultation bilaterally.
ABDOMEN: Soft, positive bowel sounds, nontender, no organomegaly.
RECTAL: Deferred.
SKIN: No rash, no excessive bruising, petechiae, or purpura.
NEUROLOGIC: Cranial nerves II-XII intact without motor/sensory deficit.
�
Assessment/plan:
Acute exacerbation.
Continue prednisone oral.
Breathing treatment
Paroxysmal A-fib.
Continue Eliquis/stop metoprolol.
Appreciate cardiology input
Hypertension/hyperlipidemia.
Continue home meds
CODE STATUS: Full code
DVT prophylaxis: Eliquis
Diet: cardiac diet
Disposition: Stop metoprolol, possible discharge tomorrow
Total�time�spent�on�today�s�encounter�was�55�minutes�which�included�time�spent�in�counseling�the�patient/family�regarding�diagnosis�and�treatment�plan�as�listed�above,�goals�of�care,�and�symptom�management.�Case�was�discussed�with�nursing�staff,�spec
ialists,�and�care�coordinators/case�management.�All�labs�and�imaging�personally�reviewed�by�me.�Remainder�the�time�spent�in�detailed�review�of�previous�records,�lab�data,�imaging,�and�other�medical�provider�documentation.
Original Note:
Today's Communication/Plan
-
Stop metoprolol
SNF
Assessment / Plan
Assessment / Plan
75-year-old male past medical history significant for hypertension, hyperlipidemia, paroxysmal atrial fibrillation on Eliquis, HFpEF, COPD on 3 L oxygen, pulmonary hypertension, GERD, peptic ulcer disease and BPH who presented to the ED with
progressive shortness of breath. He has 50 pack years history of smoking and quit 1 year ago. Admitted with exacerbation of COPD, with pleurisy.
Denies any recent sick contacts, fever, chills, nausea, vomiting or any recent viral illness.
Follows up with pulmonology, patient of Dr. Bland. Last visit with pulmonology in May 2025, he is on azithromycin therapy for anti-inflammatory effects.
Advanced COPD/emphysema phenotype: Chronic hypoxemic and hypercapnic respiratory failure
FEV1 less than 30%oxygen desaturation with exertion up to 2 L with ambulation.Emphysema on CT abdomen and pelvis.Mild pulmonary hypertension on echocardiogram-normal RV function. Echocardiogram 03/24/25.exacerbation March 2025 and 04/2025-requiring
hospitalization stay.
#Acute exacerbation of COPD
Admitted with acute exacerbation of COPD, back to baseline, breathing on 3 L of oxygen
Continue DuoNebs,budesonide and Trelegy
Oral prednisone course finishes tomorrow
Case management working on placement for SNF
Continue incentive spirometry
PT/OT
#paroxysmal atrial fibrillation
- continue Eliquis and metoprolol
- Patient bradycardic, sinus bradycardia with no heart block
-Cardiology recommendations appreciated-stopped metoprolol
#hypertension
- Continue home medications as able
#hyperlipidemia
- continue atorvastatin
#HFpEF
- daily weights
- I & Os
- continue furosemide
#pulmonary hypertension- continue sildenafil
#GERD
#peptic ulcer disease - continue pantoprazole
#BPH - continue finasteride and tamsulosin
#depression/anxiety - continue escitalopram and trazodone
Code status: full code
DVT prophylaxis: Eliquis
Cholesterol-lowering diet
PT/OT recommends SNF-patient case coordinator working on placement
Anticipated Discharge: 24 - 48 hours
Subjective/Interval History
-
Date of Service: June 18, 2025
Patient seen and examined at bedside
No active issues, breathing on 3 L of oxygen via nasal cannula, heart rate ranging in 40 to 50s, sinus bradycardia
Reports dizziness on postural change
Feels short of breath and dizzy with flight of stairs
Objective Data
-
Labs:
Laboratory Results
06/18/25
09:02
WBC Pending
Hgb Pending
Hct Pending
Plt Count Pending
Sodium Pending
Potassium Pending
Chloride Pending
Carbon Dioxide Pending
BUN Pending
Creatinine Pending
Glucose Pending
Calcium Pending
Vital Signs:
Vital Signs
Temp Pulse Resp BP Pulse Ox
97.5 F 46 20 144/69 100
06/18/25 07:55 06/18/25 07:55 06/18/25 07:55 06/18/25 07:55 06/18/25 07:55
I&O
06/17/25 06/18/25 06/19/25
06:59 06:59 06:59
Intake Total 960 / 960 1680 / 1680
Output Total 1150 / 1150 1700 / 1700
Balance -190 / -190 -20 / -20
Review of Systems
-
Respiratory: Reports Trouble Breathing
Neuro: Reports Lightheadedness
Physical Exam
-
General: Appears Chronically Ill and Other (Very weak and fragile)
HEENT: Moist Mucous Membranes, Anicteric and [place] Conjunctivae
Respiratory: Clear to Auscultation and Decreased Breath Sounds
Cardiac: Regular Rhythm, S1/S2 and Bradycardic
GI: Soft, Nontender, Normal Bowel Sounds and Other (Scaphoid shaped abdomen)
Musculoskeletal: No Clubbing, No Cyanosis and No Edema
Skin: Warm and Dry
Neuro: Awake, Nonfocal/Grossly Intact and Other (Postural dizziness)
Psych: Calm
[2025-06-18 09:43] LABS: Hematocrit 34.5 % (39.0-52.0); Hemoglobin 10.1 g/dL (13.0-18.0); Mean Corp Hgb Conc. 29.3 g/dL (33.0-37.0); Mean Corpuscular Volume 91.5 fL (80.0-94.0); Nucleated Red Blood Cells % 0 % (-); Platelet Count 210 10^3/uL (130-400); Red Cell Dist. Width 16.7 % (11.5-14.5)
[2025-06-18 10:19] LABS: Blood Urea Nitrogen 29 mg/dl (9-20); Calcium 9.6 mg/dl (8.4-10.2); Carbon Dioxide 33 mmol/L (22-30); Chloride 101 mmol/L (98-107); Estimated Creatinine Clearance 75 ml/min; Glucose 116 mg/dl (70-99); Potassium 4.0 mmol/L (3.5-5.1); Sodium 138 mmol/L (135-145); eGFR > 60.00
--- NOTE | 2025-06-18 10:35 | W.PN.CD ---
Today's Communication / Plan
-
- Will stop metoprolol ER 12.5 daily
- 55 min spent reviewing all EP issues, tele, ekg, echo reports, detailed history from chart/pt, disuccing with colleagues, preparing this document
Impression / Plan
-
EP issues
- Bradycardia:
- Asymptomatic, BB not essential
- Tele review: SB, pauses of less than 2.5 sec mostly from Blocked PACs, overall rate less than 50 bpm
- Noted last admission
- on low dose metoprolol for PAF and NSVT
- Will stop metoprolol ER 12.5 daily
- NSVT, normal LVEF, will stop metoprolol
- PAF, on Eliquis
- PVCs and AIVR
- Syncope with no arrhythmia on tele at the time of 04/02/2025 episode
COPD
HFpEF
-Chronic, does not appear to be in an exacerbation
-BB are not used to treat HFpEF, but are used for his arrhythmias, but I think he will do fine off BB
Hx orthostatic hypotension:
- meds had been held in past, BP stable currently.
Subjective:
No CP or palps.
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
- SB-SR HR 35-66 bpm, avg 49 bpm, No AF, VT 166 bpm max 8 beats. 10 runs SVT 137 bpm, 8 beats.
Echo 04/01/2025:
CONCLUSIONS
Normal biventricular size and systolic function without regional wall motion
abnormality.
LV ejection fraction is 60-65% by Freeman's method of discs. Normal diastolic
function.
Mild tricuspid regurgitation.
Estimated pulmonary artery pressure of 36 mmHg.
Compared to prior from November 05, 2024, no significant change.
Physical Exam
Vital Signs/Labs
Vital Signs
Temp Pulse Resp BP Pulse Ox
97.5 F 46 20 144/69 100
06/18/25 07:55 06/18/25 07:55 06/18/25 07:55 06/18/25 07:55 06/18/25 07:55
06/17/25 06/18/25 06/19/25
06:59 06:59 06:59
Actual Weight 59.602 kg
06/18/25 09:31
06/18/25 09:31
Magnesium 1.8 mg/dl (1.6-2.3) 06/17/25 07:37
Physical Exam
Constitutional: No acute distress
Cardiovascular: Rhythm & rate is regular and Pedal edema is absent
Respiratory: Wheeze Absent, Crackles Absent and Other (decrease breath sounds)
GI: Soft and Distention absent
Neuro/Psych: Alert
Data Reviewed
-
Date of Service: June 18, 2025
--- NOTE | 2025-06-18 11:38 | CM ---
Addendum entered by Abril Sales 06/18/25 14:28:
Patient seen bedside, discussed stable for d/c pending financial application. Patient reports he has not spoken to his sister yet- urged patient to speak with sister. VM left for sister regarding application/financial.
Original Note:
CM reviewed chart, reviewed with Resident, patient medically stable for d/c.
CM spoke with Caro, liaison from [facility], will need financial application reviewed prior to accepting patient.
VM left for patients sister, to discuss patient stable for d/c and progress with application.
CM will continue to follow for all discharge planning needs.
Plan; [facility] once LTC finances are submitted by family to facility
--- NOTE | 2025-06-18 12:42 | PN.CDI ---
CDI
- -
CDI:
Physician Documentation Request
Admit Date: 06/17/25 08:25
Dear Doctor Serge,
Clinical Indicators:
Patient admitted with COPD exacerbation.
Height: 5 ft 10 in
Weight: 128 lbs 7 oz
BMI:
06/14/25
06:00 06/15/25
06:00 06/18/25
06:00
Body Mass Index (BMI) 18.4 18.8 18.9
06/14 note, BMI assessment: Underweight (<18.5)
If possible, please provide an associated diagnosis related to the abnormal BMI(< or = to 19), such as:
Underweight
Cachexia
BMI is not significant
Other, please specify
Use of terms such as suspected, likely, concern for, or probable (associated with a specific diagnosis that is being evaluated, monitored, or treated as if it exists) are acceptable and can be coded in the inpatient setting, when documented at the
time of discharge.
Thank you,
RAMESH Andrews RN
CDI Specialist
available via tiger text
Please use your independent medical judgment in providing your response.
[2025-06-18] MEDS: LASIX 40 MG PO (13:51)
[2025-06-18] MEDS: TYLENOL 650 MG PO (15:55)
[2025-06-18] MEDS: REMOVE LIDOCAINE PATCH 1 PATCH REMOVE (19:55)
[2025-06-18] MEDS: MELATONIN 5 MG PO (22:09)
[2025-06-18] MEDS: DESYREL 12.5 MG PO (22:10)
[2025-06-18] MEDS: LIPITOR 40 MG PO (22:11)
[2025-06-19] VITALS (8 sets, daily range): BP systolic 96–151; BP diastolic 44–69; PULSE 47–51; O2SAT 100; BMI 19.1
[2025-06-19] MEDS: LIDOCAINE 4% PATCH 1 PATCH TOPICAL (07:35)
[2025-06-19] MEDS: ELIQUIS 5 MG PO ×2 (07:35→20:52)
[2025-06-19] MEDS: NEURONTIN 100 MG PO ×3 (07:35→21:23)
[2025-06-19] MEDS: MAGNESIUM OXIDE 400 MG PO (07:36)
[2025-06-19] MEDS: FLOMAX 0.4 MG PO (07:36)
[2025-06-19] MEDS: PROSCAR 5 MG PO (07:36)
[2025-06-19] MEDS: PROTONIX 40 MG PO (07:36)
[2025-06-19] MEDS: LEXAPRO 10 MG PO (07:36)
--- NOTE | 2025-06-19 09:12 | W.PN.HOSP.TC ---
Addendum entered and electronically signed by Johnna Encarnacion MD 06/19/25 12:27:
Attending�addendum:
I�saw�and�evaluated�the�patient.�I�reviewed�the�resident�s�note�and�agree�with�findings�and�plan�as�documented�in�the�resident�s�note.��
�patient seen and examined at bedside, denies any chest pain or shortness of breath, no abdominal pain, no nausea, no vomiting, no diarrhea or constipation.
Bradycardia improved after Metoprolol stopped
Physical�exam:
GENERAL : Patient is awake, alert, oriented x3
HEENT: Nonicteric sclerae, PERRLA, EOMI. Oropharynx clear. Moist mucous membranes. Conjunctivae appear well perfused.
CHEST: Chest wall is nontender.
HEART: Regular rhythm, bradycardia, S1, S2 normal without murmurs.
LUNGS: Clear to auscultation bilaterally.
ABDOMEN: Soft, positive bowel sounds, nontender, no organomegaly.
RECTAL: Deferred.
SKIN: No rash, no excessive bruising, petechiae, or purpura.
NEUROLOGIC: Cranial nerves II-XII intact without motor/sensory deficit.
�
Assessment/plan:
Acute exacerbation.
Continue prednisone oral.
Breathing treatment
Paroxysmal A-fib.
Continue Eliquis/stopped metoprolol.
Appreciate cardiology input
Hypertension/hyperlipidemia.
Continue home meds
CODE STATUS: Full code
DVT prophylaxis: Eliquis
Diet: cardiac diet
Disposition: Medically clear for DC
Total�time�spent�on�today�s�encounter�was�55�minutes�which�included�time�spent�in�counseling�the�patient/family�regarding�diagnosis�and�treatment�plan�as�listed�above,�goals�of�care,�and�symptom�management.�Case�was�discussed�with�nursing�staff,�spec
ialists,�and�care�coordinators/case�management.�All�labs�and�imaging�personally�reviewed�by�me.�Remainder�the�time�spent�in�detailed�review�of�previous�records,�lab�data,�imaging,�and�other�medical�provider�documentation.
Original Note:
Documented by User: Jose Enrique Valentine MD, Resident 06/19/25 11:13
Today's Communication/Plan
-
SNF placement
Assessment / Plan
Assessment / Plan
75-year-old male past medical history significant for hypertension, hyperlipidemia, paroxysmal atrial fibrillation on Eliquis, HFpEF, COPD on 3 L oxygen, pulmonary hypertension, GERD, peptic ulcer disease and BPH who presented to the ED with
progressive shortness of breath. He has 50 pack years history of smoking and quit 1 year ago. Admitted with exacerbation of COPD, with pleurisy.
Denies any recent sick contacts, fever, chills, nausea, vomiting or any recent viral illness.
Follows up with pulmonology, patient of Dr. Bland. Last visit with pulmonology in May 2025, he is on azithromycin therapy for anti-inflammatory effects.
Advanced COPD/emphysema phenotype: Chronic hypoxemic and hypercapnic respiratory failure
FEV1 less than 30%oxygen desaturation with exertion up to 2 L with ambulation.Emphysema on CT abdomen and pelvis.Mild pulmonary hypertension on echocardiogram-normal RV function. Echocardiogram 03/24/25.exacerbation March 2025 and 04/2025-requiring
hospitalization stay.
#Acute exacerbation of COPD
Currently at baseline with 3 L of oxygen
Completed course of prednisone
Continue DuoNebs,budesonide and Trelegy
Continue incentive spirometry
PT/OT
#paroxysmal atrial fibrillation
- continue Eliquis and metoprolol
- Patient bradycardic, sinus bradycardia with no heart block
-Cardiology recommendations appreciated-stopped metoprolol
# Underweight with a BMI of 19
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
#hypertension
- Continue home medications as able
#hyperlipidemia
- continue atorvastatin
#HFpEF
Stable
#pulmonary hypertension- continue sildenafil
#GERD
#peptic ulcer disease - continue pantoprazole
#BPH - continue finasteride and tamsulosin
#depression/anxiety - continue escitalopram and trazodone
Code status: full code
DVT prophylaxis: Eliquis
Cholesterol-lowering diet
PT/OT recommends SNF-cleared for discharge from medical perspective-casework manager working on placement
Anticipated Discharge: Within 24 hours
Subjective/Interval History
-
Date of Service: June 19, 2025
Patient seen and examined at bedside
Breathing on 3 L of oxygen, stable
PT/OT recommending rehab-awaiting bed
Objective Data
-
Vital Signs:
Vital Signs
Temp Pulse Resp BP Pulse Ox
97.4 F 46 18 151/59 100
06/19/25 07:55 06/19/25 07:55 06/19/25 07:55 06/19/25 07:55 06/19/25 07:55
I&O
06/18/25 06/19/25 06/20/25
06:59 06:59 06:59
Intake Total 1680 / 1680 1200 / 1200
Output Total 1700 / 1700 1600 / 1600
Balance -20 / -20 -400 / -400
Review of Systems
-
Respiratory: Reports Trouble Breathing
Neuro: Reports Dizzy
Physical Exam
-
General: No Apparent Distress and Cachectic
HEENT: Moist Mucous Membranes, Anicteric and [place] Conjunctivae
Respiratory: Clear to Auscultation and Decreased Breath Sounds
Cardiac: Regular Rhythm, S1/S2 and Bradycardic
GI: Soft, Nontender and Normal Bowel Sounds
Musculoskeletal: No Clubbing, No Cyanosis and No Edema
Skin: Warm and Dry
Neuro: Awake and Oriented
Psych: Calm

Documented by User: Johnna Encarnacion MD 06/19/25 12:26
Assessment / Plan
Assessment / Plan
Anticipated Discharge: Today
--- NOTE | 2025-06-19 11:14 | W.PN.CD ---
Addendum entered and electronically signed by Shiv Peterson MD 06/19/25 13:25:
Patient seen and examined in collaboration with ARCHIVAL RECORDS CLERK; agree with below.
- Patient appears to be relatively stable from a cardiac standpoint; metoprolol discontinued.
- Outpatient follow-up with Cardiology.
Original Note:
Today's Communication / Plan
-
Remain off BB at this time
Will arrange follow-up in our office
Impression / Plan
-
EP issues: seen by Dr. Lama this admit- details as below
- Bradycardia:
- Asymptomatic, BB not essential
- Tele review from Dr. Lama 06/18/25: SB, pauses of less than 2.5 sec mostly from Blocked PACs, overall rate less than 50 bpm. Updated for 06/19/25- No pauses longer than 2.75 seconds on my review overnight.
- Noted last admission
- on low dose metoprolol for PAF and NSVT
- metoprolol ER 12.5 daily stopped
- NSVT, normal LVEF, metoprolol stopped as noted
- PAF, on Eliquis
- PVCs and AIVR
- Syncope with no arrhythmia on tele at the time of 04/02/2025 episode
COPD:
-feeling improved
-no wheezing to assessment
-management per primary
HFpEF:
-Chronic, does not appear to be in an exacerbation
Hx orthostatic hypotension:
-meds had been held in past, BP stable currently.
-BB stopped as above
Subjective:
Feeling improved today. Still dizzy with position change- he waits until it resolves to start moving.
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
- SB-SR HR 35-66 bpm, avg 49 bpm, No AF, VT 166 bpm max 8 beats. 10 runs SVT 137 bpm, 8 beats.
Echo 04/01/2025:
CONCLUSIONS
Normal biventricular size and systolic function without regional wall motion
abnormality.
LV ejection fraction is 60-65% by Freeman's method of discs. Normal diastolic
function.
Mild tricuspid regurgitation.
Estimated pulmonary artery pressure of 36 mmHg.
Compared to prior from November 05, 2024, no significant change.
Physical Exam
Vital Signs/Labs
Vital Signs
Temp Pulse Resp BP Pulse Ox
97.4 F 46 18 151/59 100
06/19/25 07:55 06/19/25 07:55 06/19/25 07:55 06/19/25 07:55 06/19/25 07:55
06/18/25 06/19/25 06/20/25
06:59 06:59 06:59
Actual Weight 59.602 kg 60.328 kg
06/18/25 09:31
06/18/25 09:31
Magnesium 1.8 mg/dl (1.6-2.3) 06/17/25 07:37
Physical Exam
Constitutional: No acute distress
EENT: Anicteric
Cardiovascular: Rhythm & rate is regular and Pedal edema is absent
Respiratory: Respiratory effort normal, Lungs clear to auscul. and Other (on O2 by ND)
Neuro/Psych: AO x 3
Data Reviewed
-
Date of Service: June 19, 2025
EKG: Other (tele with SB, blocked PAC's, pauses (all less than 2.75 s))
Labs: Labs Reviewed by me
--- NOTE | 2025-06-19 11:24 | CM ---
CM reviewed chart, VM received from patients Walt massey, yesterday after hours.
Per sister, provided financial information to [facility] for LTC placement.
CM spoke with estrella Singery, confirmed with business office at [facility]- did not speak with sister regarding financial.
CM received update from Apolonia Davenport at [facility]- patient unable to afford any assisted living.
VM left for Walt massey, this morning, regarding [facility] requiring financial information rather than [facility], provided contact number for sister to call.
Patient stable for d/c- [facility] unable to accept until financial are received as patient will be private pay.
Update to Resident.
Plan; [facility] LTC placement, unable to accept until financials are received
[2025-06-19] MEDS: LASIX 40 MG PO (13:03)
[2025-06-19] MEDS: TYLENOL 650 MG PO ×2 (14:45→20:51)
[2025-06-19] MEDS: REMOVE LIDOCAINE PATCH 1 PATCH REMOVE (21:19)
[2025-06-19] MEDS: DESYREL 12.5 MG PO (21:19)
[2025-06-19] MEDS: LIPITOR 40 MG PO (21:23)
[2025-06-19] MEDS: MELATONIN 5 MG PO (21:23)
[2025-06-20] VITALS (7 sets, daily range): BP systolic 80–126; BP diastolic 46–62; PULSE 63–76; BMI 19.1
[2025-06-20] MEDS: MAGNESIUM OXIDE 400 MG PO (08:48)
[2025-06-20] MEDS: ELIQUIS 5 MG PO ×2 (08:48→20:17)
[2025-06-20] MEDS: LEXAPRO 10 MG PO (08:48)
[2025-06-20] MEDS: PROSCAR 5 MG PO (08:48)
[2025-06-20] MEDS: NEURONTIN 100 MG PO ×3 (08:48→22:14)
[2025-06-20] MEDS: LIDOCAINE 4% PATCH 1 PATCH TOPICAL (08:48)
[2025-06-20] MEDS: FLOMAX 0.4 MG PO (08:48)
[2025-06-20] MEDS: PROTONIX 40 MG PO (08:49)
--- NOTE | 2025-06-20 09:05 | W.PN.HOSP.TC ---
Addendum entered and electronically signed by Johnna Encarnacion MD 06/20/25 12:28:
Attending�addendum:
I�saw�and�evaluated�the�patient.�I�reviewed�the�resident�s�note�and�agree�with�findings�and�plan�as�documented�in�the�resident�s�note.��
�patient seen and examined at bedside, denies any chest pain or shortness of breath, no abdominal pain, no nausea, no vomiting, no diarrhea or constipation.
Bradycardia improved after Metoprolol stopped
Physical�exam:
GENERAL : Patient is awake, alert, oriented x3
HEENT: Nonicteric sclerae, PERRLA, EOMI. Oropharynx clear. Moist mucous membranes. Conjunctivae appear well perfused.
CHEST: Chest wall is nontender.
HEART: Regular rhythm, bradycardia, S1, S2 normal without murmurs.
LUNGS: Clear to auscultation bilaterally.
ABDOMEN: Soft, positive bowel sounds, nontender, no organomegaly.
RECTAL: Deferred.
SKIN: No rash, no excessive bruising, petechiae, or purpura.
NEUROLOGIC: Cranial nerves II-XII intact without motor/sensory deficit.
�
Assessment/plan:
Acute exacerbation.
Completed prednisone oral.
Breathing treatment
Paroxysmal A-fib.
Continue Eliquis/stopped metoprolol.
Appreciate cardiology input
Hypertension/hyperlipidemia.
Continue home meds
CODE STATUS: Full code
DVT prophylaxis: Eliquis
Diet: cardiac diet
Disposition: Medically clear for DC
Total�time�spent�on�today�s�encounter�was�55�minutes�which�included�time�spent�in�counseling�the�patient/family�regarding�diagnosis�and�treatment�plan�as�listed�above,�goals�of�care,�and�symptom�management.�Case�was�discussed�with�nursing�staff,�spec
ialists,�and�care�coordinators/case�management.�All�labs�and�imaging�personally�reviewed�by�me.�Remainder�the�time�spent�in�detailed�review�of�previous�records,�lab�data,�imaging,�and�other�medical�provider�documentation.
Original Note:
Today's Communication/Plan
-
SNF
Assessment / Plan
Assessment / Plan
75-year-old male past medical history significant for hypertension, hyperlipidemia, paroxysmal atrial fibrillation on Eliquis, HFpEF, COPD on 3 L oxygen, pulmonary hypertension, GERD, peptic ulcer disease and BPH who presented to the ED with
progressive shortness of breath. He has 50 pack years history of smoking and quit 1 year ago. Admitted with exacerbation of COPD, with pleurisy.
Denies any recent sick contacts, fever, chills, nausea, vomiting or any recent viral illness.
Follows up with pulmonology, patient of Dr. Bland. Last visit with pulmonology in May 2025, he is on azithromycin therapy for anti-inflammatory effects.
Advanced COPD/emphysema phenotype: Chronic hypoxemic and hypercapnic respiratory failure
FEV1 less than 30%oxygen desaturation with exertion up to 2 L with ambulation.Emphysema on CT abdomen and pelvis.Mild pulmonary hypertension on echocardiogram-normal RV function. Echocardiogram 03/24/25.exacerbation March 2025 and 04/2025-requiring
hospitalization stay.
#Acute exacerbation of COPD
Currently at baseline with 3 L of oxygen
Completed course of prednisone
Continue DuoNebs,budesonide and Trelegy
Continue incentive spirometry
PT/OT
#paroxysmal atrial fibrillation
- continue Eliquis and metoprolol
- Patient bradycardic, sinus bradycardia with no heart block
-Cardiology recommendations appreciated-stopped metoprolol
# Underweight with a BMI of 19
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
#hypertension
- Continue home medications as able
#hyperlipidemia
- continue atorvastatin
#HFpEF
Stable
#pulmonary hypertension- continue sildenafil
#GERD
#peptic ulcer disease - continue pantoprazole
#BPH - continue finasteride and tamsulosin
#depression/anxiety - continue escitalopram and trazodone
Code status: full code
DVT prophylaxis: Eliquis
Cholesterol-lowering diet
PT/OT recommends SNF-cleared for discharge from medical perspective-medical case manager working on placement
Anticipated Discharge: Today
Subjective/Interval History
-
Date of Service: June 20, 2025
Patient seen and examined at bedside
Condition static-remains on 3 L baseline oxygen
Reports no complaints
Objective Data
-
Vital Signs:
Vital Signs
Temp Pulse Resp BP Pulse Ox
97.8 F 43 20 126/61 99
06/20/25 07:55 06/20/25 07:55 06/20/25 07:55 06/20/25 07:55 06/20/25 07:55
I&O
06/19/25 06/20/25 06/21/25
06:59 06:59 06:59
Intake Total 1200 / 1200 1900 / 1900
Output Total 1600 / 1600 1050 / 1050
Balance -400 / -400 850 / 850
Review of Systems
-
All other systems: Reviewed and negative
Physical Exam
-
General: Appears Chronically Ill and Cachectic
HEENT: Moist Mucous Membranes, Anicteric, [place] Conjunctivae and Oxygen (Breathing on 3 L of oxygen)
Respiratory: Clear to Auscultation and Decreased Breath Sounds
Cardiac: Regular Rhythm, S1/S2 and Bradycardic
GI: Soft (Scaphoid shaped abdomen), Nontender and Normal Bowel Sounds
Musculoskeletal: No Clubbing, No Cyanosis and No Edema
Skin: Warm and Dry
Neuro: Awake, Oriented and No Motor Deficits
Psych: Calm
--- NOTE | 2025-06-20 10:21 | CM ---
Addendum entered by Abril Sales 06/20/25 15:56:
Patient seen bedside with sister, sister confirmed she is not POA of patient.
Sister currently working with patient to complete financial application,- sister will submit to facility, update to Crao at [facility]
Original Note:
CM reviewed chart, patient seen bedside.
CM discussed patient has been medically stable for d/c- urged patient to speak with sister about finances as application is needed prior to acceptance at facility and is delaying d/c.
CM inquired if patients sister is POA/ has access to patients bank account- patient reports he thinks sister is POA, is unsure.
CM inquiring if patient has concerns with sister having access to bank accounts, patient denies.
CM received message from patients sister- reports she spoke with Caro and Shanda (billing) at [facility] regarding financial application.
Per Caro at [facility]- no one from facility has spoken with patients Walt massey regarding finances.
Caro did call patients Walt massey, this morning- urged sister to complete application as patient is stable for d/c- sister reports to Caro that she will be obtaining bank information today.
Caro will try to visit patient in hospital today.
Plan; [facility] LTC, sister to obtain financial to complete application for LTC
[2025-06-20] MEDS: TYLENOL 650 MG PO ×2 (10:35→16:25)
[2025-06-20] MEDS: LASIX PO (15:31)
[2025-06-20] MEDS: REMOVE LIDOCAINE PATCH 1 PATCH REMOVE (20:17)
[2025-06-20] MEDS: DESYREL 12.5 MG PO (22:12)
[2025-06-20] MEDS: MELATONIN 5 MG PO (22:13)
[2025-06-20] MEDS: LIPITOR 40 MG PO (22:14)
[2025-06-21 03:00] VITALS: BP 133/71
[2025-06-21 06:26] VITALS: BMI 19.2
[2025-06-21 07:00] VITALS: BP 118/68; BP 124/83; BP 125/88; PULSE 88; PULSE 92
--- NOTE | 2025-06-21 08:28 | W.PN.HOSP.TC ---
Addendum entered and electronically signed by Johnna Encarnacion MD 06/21/25 09:39:
Attending�addendum:
I�saw�and�evaluated�the�patient.�I�reviewed�the�resident�s�note�and�agree�with�findings�and�plan�as�documented�in�the�resident�s�note.��
�patient seen and examined at bedside, denies any chest pain or shortness of breath, no abdominal pain, no nausea, no vomiting, no diarrhea or constipation.
Bradycardia improved after Metoprolol stopped
Physical�exam:
GENERAL : Patient is awake, alert, oriented x3
HEENT: Nonicteric sclerae, PERRLA, EOMI. Oropharynx clear. Moist mucous membranes. Conjunctivae appear well perfused.
CHEST: Chest wall is nontender.
HEART: Regular rhythm, bradycardia, S1, S2 normal without murmurs.
LUNGS: Clear to auscultation bilaterally.
ABDOMEN: Soft, positive bowel sounds, nontender, no organomegaly.
RECTAL: Deferred.
SKIN: No rash, no excessive bruising, petechiae, or purpura.
NEUROLOGIC: Cranial nerves II-XII intact without motor/sensory deficit.
�
Assessment/plan:
Acute exacerbation.
Completed prednisone oral.
Breathing treatment
Paroxysmal A-fib.
Continue Eliquis/stopped metoprolol.
Appreciate cardiology input
Hypertension/hyperlipidemia.
Continue home meds
CODE STATUS: Full code
DVT prophylaxis: Eliquis
Diet: cardiac diet
Disposition: Medically clear for DC
Total�time�spent�on�today�s�encounter�was�55�minutes�which�included�time�spent�in�counseling�the�patient/family�regarding�diagnosis�and�treatment�plan�as�listed�above,�goals�of�care,�and�symptom�management.�Case�was�discussed�with�nursing�staff,�spec
ialists,�and�care�coordinators/case�management.�All�labs�and�imaging�personally�reviewed�by�me.�Remainder�the�time�spent�in�detailed�review�of�previous�records,�lab�data,�imaging,�and�other�medical�provider�documentation.
Original Note:
Today's Communication/Plan
-
SNF
Assessment / Plan
Assessment / Plan
75-year-old male past medical history significant for hypertension, hyperlipidemia, paroxysmal atrial fibrillation on Eliquis, HFpEF, COPD on 3 L oxygen, pulmonary hypertension, GERD, peptic ulcer disease and BPH who presented to the ED with
progressive shortness of breath. He has 50 pack years history of smoking and quit 1 year ago. Admitted with exacerbation of COPD, with pleurisy.
Denies any recent sick contacts, fever, chills, nausea, vomiting or any recent viral illness.
Follows up with pulmonology, patient of Dr. Bland. Last visit with pulmonology in May 2025, he is on azithromycin therapy for anti-inflammatory effects.
Advanced COPD/emphysema phenotype: Chronic hypoxemic and hypercapnic respiratory failure
FEV1 less than 30%oxygen desaturation with exertion up to 2 L with ambulation.Emphysema on CT abdomen and pelvis.Mild pulmonary hypertension on echocardiogram-normal RV function. Echocardiogram 03/24/25.exacerbation March 2025 and 04/2025-requiring
hospitalization stay.
#Acute exacerbation of COPD
Stable
Completed course of prednisone
Continue DuoNebs,budesonide and Trelegy
Continue incentive spirometry
PT/OT recommend SNF
#paroxysmal atrial fibrillation
- continue Eliquis and metoprolol
- Patient bradycardic, sinus bradycardia with no heart block
-Cardiology recommendations appreciated-stopped metoprolol
# Underweight with a BMI of 19
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
#hypertension
- Continue home medications as able
#hyperlipidemia
- continue atorvastatin
#HFpEF
Stable
#pulmonary hypertension- continue sildenafil
#GERD
#peptic ulcer disease - continue pantoprazole
#BPH - continue finasteride and tamsulosin
#depression/anxiety - continue escitalopram and trazodone
Code status: full code
DVT prophylaxis: Eliquis
Cholesterol-lowering diet
PT/OT recommends SNF-cleared for discharge from medical perspective-field case manager working on placement
Anticipated Discharge: 24 - 48 hours
Subjective/Interval History
-
Date of Service: June 21, 2025
Patient seen and examined at bedside
No active complaints currently breathing on 3 L of oxygen which is baseline for him
Objective Data
-
Vital Signs:
Vital Signs
Temp Pulse Resp BP Pulse Ox
97.8 F 57 20 133/71 100
06/21/25 03:00 06/21/25 03:00 06/21/25 03:00 06/21/25 03:00 06/21/25 03:00
I&O
06/20/25 06/21/25 06/22/25
06:59 06:59 06:59
Intake Total 1900 / 1900 2160 / 2160
Output Total 1050 / 1050 700 / 700
Balance 850 / 850 1460 / 1460
Review of Systems
-
All other systems: Reviewed and negative
Physical Exam
-
General: No Apparent Distress and Cachectic
HEENT: Anicteric and [place] Conjunctivae
Respiratory: Clear to Auscultation and Decreased Breath Sounds
Cardiac: Regular Rhythm, S1/S2 and Bradycardic
GI: Soft, Nondistended and Normal Bowel Sounds
Musculoskeletal: No Clubbing, No Cyanosis and No Edema
Skin: Warm and Dry
Neuro: Awake, AO x 3 and Nonfocal/Grossly Intact
Psych: Calm
--- NOTE | 2025-06-21 08:33 | W.DCSUMMARY ---
Discharge Summary
Discharge Data
Date of Admission: 06/17/25
Date of Discharge: 06/21/25
Discharge Plan
-
Patient Disposition: Snf/SNF
Discharge Diagnosis/Procedures: Acute COPD exacerbation
Condition: Fair
Diet: Regular and Low Cholesterol
Activity: As tolerated
Driving Restrictions: Not until seen by your Dr
Bathing Restrictions: OK to Shower
Other Services: VN
Referrals:
Tere Valenzuela CRNP [Specified Professional Personl, Cardiology] - 07/11/25 1:40 pm
Kelsi Garcia MD, Resident [Family Provider, General] - in less than 1 week
Jasper Quach MD [Active, Palliative Care] - in one week
Prescriptions:
New
ipratropium-albuterol 0.5 mg-3 mg(2.5 mg base)/3 mL Solution For Nebulization
3 ml inhalation R QID 30 Days Qty: 360 0RF
albuterol sulfate 2.5 mg /3 mL (0.083 %) Solution For Nebulization
2.5 mg inhalation R Q4HPRN PRN (Reason: shortness of breath) 30 Days Qty: 30 0RF
(DME) nebulizer accessories Kit
See Rx Instructions .Route Qty: 1 0RF
Rx Instructions:
As directed
azithromycin 500 mg tablet
500 mg PO .MWF 3 Days Qty: 9 0RF
Continued
atorvastatin 40 mg Tablet
40 mg PO HS
finasteride 5 mg Tablet
5 mg PO DAILY
Eliquis 5 mg Tablet
5 mg PO BID
acetaminophen [Tylenol] 325 mg Tablet
650 mg PO TID
trazodone 50 mg Tablet
12.5 mg PO HS
bismuth subsalicylate [Pepto-Bismol] 262 mg/15 mL Suspension
524 mg PO DAILYPRN PRN (Reason: stomach upset)
escitalopram oxalate 10 mg Tablet
10 mg PO DAILY
melatonin 5 mg Tablet
5 mg PO HS
tamsulosin 0.4 mg Capsule
0.4 mg PO DAILY Qty: 30 0RF
lidocaine 4 % adhesive patch,medicated
1 patch topical DAILY
Rx Instructions:
right butt check/lower back
furosemide [Lasix] 40 mg Tablet
40 mg PO DAILY@1400
budesonide 0.5 mg/2 mL Suspension For Nebulization
0.5 mg INHALATION R BID
arformoterol 15 mcg/2 mL Solution For Nebulization
15 mcg INHALATION R BID
magnesium oxide 400 mg magnesium Tablet
400 mg PO DAILY
pantoprazole 40 mg tablet,delayed release (DR/EC)
40 mg PO DAILY
lisinopril 10 mg tablet
10 mg PO DAILY
gabapentin 100 mg capsule
100 mg PO TID
metoprolol succinate 25 mg tablet extended release 24 hr
12.5 mg PO HS
Discharge Date and Time
Print Language: PERUVIAN
[2025-06-21] MEDS: LIDOCAINE 4% PATCH 1 PATCH TOPICAL (09:47)
[2025-06-21] MEDS: ELIQUIS 5 MG PO ×2 (09:48→21:02)
[2025-06-21] MEDS: NEURONTIN 100 MG PO ×3 (09:48→21:07)
[2025-06-21] MEDS: PROTONIX 40 MG PO (09:48)
[2025-06-21] MEDS: PROSCAR 5 MG PO (09:48)
[2025-06-21] MEDS: FLOMAX 0.4 MG PO (09:48)
[2025-06-21] MEDS: MAGNESIUM OXIDE 400 MG PO (09:48)
[2025-06-21] MEDS: TYLENOL 650 MG PO ×3 (09:48→18:30)
[2025-06-21] MEDS: LEXAPRO 10 MG PO (09:48)
--- NOTE | 2025-06-21 10:43 | CM ---
Addendum entered by Hue Hirsch 06/21/25 17:14:
appeal received and faxed chart as requested. Detailed notice of discharge given to patient.
Addendum entered by Hue Hirsch 06/21/25 16:37:
email sent to [facility] with financial application and patient signature. CM spoke with patient sister who is considering if she will appeal. As of this time she has not called to start appeal. Per Caro she needs the 5 years of financial
documentation prior to being able to consider patient for admission. Sister aware of potential for financial responsibility if documentation not completed in a timely fashion. CM will continue to follow for discharge planning needs.
Plan; SNF
Addendum entered by Hue Hirsch 06/21/25 15:40:
email recieved from patient sister with some of the requested information. will email to [facility] at [place]
Addendum entered by Hue Hirsch 06/21/25 14:33:
Patient sister did not arrive before containers sales representative from [facility] had to leave. CM reviewed IMM and patient sister declined to complete. Patient needs to have financial paperwork completed prior to [facility] being able to review patient to approve.
Patient sister spoke with Caro from [place] and they are aware. Patient sister indicated that she is looking to appeal and CM updated lead CM and provided Detailed notice of discharge. CM will continue to follow for discharge planning needs.
Plan; awaiting financial paperwork and acceptance at [facility];
Addendum entered by Hue Hirsch 06/21/25 12:09:
Patient sister coming at 1pm to have financial information signed by brother and hand off to [facility]. Patient will be given IMM and patient sister is aware that patient is now discharged. CM will continue to follow for discharge planning needs.
Plan; SNF when accepted.
Original Note:
CM spoke with patient in room on . CM called to [place] and per Caro she does not have any further documentation from patient sister. CM updated physician and will notify patient sister of pending discharge. VM left for CM will continue to
follow for discharge needs.
Plan;SNF; [place] when documentation completed.
[2025-06-21 10:47] VITALS: O2SAT 99
--- NOTE | 2025-06-21 11:18 | W.DCSUMMARY ---
Addendum entered and electronically signed by Johnna Encarnacion MD 06/21/25 11:32:
Attending�addendum:
I�saw�and�evaluated�the�patient.�I�reviewed�the�resident�s�note�and�agree�with�findings�and�plan�as�documented�in�the�resident�s�note.��
�patient seen and examined at bedside, denies any chest pain or shortness of breath, no abdominal pain, no nausea, no vomiting, no diarrhea or constipation.
Bradycardia improved after Metoprolol stopped
Physical�exam:
GENERAL : Patient is awake, alert, oriented x3
HEENT: Nonicteric sclerae, PERRLA, EOMI. Oropharynx clear. Moist mucous membranes. Conjunctivae appear well perfused.
CHEST: Chest wall is nontender.
HEART: Regular rhythm, bradycardia, S1, S2 normal without murmurs.
LUNGS: Clear to auscultation bilaterally.
ABDOMEN: Soft, positive bowel sounds, nontender, no organomegaly.
RECTAL: Deferred.
SKIN: No rash, no excessive bruising, petechiae, or purpura.
NEUROLOGIC: Cranial nerves II-XII intact without motor/sensory deficit.
�
Assessment/plan:
Acute exacerbation.
Completed prednisone oral.
Breathing treatment
Paroxysmal A-fib.
Continue Eliquis/stopped metoprolol.
Appreciate cardiology input
Hypertension/hyperlipidemia.
Continue home meds
CODE STATUS: Full code
DVT prophylaxis: Eliquis
Diet: cardiac diet
Disposition: Medically clear for DC
Total�time�spent�on�today�s�encounter�was�40�minutes�which�included�time�spent�in�counseling�the�patient/family�regarding�diagnosis�and�treatment�plan�as�listed�above,�goals�of�care,�and�symptom�management.�Case�was�discussed�with�nursing�staff,�spec
ialists,�and�care�coordinators/case�management.�All�labs�and�imaging�personally�reviewed�by�me.�Remainder�the�time�spent�in�detailed�review�of�previous�records,�lab�data,�imaging,�and�other�medical�provider�documentation.
Original Note:
Documented by User: Jose Enrique Valentine MD, Resident 06/21/25 11:19
Discharge Summary
Discharge Data
Date of Admission: 06/17/25
Date of Discharge: 06/21/25
-
Pending Results: No
Hospital Course
Discharging Physician :
Johnna Encarnacion
Disposition :
SNF
Primary care physician :
Kelsi Garcia
Principal Discharge diagnosis :
Acute exacerbation of COPD
Sinus Bradycardia
Chronic Discharge diagnosis :
hypertension
hyperlipidemia
paroxysmal atrial fibrillation on Eliquis
HFpEF
COPD on 4 L oxygen
pulmonary hypertension
GERD
peptic ulcer disease
BPH
Hospital Course :
75-year-old male with past medical history significant for end-stage COPD with home oxygen requirement of 3 to 4 L, paroxysmal atrial fibrillation, hyperlipidemia, hypertension, pulmonary hypertension, GERD, peptic ulcer disease and BPH presented to
ED with progressive shortness of breath.Evaluation in ED, no leukocytosis, hemoglobin stable, normal BMP,Chest x-ray without any acute findings EKG showed Sinus rhythm with PVCs
[id number] smoking history, quit 1 year ago. Follows up with Dr. Bland, on chronic azithromycin therapy for anti-inflammatory effects
Managed COPD exacerbation with IV steroids.After a couple of days of receiving IV steroids, he was back to his baseline and was transitioned to oral steroids to complete 5 days. Tested negative for flu and COVID.
During his hospital stay his heart rate was in 40's ,cardiology consulted,Asymptomatic sinus bradycardia, beta-john not essential, stopped metoprolol extended release 12.5 mg daily.Remains on Eliquis for paroxysmal atrial fibrillation.
Recommended outpatient follow-up with cardiology
Goals of care discussion was done, refused hospice , first wants to try rehab and then wants to discuss outpatient palliative care.
Important imaging findings :
Chest x-ray 06/12/2025
FINDINGS: The lungs are hyperinflated compatible with emphysema. Stable vertical thin linear scar in the medial right apex.
No new lung parenchymal opacity is identified.
Cardiac silhouette size is slightly enlarged with no evidence for pulmonary edema or pleural effusion.
IMPRESSION:
Lungs appear hyperinflated, findings suggesting severe changes of emphysema.
Discharge Plan
-
Patient Disposition: Alf/SNF
Discharge Diagnosis/Procedures: Acute COPD exacerbation
Condition: Fair
Diet: Regular and Low Cholesterol
Activity: As tolerated
Driving Restrictions: Not until seen by your Dr
Bathing Restrictions: OK to Shower
Other Services: VN
Referrals:
Tere Valenzuela CRNP [Specified Professional Personl, Cardiology] - 07/11/25 1:40 pm
Kelsi Garcia MD, Resident [Family Provider, General] - in less than 1 week
Jasper Quach MD [Active, Palliative Care] - in one week
Prescriptions:
New
ipratropium-albuterol 0.5 mg-3 mg(2.5 mg base)/3 mL Solution For Nebulization
3 ml inhalation R QID 30 Days Qty: 360 0RF
albuterol sulfate 2.5 mg /3 mL (0.083 %) Solution For Nebulization
2.5 mg inhalation R Q4HPRN PRN (Reason: shortness of breath) 30 Days Qty: 30 0RF
(DME) nebulizer accessories Kit
See Rx Instructions .Route Qty: 1 0RF
Rx Instructions:
As directed
azithromycin 500 mg tablet
500 mg PO .MWF 3 Days Qty: 9 0RF
Continued
atorvastatin 40 mg Tablet
40 mg PO HS
finasteride 5 mg Tablet
5 mg PO DAILY
Eliquis 5 mg Tablet
5 mg PO BID
acetaminophen [Tylenol] 325 mg Tablet
650 mg PO TID
trazodone 50 mg Tablet
12.5 mg PO HS
bismuth subsalicylate [Pepto-Bismol] 262 mg/15 mL Suspension
524 mg PO DAILYPRN PRN (Reason: stomach upset)
escitalopram oxalate 10 mg Tablet
10 mg PO DAILY
melatonin 5 mg Tablet
5 mg PO HS
tamsulosin 0.4 mg Capsule
0.4 mg PO DAILY Qty: 30 0RF
lidocaine 4 % adhesive patch,medicated
1 patch topical DAILY
Rx Instructions:
right butt check/lower back
furosemide [Lasix] 40 mg Tablet
40 mg PO DAILY@1400
budesonide 0.5 mg/2 mL Suspension For Nebulization
0.5 mg INHALATION R BID
arformoterol 15 mcg/2 mL Solution For Nebulization
15 mcg INHALATION R BID
magnesium oxide 400 mg magnesium Tablet
400 mg PO DAILY
pantoprazole 40 mg tablet,delayed release (DR/EC)
40 mg PO DAILY
lisinopril 10 mg tablet
10 mg PO DAILY
gabapentin 100 mg capsule
100 mg PO TID
metoprolol succinate 25 mg tablet extended release 24 hr
12.5 mg PO HS
Discharge Orders:
Discharge Patient (As Directed); Ordered 06/21/25
Ordered By: Jose Enrique Valentine
Discharge Date and Time
Print Language: BAHRAINI

Documented by User: Johnna Encarnacion MD 06/21/25 11:32
Discharge Summary
Discharge Data
Date of Admission: 06/17/25
Date of Discharge: 06/21/25
Discharge Plan
-
Patient Disposition: Alf/SNF
Discharge Diagnosis/Procedures: Acute COPD exacerbation
Condition: Fair
Diet: Regular and Low Cholesterol
Activity: As tolerated
Driving Restrictions: Not until seen by your Dr
Bathing Restrictions: OK to Shower
Other Services: VN
Referrals:
Tere Valenzuela CRNP [Specified Professional Personl, Cardiology] - 07/11/25 1:40 pm
Kelsi Garcia MD, Resident [Family Provider, General] - in less than 1 week
Jasper Quach MD [Active, Palliative Care] - in one week
Prescriptions:
New
ipratropium-albuterol 0.5 mg-3 mg(2.5 mg base)/3 mL Solution For Nebulization
3 ml inhalation R QID 30 Days Qty: 360 0RF
albuterol sulfate 2.5 mg /3 mL (0.083 %) Solution For Nebulization
2.5 mg inhalation R Q4HPRN PRN (Reason: shortness of breath) 30 Days Qty: 30 0RF
(DME) nebulizer accessories Kit
See Rx Instructions .Route Qty: 1 0RF
Rx Instructions:
As directed
azithromycin 500 mg tablet
500 mg PO .MWF 3 Days Qty: 9 0RF
Continued
atorvastatin 40 mg Tablet
40 mg PO HS
finasteride 5 mg Tablet
5 mg PO DAILY
Eliquis 5 mg Tablet
5 mg PO BID
acetaminophen [Tylenol] 325 mg Tablet
650 mg PO TID
trazodone 50 mg Tablet
12.5 mg PO HS
bismuth subsalicylate [Pepto-Bismol] 262 mg/15 mL Suspension
524 mg PO DAILYPRN PRN (Reason: stomach upset)
escitalopram oxalate 10 mg Tablet
10 mg PO DAILY
melatonin 5 mg Tablet
5 mg PO HS
tamsulosin 0.4 mg Capsule
0.4 mg PO DAILY Qty: 30 0RF
lidocaine 4 % adhesive patch,medicated
1 patch topical DAILY
Rx Instructions:
right butt check/lower back
furosemide [Lasix] 40 mg Tablet
40 mg PO DAILY@1400
budesonide 0.5 mg/2 mL Suspension For Nebulization
0.5 mg INHALATION R BID
arformoterol 15 mcg/2 mL Solution For Nebulization
15 mcg INHALATION R BID
magnesium oxide 400 mg magnesium Tablet
400 mg PO DAILY
pantoprazole 40 mg tablet,delayed release (DR/EC)
40 mg PO DAILY
lisinopril 10 mg tablet
10 mg PO DAILY
gabapentin 100 mg capsule
100 mg PO TID
metoprolol succinate 25 mg tablet extended release 24 hr
12.5 mg PO HS
Discharge Orders:
Discharge Patient (As Directed); Ordered 06/21/25
Ordered By: Jose Enrique Valentine
Discharge Date and Time
Print Language: BAHRAINI
[2025-06-21 11:51] VITALS: BP 119/63
[2025-06-21] MEDS: LASIX 40 MG PO (14:10)
[2025-06-21] MEDS: DESYREL 12.5 MG PO (21:03)
[2025-06-21] MEDS: REMOVE LIDOCAINE PATCH 1 PATCH REMOVE (21:03)
[2025-06-21] MEDS: MELATONIN 5 MG PO (21:03)
[2025-06-21] MEDS: LIPITOR 40 MG PO (21:04)
[2025-06-21 23:09] VITALS: BP 100/44
[2025-06-22 06:00] VITALS: BMI 19.2
[2025-06-22 07:00] VITALS: BP 132/65
[2025-06-22] MEDS: ELIQUIS 5 MG PO ×2 (09:17→21:19)
[2025-06-22] MEDS: MAGNESIUM OXIDE 400 MG PO (09:18)
[2025-06-22] MEDS: FLOMAX 0.4 MG PO (09:18)
[2025-06-22] MEDS: LEXAPRO 10 MG PO (09:18)
[2025-06-22] MEDS: NEURONTIN 100 MG PO ×3 (09:18→21:20)
[2025-06-22] MEDS: LIDOCAINE 4% PATCH 1 PATCH TOPICAL (09:18)
[2025-06-22] MEDS: TYLENOL 650 MG PO ×3 (09:19→21:27)
[2025-06-22] MEDS: PROSCAR 5 MG PO (09:19)
[2025-06-22] MEDS: PROTONIX 40 MG PO (09:19)
[2025-06-22] MEDS: LASIX 40 MG PO (13:03)
--- NOTE | 2025-06-22 14:02 | W.PN.HOSP.TC ---
Addendum entered and electronically signed by Johnna Encarnacion MD 06/22/25 14:24:
Attending�addendum:
I�saw�and�evaluated�the�patient.�I�reviewed�the�resident�s�note�and�agree�with�findings�and�plan�as�documented�in�the�resident�s�note.��
�patient seen and examined at bedside, denies any chest pain or shortness of breath, no abdominal pain, no nausea, no vomiting, no diarrhea or constipation.
Bradycardia improved after Metoprolol stopped
Physical�exam:
GENERAL : Patient is awake, alert, oriented x3
HEENT: Nonicteric sclerae, PERRLA, EOMI. Oropharynx clear. Moist mucous membranes. Conjunctivae appear well perfused.
CHEST: Chest wall is nontender.
HEART: Regular rhythm, bradycardia, S1, S2 normal without murmurs.
LUNGS: Clear to auscultation bilaterally.
ABDOMEN: Soft, positive bowel sounds, nontender, no organomegaly.
RECTAL: Deferred.
SKIN: No rash, no excessive bruising, petechiae, or purpura.
NEUROLOGIC: Cranial nerves II-XII intact without motor/sensory deficit.
�
Assessment/plan:
Acute exacerbation.
Completed prednisone oral.
Breathing treatment
Paroxysmal A-fib.
Continue Eliquis/stopped metoprolol.
Appreciate cardiology input
Hypertension/hyperlipidemia.
Continue home meds
CODE STATUS: Full code
DVT prophylaxis: Eliquis
Diet: cardiac diet
Disposition: Medically clear for DC
Total�time�spent�on�today�s�encounter�was�55�minutes�which�included�time�spent�in�counseling�the�patient/family�regarding�diagnosis�and�treatment�plan�as�listed�above,�goals�of�care,�and�symptom�management.�Case�was�discussed�with�nursing�staff,�spec
ialists,�and�care�coordinators/case�management.�All�labs�and�imaging�personally�reviewed�by�me.�Remainder�the�time�spent�in�detailed�review�of�previous�records,�lab�data,�imaging,�and�other�medical�provider�documentation.
Original Note:
Today's Communication/Plan
-
SNF recommended , no update as of yet for Appeal.
entry manager following
Assessment / Plan
Assessment / Plan
75-year-old male past medical history significant for hypertension, hyperlipidemia, paroxysmal atrial fibrillation on Eliquis, HFpEF, COPD on 3 L oxygen, pulmonary hypertension, GERD, peptic ulcer disease and BPH who presented to the ED with
progressive shortness of breath. He has 50 pack years history of smoking and quit 1 year ago. Admitted with exacerbation of COPD, with pleurisy.
Denies any recent sick contacts, fever, chills, nausea, vomiting or any recent viral illness.
Follows up with pulmonology, patient of Dr. Bland. Last visit with pulmonology in May 2025, he is on azithromycin therapy for anti-inflammatory effects.
Advanced COPD/emphysema phenotype: Chronic hypoxemic and hypercapnic respiratory failure
FEV1 less than 30%oxygen desaturation with exertion up to 2 L with ambulation.Emphysema on CT abdomen and pelvis.Mild pulmonary hypertension on echocardiogram-normal RV function. Echocardiogram 03/24/25.exacerbation March 2025 and 04/2025-requiring
hospitalization stay.
#Acute exacerbation of COPD
Stable
Completed course of prednisone
Continue DuoNebs,budesonide and Trelegy
Continue incentive spirometry
PT/OT recommend SNF
#paroxysmal atrial fibrillation
- continue Eliquis and metoprolol
- Patient bradycardic, sinus bradycardia with no heart block
-Cardiology recommendations appreciated-stopped metoprolol
# Underweight with a BMI of 19
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
#hypertension
- Continue home medications as able
#hyperlipidemia
- continue atorvastatin
#HFpEF
Stable
#pulmonary hypertension- continue sildenafil
#GERD
#peptic ulcer disease - continue pantoprazole
#BPH - continue finasteride and tamsulosin
#depression/anxiety - continue escitalopram and trazodone
Code status: full code
DVT prophylaxis: Eliquis
Cholesterol-lowering diet
PT/OT recommends SNF-cleared for discharge from medical perspective-rn case management working on placement
Anticipated Discharge: 24 - 48 hours
Subjective/Interval History
-
Date of Service: June 22, 2025
Patient is feeling better today, denied shortness of breath, chest pain or cough.
Objective Data
-
Vital Signs:
Vital Signs
Temp Pulse Resp BP Pulse Ox
98.2 F 60 22 132/65 100
06/22/25 07:00 06/22/25 07:00 06/22/25 07:00 06/22/25 07:00 06/22/25 09:00
I&O
06/21/25 06/22/25 06/23/25
06:59 06:59 06:59
Intake Total 2160 / 2160 480 / 480
Output Total 700 / 700 1075 / 1075
Balance 1460 / 1460 -595 / -595
Review of Systems
-
All other systems: Reviewed and negative
Physical Exam
-
General: No Apparent Distress and Cachectic
HEENT: Anicteric and [place] Conjunctivae
Respiratory: Clear to Auscultation and Decreased Breath Sounds
Cardiac: Regular Rhythm, S1/S2 and Bradycardic
GI: Soft, Nondistended and Normal Bowel Sounds
Musculoskeletal: No Clubbing, No Cyanosis and No Edema
Skin: Warm and Dry
Neuro: Awake, AO x 3 and Nonfocal/Grossly Intact
Psych: Calm
[2025-06-22 15:00] VITALS: BP 103/54
--- NOTE | 2025-06-22 15:57 | CM ---
CM reviewed chart, appeal in progress, no update from [facility] at this time.
Update to Resident.
Reviewed with Caro liaison at [facility]- no additional financials received.
Plan; appeal in progress
[2025-06-22] MEDS: REMOVE LIDOCAINE PATCH 1 PATCH REMOVE (21:19)
[2025-06-22] MEDS: DESYREL 12.5 MG PO (21:19)
[2025-06-22] MEDS: MELATONIN 5 MG PO (21:20)
[2025-06-22] MEDS: LIPITOR 40 MG PO (21:20)
[2025-06-22 23:33] VITALS: BP 108/59
[2025-06-23 06:00] VITALS: BMI 18.7
[2025-06-23 07:30] VITALS: BP 122/54
[2025-06-23] MEDS: ELIQUIS 5 MG PO ×2 (08:29→21:15)
[2025-06-23] MEDS: MAGNESIUM OXIDE 400 MG PO (08:30)
[2025-06-23] MEDS: LEXAPRO 10 MG PO (08:30)
[2025-06-23] MEDS: NEURONTIN 100 MG PO ×3 (08:30→21:16)
[2025-06-23] MEDS: PROSCAR 5 MG PO (08:30)
[2025-06-23] MEDS: PROTONIX 40 MG PO (08:30)
[2025-06-23] MEDS: FLOMAX 0.4 MG PO (08:30)
[2025-06-23] MEDS: TYLENOL 650 MG PO ×3 (08:30→17:23)
[2025-06-23] MEDS: LIDOCAINE 4% PATCH 1 PATCH TOPICAL (08:30)
[2025-06-23 09:29] VITALS: BP 117/53; BP 122/54; BP 98/55; PULSE 54; PULSE 56; PULSE 63
--- NOTE | 2025-06-23 11:39 | W.PN.HOSP.TC ---
Addendum entered and electronically signed by Johnna Encarnacion MD 06/23/25 12:38:
Attending�addendum:
I�saw�and�evaluated�the�patient.�I�reviewed�the�resident�s�note�and�agree�with�findings�and�plan�as�documented�in�the�resident�s�note.��
�patient seen and examined at bedside, denies any chest pain or shortness of breath, no abdominal pain, no nausea, no vomiting, no diarrhea or constipation.
Physical�exam:
GENERAL : Patient is awake, alert, oriented x3
HEENT: Nonicteric sclerae, PERRLA, EOMI. Oropharynx clear. Moist mucous membranes. Conjunctivae appear well perfused.
CHEST: Chest wall is nontender.
HEART: Regular rhythm, bradycardia, S1, S2 normal without murmurs.
LUNGS: Clear to auscultation bilaterally.
ABDOMEN: Soft, positive bowel sounds, nontender, no organomegaly.
RECTAL: Deferred.
SKIN: No rash, no excessive bruising, petechiae, or purpura.
NEUROLOGIC: Cranial nerves II-XII intact without motor/sensory deficit.
�
Assessment/plan:
Acute exacerbation.
Completed prednisone oral.
Breathing treatment
Paroxysmal A-fib.
Continue Eliquis/stopped metoprolol.
Appreciate cardiology input
Hypertension/hyperlipidemia.
Continue home meds
CODE STATUS: Full code
DVT prophylaxis: Eliquis
Diet: cardiac diet
Disposition: Medically clear for DC
Total�time�spent�on�today�s�encounter�was�55�minutes�which�included�time�spent�in�counseling�the�patient/family�regarding�diagnosis�and�treatment�plan�as�listed�above,�goals�of�care,�and�symptom�management.�Case�was�discussed�with�nursing�staff,�spec
ialists,�and�care�coordinators/case�management.�All�labs�and�imaging�personally�reviewed�by�me.�Remainder�the�time�spent�in�detailed�review�of�previous�records,�lab�data,�imaging,�and�other�medical�provider�documentation.
Original Note:
Today's Communication/Plan
-
Pending status for rehab placement , chemical manager following the case
Assessment / Plan
Assessment / Plan
75-year-old male past medical history significant for hypertension, hyperlipidemia, paroxysmal atrial fibrillation on Eliquis, HFpEF, COPD on 3 L oxygen, pulmonary hypertension, GERD, peptic ulcer disease and BPH who presented to the ED with
progressive shortness of breath. He has 50 pack years history of smoking and quit 1 year ago. Admitted with exacerbation of COPD, with pleurisy.
Denies any recent sick contacts, fever, chills, nausea, vomiting or any recent viral illness.
Follows up with pulmonology, patient of Dr. Bland. Last visit with pulmonology in May 2025, he is on azithromycin therapy for anti-inflammatory effects.
Advanced COPD/emphysema phenotype: Chronic hypoxemic and hypercapnic respiratory failure
FEV1 less than 30%oxygen desaturation with exertion up to 2 L with ambulation.Emphysema on CT abdomen and pelvis.Mild pulmonary hypertension on echocardiogram-normal RV function. Echocardiogram 03/24/25.exacerbation March 2025 and 04/2025-requiring
hospitalization stay.
#Acute exacerbation of COPD
Stable
Completed course of prednisone
Continue DuoNebs,budesonide and Trelegy
Continue incentive spirometry
PT/OT recommend SNF
#paroxysmal atrial fibrillation
- continue Eliquis and metoprolol
- Patient bradycardic, sinus bradycardia with no heart block
-Cardiology recommendations appreciated-stopped metoprolol
# Underweight with a BMI of 19
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
#hypertension
- Continue home medications as able
#hyperlipidemia
- continue atorvastatin
#HFpEF
Stable
#pulmonary hypertension- continue sildenafil
#GERD
#peptic ulcer disease - continue pantoprazole
#BPH - continue finasteride and tamsulosin
#depression/anxiety - continue escitalopram and trazodone
Code status: full code
DVT prophylaxis: Eliquis
Cholesterol-lowering diet
PT/OT recommends SNF-cleared for discharge from medical perspective-onsite case manager working on placement
Anticipated Discharge: 24 - 48 hours
Subjective/Interval History
-
Date of Service: June 23, 2025
Patient has pain in his left lower, lateral of his chest constant that improved with pain meds. Patient denied chest pain , shortness of breath, cough.
Objective Data
-
Vital Signs:
Vital Signs
Temp Pulse Resp BP Pulse Ox
99.0 F 56 18 122/54 100
06/23/25 07:30 06/23/25 07:30 06/23/25 07:30 06/23/25 07:30 06/23/25 07:30
I&O
06/22/25 06/23/25 06/24/25
06:59 06:59 06:59
Intake Total 480 / 480 960 / 960 240 / 240
Output Total 1075 / 1075 650 / 650 450 / 450
Balance -595 / -595 310 / 310 -210 / -210
Review of Systems
-
All other systems: Reviewed and negative (except for left lateral lower chest pain )
Physical Exam
-
General: No Apparent Distress and Cachectic
HEENT: Anicteric and [place] Conjunctivae
Respiratory: Clear to Auscultation and Decreased Breath Sounds
Cardiac: Regular Rhythm, S1/S2 and Bradycardic
GI: Soft, Nondistended and Normal Bowel Sounds
Musculoskeletal: No Clubbing, No Cyanosis and No Edema
Skin: Warm and Dry
Neuro: Awake, AO x 3 and Nonfocal/Grossly Intact
Psych: Calm
--- NOTE | 2025-06-23 13:04 | CM ---
CM reviewed chart, patient seen bedside.
Patient reports he was unaware there was an appeal in process, aware that when determination is made, patient may be financially responsible for further hospitalization.
CM inquired if patient has spoken to his sister, patient denies.
CM inquired upon determination if patient can return to his sisters home, patient reports he cannot. Patient reports he does not have anyone else to stay with, cannot afford a hotel. CM discussed potential for d/c to residential until financials are
received and approved for patient to go to [facility].
CM spoke with patients sister, Walt, via telephone.
Sister reports she has provided all documents needed to Caro at [facility] minus one bank statement which will come on Tuesday.
Sister reports she was not aware that if appeal upheld, patient may be financially responsible.
Sister reports patient cannot return to her home as patient cannot due steps.
Sister reports home is a split level, 5 steps to first level, bedroom up another 5 steps.
CM discussed if patient is able to work with therapy and do steps, is patient able to return- sister reports she works three times a week and is not home daily. Sister reports if patients falls at home, who is liable for that.
CM discussed d/c home with [facility] as patient is current with services, can also provide information regarding private pay.
Sister reports they cannot afford private pay caregivers.
CM inquired how long patient was living with sister prior to hospital admission, sister reports one year. CM inquired how patient did at home with sister over the past year and if these concerns have been ongoing- sister reports patient would lean
against the wall to do steps.
CM discussed if patient unable to return to sisters home upon d.c, may need to look into residential for patient.
CM reviewed with therapy with request to do steps.
Plan; appeal pending
[2025-06-23] MEDS: LASIX 40 MG PO (13:12)
[2025-06-23 15:30] VITALS: BP 113/59
[2025-06-23 19:00] VITALS: BP 104/98
[2025-06-23] MEDS: REMOVE LIDOCAINE PATCH 1 PATCH REMOVE (21:15)
[2025-06-23] MEDS: DESYREL 12.5 MG PO (21:16)
[2025-06-23] MEDS: LIPITOR 40 MG PO (21:16)
[2025-06-23] MEDS: MELATONIN 5 MG PO (21:16)
[2025-06-23 23:22] VITALS: BP 116/51
[2025-06-24 06:00] VITALS: BMI 18.8
[2025-06-24 07:30] VITALS: BP 106/60
[2025-06-24] MEDS: LEXAPRO 10 MG PO (08:34)
[2025-06-24] MEDS: LIDOCAINE 4% PATCH 1 PATCH TOPICAL (08:34)
[2025-06-24] MEDS: FLOMAX 0.4 MG PO (08:34)
[2025-06-24] MEDS: ELIQUIS 5 MG PO ×2 (08:34→20:26)
[2025-06-24] MEDS: NEURONTIN 100 MG PO ×3 (08:35→21:08)
[2025-06-24] MEDS: PROSCAR 5 MG PO (08:35)
[2025-06-24] MEDS: MAGNESIUM OXIDE 400 MG PO (08:35)
[2025-06-24] MEDS: PROTONIX 40 MG PO (08:35)
[2025-06-24 10:01] VITALS: BP 124/61; BP 134/55; O2SAT 98
[2025-06-24] MEDS: LASIX 40 MG PO (13:43)
[2025-06-24] MEDS: TYLENOL 650 MG PO (15:11)
[2025-06-24 15:30] VITALS: BP 138/63
--- NOTE | 2025-06-24 16:29 | CM ---
Addendum entered by Hue Hirsch 06/24/25 17:17:
sister called back and is in agreement with placement at [facility]. CM will confirm and make arrangements for transportation in am with physician assessment.
Original Note:
CM spoke with patient sister earlier and updated her via phone about [facility] and the determination that patient was appropriate for discharge. Therapy did see patient but felt he was no safe to do steps. CM spoke with Liaison from [facility] and they are willing to accept patient as MA pending. CM left VM for patient sister about option and CM spoke with Caro from [place] and they are not currently willing to accept patient with out private pay. CM will continue to follow for
discharge planning needs.
Plan;SNF: [facility] or [facility] pending family choice.
--- NOTE | 2025-06-24 17:43 | W.PN.HOSP.TC ---
Addendum entered and electronically signed by Malina Small MD 06/24/25 18:26:
I saw and evaluated the patient independently. I reviewed the resident�s note and agree with findings and plan as documented by Dr. Becker.
GENERAL: well developed, well nourished, male in no apparent distress
HEENT: NC/AT--O2 [address]
HEART: regular rate and rhythm, +S1, +S2
LUNGS :decreased breath sounds bilaterally--no wheezing noted
ABDOM: soft, nontender, nondistended, + bowel sounds
EXT: no cyanosis, clubbing, or edema
NEUROLOGIC: grossly intact
Acute exacerbation of COPD with chronic hypoxemic resp failure on O2 at home--improved and back on outpt home O2 setting of 3L--s/p IV decadron and now on oral prednisone--cont duonebs, pulmicort nebs, Trejanethgy, IS
Paroxysmal atrial fibrillation- Today patient's heart rate is 56 and well-controlled with no adverse events--Continue Eliquis--Metoprolol was discontinued as it caused bradycardia as per the recommendation of cardiology
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
Essential hypertension--Today's blood pressure is 130/63 and well-controlled--Continue on lisinopril 10 mg daily
Essential Hypertension--Continue sildenafil
GERD/peptic ulcer disease--Continue pantoprazole
BPH--Continue finasteride and tamsulosin
Depression/anxiety--Continue escitalopram and trazodone
CODE STATUS--Full code
DVT proph--Eliquis
has been and remains medically stable for discharge
Original Note:
Today's Communication/Plan
-
Await notification from case management specialist as to where patient will be placed for SNF
Assessment / Plan
Assessment / Plan
Case management working on getting patient a bed at SNF. Therapy saw patient but felt he was not safe to do steps.
Acute exacerbation of COPD:
-Review of systems is negative for wheezing, dyspnea, trouble breathing, chest pain, lightheadedness
- Physical examination of the lungs reveals bilateral wheezes heard at the lower lobes
- Patient is on 3 L of oxygen, which is his normal baseline home amount of oxygen that he is stable on
- Patient has completed his short-term course of IV dexamethasone in the hospital and also oral prednisone
- Continue DuoNebs, budesonide, Trelegy
- Continue incentive spirometry
- PT/OT recommend SNF
Paroxysmal atrial fibrillation:
- Today patient's heart rate is 56 and well-controlled with no adverse events
- Continue Eliquis
-Metoprolol was discontinued as it caused bradycardia as per the recommendation of cardiology
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
BMI of 18.8:
- Nutrition recommends cholesterol-lowering diet which patient is currently on
- Patient is eating 100% of his meals
- total daily calorie need of 2035 stephany
Essential hypertension:
-Today's blood pressure is 130/63 and well-controlled
-Continue on lisinopril 10 mg daily
Hypertension:
- Continue sildenafil
GERD/peptic ulcer disease:
- Continue pantoprazole
BPH:
- Continue finasteride and tamsulosin
Depression/anxiety:
- Continue escitalopram and trazodone
CODE STATUS: Full code
DVT prophylaxis: Eliquis
Anticipated Discharge: Within 24 hours
Subjective/Interval History
-
Date of Service: June 24, 2025
75-year-old male with a past medical history of hypertension, hyperlipidemia, PAF, HFpEF, COPD on home oxygen of 3 L, GERD, BPH was brought in with shortness of breath and pain that radiated to the right arm. X-ray showed hyperinflated lungs
consistent with COPD related emphysema changes. He has a 50-year pack smoking history and recently quit just a year ago. COVID and flu were negative. Patient was started on IV dexamethasone and then transition to oral prednisone, DuoNebs were
administered, incentive spirometry was ordered. Patient was about to be discharged on 06/16/2025 then his sister appealed the discharge as she felt patient was not ready to go home as he could not climb stairs. The next day he had episode of
bradycardia and cardiology was consulted, they stopped his metoprolol and his bradycardia improved.
Patient has no acute medical complaints today.
Objective Data
-
Vital Signs:
Vital Signs
Temp Pulse Resp BP Pulse Ox
98.1 F 56 22 138/63 100
06/24/25 15:30 06/24/25 15:30 06/24/25 15:30 06/24/25 15:30 06/24/25 15:30
I&O
06/23/25 06/24/25 06/25/25
06:59 06:59 06:59
Intake Total 960 / 960 1320 / 1320
Output Total 650 / 650 1450 / 1450
Balance 310 / 310 -130 / -130
Review of Systems
-
All other systems: Reviewed and negative
Constitutional: Denies Fever, Fatigue, Sleep Disturbance, Night Sweats or Chills
Respiratory: Denies Cough, Trouble Breathing or Wheezing
Cardiac: Denies Chest Pain
Abdomen/GI: Denies Abdominal Pain, Nausea, Vomiting, Diarrhea, Constipated or Pain
Genitourinary: Denies Dysuria or Frequency
Skin: Reports Itching
Neuro: Denies Weakness, Numbness, Tremors, Lightheadedness or Seizures
Hematologic / Lymphatic: Denies Bleeding
Physical Exam
-
General: Well Developed
Respiratory: Other (Patient is on 3 L oxygen which is his baseline home dose of oxygen, there is bilateral wheezing heard at the lower lobes of both lungs)
Cardiac: Regular Rhythm and S1/S2
GI: Soft, Nontender, Nondistended and Normal Bowel Sounds
Musculoskeletal: No Clubbing
Skin: Warm and Dry
Neuro: Awake, Alert, Oriented and AO x 3
Data Reviewed
-
Diagnostic Radiology: Report Reviewed by me and Discussed with Physician
[2025-06-24] MEDS: REMOVE LIDOCAINE PATCH 1 PATCH REMOVE (20:26)
[2025-06-24] MEDS: LIPITOR 40 MG PO (21:08)
[2025-06-24] MEDS: MELATONIN 5 MG PO (21:08)
[2025-06-24] MEDS: DESYREL 12.5 MG PO (21:08)
[2025-06-24 23:15] VITALS: BP 95/42
[2025-06-25 06:00] VITALS: BMI 18.8
[2025-06-25 07:00] VITALS: BP 102/54; BP 124/50; BP 154/86; PULSE 55; PULSE 57; PULSE 90
[2025-06-25] MEDS: LIDOCAINE 4% PATCH 1 PATCH TOPICAL (07:22)
[2025-06-25] MEDS: PROTONIX 40 MG PO (07:30)
[2025-06-25] MEDS: PROSCAR 5 MG PO (07:30)
[2025-06-25] MEDS: NEURONTIN 100 MG PO (07:30)
[2025-06-25] MEDS: ELIQUIS 5 MG PO (07:30)
[2025-06-25] MEDS: MAGNESIUM OXIDE 400 MG PO (07:30)
[2025-06-25] MEDS: FLOMAX 0.4 MG PO (07:30)
[2025-06-25] MEDS: LEXAPRO 10 MG PO (07:30)
--- NOTE | 2025-06-25 08:45 | CM ---
Addendum entered by Hue Hirsch 06/25/25 13:36:
Patient sister confirmed plan. CM spoke with liaison at facility and they are aware of plan for transportation arranged for . CM will continue to follow for discharge planning needs. Patient appealed IMM on 06/21 and resonse on 06/23 was that
patient appropriate for discharge. 06/24 patient declined by [facility] due to income/resources and 06/25 patient to [facility] for MA pending.
Original Note:
Patient for transfer to [facility]. Please call report to [phone]/fax [phone]. CM will complete ambulance transportation forms.
[2025-06-25 08:58] LABS: Hematocrit 34.1 % (39.0-52.0); Hemoglobin 9.9 g/dL (13.0-18.0); Mean Corp Hgb Conc. 29.0 g/dL (33.0-37.0); Mean Corpuscular Volume 93.4 fL (80.0-94.0); Nucleated Red Blood Cells % 0 % (-); Platelet Count 185 10^3/uL (130-400); Red Cell Dist. Width 16.1 % (11.5-14.5)
[2025-06-25 09:38] LABS: ALT (SGPT) 12 U/L (0-50); AST (SGOT) 19 U/L (17-59); Albumin 3.6 g/dl (3.5-5.0); Alkaline Phosphatase 47 U/L (38-126); Blood Urea Nitrogen 18 mg/dl (9-20); Calcium 9.2 mg/dl (8.4-10.2); Carbon Dioxide 29 mmol/L (22-30); Chloride 107 mmol/L (98-107); Estimated Creatinine Clearance 74 ml/min; Glucose 94 mg/dl (70-99); Magnesium 2.1 mg/dl (1.6-2.3); Potassium 4.3 mmol/L (3.5-5.1); Sodium 140 mmol/L (135-145); Total Protein 6.0 g/dl (6.3-8.2); eGFR > 60.00
[2025-06-25 11:54] VITALS: BP 140/75
--- NOTE | 2025-06-25 15:49 | W.PN.HOSP.TC ---
Addendum entered and electronically signed by Malina Small MD 06/25/25 17:56:
I saw and evaluated the patient independently. I discussed and reviewed the resident�s note and agree with findings and plan as documented by Dr. Becker.
GENERAL: well developed, well nourished, male in no apparent distress
HEENT: NC/AT--O2 NC [address]
HEART: regular rate and rhythm, +S1, +S2
LUNGS :decreased breath sounds bilaterally--no wheezing noted
ABDOM: soft, nontender, nondistended, + bowel sounds
EXT: no cyanosis, clubbing, or edema
NEUROLOGIC: grossly intact
Acute exacerbation of COPD with chronic hypoxemic resp failure on O2 at home--improved and back on outpt home O2 setting of 3L--s/p IV decadron and now on oral prednisone--cont duonebs, pulmicort nebs, Trelegy, IS
Paroxysmal atrial fibrillation- heart rate well-controlled with no adverse events--Continue Eliquis--Metoprolol was discontinued as it caused bradycardia as per the recommendation of cardiology
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
Essential hypertension--Today's blood pressure is 130/63 and well-controlled--Continue on lisinopril 10 mg daily
Essential Hypertension--Continue sildenafil
GERD/peptic ulcer disease--Continue pantoprazole
BPH--Continue finasteride and tamsulosin
Depression/anxiety--Continue escitalopram and trazodone
CODE STATUS--Full code
DVT proph--Eliquis
medically stable for discharge
Original Note:
Today's Communication/Plan
-
- discharged patient to SNF
Assessment / Plan
Assessment / Plan
Patient is being discharged to [facility]
Acute exacerbation of COPD:
-Review of systems is negative for wheezing, dyspnea, trouble breathing, chest pain, lightheadedness
- Physical examination of the lungs reveals bilateral wheezes heard at the lower lobes
- Patient is on 3 L of oxygen, which is his normal baseline home amount of oxygen that he is stable on
- Patient has completed his short-term course of IV dexamethasone in the hospital and also oral prednisone
- Continue incentive spirometry
- PT/OT recommend SNF
- Discharge patient on albuterol, duonebs, and azithromycin
- Patient will follow up with PCP in 1 week for CBC and CMP
- Patient will consider following up with outpatient palliative if he is not able to tolerate SNF
Paroxysmal atrial fibrillation:
- Today patient's heart rate is 58 and well-controlled with no adverse events
- Continue Eliquis
-Metoprolol was discontinued as it caused bradycardia as per the recommendation of cardiology
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
BMI of 18.8:
- Nutrition recommends cholesterol-lowering diet which patient is currently on
- Patient is eating 100% of his meals
- total daily calorie need of 2035 stephany
Essential hypertension:
-Today's blood pressure is 130/63 and well-controlled
-Continue on lisinopril 10 mg daily
Hypertension:
- Continue sildenafil
GERD/peptic ulcer disease:
- Continue pantoprazole
BPH:
- Continue finasteride and tamsulosin
Depression/anxiety:
- Continue escitalopram and trazodone
CODE STATUS: Full code
DVT prophylaxis: Eliquis
Anticipated Discharge: Today
Subjective/Interval History
-
Date of Service: June 25, 2025
No overnight events
No acute medical complaints
Objective Data
-
Labs:
Laboratory Results
06/25/25
08:31
WBC 7.7
Hgb 9.9 L
Hct 34.1 L
Plt Count 185
Sodium 140
Potassium 4.3
Chloride 107
Carbon Dioxide 29
BUN 18
Creatinine 0.7
Glucose 94
Calcium 9.2
Total Bilirubin 0.4
AST 19
ALT 12
Alkaline Phosphatase 47
Vital Signs:
Vital Signs
Temp Pulse Resp BP Pulse Ox
98.1 F 58 20 140/75 100
06/25/25 11:54 06/25/25 11:54 06/25/25 11:54 06/25/25 11:54 06/25/25 11:54
I&O
06/24/25 06/25/25 06/26/25
06:59 06:59 06:59
Intake Total 1320 / 1320 1560 / 1560
Output Total 1450 / 1450 1400 / 1400 650 / 650
Balance -130 / -130 160 / 160 -650 / -650
Review of Systems
-
All other systems: Reviewed and negative
Constitutional: Denies Fever, Fatigue, Sleep Disturbance, Night Sweats or Chills
Respiratory: Denies Cough, Trouble Breathing or Wheezing
Cardiac: Denies Chest Pain
Abdomen/GI: Denies Abdominal Pain, Nausea, Vomiting, Diarrhea, Constipated or Pain
Genitourinary: Denies Dysuria or Frequency
Skin: Reports Itching
Neuro: Denies Weakness, Numbness, Tremors, Lightheadedness or Seizures
Hematologic / Lymphatic: Denies Bleeding
Physical Exam
-
General: Well Developed
Respiratory: Other (Patient is on 3 L oxygen which is his baseline home dose of oxygen, there is bilateral wheezing heard at the lower lobes of both lungs)
Cardiac: Regular Rhythm and S1/S2
GI: Soft, Nontender, Nondistended and Normal Bowel Sounds
Musculoskeletal: No Clubbing
Skin: Warm and Dry
Neuro: Awake, Alert, Oriented and AO x 3
Data Reviewed
-
Labs: Labs Reviewed by me and Discussed with Physician
--- NOTE | 2025-06-25 18:47 | W.DCSUMMARY ---
Addendum entered and electronically signed by Malina Small MD 06/25/25 19:24:
Read, reviewed, and agree. See same day progress note for additional details. Time spent coordinating care, DC planning, review of DC plan of care with resident, transition of care, review of records in EMR, med rec, consults, notes, d/w
consultants, nursing, family, and CM = 32 minutes
Original Note:
Discharge Summary
Discharge Data
Date of Admission: 06/17/25
Date of Discharge: 06/25/25
-
Pending Results: No
Hospital Course
Discharging Physician : Dr. Malina Small and Dr.Jitesh Becker
Disposition : SNF
Primary care physician : Dr. Kelsi Garcia
Principal Discharge diagnosis : Acute exacerbation of COPD
Chronic Discharge diagnosis : Paroxysmal atrial fibrillation, cachexia in the setting of COPD, essential hypertension, pulmonary hypertension, GERD, peptic ulcer disease, benign prostatic hyperplasia, depression/anxiety
Hospital Course : 75-year-old male with a past medical history of hypertension, hyperlipidemia, PAF, HFpEF, COPD on home oxygen of 3 L, GERD, BPH was brought in with shortness of breath and pain that radiated to the right arm.
Problem #1: Acute exacerbation of COPD
Chest x-ray on admission showed hyperinflated lungs suggestive of emphysema. Patient has a home oxygen requirement of 3 to 4 L. His exacerbation was managed by IV dexamethasone followed by an oral prednisone taper all of which she finished at the [facility]. Has a 50-year pack smoking history and quit 1 year ago. He usually follows up with Dr. Bailey russian language professor to help manage his COPD. Discharged to [facility] on DuoNebs, albuterol inhaler, azithromycin. He is on chronic
azithromycin therapy for its anti-inflammatory effects and managing COPD. CBC and CMP in 1 week with PCP.
Problem #2: Paroxysmal atrial fibrillation
He had an episode of bradycardia in which his heart rate was 49, cardiology was consulted and decided to discontinue his metoprolol as they deemed it was not needed. We stopped metoprolol on discharge. Heart rate is 56 and well-controlled on
discharge. Continue with home dose of Eliquis 5 mg.
Problem #3 cachexia in the setting of COPD
Nutrition recommends cholesterol-lowering diet
Problem #4: Essential hypertension
Blood pressure is 140/75 on discharge. Continue home dose of lisinopril 10 mg on discharge.
Problem #5: Pulmonary hypertension
Continue sildenafil on discharge
Problem #6: GERD
Continue pantoprazole
Problem #7: Peptic ulcer disease
Continue pantoprazole
Problem #8: Benign prostatic hyperplasia
Continue finasteride and tamsulosin
Problem #9: Depression/anxiety
Continue escitalopram and trazodone
Important imaging findings :
Chest x-ray on 06/12/2025:
FINDINGS: The lungs are hyperinflated compatible with emphysema. Stable vertical thin linear scar in the medial right apex.
No new lung parenchymal opacity is identified.
Cardiac silhouette size is slightly enlarged with no evidence for pulmonary edema or pleural effusion.
IMPRESSION:
Lungs appear hyperinflated, findings suggesting severe changes of emphysema.
No evidence for new lung parenchymal opacity.
Cardiac silhouette size is slightly enlarged with no evidence for pulmonary edema or pleural effusion.
Of note, given the findings of emphysema, the patient may meet criteria for CT lung screening program.
Procedure findings :
Discharge Plan
-
Patient Disposition: Snf/SNF
Discharge Diagnosis/Procedures: Acute COPD exacerbation
Condition: Fair
Diet: Regular and Low Cholesterol
Activity: As tolerated
Driving Restrictions: Not until seen by your Dr
Bathing Restrictions: OK to Shower
Blood Work: CBC and CMP in 1 week with PCP
Other Services: VN
Referrals:
Tere Vaelnzuela CRNP [Specified Professional Personl, Cardiology] - 07/11/25 1:40 pm
Kelsi Garcia MD, Resident [Family Provider, General] - in less than 1 week
Main,Fausat, MD [Active, Palliative Care] - in one week
Prescriptions:
New
ipratropium-albuterol 0.5 mg-3 mg(2.5 mg base)/3 mL Solution For Nebulization
3 ml inhalation R QID 30 Days Qty: 360 0RF
albuterol sulfate 2.5 mg /3 mL (0.083 %) Solution For Nebulization
2.5 mg inhalation R Q4HPRN PRN (Reason: shortness of breath) 30 Days Qty: 30 0RF
(DME) nebulizer accessories Kit
See Rx Instructions .Route Qty: 1 0RF
Rx Instructions:
As directed
azithromycin 500 mg tablet
500 mg PO .MWF 3 Days Qty: 9 0RF
Continued
atorvastatin 40 mg Tablet
40 mg PO HS
finasteride 5 mg Tablet
5 mg PO DAILY
Eliquis 5 mg Tablet
5 mg PO BID
acetaminophen [Tylenol] 325 mg Tablet
650 mg PO TID
trazodone 50 mg Tablet
12.5 mg PO HS
bismuth subsalicylate [Pepto-Bismol] 262 mg/15 mL Suspension
524 mg PO DAILYPRN PRN (Reason: stomach upset)
escitalopram oxalate 10 mg Tablet
10 mg PO DAILY
melatonin 5 mg Tablet
5 mg PO HS
tamsulosin 0.4 mg Capsule
0.4 mg PO DAILY Qty: 30 0RF
lidocaine 4 % adhesive patch,medicated
1 patch topical DAILY
Rx Instructions:
right butt check/lower back
furosemide [Lasix] 40 mg Tablet
40 mg PO DAILY@1400
budesonide 0.5 mg/2 mL Suspension For Nebulization
0.5 mg INHALATION R BID
arformoterol 15 mcg/2 mL Solution For Nebulization
15 mcg INHALATION R BID
magnesium oxide 400 mg magnesium Tablet
400 mg PO DAILY
pantoprazole 40 mg tablet,delayed release (DR/EC)
40 mg PO DAILY
lisinopril 10 mg tablet
10 mg PO DAILY
gabapentin 100 mg capsule
100 mg PO TID
Discontinued
metoprolol succinate 25 mg tablet extended release 24 hr
12.5 mg PO HS
Discharge Orders:
Discharge Patient (As Directed); Ordered 06/25/25
Ordered By: Fran Becker
Discharge Date and Time
Discharge Date/Time: 06/25/25 13:48
Print Language: YORUBA
== END 2025-06-25 13:48 | DRG 191 ==
LOC: 4 WEST ACU 08:25
PROVIDERS: Emergency Medicine; Nurse Practitioner Family; ADMITTING PHYSICIAN Hospitalist; ATTENDING PHYSICIAN Internal Medicine; CONSULT PHYSICIAN Internal Medicine; EMERGENCY PHYSICIAN Student in an Organized Health Care Education/Training Program; FAMILY PHYSICIAN Student in an Organized Health Care Education/Training Program
DX: J44.1 Chronic obstructive pulmonary disease with (acute) exacerbation (principal); I50.32 Chronic diastolic (congestive) heart failure; R64 Cachexia; Z68.1 Body mass index [BMI] 19.9 or less, adult; J96.11 Chronic respiratory failure with hypoxia; I48.0 Paroxysmal atrial fibrillation; I27.20 Pulmonary hypertension, unspecified; K21.9 Gastro-esophageal reflux disease without esophagitis; Z87.11 Personal history of peptic ulcer disease; N40.0 Benign prostatic hyperplasia without lower urinary tract symptoms; F41.9 Anxiety disorder, unspecified; F32.A Depression, unspecified; I11.0 Hypertensive heart disease with heart failure; Z99.81 Dependence on supplemental oxygen; E78.00 Pure hypercholesterolemia, unspecified; D64.9 Anemia, unspecified; J98.4 Other disorders of lung; Z87.891 Personal history of nicotine dependence; Z79.01 Long term (current) use of anticoagulants; Z79.51 Long term (current) use of inhaled steroids; Z79.899 Other long term (current) drug therapy; Z79.2 Long term (current) use of antibiotics; I95.1 Orthostatic hypotension; J43.9 Emphysema, unspecified
CPT/HCPCS: 71046; 80048; 80053; 83735; 84484; 85025; 85027; 87502; 87811; 93005; 94640; 97110; 97116; 97162; 97166; 97530; 97535; 99285